=== PATIENT | male | born 1940 | race Caucasian/White ===

== ENCOUNTER → 2020-07-31 08:45 | Outpatient (BNVA) | payer MEDICARE, SELFPAY | PROVIDERS: PCP Internal Medicine; Referring Provider Internal Medicine; Visit Provider Urology | DX: C67.9 Malignant neoplasm of bladder, unspecified (principal); N30.40 Irradiation cystitis without hematuria; R33.9 Retention of urine, unspecified; Z96.0 Presence of urogenital implants; Z85.46 Personal history of malignant neoplasm of prostate; Z92.3 Personal history of irradiation | CPT/HCPCS: 52000; 99212 ==

== ENCOUNTER → 2020-08-28 14:33 | Outpatient (BNVA) | payer MEDICARE, SELFPAY | PROVIDERS: PCP Internal Medicine; Referring Provider Internal Medicine; Visit Provider Urology | DX: N31.9 Neuromuscular dysfunction of bladder, unspecified (principal); C67.9 Malignant neoplasm of bladder, unspecified | CPT/HCPCS: 51701; 51702; 99212 ==

== ENCOUNTER → 2020-09-25 09:26 | Outpatient (BNVA) | payer MEDICARE, SELFPAY | PROVIDERS: PCP Internal Medicine; Referring Provider Internal Medicine; Visit Provider Urology | DX: Z76.89 Persons encountering health services in other specified circumstances (principal) | CPT/HCPCS: 51701; 99212 ==

== ENCOUNTER 2020-09-28 08:06 | Inpatient (IN) | payer MEDICARE, SELFPAY ==
[2020-09-28] VITALS (12 sets, daily range): BP systolic 134–166; BP diastolic 45–91; PULSE 59–71; RESP 13–65; TEMP 36.6–36.8; O2SAT 95–100; BMI 23.0
--- NOTE | 2020-09-28 08:56 | XR_ITS ---
EXAMINATION: XR CHEST CLINICAL INFORMATION: SOB and cough. COMPARISON: None TECHNIQUE: Frontal view of the chest was obtained. FINDINGS: The lungs are well-expanded with slight prominence of bilateral perihilar markings greater on the right but no infiltrate, opacity or pleural effusion seen. Heart size and pulmonary vascularity is normal. No gross bony abnormality seen. XR/XR chest 1V IMPRESSION: No acute pneumonic process. Nonspecific mild increase in bilateral hilar interstitial markings.
--- NOTE | 2020-09-28 08:57 | ECG_ITS ---
Test Reason : SOB Blood Pressure : / mmHG Vent. Rate : 070 BPM Atrial Rate : 074 BPM P-R Int : 000 ms QRS Dur : 076 ms QT Int : 420 ms P-R-T Axes : 000 057 070 degrees QTc Int : 453 ms Artifact in tracing with wandering baseline but suspect sinus rhythm Otherwise normal EKG When compared with ECG of 09-APR-2019 19:45, Current undetermined rhythm precludes rhythm comparison, needs review Referred By: Radha Patel Electronically Signed By:RENEE BROOKS
--- NOTE | 2020-09-28 09:38 | ED.GENADULT ---
HPI - General Adult General Chief complaint: General Medical Stated complaint: diff breathing, cough Time Seen by Provider: 09/28/20 08:56 Source: patient Mode of arrival: ambulatory Limitations: no limitations History of Present Illness HPI narrative: 80 y/o with history of HFpEF, colon cancer, prostate cancer s/p radiation, bladder cancer with bladder outlet obstruction, neurogenic bladder and chronic Rivera catheter who presents to ED from home with difficulty breathing, nausea, and weakness. He is a very poor historian. He reports decreased appetite and not being able to eat much in the last week or so. He was just seen in the Urology office on 09/25 and had his Rivera catheter exchanged. He denies abdominal pain, fevers, or Rivera issues after the exchange. He states he has a chronic cough that is worsening with things not tasting right for month. He also reports intermittent nose bleeds, last was yesterday and able to be controlled with direct pressure. MD complaint: weakness Onset (ago): week(s) (2) Severity: moderate Relieving factors: rest Exacerbating factors: movement Associated symptoms: cough, headaches, loss of appetite, malaise, nausea/vomiting, shortness of breath and weakness Treatments prior to arrival: none Related Data Home Medications Medication Instructions Recorded Confirmed furosemide 20 mg PO BID 09/28/20 09/28/20 metoprolol succinate 25 mg PO DAILY 09/28/20 09/28/20 simvastatin 20 mg PO DAILY 09/28/20 09/28/20 Allergies Allergy/AdvReac Type Severity Reaction Status Date / Time No Known Allergies Allergy Verified 07/31/20 09:06 [No Known Allergies*] Review of Systems Review of Systems: Constitutional: No Fever, No Chills ENT/Mouth: No sore throat, No Rhinorrhea, No Swallowing Difficulty, + nose bleeds Eyes: No Eye Pain, No Swelling, No Redness Cardiovascular: No Chest Pain, + SOB, No Orthopnea, No Edema Respiratory: N+ Cough, No Sputum, No Wheezing, + dyspnea Gastrointestinal: + Nausea, No Vomiting, No Diarrhea, No abdominal Pain, No Hematochezia, No Melena Genitourinary: No Dysuria, No Urinary Frequency, No Hematuria Musculoskeletal: No joint pain, No Myalgias Skin: No Skin Lesions, No rash Neuro: + Weakness, No Numbness, No Dizziness, No Headache Psych: No Anxiety/Panic, No Depression Heme/Lymph: No Bruising, No Lymphadenopathy Endocrine: No Polyuria, No Polydipsia [facility] Past Medical History Attestation statement: The following information was validated with the patient. Medical History Anal polyp Bladder outlet obstruction Diverticulitis large intestine Malignant neoplasm of sigmoid colon Personal history of colon cancer Tubular adenoma of colon Family History Family History (Updated 09/23/20 @ 10:43 by Melony Marx [facility]) Father No problems noted. Mother Family history of cervical cancer Social History Social History Alcohol intake: current Alcohol intake frequency: holidays/special occasions only Alcohol type: beer Smoking Status: Former smoker Use of substances other than those prescribed or required for medical reasons: No Advance Directives: No Advance Directives Information Provided: No Physical Exam Vital Signs: Vital Signs: Last Vital Signs Temp 97.8 F 09/28/20 16:02 Pulse 66 09/28/20 16:02 Resp 13 09/28/20 16:02 BP 150/56 H 09/28/20 16:02 Pulse Ox 95 09/28/20 15:57 Body Mass Index 23.0 Appearance: Alert. Oriented X3. No acute distress. Eyes: Pupils equal, round and reactive to light. Conjunctival pallor. ENT: Pharynx normal. Neck: Normal inspection. Neck supple. CVS: Irregularly irregular, normal rate. Pulses normal. Respiratory: No respiratory distress. Expiratory wheezes throughout right lung. Abdomen: Soft and nontender. +BS x4 KARLA: enlarged prostate, smooth, no bogginess or tenderness. stool light brown. heme negative. Skin: Skin warm and dry. Normal skin color. Normal skin turgor. No rashes. Extremities: No lower extremity edema. Rivera leg pab in place, urine is yellow. Neuro: Oriented X 3. Generalized weakness, non-focal. Stuttered speech at times. Course Reevaluation(s) Reevaluation #1: 10 am - labs show acute on chronic anemia with H/H 6.6/20.4 from a baseline of 9.5/28.7 back in March 2019. He reports history of anemia and being told he has low blood counts. The only other time he was given blood transfusion was when he had surgeries on his colon and bladder. He denies melena, hematuria, BRBPR. He reports occasional epistaxis at home. Not on anticoagulation. Heme negative stool on rectal exam. Etiology of acute on chronic anemia is unclear, possible slow loss with nose bleeds. Will check for hemolysis. - 2 units PRBC ordered and consent obtained. Will transfuse slowly given history of decompensated heart failure. Will require admission. Reevaluation #2: 10:40 am - labs now resultiong with significant acute renal failure with BUN/Cr 147/10.50, last SCr was 1.37 back in March 2019. He has an nion gap of 27 with bicarb of 8. Suspect due to severe uremia. He has Rivera in place with urine draining, Doubt obstructive uropathy. This is likely chronic and evolving over months given he his awake and alert. K+ 4.9. No emergent need for ENTER[employer]. Will get VBG to assess degree of metabolic acidosis, may need bicarb infusion. Suspect his anemia is due to his renal failure. CT scan of chest, abdomen and pelvis ordered. Also elevated DDIMER, this was initially checked as inflammatory marker of possible COVID-19 infection. It is markedly elevated at 2800. This is likely multifactorial. Doubt PE as his SOB can be explained with his acute anemia. He is not hypoxic or tachycardic. He is anemic and would not be an anticoagulation candidate at this time if he were to have a PE. However given his multiple cancers and increased risk for PE will proceed with VQ scan. Reevaluation #3: 12 pm - VBG showing significant metabolic acidosis: 7.16/23/85/8 . ordered for bicarb infusion, 3 amps in D5W. will trend VBG and d/c once pH >7.25. 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 Service is being contacted. Additional Reevaluation(s): 1:45 - spoke with Weight Loss Physician Dr. Agrawal who agrees with current management of bicarb gtt and PRBC transfusion. Avoiding diuretics at this time. Respiratory status is stable. They will follow along during admission. Hospitalist paged for admission. 2:30 - spoke with hospitalist re: admission - requesting repeat BMP ang VBG to ensure acidosis is improving prior to admission to floor. 3:30 - acidemia worsened to 7.14, bicarb infusion has NOT been started yet. Amp bicarb ordered and discussed starting gtt AHSAN with nursing. Case was discussed with Dr. Osorio who is not recommending ICU level of care at this time. Recommending repeat VBG once bicarb gtt has started. This was relayed to Shu Galdamez NP and will inform her of repeat labs. Signed out to Daphnie Ellsworth who will assume care Medical Decision Making Lab Data Result diagrams: 09/28/20 09:26 09/28/20 15:01 Labs: Lab Results 09/28/20 09/28/20 09/28/20 Range/Units 09:26 09:26 09:26 WBC 9.0 (4.8-10.8) X10*3/uL RBC 2.48 L (4.60-5.80) X10*6/uL Hgb 6.6 L* (14.0-18.0) g/dl Hct 20.4 L* (42-52) % MCV 82.3 (80-98) fL MCH 26.6 L (27.0-33.0) pg MCHC 32.4 (31.0-36.0) g/dl RDW 22.4 H (11.0-16.0) % Plt Count 492 H (160-400) X10*3/uL MPV 9.1 L (9.4-12.4) fL Immature Gran % (Auto) 0.6 H (0.0-0.4) % Neut % (Auto) 73.1 H (45-73) % Lymph % (Auto) 15.6 L (20-40) % [place] % (Auto) 8.8 (2-11) % Eos % (Auto) 1.1 (0-4) % Baso % (Auto) 0.8 (0-2) % Lymph # (Auto) 1.4 (1.2-4.9) X10*3/uL [place] # (Auto) 0.8 (0.1-1.2) X10*3/uL Eos # (Auto) 0.1 (0.0-0.4) X10*3/uL Baso # (Auto) 0.1 (0.0-0.2) X10*3/uL Abs Immat Gran (auto) 0.05 H (0.00-0.03) X10*3/uL Absolute Neuts (auto) 6.6 (2.0-8.3) X10*3/uL Absolute Nucleated RBC 0.000 (0.0-0.012) X10*3/uL Nucleated RBC % (auto) 0.0 (0.0-0.2) /100WBC Neutrophils % (Manual) 85 H (45-73) % Band Neutrophils % 1 L (3-5) % Lymphocytes % (Manual) 10 L (20-40) % Monocytes % (Manual) 4 (2-11) % Abs Neuts (Manual) 7.7 (2.2-7.9) X10*3/uL Lymphocytes # (Manual) 0.9 (0.6-4.8) X10*3/uL Monocytes # (Manual) 0.4 (0.0-1.2) X10*3/uL Platelet Estimate INCREASED (NORMAL) Plt Morphology Comment NORMAL RBC Morphology NOTED Hypochromasia 1+ Ovalocytes 1+ Christine Cells 3+ Acanthocytes (Spur) 3+ Schistocytes 2+ Absolute Retic 0.029 (0.026-0.095) X10*6/uL Percent Retic 1.2 (0.5-1.8) % Immature Retic Fraction 2.6 (2.3-13.4) % Retic Hgb Equivalent 30.4 (30.0-35.0) pg PT 12.6 (10.8-13.0) SEC INR 1.1 (0.9-1.1) D-Dimer 2582 NG/ML Hold Blue Top SEE NOTE VBG pH (7.32-7.43) VBG pCO2 mmhg VBG pO2 mmhg VBG HCO3 mmol/L VBG O2 Saturation % VBG Base Excess mmol/L Sodium 140 (135-145) mmol/L Potassium 4.9 (3.3-5.1) mmol/l Chloride 110 H (96-108) mmol/L Carbon Dioxide 8 L* (22-29) mmol/L Anion Gap 27 H (12-20) BUN 147 H* (9-16) mg/dL Creatinine 10.50 H* (0.5-1.4) mg/dL Estim Creat Clear Calc 6.2 Estimated GFR 5 Random Glucose 134 H (60-115) mg/dL Lactic Acid (0.5-2.0) mmol/L Calcium 7.6 L (8.4-10.2) mg/dL Magnesium 2.0 (1.6-2.6) mg/dL Total Bilirubin 0.3 (0.0-1.0) mg/dL Direct Bilirubin < 0.2 (0.0-0.5) mg/dL AST 10 (5-37) U/L ALT 10 (0-40) U/L Alkaline Phosphatase 73 (39-117) U/L Lactate Dehydrogenase 208 (118-273) U/L Troponin I High Sens (<3.5-35.0) ng/L C-Reactive Protein (< or = 0.50) mg/dL B-Natriuretic Peptide (<100) pg/mL Total Protein 6.8 (6.5-8.0) g/dL Albumin 3.9 (3.5-5.0) g/dL Lipase (8-78) U/L Procalcitonin ng/mL Urine Color Urine Appearance Urine pH (5.0-8.0) Ur Specific [place] (1.005-1.025) Urine Protein (NEG-TRACE) MG/DL Urine Glucose (UA) (NEG) MG/DL Urine Ketones (NEG) MG/DL Urine Blood (NEG) Urine Nitrite (NEG) Ur Leukocyte Esterase (NEG) Urine RBC (0) /HPF Urine WBC (0-4) /HPF Urine WBC Clumps Ur Squamous Epith Cells /LPF Urine Bacteria /LPF Urine Yeast /HPF Urine Osmolality (373-1093) mosm/kg Ur Random Sodium mmol/L Stool Occult Blood (NEG) Coronavirus (PCR) (Negative) Influenza Type A (PCR) (Negative) Influenza Type B (PCR) (Negative) RSV RNA Qual (PCR) (Negative) Blood Type Antibody Screen Crossmatch 09/28/20 09/28/20 09/28/20 Range/Units 09:26 09:26 09:26 WBC (4.8-10.8) X10*3/uL RBC (4.60-5.80) X10*6/uL Hgb (14.0-18.0) g/dl Hct (42-52) % MCV (80-98) fL MCH (27.0-33.0) pg MCHC (31.0-36.0) g/dl RDW (11.0-16.0) % Plt Count (160-400) X10*3/uL MPV (9.4-12.4) fL Immature Gran % (Auto) (0.0-0.4) % Neut % (Auto) (45-73) % Lymph % (Auto) (20-40) % [place] % (Auto) (2-11) % Eos % (Auto) (0-4) % Baso % (Auto) (0-2) % Lymph # (Auto) (1.2-4.9) X10*3/uL [place] # (Auto) (0.1-1.2) X10*3/uL Eos # (Auto) (0.0-0.4) X10*3/uL Baso # (Auto) (0.0-0.2) X10*3/uL Abs Immat Gran (auto) (0.00-0.03) X10*3/uL Absolute Neuts (auto) (2.0-8.3) X10*3/uL Absolute Nucleated RBC (0.0-0.012) X10*3/uL Nucleated RBC % (auto) (0.0-0.2) /100WBC Neutrophils % (Manual) (45-73) % Band Neutrophils % (3-5) % Lymphocytes % (Manual) (20-40) % Monocytes % (Manual) (2-11) % Abs Neuts (Manual) (2.2-7.9) X10*3/uL Lymphocytes # (Manual) (0.6-4.8) X10*3/uL Monocytes # (Manual) (0.0-1.2) X10*3/uL Platelet Estimate (NORMAL) Plt Morphology Comment RBC Morphology Hypochromasia Ovalocytes Reynolds Cells Acanthocytes (Spur) Schistocytes Absolute Retic (0.026-0.095) X10*6/uL Percent Retic (0.5-1.8) % Immature Retic Fraction (2.3-13.4) % Retic Hgb Equivalent (30.0-35.0) pg PT (10.8-13.0) SEC INR (0.9-1.1) D-Dimer NG/ML Hold Blue Top VBG pH (7.32-7.43) VBG pCO2 mmhg VBG pO2 mmhg VBG HCO3 mmol/L VBG O2 Saturation % VBG Base Excess mmol/L Sodium (135-145) mmol/L Potassium (3.3-5.1) mmol/l Chloride (96-108) mmol/L Carbon Dioxide (22-29) mmol/L Anion Gap (12-20) BUN (9-16) mg/dL Creatinine (0.5-1.4) mg/dL Estim Creat Clear Calc Estimated GFR Random Glucose (60-115) mg/dL Lactic Acid 1.1 (0.5-2.0) mmol/L Calcium (8.4-10.2) mg/dL Magnesium (1.6-2.6) mg/dL Total Bilirubin (0.0-1.0) mg/dL Direct Bilirubin (0.0-0.5) mg/dL AST (5-37) U/L ALT (0-40) U/L Alkaline Phosphatase (39-117) U/L Lactate Dehydrogenase (118-273) U/L Troponin I High Sens 107.9 H (<3.5-35.0) ng/L C-Reactive Protein 1.49 H (< or = 0.50) mg/dL B-Natriuretic Peptide 737 H (<100) pg/mL Total Protein (6.5-8.0) g/dL Albumin (3.5-5.0) g/dL Lipase 109 H (8-78) U/L Procalcitonin ng/mL Urine Color Urine Appearance Urine pH (5.0-8.0) Ur Specific [place] (1.005-1.025) Urine Protein (NEG-TRACE) MG/DL Urine Glucose (UA) (NEG) MG/DL Urine Ketones (NEG) MG/DL Urine Blood (NEG) Urine Nitrite (NEG) Ur Leukocyte Esterase (NEG) Urine RBC (0) /HPF Urine WBC (0-4) /HPF Urine WBC Clumps Ur Squamous Epith Cells /LPF Urine Bacteria /LPF Urine Yeast /HPF Urine Osmolality (373-1093) mosm/kg Ur Random Sodium mmol/L Stool Occult Blood (NEG) Coronavirus (PCR) (Negative) Influenza Type A (PCR) (Negative) Influenza Type B (PCR) (Negative) RSV RNA Qual (PCR) (Negative) Blood Type Antibody Screen Crossmatch 09/28/20 09/28/20 09/28/20 Range/Units 09:26 09:26 10:04 WBC (4.8-10.8) X10*3/uL RBC (4.60-5.80) X10*6/uL Hgb (14.0-18.0) g/dl Hct (42-52) % MCV (80-98) fL MCH (27.0-33.0) pg MCHC (31.0-36.0) g/dl RDW (11.0-16.0) % Plt Count (160-400) X10*3/uL MPV (9.4-12.4) fL Immature Gran % (Auto) (0.0-0.4) % Neut % (Auto) (45-73) % Lymph % (Auto) (20-40) % [place] % (Auto) (2-11) % Eos % (Auto) (0-4) % Baso % (Auto) (0-2) % Lymph # (Auto) (1.2-4.9) X10*3/uL [place] # (Auto) (0.1-1.2) X10*3/uL Eos # (Auto) (0.0-0.4) X10*3/uL Baso # (Auto) (0.0-0.2) X10*3/uL Abs Immat Gran (auto) (0.00-0.03) X10*3/uL Absolute Neuts (auto) (2.0-8.3) X10*3/uL Absolute Nucleated RBC (0.0-0.012) X10*3/uL Nucleated RBC % (auto) (0.0-0.2) /100WBC Neutrophils % (Manual) (45-73) % Band Neutrophils % (3-5) % Lymphocytes % (Manual) (20-40) % Monocytes % (Manual) (2-11) % Abs Neuts (Manual) (2.2-7.9) X10*3/uL Lymphocytes # (Manual) (0.6-4.8) X10*3/uL Monocytes # (Manual) (0.0-1.2) X10*3/uL Platelet Estimate (NORMAL) Plt Morphology Comment RBC Morphology Hypochromasia Ovalocytes Christine Cells Acanthocytes (Spur) Schistocytes Absolute Retic (0.026-0.095) X10*6/uL Percent Retic (0.5-1.8) % Immature Retic Fraction (2.3-13.4) % Retic Hgb Equivalent (30.0-35.0) pg PT (10.8-13.0) SEC INR (0.9-1.1) D-Dimer NG/ML Hold Blue Top VBG pH (7.32-7.43) VBG pCO2 mmhg VBG pO2 mmhg VBG HCO3 mmol/L VBG O2 Saturation % VBG Base Excess mmol/L Sodium (135-145) mmol/L Potassium (3.3-5.1) mmol/l Chloride (96-108) mmol/L Carbon Dioxide (22-29) mmol/L Anion Gap (12-20) BUN (9-16) mg/dL Creatinine (0.5-1.4) mg/dL Estim Creat Clear Calc Estimated GFR Random Glucose (60-115) mg/dL Lactic Acid (0.5-2.0) mmol/L Calcium (8.4-10.2) mg/dL Magnesium (1.6-2.6) mg/dL Total Bilirubin (0.0-1.0) mg/dL Direct Bilirubin (0.0-0.5) mg/dL AST (5-37) U/L ALT (0-40) U/L Alkaline Phosphatase (39-117) U/L Lactate Dehydrogenase (118-273) U/L Troponin I High Sens (<3.5-35.0) ng/L C-Reactive Protein (< or = 0.50) mg/dL B-Natriuretic Peptide (<100) pg/mL Total Protein (6.5-8.0) g/dL Albumin (3.5-5.0) g/dL Lipase (8-78) U/L Procalcitonin 0.44 ng/mL Urine Color Urine Appearance Urine pH (5.0-8.0) Ur Specific [place] (1.005-1.025) Urine Protein (NEG-TRACE) MG/DL Urine Glucose (UA) (NEG) MG/DL Urine Ketones (NEG) MG/DL Urine Blood (NEG) Urine Nitrite (NEG) Ur Leukocyte Esterase (NEG) Urine RBC (0) /HPF Urine WBC (0-4) /HPF Urine WBC Clumps Ur Squamous Epith Cells /LPF Urine Bacteria /LPF Urine Yeast /HPF Urine Osmolality (373-1093) mosm/kg Ur Random Sodium mmol/L Stool Occult Blood (NEG) Coronavirus (PCR) NEGATIVE (Negative) Influenza Type A (PCR) NEGATIVE (Negative) Influenza Type B (PCR) NEGATIVE (Negative) RSV RNA Qual (PCR) NEGATIVE (Negative) Blood Type B Positive Antibody Screen NEGATIVE Crossmatch See Detail 09/28/20 09/28/20 09/28/20 Range/Units 10:04 10:20 10:20 WBC (4.8-10.8) X10*3/uL RBC (4.60-5.80) X10*6/uL Hgb (14.0-18.0) g/dl Hct (42-52) % MCV (80-98) fL MCH (27.0-33.0) pg MCHC (31.0-36.0) g/dl RDW (11.0-16.0) % Plt Count (160-400) X10*3/uL MPV (9.4-12.4) fL Immature Gran % (Auto) (0.0-0.4) % Neut % (Auto) (45-73) % Lymph % (Auto) (20-40) % [place] % (Auto) (2-11) % Eos % (Auto) (0-4) % Baso % (Auto) (0-2) % Lymph # (Auto) (1.2-4.9) X10*3/uL [place] # (Auto) (0.1-1.2) X10*3/uL Eos # (Auto) (0.0-0.4) X10*3/uL Baso # (Auto) (0.0-0.2) X10*3/uL Abs Immat Gran (auto) (0.00-0.03) X10*3/uL Absolute Neuts (auto) (2.0-8.3) X10*3/uL Absolute Nucleated RBC (0.0-0.012) X10*3/uL Nucleated RBC % (auto) (0.0-0.2) /100WBC Neutrophils % (Manual) (45-73) % Band Neutrophils % (3-5) % Lymphocytes % (Manual) (20-40) % Monocytes % (Manual) (2-11) % Abs Neuts (Manual) (2.2-7.9) X10*3/uL Lymphocytes # (Manual) (0.6-4.8) X10*3/uL Monocytes # (Manual) (0.0-1.2) X10*3/uL Platelet Estimate (NORMAL) Plt Morphology Comment RBC Morphology Hypochromasia Ovalocytes Christine Cells Acanthocytes (Spur) Schistocytes Absolute Retic (0.026-0.095) X10*6/uL Percent Retic (0.5-1.8) % Immature Retic Fraction (2.3-13.4) % Retic Hgb Equivalent (30.0-35.0) pg PT (10.8-13.0) SEC INR (0.9-1.1) D-Dimer NG/ML Hold Blue Top VBG pH (7.32-7.43) VBG pCO2 mmhg VBG pO2 mmhg VBG HCO3 mmol/L VBG O2 Saturation % VBG Base Excess mmol/L Sodium (135-145) mmol/L Potassium (3.3-5.1) mmol/l Chloride (96-108) mmol/L Carbon Dioxide (22-29) mmol/L Anion Gap (12-20) BUN (9-16) mg/dL Creatinine (0.5-1.4) mg/dL Estim Creat Clear Calc Estimated GFR Random Glucose (60-115) mg/dL Lactic Acid (0.5-2.0) mmol/L Calcium (8.4-10.2) mg/dL Magnesium (1.6-2.6) mg/dL Total Bilirubin (0.0-1.0) mg/dL Direct Bilirubin (0.0-0.5) mg/dL AST (5-37) U/L ALT (0-40) U/L Alkaline Phosphatase (39-117) U/L Lactate Dehydrogenase (118-273) U/L Troponin I High Sens (<3.5-35.0) ng/L C-Reactive Protein (< or = 0.50) mg/dL B-Natriuretic Peptide (<100) pg/mL Total Protein (6.5-8.0) g/dL Albumin (3.5-5.0) g/dL Lipase (8-78) U/L Procalcitonin ng/mL Urine Color STRAW Urine Appearance HAZY Urine pH 5.5 (5.0-8.0) Ur Specific [place] 1.025 (1.005-1.025) Urine Protein 2+ H (NEG-TRACE) MG/DL Urine Glucose (UA) NEG (NEG) MG/DL Urine Ketones NEG (NEG) MG/DL Urine Blood 3+ H (NEG) Urine Nitrite NEG (NEG) Ur Leukocyte Esterase 2+ H (NEG) Urine RBC 5-9 H (0) /HPF Urine WBC TNTC H (0-4) /HPF Urine WBC Clumps NOTED Ur Squamous Epith Cells NONE /LPF Urine Bacteria 1+ /LPF Urine Yeast 1+ /HPF Urine Osmolality (373-1093) mosm/kg Ur Random Sodium 60.0 mmol/L Stool Occult Blood NEG (NEG) Coronavirus (PCR) (Negative) Influenza Type A (PCR) (Negative) Influenza Type B (PCR) (Negative) RSV RNA Qual (PCR) (Negative) Blood Type Antibody Screen Crossmatch 09/28/20 09/28/20 09/28/20 Range/Units 10:20 12:00 15:01 WBC (4.8-10.8) X10*3/uL RBC (4.60-5.80) X10*6/uL Hgb (14.0-18.0) g/dl Hct (42-52) % MCV (80-98) fL MCH (27.0-33.0) pg MCHC (31.0-36.0) g/dl RDW (11.0-16.0) % Plt Count (160-400) X10*3/uL MPV (9.4-12.4) fL Immature Gran % (Auto) (0.0-0.4) % Neut % (Auto) (45-73) % Lymph % (Auto) (20-40) % [place] % (Auto) (2-11) % Eos % (Auto) (0-4) % Baso % (Auto) (0-2) % Lymph # (Auto) (1.2-4.9) X10*3/uL [place] # (Auto) (0.1-1.2) X10*3/uL Eos # (Auto) (0.0-0.4) X10*3/uL Baso # (Auto) (0.0-0.2) X10*3/uL Abs Immat Gran (auto) (0.00-0.03) X10*3/uL Absolute Neuts (auto) (2.0-8.3) X10*3/uL Absolute Nucleated RBC (0.0-0.012) X10*3/uL Nucleated RBC % (auto) (0.0-0.2) /100WBC Neutrophils % (Manual) (45-73) % Band Neutrophils % (3-5) % Lymphocytes % (Manual) (20-40) % Monocytes % (Manual) (2-11) % Abs Neuts (Manual) (2.2-7.9) X10*3/uL Lymphocytes # (Manual) (0.6-4.8) X10*3/uL Monocytes # (Manual) (0.0-1.2) X10*3/uL Platelet Estimate (NORMAL) Plt Morphology Comment RBC Morphology Hypochromasia Ovalocytes Reynolds Cells Acanthocytes (Spur) Schistocytes Absolute Retic (0.026-0.095) X10*6/uL Percent Retic (0.5-1.8) % Immature Retic Fraction (2.3-13.4) % Retic Hgb Equivalent (30.0-35.0) pg PT (10.8-13.0) SEC INR (0.9-1.1) D-Dimer NG/ML Hold Blue Top VBG pH 7.16 L* (7.32-7.43) VBG pCO2 23 mmhg VBG pO2 85 mmhg VBG HCO3 8 mmol/L VBG O2 Saturation 94.1 % VBG Base Excess -19.0 mmol/L Sodium 139 (135-145) mmol/L Potassium 4.9 (3.3-5.1) mmol/l Chloride 113 H (96-108) mmol/L Carbon Dioxide 6 L* D (22-29) mmol/L Anion Gap 25 H (12-20) BUN 144 H* (9-16) mg/dL Creatinine 10.00 H* (0.5-1.4) mg/dL Estim Creat Clear Calc 6.5 Estimated GFR 5 Random Glucose 102 (60-115) mg/dL Lactic Acid (0.5-2.0) mmol/L Calcium 7.3 L (8.4-10.2) mg/dL Magnesium (1.6-2.6) mg/dL Total Bilirubin (0.0-1.0) mg/dL Direct Bilirubin (0.0-0.5) mg/dL AST (5-37) U/L ALT (0-40) U/L Alkaline Phosphatase (39-117) U/L Lactate Dehydrogenase (118-273) U/L Troponin I High Sens (<3.5-35.0) ng/L C-Reactive Protein (< or = 0.50) mg/dL B-Natriuretic Peptide (<100) pg/mL Total Protein (6.5-8.0) g/dL Albumin (3.5-5.0) g/dL Lipase (8-78) U/L Procalcitonin ng/mL Urine Color Urine Appearance Urine pH (5.0-8.0) Ur Specific [place] (1.005-1.025) Urine Protein (NEG-TRACE) MG/DL Urine Glucose (UA) (NEG) MG/DL Urine Ketones (NEG) MG/DL Urine Blood (NEG) Urine Nitrite (NEG) Ur Leukocyte Esterase (NEG) Urine RBC (0) /HPF Urine WBC (0-4) /HPF Urine WBC Clumps Ur Squamous Epith Cells /LPF Urine Bacteria /LPF Urine Yeast /HPF Urine Osmolality 365 L (373-1093) mosm/kg Ur Random Sodium mmol/L Stool Occult Blood (NEG) Coronavirus (PCR) (Negative) Influenza Type A (PCR) (Negative) Influenza Type B (PCR) (Negative) RSV RNA Qual (PCR) (Negative) Blood Type Antibody Screen Crossmatch 09/28/20 09/28/20 Range/Units 15:01 16:00 WBC (4.8-10.8) X10*3/uL RBC (4.60-5.80) X10*6/uL Hgb (14.0-18.0) g/dl Hct (42-52) % MCV (80-98) fL MCH (27.0-33.0) pg MCHC (31.0-36.0) g/dl RDW (11.0-16.0) % Plt Count (160-400) X10*3/uL MPV (9.4-12.4) fL Immature Gran % (Auto) (0.0-0.4) % Neut % (Auto) (45-73) % Lymph % (Auto) (20-40) % [place] % (Auto) (2-11) % Eos % (Auto) (0-4) % Baso % (Auto) (0-2) % Lymph # (Auto) (1.2-4.9) X10*3/uL [place] # (Auto) (0.1-1.2) X10*3/uL Eos # (Auto) (0.0-0.4) X10*3/uL Baso # (Auto) (0.0-0.2) X10*3/uL Abs Immat Gran (auto) (0.00-0.03) X10*3/uL Absolute Neuts (auto) (2.0-8.3) X10*3/uL Absolute Nucleated RBC (0.0-0.012) X10*3/uL Nucleated RBC % (auto) (0.0-0.2) /100WBC Neutrophils % (Manual) (45-73) % Band Neutrophils % (3-5) % Lymphocytes % (Manual) (20-40) % Monocytes % (Manual) (2-11) % Abs Neuts (Manual) (2.2-7.9) X10*3/uL Lymphocytes # (Manual) (0.6-4.8) X10*3/uL Monocytes # (Manual) (0.0-1.2) X10*3/uL Platelet Estimate (NORMAL) Plt Morphology Comment RBC Morphology Hypochromasia Ovalocytes Christine Cells Acanthocytes (Spur) Schistocytes Absolute Retic (0.026-0.095) X10*6/uL Percent Retic (0.5-1.8) % Immature Retic Fraction (2.3-13.4) % Retic Hgb Equivalent (30.0-35.0) pg PT (10.8-13.0) SEC INR (0.9-1.1) D-Dimer NG/ML Hold Blue Top VBG pH 7.14 L* (7.32-7.43) VBG pCO2 25 mmhg VBG pO2 80 mmhg VBG HCO3 8 mmol/L VBG O2 Saturation 93.3 % VBG Base Excess -19.3 mmol/L Sodium (135-145) mmol/L Potassium (3.3-5.1) mmol/l Chloride (96-108) mmol/L Carbon Dioxide (22-29) mmol/L Anion Gap (12-20) BUN (9-16) mg/dL Creatinine (0.5-1.4) mg/dL Estim Creat Clear Calc Estimated GFR Random Glucose (60-115) mg/dL Lactic Acid (0.5-2.0) mmol/L Calcium (8.4-10.2) mg/dL Magnesium (1.6-2.6) mg/dL Total Bilirubin (0.0-1.0) mg/dL Direct Bilirubin (0.0-0.5) mg/dL AST (5-37) U/L ALT (0-40) U/L Alkaline Phosphatase (39-117) U/L Lactate Dehydrogenase (118-273) U/L Troponin I High Sens 99.6 H (<3.5-35.0) ng/L C-Reactive Protein (< or = 0.50) mg/dL B-Natriuretic Peptide (<100) pg/mL Total Protein (6.5-8.0) g/dL Albumin (3.5-5.0) g/dL Lipase (8-78) U/L Procalcitonin ng/mL Urine Color Urine Appearance Urine pH (5.0-8.0) Ur Specific [place] (1.005-1.025) Urine Protein (NEG-TRACE) MG/DL Urine Glucose (UA) (NEG) MG/DL Urine Ketones (NEG) MG/DL Urine Blood (NEG) Urine Nitrite (NEG) Ur Leukocyte Esterase (NEG) Urine RBC (0) /HPF Urine WBC (0-4) /HPF Urine WBC Clumps Ur Squamous Epith Cells /LPF Urine Bacteria /LPF Urine Yeast /HPF Urine Osmolality (373-1093) mosm/kg Ur Random Sodium mmol/L Stool Occult Blood (NEG) Coronavirus (PCR) (Negative) Influenza Type A (PCR) (Negative) Influenza Type B (PCR) (Negative) RSV RNA Qual (PCR) (Negative) Blood Type Antibody Screen Crossmatch ECG Data Attestation: I personally reviewed and interpreted this ECG as follows: Interpretation: irregular rhythm consistent with atrial fibrillation, no p-waves appreciated, HR 70 bpm, no ST changes to suggest ischemia Discharge Plan Discharge Clinical Impression: Metabolic acidosis, Acute on chronic anemia Acute renal failure Qualifiers: Acute renal failure type: unspecified Qualified Code(s): N17.9 - Acute kidney failure, unspecified Patient Disposition: Admitted As Inpatient
[2020-09-28 09:40] LABS: MANUAL DIFF FLAG NO
[2020-09-28 09:41] LABS: Basophils Absolute Auto 0.1 X10*3/uL (0.0-0.2); Basophils Percent Auto 0.8 % (0-2); Eosinophils Absolute Auto 0.1 X10*3/uL (0.0-0.4); Eosinophils Percent Auto 1.1 % (0-4); Imm Gran Abs Auto 0.05 X10*3/uL (0.00-0.03); Imm Gran Pct Auto 0.6 % (0.0-0.4); Lymphocytes Absolute Auto 1.4 X10*3/uL (1.2-4.9); Lymphocytes Percent Auto 15.6 % (20-40); Mean Corpuscular HGB Conc 32.4 g/dl (31.0-36.0); Mean Corpuscular Hemoglobin 26.6 pg (27.0-33.0); Mean Corpuscular Volume 82.3 fL (80-98); Mean Platelet Volume 9.1 fL (9.4-12.4); Monocytes Absolute Auto 0.8 X10*3/uL (0.1-1.2); Monocytes Percent Auto 8.8 % (2-11); Neutrophils Absolute Auto 6.6 X10*3/uL (2.0-8.3); Neutrophils Percent Auto 73.1 % (45-73); Platelet Count 492 X10*3/uL (160-400); Red Blood Count 2.48 X10*6/uL (4.60-5.80); Red Cell Distribution Width 22.4 % (11.0-16.0)
[2020-09-28 09:49] LABS: Hematocrit 20.4 % (42-52); Hemoglobin 6.6 g/dl (14.0-18.0)
[2020-09-28 10:00] LABS: Lactic Acid 1.1 mmol/L (0.5-2.0)
[2020-09-28 10:06] LABS: Alanine Aminotransferase 10 U/L (0-40); Albumin Level 3.9 g/dL (3.5-5.0); Alkaline Phosphatase 73 U/L (39-117); Aspartate Amino Transferase 10 U/L (5-37); Bilirubin Direct < 0.2 mg/dL (0.0-0.5); Bilirubin Total 0.3 mg/dL (0.0-1.0); Total Protein 6.8 g/dL (6.5-8.0)
[2020-09-28 10:07] LABS: C Reactive Protein 1.49 mg/dL (< or = 0.50)
[2020-09-28 10:12] LABS: Troponin-I High Sensitivity 107.9 ng/L (<3.5-35.0)
[2020-09-28 10:14] LABS: Immature Retic Fraction 2.6 % (2.3-13.4); Retic HGB Equivalent 30.4 pg (30.0-35.0); Reticulocyte Percent 1.2 % (0.5-1.8); Reticulocytes Absolute 0.029 X10*6/uL (0.026-0.095)
[2020-09-28 10:15] LABS: Influenza A PCR NEGATIVE (Negative); Influenza B PCR NEGATIVE (Negative); Resp Syncy Virus RNA Qual PCR NEGATIVE (Negative); SARS COV2 PCR INHOUSE NEGATIVE (Negative)
[2020-09-28 10:17] LABS: Neutrophils Percent Manual 85 % (45-73)
[2020-09-28 10:18] LABS: Band Neutrophils Percent 1 % (3-5); Lymphocytes Absolute Manual 0.9 X10*3/uL (0.6-4.8); Lymphocytes Percent Manual 10 % (20-40); Monocytes Absolute Manual 0.4 X10*3/uL (0.0-1.2); Monocytes Percent Manual 4 % (2-11); Neutrophils Absolute Manual 7.7 X10*3/uL (2.2-7.9); RBC Morphology NOTED
[2020-09-28 10:19] LABS: Ovalocytes 1+
[2020-09-28 10:21] LABS: Acanthocytes 3+; Burr Cells 3+; Schistocytes 2+
[2020-09-28 10:22] LABS: Platelet Estimate INCREASED (NORMAL); Platelet Morphology Comment NORMAL
[2020-09-28 10:22] LABS: OBS Int Ctl Valid YES; OBS1 NEG (NEG)
[2020-09-28 10:23] LABS: Hypochromasia 1+
[2020-09-28 10:27] LABS: Anion Gap 27 (12-20); B Type Natriuretic Peptide 737 pg/mL (<100); Calcium 7.6 mg/dL (8.4-10.2); Chloride 110 mmol/L (96-108); D Dimer 2582 NG/ML; Glucose Random 134 mg/dL (60-115); Lipase 109 U/L (8-78); Potassium 4.9 mmol/l (3.3-5.1); Sodium 140 mmol/L (135-145)
[2020-09-28 10:29] LABS: Blood Urea Nitrogen 147 mg/dL (9-16); Carbon Dioxide 8 mmol/L (22-29); Creatinine Clr Calc Pharmacy 6.2; Estimated Glomerular Filt Rate 5
--- NOTE | 2020-09-28 10:29 | CT_ITS ---
EXAMINATION: CT CHEST AND CT ABDOMEN AND PELVIS WITHOUT CONTRAST. CLINICAL INFORMATION: Acute renal failure, nausea, acute anemia. COMPARISON: None TECHNIQUE: 5 mm thin axial and reformatted 3 mm thin sagittal and coronal images of chest were obtained without contrast. Subsequently 5 mm thin axial and reformatted 3 mm thin images of abdomen and pelvis were obtained. DLP [id number] FINDINGS: CHEST: The lungs are well-expanded and clear of acute pneumonic process. There are several 2-3 pulmonary nodules in the right upper lobe on axial image 75/7, 78/7, 79/7, 122/7, 2 mm calcified nodule right upper lobe image 158/7, 4 mm nodule right upper lobe axial image 162/7, 3 mm nodule right upper lobe image 174/7. There are several additional 1-2 mm nodules scattered in right upper lobe and left upper lobe, largest calcified nodule left upper lobe measures 3 mm axial image 131/7, 2 mm nodule left upper lobe axial image 259/7, 4 mm nodules pleural-based right lower lobe axial image 262/7, multiple new nodules right lower lobe, 4 mm ill-defined density left lower lobe image 373/7. There is no consolidation. The central trachea and the bronchi widely patent. There is moderate size left thyroid nodule with substernal extension. The nodule measures 3.4 x 3.7 cm on axial image 6/5. The heart size and the great vessels are normal caliber. No abnormal size mediastinal or hilar lymph nodes seen. There are coronary artery calcifications. No pericardial effusion seen. There is no pleural effusion, thickening or calcification. The axilla and the chest wall appears unremarkable. ABDOMEN AND PELVIS: The liver is homogeneous in density, normal size and contour. No focal lesion or intrahepatic ductal dilatation seen. There are no radiopaque gallstones or wall thickening. Visualized spleen, pancreas and bilateral adrenal glands are unremarkable. Both kidneys are normal size, shape and position. No radiopaque renal calculi or hydronephrosis seen. There is scattered stool seen in the colon without distention. The small bowel loops are normal caliber. There are postsurgical changes seen in the abdomen likely involving a loop of small bowel. It is patent. The abdominal aorta is normal caliber. There are small shotty lymph nodes in the mediastinum upper abdomen. The largest lymph node measuring 1 cm on axial image 27/11 Imaging through the pelvis reveals an enlarged left pelvic mass or lymph node measuring 3.9 x 4.0 cm axial image 55/11. In addition there is a larger hypodense lesion in between the iliacus and psoas muscle in the upper pelvis measuring 11 Hounsfield units. The lesion measures approximately 5.7 x 4.8 cm on axial image 50/11. There there is mild bladder wall thickening, decompressed with a Rivera's catheter within. There are surgical alcira or radiation beads in the prostate gland. The bladder is decompressed secondary to a Rivera's catheter within. Bone windows reveal degenerative disc changes almost every lumbar disc level with vacuum disc phenomena. There is ventral ventral spondylosis in dorsal and lumbar spine. CT/CT abdomen pelvis wo con IMPRESSION: Hyperinflated lungs with multiple bilateral pulmonary nodules in the range of 2 to 4 mm. No acute pneumonic consolidation. Enlarged left thyroid gland with substernal nodular extension mildly compressing the trachea but no major compromise. Left pelvic moderate size mass likely enlarged lymph node. Due to lack of IV contrast aneurysm should be considered in the differential diagnosis. There is a cystic lesion in between the iliac crest and psoas muscle in the left upper pelvis likely a seroma or lymphocele. This is a new finding since 2015 CT exam dated Rivera's catheter in an empty bladder. Minimal bladder wall thickening is suspected. There are surgical alcira the prostate bed question radiation beads versus postsurgical alcira. Correlate with clinical exam
[2020-09-28 10:42] LABS: Glucose Urine UA NEG (NEG); Leukocyte Esterase Urine 2+ (NEG); Nitrite Urine NEG (NEG); PH 5.5 (5.0-8.0); Specific Gravity - Urine 1.025 (1.005-1.025); Urine Blood 3+ (NEG); Urine Ketones NEG (NEG); Urine Protein 2+ MG/DL (NEG-TRACE)
[2020-09-28 10:44] LABS: Lactate Dehydrogenase 208 U/L (118-273)
[2020-09-28] MEDS: 0.9 % Sodium Chloride 1,000 ML 999 ML IVCONT (10:44)
[2020-09-28] MEDS: ondansetron HCL 4 MG/2 ML VIAL IVPUSH (10:48)
[2020-09-28 11:02] LABS: Procalcitonin 0.44 ng/mL
[2020-09-28 11:03] LABS: Appearance Urine HAZY; Color Urine STRAW
[2020-09-28 11:04] LABS: Bacteria Urine 1+ /LPF; WBC Urine TNTC /HPF (0-4)
[2020-09-28 11:05] LABS: WBC Clumps Urine NOTED
--- NOTE | 2020-09-28 11:51 | NM_ITS ---
EXAMINATION: NM LUNG IMAGE PERFUSION CLINICAL INFORMATION: SOB, elevated d-dimer. COMPARISON: Chest x-ray 09/28/2020 TECHNIQUE: Following intravenous administration of 4 mCi of 99m Tc MAA, imaging of both lungs are obtained in multiple projections. Ventilation study was not performed at FINDINGS: There is normal perfusion seen to all segments of both lungs no perfusion defects seen. No segmental or subsegmental defects seen. NM/NM pul perfusion IMPRESSION: Normal perfusion of both lungs.
[2020-09-28 12:07] LABS: HCO3 VBG 8 mmol/L; PCO2 VBG 23 mmhg; PO2 VBG 85 mmhg
[2020-09-28 12:08] LABS: Oxygen Saturation VBG 94.1 %
[2020-09-28 12:10] LABS: pH VBG 7.16 (7.32-7.43)
[2020-09-28 13:03] LABS: INTERNATIONAL NORM RATIO 1.1 (0.9-1.1); Prothrombin Time 12.6 SEC (10.8-13.0)
[2020-09-28 13:36] LABS: Osmolality Urine 365 mosm/kg (373-1093)
--- NOTE | 2020-09-28 14:13 | PC.NURSE ---
Blood remains infusing. Pt resting in bed with eyes closed.VSS
--- NOTE | 2020-09-28 15:13 | PC.NURSE ---
First unit of blood completed. Repeat labs drawn. Awaiting hospitalist consult at this time. Plan is for second unit of blood.
[2020-09-28 15:31] LABS: Base Excess VBG -19.3 mmol/L; HCO3 VBG 8 mmol/L; Oxygen Saturation VBG 93.3 %; PCO2 VBG 25 mmhg; PO2 VBG 80 mmhg
[2020-09-28 15:32] LABS: Blood Gas Serial # 5414
[2020-09-28 15:33] LABS: pH VBG 7.14 (7.32-7.43)
[2020-09-28] MEDS: Sodium Bicarbonate 8.4% 50 MEQ/50 ML SYRINGE IVPUSH (16:02)
[2020-09-28] MEDS: 0.9 % Sodium Chloride 1,000 ML 333 ML IVCONT (16:05)
[2020-09-28 16:08] LABS: Calcium 7.3 mg/dL (8.4-10.2); Glucose Random 102 mg/dL (60-115)
[2020-09-28 16:24] LABS: Anion Gap 25 (12-20); Blood Urea Nitrogen 144 mg/dL (9-16); Carbon Dioxide 6 mmol/L (22-29); Chloride 113 mmol/L (96-108); Creatinine Clr Calc Pharmacy 6.5; Estimated Glomerular Filt Rate 5; Potassium 4.9 mmol/l (3.3-5.1); Sodium 139 mmol/L (135-145)
[2020-09-28] MEDS: Sodium Bicarbonate 8.4% 150 MEQ in Dextrose 5 % 850 ML 100 MEQ IV (16:38)
[2020-09-28 16:47] LABS: Troponin-I High Sensitivity 99.6 ng/L (<3.5-35.0)
--- NOTE | 2020-09-28 18:12 | PC.NURSE ---
Second unit of blood given. Pt's lungs clear. VSS. Awaiting bed assignment for admission.
[2020-09-28 18:56] LABS: Base Excess VBG -17.6 mmol/L; HCO3 VBG 9 mmol/L; Oxygen Saturation VBG 99.1 %; PCO2 VBG 21 mmhg; PO2 VBG 240 mmhg; pH VBG 7.22 (7.32-7.43)
[2020-09-28 19:31] LABS: Anion Gap 25 (12-20); Calcium 6.8 mg/dL (8.4-10.2); Carbon Dioxide 7 mmol/L (22-29); Chloride 116 mmol/L (96-108); Creatinine Clr Calc Pharmacy 6.7; Estimated Glomerular Filt Rate 5; Glucose Random 105 mg/dL (60-115); Potassium 4.8 mmol/l (3.3-5.1); Sodium 143 mmol/L (135-145)
--- NOTE | 2020-09-28 20:49 | P.HPHOSP_ITS ---
History of Present Illness Date of Service: 09/28/20 Chief Complaint: cough, SOB on exertion This 80-year-old male with past medical history of bladder cancer, radiation cystitis, prostate cancer status post prostatectomy, hypertension, presents to the hospital with complaints of cough, and exertional shortness of breath. He is very difficult, grumpy and is not really giving a lot of accurate history. Patient reports that he has been having cough for 2-3 months and maybe longer, productive, associated with shortness of breath that has been progressively getting worse, he denies any chest pain, he denies any abdominal pain, no nausea or vomiting, no diarrhea constipation. He denies any melena or bright red blood per rectum. Patient reports that he has been blowing his nose and bleeding from his nose, when asked for how long he cant tell me exactly how many days as he doesnt keep count , he denies hematemesis or hemoptysis although says that the bleeding from his nose goes into his mouth and he spits it out. he says that he takes advil for general pain on/off , some days he takes 1 pill, some days he takes multiple but denies daily use. He denies orthopnea or PND. Has a chronic Rivera catheter in which was changed on the , with no complications. On arrival to the ED hemodynamically stable with vital significant for temp of 97.8?, respiratory rate of 14, heart rate of 65, blood pressure of 142/45, 95% on room air Labs are significant for WBC count of 9.0, hemoglobin of 6.6 last hemoglobin from 2019 of 9, hematocrit of 20.4, initial VBG on arrival showed a pH of 7.16, sodium of 143, potassium 4.8, chloride of 116, bicarb of 6, anion gap of 27, BUN of 147, creatinine of 10.5, high sensitivity troponin initially 107.9, repeat 99.6, BNP 737, Stool guaiac positive Chest CT shows hyperinflated lungs with multiple bilateral pulmonary nodules in the range of 2-4 mm. With no acute pneumonic consolidation Abdominal CT shows left pelvic moderate size mass likely enlarged lymph node. Due to lack of IV contrast aneurysm should be considered in differential diagnosis A cystic lesion in between the iliac crest and psoas muscle and the upper pelvis likely a seroma or lymphocele Rivera catheter an empty bladder, minimal bladder wall thickening. Past medical history: Prostate cancer status post prostatectomy, bladder cancer, bladder outlet obstruction status post chronic Rivera catheter, colon cancer status post colectomy, Surgical history: Prostatectomy, colectomy Family history: Denies What social history: Comes from home, denies tobacco alcohol or illicit drugs Review of Systems Review of Systems: Yes all other systems are reviewed and are negative [facility] Medical History Anal polyp Bladder outlet obstruction Diverticulitis large intestine Malignant neoplasm of sigmoid colon Personal history of colon cancer Tubular adenoma of colon Family History (Updated 09/23/20 @ 10:43 by Melony Marx Juanjo) Father No problems noted. Mother Family history of cervical cancer Social History Alcohol intake: current Alcohol intake frequency: holidays/special occasions only Alcohol type: beer Smoking Status: Former smoker Use of substances other than those prescribed or required for medical reasons: No Advance Directives: No Advance Directives Information Provided: No Meds Allergies Allergy/AdvReac Type Severity Reaction Status Date / Time No Known Allergies Allergy Verified 07/31/20 09:06 [No Known Allergies*] Home Medications Medication Instructions Recorded Confirmed Type furosemide 20 mg PO BID 09/28/20 09/28/20 History metoprolol succinate 25 mg PO DAILY 09/28/20 09/28/20 History simvastatin 20 mg PO DAILY 09/28/20 09/28/20 History Physical Exam Vital Signs and Narrative: Vital Signs: Last Vital Signs Temp 97.8 F 09/28/20 18:09 Pulse 64 09/28/20 18:09 Resp 18 09/28/20 18:09 BP 151/64 H 09/28/20 18:09 Pulse Ox 100 09/28/20 18:00 Body Mass Index 23.0 Const: Other: Uncooperative, General: no acute distress, alert and awake Orientation/consciousness: patient oriented x3 Limitations: no limitations Eyes: General: appearance normal, both eyes and all related structures Resp: Effort & Inspection: normal respiratory effort and able to speak in complete sentences Cardio: Rate: regular rate Rhythm: regular rhythm GI: Palpation (GI): Soft to palpation Auscultation: normal bowel sounds Skin: General skin exam: no rashes or lesions noted Neuro: General: patient oriented x3 Cognition (Neuro): normal cognition Extrem: General: Yes normal to inspection and Yes no pedal edema Results Labs CBC and Chem 7: 09/29/20 00:50 09/29/20 00:50 Labs: Laboratory Results - last 24 hr 09/28/20 09/28/20 09/28/20 09:26 09:26 09:26 MCV 82.3 MCH 26.6 L MCHC 32.4 RDW 22.4 H Plt Count 492 H MPV 9.1 L Immature Gran % (Auto) 0.6 H Neut % (Auto) 73.1 H Lymph % (Auto) 15.6 L Henry % (Auto) 8.8 Eos % (Auto) 1.1 Baso % (Auto) 0.8 Lymph # (Auto) 1.4 Henry # (Auto) 0.8 Eos # (Auto) 0.1 Baso # (Auto) 0.1 Abs Immat Gran (auto) 0.05 H Absolute Neuts (auto) 6.6 Absolute Nucleated RBC 0.000 Nucleated RBC % (auto) 0.0 Neutrophils % (Manual) 85 H Band Neutrophils % 1 L Lymphocytes % (Manual) 10 L Monocytes % (Manual) 4 Abs Neuts (Manual) 7.7 Lymphocytes # (Manual) 0.9 Monocytes # (Manual) 0.4 Platelet Estimate INCREASED Plt Morphology Comment NORMAL RBC Morphology NOTED Hypochromasia 1+ Ovalocytes 1+ [place] Cells 3+ Acanthocytes (Spur) 3+ Schistocytes 2+ Absolute Retic 0.029 Percent Retic 1.2 Immature Retic Fraction 2.6 Retic Hgb Equivalent 30.4 PT 12.6 INR 1.1 D-Dimer 2582 Hold Blue Top SEE NOTE VBG pH VBG pCO2 VBG pO2 VBG HCO3 VBG O2 Saturation VBG Base Excess Anion Gap 27 H Estim Creat Clear Calc 6.2 Estimated GFR 5 Random Glucose 134 H Lactic Acid Calcium 7.6 L Magnesium 2.0 Total Bilirubin 0.3 Direct Bilirubin < 0.2 AST 10 ALT 10 Alkaline Phosphatase 73 Lactate Dehydrogenase 208 Troponin I High Sens C-Reactive Protein B-Natriuretic Peptide Total Protein 6.8 Albumin 3.9 Lipase Procalcitonin Urine Color Urine Appearance Urine pH Ur Specific [place] Urine Protein Urine Glucose (UA) Urine Ketones Urine Blood Urine Nitrite Ur Leukocyte Esterase Urine RBC Urine WBC Urine WBC Clumps Ur Squamous Epith Cells Urine Bacteria Urine Yeast Urine Osmolality Ur Random Sodium Stool Occult Blood Coronavirus (PCR) Influenza Type A (PCR) Influenza Type B (PCR) RSV RNA Qual (PCR) Blood Type Antibody Screen Crossmatch 09/28/20 09/28/20 09/28/20 09:26 09:26 09:26 MCV MCH MCHC RDW Plt Count MPV Immature Gran % (Auto) Neut % (Auto) Lymph % (Auto) Henry % (Auto) Eos % (Auto) Baso % (Auto) Lymph # (Auto) Henry # (Auto) Eos # (Auto) Baso # (Auto) Abs Immat Gran (auto) Absolute Neuts (auto) Absolute Nucleated RBC Nucleated RBC % (auto) Neutrophils % (Manual) Band Neutrophils % Lymphocytes % (Manual) Monocytes % (Manual) Abs Neuts (Manual) Lymphocytes # (Manual) Monocytes # (Manual) Platelet Estimate Plt Morphology Comment RBC Morphology Hypochromasia Ovalocytes Christine Cells Acanthocytes (Spur) Schistocytes Absolute Retic Percent Retic Immature Retic Fraction Retic Hgb Equivalent PT INR D-Dimer Hold Blue Top VBG pH VBG pCO2 VBG pO2 VBG HCO3 VBG O2 Saturation VBG Base Excess Anion Gap Estim Creat Clear Calc Estimated GFR Random Glucose Lactic Acid 1.1 Calcium Magnesium Total Bilirubin Direct Bilirubin AST ALT Alkaline Phosphatase Lactate Dehydrogenase Troponin I High Sens 107.9 H C-Reactive Protein 1.49 H B-Natriuretic Peptide 737 H Total Protein Albumin Lipase 109 H Procalcitonin Urine Color Urine Appearance Urine pH Ur Specific [place] Urine Protein Urine Glucose (UA) Urine Ketones Urine Blood Urine Nitrite Ur Leukocyte Esterase Urine RBC Urine WBC Urine WBC Clumps Ur Squamous Epith Cells Urine Bacteria Urine Yeast Urine Osmolality Ur Random Sodium Stool Occult Blood Coronavirus (PCR) Influenza Type A (PCR) Influenza Type B (PCR) RSV RNA Qual (PCR) Blood Type Antibody Screen Crossmatch 09/28/20 09/28/20 09/28/20 09:26 09:26 10:04 MCV MCH MCHC RDW Plt Count MPV Immature Gran % (Auto) Neut % (Auto) Lymph % (Auto) Henry % (Auto) Eos % (Auto) Baso % (Auto) Lymph # (Auto) Henry # (Auto) Eos # (Auto) Baso # (Auto) Abs Immat Gran (auto) Absolute Neuts (auto) Absolute Nucleated RBC Nucleated RBC % (auto) Neutrophils % (Manual) Band Neutrophils % Lymphocytes % (Manual) Monocytes % (Manual) Abs Neuts (Manual) Lymphocytes # (Manual) Monocytes # (Manual) Platelet Estimate Plt Morphology Comment RBC Morphology Hypochromasia Ovalocytes [place] Cells Acanthocytes (Spur) Schistocytes Absolute Retic Percent Retic Immature Retic Fraction Retic Hgb Equivalent PT INR D-Dimer Hold Blue Top VBG pH VBG pCO2 VBG pO2 VBG HCO3 VBG O2 Saturation VBG Base Excess Anion Gap Estim Creat Clear Calc Estimated GFR Random Glucose Lactic Acid Calcium Magnesium Total Bilirubin Direct Bilirubin AST ALT Alkaline Phosphatase Lactate Dehydrogenase Troponin I High Sens C-Reactive Protein B-Natriuretic Peptide Total Protein Albumin Lipase Procalcitonin 0.44 Urine Color Urine Appearance Urine pH Ur Specific [place] Urine Protein Urine Glucose (UA) Urine Ketones Urine Blood Urine Nitrite Ur Leukocyte Esterase Urine RBC Urine WBC Urine WBC Clumps Ur Squamous Epith Cells Urine Bacteria Urine Yeast Urine Osmolality Ur Random Sodium Stool Occult Blood Coronavirus (PCR) NEGATIVE Influenza Type A (PCR) NEGATIVE Influenza Type B (PCR) NEGATIVE RSV RNA Qual (PCR) NEGATIVE Blood Type B Positive Antibody Screen NEGATIVE Crossmatch See Detail 09/28/20 09/28/20 09/28/20 10:04 10:20 10:20 MCV MCH MCHC RDW Plt Count MPV Immature Gran % (Auto) Neut % (Auto) Lymph % (Auto) Henry % (Auto) Eos % (Auto) Baso % (Auto) Lymph # (Auto) Henry # (Auto) Eos # (Auto) Baso # (Auto) Abs Immat Gran (auto) Absolute Neuts (auto) Absolute Nucleated RBC Nucleated RBC % (auto) Neutrophils % (Manual) Band Neutrophils % Lymphocytes % (Manual) Monocytes % (Manual) Abs Neuts (Manual) Lymphocytes # (Manual) Monocytes # (Manual) Platelet Estimate Plt Morphology Comment RBC Morphology Hypochromasia Ovalocytes Christine Cells Acanthocytes (Spur) Schistocytes Absolute Retic Percent Retic Immature Retic Fraction Retic Hgb Equivalent PT INR D-Dimer Hold Blue Top VBG pH VBG pCO2 VBG pO2 VBG HCO3 VBG O2 Saturation VBG Base Excess Anion Gap Estim Creat Clear Calc Estimated GFR Random Glucose Lactic Acid Calcium Magnesium Total Bilirubin Direct Bilirubin AST ALT Alkaline Phosphatase Lactate Dehydrogenase Troponin I High Sens C-Reactive Protein B-Natriuretic Peptide Total Protein Albumin Lipase Procalcitonin Urine Color STRAW Urine Appearance HAZY Urine pH 5.5 Ur Specific [place] 1.025 Urine Protein 2+ H Urine Glucose (UA) NEG Urine Ketones NEG Urine Blood 3+ H Urine Nitrite NEG Ur Leukocyte Esterase 2+ H Urine RBC 5-9 H Urine WBC TNTC H Urine WBC Clumps NOTED Ur Squamous Epith Cells NONE Urine Bacteria 1+ Urine Yeast 1+ Urine Osmolality Ur Random Sodium 60.0 Stool Occult Blood NEG Coronavirus (PCR) Influenza Type A (PCR) Influenza Type B (PCR) RSV RNA Qual (PCR) Blood Type Antibody Screen Crossmatch 09/28/20 09/28/20 09/28/20 10:20 12:00 15:01 MCV MCH MCHC RDW Plt Count MPV Immature Gran % (Auto) Neut % (Auto) Lymph % (Auto) Henry % (Auto) Eos % (Auto) Baso % (Auto) Lymph # (Auto) Henry # (Auto) Eos # (Auto) Baso # (Auto) Abs Immat Gran (auto) Absolute Neuts (auto) Absolute Nucleated RBC Nucleated RBC % (auto) Neutrophils % (Manual) Band Neutrophils % Lymphocytes % (Manual) Monocytes % (Manual) Abs Neuts (Manual) Lymphocytes # (Manual) Monocytes # (Manual) Platelet Estimate Plt Morphology Comment RBC Morphology Hypochromasia Ovalocytes [place] Cells Acanthocytes (Spur) Schistocytes Absolute Retic Percent Retic Immature Retic Fraction Retic Hgb Equivalent PT INR D-Dimer Hold Blue Top VBG pH 7.16 L* VBG pCO2 23 VBG pO2 85 VBG HCO3 8 VBG O2 Saturation 94.1 VBG Base Excess -19.0 Anion Gap 25 H Estim Creat Clear Calc 6.5 Estimated GFR 5 Random Glucose 102 Lactic Acid Calcium 7.3 L Magnesium Total Bilirubin Direct Bilirubin AST ALT Alkaline Phosphatase Lactate Dehydrogenase Troponin I High Sens C-Reactive Protein B-Natriuretic Peptide Total Protein Albumin Lipase Procalcitonin Urine Color Urine Appearance Urine pH Ur Specific [place] Urine Protein Urine Glucose (UA) Urine Ketones Urine Blood Urine Nitrite Ur Leukocyte Esterase Urine RBC Urine WBC Urine WBC Clumps Ur Squamous Epith Cells Urine Bacteria Urine Yeast Urine Osmolality 365 L Ur Random Sodium Stool Occult Blood Coronavirus (PCR) Influenza Type A (PCR) Influenza Type B (PCR) RSV RNA Qual (PCR) Blood Type Antibody Screen Crossmatch 09/28/20 09/28/20 09/28/20 15:01 16:00 18:44 MCV MCH MCHC RDW Plt Count MPV Immature Gran % (Auto) Neut % (Auto) Lymph % (Auto) Henry % (Auto) Eos % (Auto) Baso % (Auto) Lymph # (Auto) Henry # (Auto) Eos # (Auto) Baso # (Auto) Abs Immat Gran (auto) Absolute Neuts (auto) Absolute Nucleated RBC Nucleated RBC % (auto) Neutrophils % (Manual) Band Neutrophils % Lymphocytes % (Manual) Monocytes % (Manual) Abs Neuts (Manual) Lymphocytes # (Manual) Monocytes # (Manual) Platelet Estimate Plt Morphology Comment RBC Morphology Hypochromasia Ovalocytes Christine Cells Acanthocytes (Spur) Schistocytes Absolute Retic Percent Retic Immature Retic Fraction Retic Hgb Equivalent PT INR D-Dimer Hold Blue Top VBG pH 7.14 L* VBG pCO2 25 VBG pO2 80 VBG HCO3 8 VBG O2 Saturation 93.3 VBG Base Excess -19.3 Anion Gap 25 H Estim Creat Clear Calc 6.7 Estimated GFR 5 Random Glucose 105 Lactic Acid Calcium 6.8 L D Magnesium Total Bilirubin Direct Bilirubin AST ALT Alkaline Phosphatase Lactate Dehydrogenase Troponin I High Sens 99.6 H C-Reactive Protein B-Natriuretic Peptide Total Protein Albumin Lipase Procalcitonin Urine Color Urine Appearance Urine pH Ur Specific [place] Urine Protein Urine Glucose (UA) Urine Ketones Urine Blood Urine Nitrite Ur Leukocyte Esterase Urine RBC Urine WBC Urine WBC Clumps Ur Squamous Epith Cells Urine Bacteria Urine Yeast Urine Osmolality Ur Random Sodium Stool Occult Blood Coronavirus (PCR) Influenza Type A (PCR) Influenza Type B (PCR) RSV RNA Qual (PCR) Blood Type Antibody Screen Crossmatch 09/28/20 18:44 MCV MCH MCHC RDW Plt Count MPV Immature Gran % (Auto) Neut % (Auto) Lymph % (Auto) Henry % (Auto) Eos % (Auto) Baso % (Auto) Lymph # (Auto) Henry # (Auto) Eos # (Auto) Baso # (Auto) Abs Immat Gran (auto) Absolute Neuts (auto) Absolute Nucleated RBC Nucleated RBC % (auto) Neutrophils % (Manual) Band Neutrophils % Lymphocytes % (Manual) Monocytes % (Manual) Abs Neuts (Manual) Lymphocytes # (Manual) Monocytes # (Manual) Platelet Estimate Plt Morphology Comment RBC Morphology Hypochromasia Ovalocytes [place] Cells Acanthocytes (Spur) Schistocytes Absolute Retic Percent Retic Immature Retic Fraction Retic Hgb Equivalent PT INR D-Dimer Hold Blue Top VBG pH 7.22 L VBG pCO2 21 VBG pO2 240 VBG HCO3 9 VBG O2 Saturation 99.1 VBG Base Excess -17.6 Anion Gap Estim Creat Clear Calc Estimated GFR Random Glucose Lactic Acid Calcium Magnesium Total Bilirubin Direct Bilirubin AST ALT Alkaline Phosphatase Lactate Dehydrogenase Troponin I High Sens C-Reactive Protein B-Natriuretic Peptide Total Protein Albumin Lipase Procalcitonin Urine Color Urine Appearance Urine pH Ur Specific [place] Urine Protein Urine Glucose (UA) Urine Ketones Urine Blood Urine Nitrite Ur Leukocyte Esterase Urine RBC Urine WBC Urine WBC Clumps Ur Squamous Epith Cells Urine Bacteria Urine Yeast Urine Osmolality Ur Random Sodium Stool Occult Blood Coronavirus (PCR) Influenza Type A (PCR) Influenza Type B (PCR) RSV RNA Qual (PCR) Blood Type Antibody Screen Crossmatch Imaging Radiologist's Impressions: Impressions Chest X-Ray 09/28/20 08:56 IMPRESSION: No acute pneumonic process. Nonspecific mild increase in bilateral hilar interstitial markings. Abdomen/Pelvis CT 09/28/20 10:29 IMPRESSION: Hyperinflated lungs with multiple bilateral pulmonary nodules in the range of 2 to 4 mm. No acute pneumonic consolidation. Enlarged left thyroid gland with substernal nodular extension mildly compressing the trachea but no major compromise. Left pelvic moderate size mass likely enlarged lymph node. Due to lack of IV contrast aneurysm should be considered in the differential diagnosis. There is a cystic lesion in between the iliac crest and psoas muscle in the left upper pelvis likely a seroma or lymphocele. This is a new finding since 2014 CT exam dated Rivera's catheter in an empty bladder. Minimal bladder wall thickening is suspected. There are surgical alcira the prostate bed question radiation beads versus postsurgical alcira. Correlate with clinical exam Chest CT 09/28/20 10:29 IMPRESSION: Hyperinflated lungs with multiple bilateral pulmonary nodules in the range of 2 to 4 mm. No acute pneumonic consolidation. Enlarged left thyroid gland with substernal nodular extension mildly compressing the trachea but no major compromise. Left pelvic moderate size mass likely enlarged lymph node. Due to lack of IV contrast aneurysm should be considered in the differential diagnosis. There is a cystic lesion in between the iliac crest and psoas muscle in the left upper pelvis likely a seroma or lymphocele. This is a new finding since 2014 CT exam dated Rivera's catheter in an empty bladder. Minimal bladder wall thickening is suspected. There are surgical alcira the prostate bed question radiation beads versus postsurgical alcira. Correlate with clinical exam Assessment and Plan (1) Acute renal failure: Qualifiers: Acute renal failure type: unspecified Qualified Code(s): N17.9 - Acute kidney failure, unspecified Status: Acute (2) Metabolic acidosis: Status: Acute (3) Acute on chronic anemia: Status: Acute (4) Bladder cancer: Qualifiers: Bladder location: unspecified site Qualified Code(s): C67.9 - Malignant neoplasm of bladder, unspecified Status: Acute (5) UTI (urinary tract infection): Status: Acute This is a 80-year-old male with past medical history of bladder cancer, hypertension who presents to the hospital with cough, found to have anemia as well as FRANCHESKA # FRANCHESKA - unclear etiology, possibly secondary to Advil use - last creatinine from 2019 is 1.37, presented with a creatinine of 10.5 and significantly elevated BUN Plan: - urine studies - hold furosemide - IV fluids - nephrology consult - follow BMP # acute on chronic anemia -presented with a hemoglobin of 6.6, reports bleeding from the nose although not significant, denies any melena or bright red blood per rectum - stool guaiac negative - no elevated MCV - abdominal CT negative Plan: - status post 1 unit of PRBC - follow H&H closely - monitor for any GI bleed - haptoglobin, B12, folic acid were ordered - if organic causes ruled out, may need upper endoscopy/colonoscopy prior to discharge # metabolic acidosis - secondary to renal failure - started on bicarb drip after discussion with Nephrology - will continue to follow bicarb as well as VBG # UTI - has chronic Rivera secondary to neurogenic urinary bladder disorder - UA is positive for leukocyte Estrace and WBC Plan: - start ceftriaxone - follow cultures # cough - most likely secondary to pulmonary nodules - has no evident of fluid overload clinically or through imaging as CT scan shows pulmonary nodules with no pneumonic abnormality otherwise including congestion or pneumonia - COVID-19 PCR negative - not hypoxic - albuterol inhaler and monitor respiratory status # elevated troponin - most likely type 2 in the setting of FRANCHESKA - has no EKG changes - no delta # hypertension - continue metoprolol DVT prophylaxis: SCDs
[2020-09-28] MEDS: Lactated Ringers 1,000 ML 100 ML IVCONT (23:30)
[2020-09-29] VITALS (7 sets, daily range): BP systolic 117–135; BP diastolic 49–80; PULSE 50–96; RESP 13–18; TEMP 36.3–36.8; O2SAT 94–100
[2020-09-29] MEDS: cefTRIAXone sodium 1 GM in 0.9 % Sodium Chloride 50 ML IV ×2 (00:08→22:49)
[2020-09-29] MEDS: 0.9 % Sodium Chloride Flush 3 ML SYRINGE IVFLUSH (00:38)
[2020-09-29 00:59] LABS: Hematocrit 23.7 % (42-52); Hemoglobin 8.1 g/dl (14.0-18.0)
[2020-09-29 01:00] LABS: HCO3 VBG 10 mmol/L; PCO2 VBG 20 mmhg; PO2 VBG 69 mmhg; pH VBG 7.31 (7.32-7.43)
[2020-09-29 01:01] LABS: Oxygen Saturation VBG 91.9 %
[2020-09-29 01:46] LABS: Anion Gap 23 (12-20); Calcium 6.6 mg/dL (8.4-10.2); Carbon Dioxide 10 mmol/L (22-29); Chloride 114 mmol/L (96-108); Estimated Glomerular Filt Rate 5; Glucose Random 102 mg/dL (60-115); Potassium 4.3 mmol/l (3.3-5.1); Sodium 143 mmol/L (135-145)
[2020-09-29 01:57] LABS: Blood Urea Nitrogen 134 mg/dL (9-16)
[2020-09-29 05:51] LABS: Basophils Absolute Auto 0.1 X10*3/uL (0.0-0.2); Basophils Percent Auto 0.9 % (0-2); Eosinophils Absolute Auto 0.1 X10*3/uL (0.0-0.4); Eosinophils Percent Auto 1.3 % (0-4); Hematocrit 24.9 % (42-52); Hemoglobin 8.5 g/dl (14.0-18.0); Imm Gran Abs Auto 0.04 X10*3/uL (0.00-0.03); Imm Gran Pct Auto 0.4 % (0.0-0.4); Lymphocytes Absolute Auto 2.6 X10*3/uL (1.2-4.9); Lymphocytes Percent Auto 27.3 % (20-40); MANUAL DIFF FLAG NO; Mean Corpuscular HGB Conc 34.1 g/dl (31.0-36.0); Mean Corpuscular Hemoglobin 27.5 pg (27.0-33.0); Mean Corpuscular Volume 80.6 fL (80-98); Monocytes Percent Auto 10.4 % (2-11); Neutrophils Absolute Auto 5.8 X10*3/uL (2.0-8.3); Neutrophils Percent Auto 59.7 % (45-73); Platelet Count 392 X10*3/uL (160-400); Red Blood Count 3.09 X10*6/uL (4.60-5.80); Red Cell Distribution Width 19.4 % (11.0-16.0); White Blood Count 9.7 X10*3/uL (4.8-10.8)
[2020-09-29 06:30] LABS: Anion Gap 22 (12-20); Calcium 6.7 mg/dL (8.4-10.2); Carbon Dioxide 11 mmol/L (22-29); Chloride 113 mmol/L (96-108); Creatinine Clr Calc Pharmacy 7.1; Estimated Glomerular Filt Rate 6; Glucose Random 85 mg/dL (60-115); Potassium 4.1 mmol/l (3.3-5.1); Sodium 142 mmol/L (135-145)
[2020-09-29 06:35] LABS: Blood Urea Nitrogen 133 mg/dL (9-16)
[2020-09-29 07:36] LABS: Folate 4.2 ng/mL (> or = 4.0); Vitamin B12 911 pg/mL (200-900)
[2020-09-29] MEDS: Lactated Ringers 1,000 ML 100 ML IVCONT (07:57)
[2020-09-29] MEDS: Metoprolol Succinate ER 25 MG TAB.ER.24H PO (08:04)
[2020-09-29] MEDS: Atorvastatin Calcium 10 MG TABLET PO (08:04)
--- NOTE | 2020-09-29 09:42 | HO.PM.IMPN ---
Subjective Subjective Date of Service: 09/29/20 Interval History: cough Cardiovascular Cardiovascular: Reports no additional cardiovascular complaints Respiratory Respiratory: Reports no additional respiratory complaints Physical Exam Vital Signs: Vital Signs: Last Vital Signs Temp 97.4 F 09/29/20 02:21 Pulse 64 09/29/20 08:04 Resp 18 09/29/20 07:26 BP 134/63 09/29/20 08:04 Pulse Ox 94 09/29/20 07:26 Body Mass Index 23.0 General: AO X 3, no acute distress Resp: CTA bilateral CVS: S1,S2,RRR GI: soft, non tender, non distended Neuro: motor grossly intact Psych: appropriate affect Objective Data Current Medications Generic Name Dose Route Start Last Admin Trade Name Freq PRN Reason Stop Dose Admin Acetaminophen 650 mg 09/28/20 22:42 Acetaminophen 325 Mg Tablet PO Q6H PRN Pain, Mild (Pain Scale 1-3) Albuterol Sulfate 2 puff 09/29/20 05:51 Albuterol Sulfate 90 Mcg 8 Gm Inhaler INHALE RQ4H PRN Shortness of Breath/Wheezing Atorvastatin Calcium 10 mg 09/29/20 09:00 09/29/20 08:04 Atorvastatin Calcium 10 Mg Tablet PO 10 mg DAILY MATHEUS Administration Docusate Sodium 100 mg 09/28/20 22:42 Docusate Sodium 100 Mg Capsule PO DAILY PRN Constipation Lactated Ringer's 1,000 mls @ 100 mls/hr 09/28/20 22:42 09/29/20 07:57 Lr IVCONT 100 mls/hr .Q10H MATHEUS Administration Ceftriaxone Sodium 1 gm/ 50 mls @ 100 mls/hr 09/28/20 23:30 09/29/20 00:39 Sodium Chloride IV Infused Q24H MATHEUS Infusion Metoprolol Succinate 25 mg 09/29/20 09:00 09/29/20 08:04 Metoprolol Succinate Er 25 Mg Tab.Er.24h PO 25 mg DAILY MATHEUS Administration Protocol Ondansetron HCl 4 mg 09/28/20 22:42 Ondansetron Hcl 4 Mg/2 Ml Vial IVPUSH Q8H PRN Nausea and Vomiting Sodium Chloride 3 ml 09/29/20 00:00 09/29/20 07:56 0.9 % Sodium Chloride Flush 3 Ml Syringe IVFLUSH Not Given QSHIFT [facility] Labs CBC & Chem 7: 09/29/20 05:46 01/04/21 05:46 Microbiology Microbiology Results: Microbiology 09/28/20 00:00 Urine Rivera [place] Urine Culture - Final Assessment and Plan (1) Acute renal failure: Status: Acute (2) Metabolic acidosis: Status: Acute (3) Acute on chronic anemia: Status: Acute (4) Bladder cancer: Status: Acute (5) UTI (urinary tract infection): Status: Acute Assessment and Plan: 80M presented with cough and epistaxis, found to have severe FRANCHESKA FRANCHESKA with metabolic acidosis 2019 was 1.37 ivf nephro monitor unclear etiology, reports NSAID use but not daily acute anemia likely inflammatory monitor positive UA ceftriaxone pafib metoprolol not on AC due to concern over gi bleed chronic diastolic chf lasix on hold monitor fluids closely DVT prophylaxis: SCDs
[2020-09-29] MEDS: Sodium Bicarbonate 8.4% 150 MEQ in Dextrose 5 % 850 ML 100 MEQ IV (13:41)
[2020-09-29 14:29] LABS: Magnesium 1.6 mg/dL (1.6-2.6); Phosphorus 8.9 mg/dL (2.7-4.5)
--- NOTE | 2020-09-29 17:53 | P.CONNP_ITS ---
History of Present Illness Reason for Consult Consult date: 09/29/20 Chief Complaint Chief complaint: FRANCHESKA, Metabolic Acidosis, Anemia Review of Systems Review of Systems Yes all other systems are reviewed and are negative [facility] Past Medical History Medical History Anal polyp Bladder outlet obstruction Chronic diastolic (congestive) heart failure Diverticulitis large intestine Malignant neoplasm of sigmoid colon Mild pulmonary hypertension Paroxysmal atrial fibrillation Personal history of colon cancer Tubular adenoma of colon Family History Family History Father No problems noted. Mother Family history of cervical cancer Social History Social History Alcohol intake: current Alcohol intake frequency: holidays/special occasions only Alcohol type: beer Smoking Status: Former smoker Use of substances other than those prescribed or required for medical reasons: No Advance Directives: No Advance Directives Information Provided: No Meds Allergies Allergy/AdvReac Type Severity Reaction Status Date / Time No Known Allergies Allergy Verified 07/31/20 09:06 [No Known Allergies*] Home Medications Medication Instructions Recorded Confirmed Type furosemide 20 mg PO BID 09/28/20 09/28/20 History metoprolol succinate 25 mg PO DAILY 09/28/20 09/28/20 History simvastatin 20 mg PO DAILY 09/28/20 09/28/20 History Physical Exam Vital Signs: Last Vital Signs Temp 97.4 F 09/29/20 02:21 Pulse 70 09/29/20 16:40 Resp 18 09/29/20 16:40 BP 128/56 L 09/29/20 16:40 Pulse Ox 94 09/29/20 07:26 Body Mass Index 23.0 Const General: alert Orientation/consciousness: patient oriented x3 Neck Neck: Yes supple Resp Auscultation: diminished lung sounds Cardio Heart sounds: no rubs GI Palpation (GI): Soft to palpation Neuro General: patient oriented x3 Results Lab Results Result Diagrams: 09/29/20 05:46 09/29/20 05:46 Lab results: Chemistry 09/28/20 09/28/20 09/28/20 09:26 15:01 18:44 Sodium 140 139 143 Potassium 4.9 4.9 4.8 Carbon Dioxide 8 L* 6 L* D 7 L* BUN 147 H* 144 H* > 125 H* Creatinine 10.50 H* 10.00 H* 9.62 H* Calcium 7.6 L 7.3 L 6.8 L D Phosphorus 09/29/20 09/29/20 09/29/20 00:50 05:46 13:40 Sodium 143 142 Potassium 4.3 4.1 Carbon Dioxide 10 L* D 11 L BUN 134 H* 133 H* Creatinine 9.33 H* 9.16 H* Calcium 6.6 L 6.7 L Phosphorus 8.9 H Hematology 09/28/20 09/29/20 09/29/20 09:26 00:50 05:46 WBC 9.0 9.7 Hgb 6.6 L* 8.1 L D 8.5 L Plt Count 492 H 392 Urinalysis 09/28/20 10:20 Urine Color STRAW Urine Appearance HAZY Urine pH 5.5 Ur Specific [place] 1.025 Urine Protein 2+ H Urine Glucose (UA) NEG Urine Ketones NEG Urine Blood 3+ H Urine Nitrite NEG Ur Leukocyte Esterase 2+ H Urine RBC 5-9 H Urine WBC TNTC H Ur Squamous Epith Cells NONE Urine Studies 09/28/20 10:20 Urine Osmolality 365 L Assessment and Plan (1) Acute renal failure: Qualifiers: Acute renal failure type: unspecified Qualified Code(s): N17.9 - Acute kidney failure, unspecified Status: Acute Likely Acute on Chronic vs Advanced CKD No hydronephrosis on imaging Work up ordered; IV NaHCO3 started May need renal biospy and or renal replacement Shall closely follow up
[2020-09-29 18:03] LABS: Haptoglobin 270 mg/dL (43-212)
[2020-09-30] VITALS: BP 146/59; PULSE 80; RESP 16; TEMP 36.7; O2SAT 99
[2020-09-30] MEDS: 0.9 % Sodium Chloride Flush 3 ML SYRINGE IVFLUSH ×3 (00:42→19:51)
[2020-09-30 03:14] VITALS: BP 149/69; PULSE 61; RESP 16; TEMP 36.4; O2SAT 100
[2020-09-30] MEDS: Lactated Ringers 1,000 ML 100 ML IVCONT (06:40)
[2020-09-30 06:58] LABS: MANUAL DIFF FLAG NO
[2020-09-30 07:21] LABS: Basophils Absolute Auto 0.1 X10*3/uL (0.0-0.2); Basophils Percent Auto 1.4 % (0-2); Eosinophils Absolute Auto 0.2 X10*3/uL (0.0-0.4); Hematocrit 24.5 % (42-52); Hemoglobin 8.1 g/dl (14.0-18.0); Imm Gran Abs Auto 0.03 X10*3/uL (0.00-0.03); Imm Gran Pct Auto 0.3 % (0.0-0.4); Lymphocytes Absolute Auto 2.1 X10*3/uL (1.2-4.9); Lymphocytes Percent Auto 24.2 % (20-40); Mean Corpuscular HGB Conc 33.1 g/dl (31.0-36.0); Mean Corpuscular Hemoglobin 27.2 pg (27.0-33.0); Mean Corpuscular Volume 82.2 fL (80-98); Mean Platelet Volume 9.4 fL (9.4-12.4); Monocytes Absolute Auto 0.8 X10*3/uL (0.1-1.2); Monocytes Percent Auto 9.7 % (2-11); Neutrophils Absolute Auto 5.4 X10*3/uL (2.0-8.3); Neutrophils Percent Auto 62.4 % (45-73); Platelet Count 367 X10*3/uL (160-400); Red Blood Count 2.98 X10*6/uL (4.60-5.80); Red Cell Distribution Width 19.9 % (11.0-16.0); White Blood Count 8.7 X10*3/uL (4.8-10.8)
[2020-09-30 07:56] VITALS: BP 147/69; PULSE 60; RESP 20; TEMP 36.8; O2SAT 96
[2020-09-30 08:21] LABS: Anion Gap 24 (12-20); Blood Urea Nitrogen 124 mg/dL (9-16); Calcium 6.3 mg/dL (8.4-10.2); Carbon Dioxide 13 mmol/L (22-29); Chloride 110 mmol/L (96-108); Estimated Glomerular Filt Rate 6; Glucose Fasting 75 mg/dL (60-99); Sodium 143 mmol/L (135-145)
--- NOTE | 2020-09-30 08:30 | MHC.CM.PN ---
CM was unable to reach Patient by phone (Covjodie Hairston); CM spoke with [id number]/Ana. Patient lives alone in a condo and was functionally independent [employer]. Goal for dc is home with a new referral to [facility] [place],pending PT eval. CM has initiated and will follow for dc planning. Son/Serge is HCP and PCP is Dr. Gerardo Britt. IMM addressed with Ana and original will be mailed certified letter to her and a copy has been placed on the chart.
[2020-09-30 10:44] VITALS: BP 147/69; PULSE 60
[2020-09-30] MEDS: Metoprolol Succinate ER 25 MG TAB.ER.24H PO (10:44)
[2020-09-30] MEDS: Atorvastatin Calcium 10 MG TABLET PO (10:44)
--- NOTE | 2020-09-30 10:54 | HO.PM.IMPN ---
Subjective Subjective Date of Service: 09/30/20 Interval History: still with occasional cough Cardiovascular Cardiovascular: Reports no additional cardiovascular complaints Gastrointestinal Gastrointestinal: Reports no additional gastrointestinal complaints Physical Exam Vital Signs: Vital Signs: Last Vital Signs Temp 98.2 F 09/30/20 07:56 Pulse 60 09/30/20 10:44 Resp 20 09/30/20 07:56 BP 147/69 H 09/30/20 10:44 Pulse Ox 96 09/30/20 07:56 Body Mass Index 23.0 General: AO X 3, no acute distress Resp: CTA bilateral CVS: S1,S2,RRR GI: soft, non tender, non distended Neuro: motor grossly intact Psych: appropriate affect Objective Data Current Medications Generic Name Dose Route Start Last Admin Trade Name Freq PRN Reason Stop Dose Admin Acetaminophen 650 mg 09/28/20 22:42 Acetaminophen 325 Mg Tablet PO Q6H PRN Pain, Mild (Pain Scale 1-3) Albuterol Sulfate 2 puff 09/29/20 05:51 Albuterol Sulfate 90 Mcg 8 Gm Inhaler INHALE RQ4H PRN Shortness of Breath/Wheezing Atorvastatin Calcium 10 mg 09/29/20 09:00 09/30/20 10:44 Atorvastatin Calcium 10 Mg Tablet PO 10 mg DAILY MATHEUS Administration Docusate Sodium 100 mg 09/28/20 22:42 Docusate Sodium 100 Mg Capsule PO DAILY PRN Constipation Ceftriaxone Sodium 1 gm/ 50 mls @ 100 mls/hr 09/28/20 23:30 09/30/20 00:06 Sodium Chloride IV Infused Q24H MATHEUS Infusion Sodium Bicarbonate 150 meq/ 1,000 mls @ 100 mls/hr 09/30/20 10:15 Dextrose IV 10/02/20 10:00 .Q10H MATHEUS Metoprolol Succinate 25 mg 09/29/20 09:00 09/30/20 10:44 Metoprolol Succinate Er 25 Mg Tab.Er.24h PO 25 mg DAILY MATHEUS Administration Protocol Ondansetron HCl 4 mg 09/28/20 22:42 Ondansetron Hcl 4 Mg/2 Ml Vial IVPUSH Q8H PRN Nausea and Vomiting Sodium Chloride 3 ml 09/29/20 00:00 09/30/20 10:45 0.9 % Sodium Chloride Flush 3 Ml Syringe IVFLUSH 3 ml QSHIFT MATHEUS Administration Labs CBC & Chem 7: 09/30/20 05:43 09/30/20 05:43 Microbiology Microbiology Results: Microbiology 09/28/20 10:04 Blood - Venous Blood Culture - Preliminary No growth after 24 hours. 09/28/20 09:26 Blood - Venous Blood Culture - Preliminary No growth after 24 hours. 09/28/20 00:00 Urine [place] Urine Culture - Final Assessment and Plan (1) Acute renal failure: Status: Acute (2) Metabolic acidosis: Status: Acute (3) Acute on chronic anemia: Status: Acute (4) Bladder cancer: Status: Acute (5) UTI (urinary tract infection): Status: Acute Assessment and Plan: 80M presented with cough and epistaxis, found to have severe FRANCHESKA FRANCHESKA with metabolic acidosis 2019 was 1.37 iv bicarb nephro following monitor unclear etiology, work up in progress, may need biopsy acute anemia likely inflammatory monitor positive UA cultures negative, doubt uti, will dc antibiotics pafib metoprolol not on AC due to concern over gi bleed chronic diastolic chf lasix on hold monitor fluids closely DVT prophylaxis: SCDs
[2020-09-30 12:00] VITALS: BP 127/51; PULSE 560; RESP 18; TEMP 36.2; O2SAT 96
[2020-09-30] MEDS: Sodium Bicarbonate 8.4% 150 MEQ in Dextrose 5 % 850 ML 100 MEQ IV ×2 (13:23→19:45)
[2020-09-30 13:47] LABS: Haptoglobin 230 mg/dL (43-212)
[2020-09-30 15:23] LABS: Prot Elec - Albumin 2.7 g/dL (3.8-4.8); Prot Elec - Alpha1 0.4 g/dL (0.2-0.3); Prot Elec - Alpha2 0.7 g/dL (0.5-0.9); Prot Elec - Beta 1 0.3 g/dL (0.4-0.6); Prot Elec - Beta 2 0.3 g/dL (0.2-0.5); Prot Elec - Gamma 0.8 g/dL (0.8-1.7); Prot Elec - Total Protein 5.2 g/dL (6.1-8.1)
--- NOTE | 2020-09-30 17:46 | PM.PNNEP ---
Subjective Subjective Date of Service: 09/30/20 Interval history: still with occasional cough; Seen and examined. Events noted. All recent data reviewed Physical Exam Vital Signs: Vital Signs: Last Vital Signs Temp 97.2 F 09/30/20 12:00 Pulse 560 H 09/30/20 12:00 Resp 18 09/30/20 12:00 BP 127/51 L 09/30/20 12:00 Pulse Ox 96 09/30/20 12:00 Body Mass Index 23.0 Const: General: no acute distress Orientation/consciousness: patient oriented x3 Neck: Neck: Yes supple Resp: Auscultation: diminished lung sounds Cardio: Heart sounds: no rubs GI: Palpation (GI): Soft to palpation Skin: General skin exam: no rashes or lesions noted Neuro: General: patient oriented x3 and moves all extremities Objective Data Labs CBC & Chem 7: 09/30/20 05:43 09/30/20 05:43 Labs: Laboratory Results - last 24 hr 09/28/20 09/29/20 09/29/20 09:26 00:50 13:40 WBC RBC Hgb Hct MCV MCH MCHC RDW Plt Count MPV Immature Gran % (Auto) Neut % (Auto) Lymph % (Auto) [place] % (Auto) Eos % (Auto) Baso % (Auto) Lymph # (Auto) [place] # (Auto) Eos # (Auto) Baso # (Auto) Abs Immat Gran (auto) Absolute Neuts (auto) Absolute Nucleated RBC Nucleated RBC % (auto) Haptoglobin 270 H 230 H Sodium Potassium Chloride Carbon Dioxide Anion Gap BUN Creatinine Estim Creat Clear Calc Estimated GFR Fasting Glucose Calcium Total Protein (PEP) 5.2 L Albumin (PEP) 2.7 L Aphet-4-Gwydmulkj 0.4 H Bxsyl-8-Eyweyrxvl 0.7 Dxpv-0-Egqnlfyi 0.3 L Vqfp-9-Jrvlzews 0.3 Gamma Globulins 0.8 Abnorm Protein Band 1 SEE NOTE PEP Interpretation SEE NOTE 09/30/20 09/30/20 05:43 05:43 WBC 8.7 RBC 2.98 L Hgb 8.1 L Hct 24.5 L MCV 82.2 MCH 27.2 MCHC 33.1 RDW 19.9 H Plt Count 367 MPV 9.4 Immature Gran % (Auto) 0.3 Neut % (Auto) 62.4 Lymph % (Auto) 24.2 [place] % (Auto) 9.7 Eos % (Auto) 2.0 Baso % (Auto) 1.4 Lymph # (Auto) 2.1 [place] # (Auto) 0.8 Eos # (Auto) 0.2 Baso # (Auto) 0.1 Abs Immat Gran (auto) 0.03 Absolute Neuts (auto) 5.4 Absolute Nucleated RBC 0.000 Nucleated RBC % (auto) 0.0 Haptoglobin Sodium 143 Potassium 4.0 Chloride 110 H Carbon Dioxide 13 L Anion Gap 24 H BUN 124 H* Creatinine 9.27 H* Estim Creat Clear Calc 7.0 Estimated GFR 6 Fasting Glucose 75 Calcium 6.3 L Total Protein (PEP) Albumin (PEP) Uqbla-1-Tkximgzvz Nsvww-1-Nmpmlgjgb Eshe-4-Pglbblxr Umxz-2-Rlbccqsx Gamma Globulins Abnorm Protein Band 1 PEP Interpretation Microbiology Microbiology Results: Microbiology 09/28/20 10:04 Blood - Venous Blood Culture - Preliminary No growth after 48 hours. 09/28/20 09:26 Blood - Venous Blood Culture - Preliminary No growth after 48 hours. 09/28/20 00:00 Urine [place] Urine Culture - Final Assessment & Plan Assessment and plan (1) Acute renal failure: Problem details: FRANCHESKA on CKD vs progression of CKD Differential broad; Normal sized kidneys on imaging ANCA, SPEP, PTH etc pending; Acidotic- Started on NaHCO3 IV Urine output good; Has a catheter; No uremic symptoms No indications for HD today; Likely will need renal biospsy Labs AM. Shall closely follow up Status: Acute Time Spent With Patient Time: Total time spent is greater than 50% in coordination of care (as documented) at patient's floor/unit and/or counseling patient:
[2020-09-30 19:55] VITALS: BP 132/72; PULSE 138; RESP 18; TEMP 36.6; O2SAT 99
--- NOTE | 2020-09-30 22:42 | CA_ITS ---
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 - Spectral Doppler is indicative of a pseudonormal filling pattern. E/E prime ratio is between 8 and 15 consistent with indeterminate filling pressures. - Mildly increased right ventricular cavity size. There is normal right ventricular systolic function. - The left atrium is moderately dilated. - Normal right atrial pressure. Mild pulmonary hypertension is present. Findings Left Ventricle Normal left ventricular size and systolic function. There is mildly increased left ventricular wall thickness. The visually estimated ejection fraction is between 55-60%. There is no evidence of regional wall motion abnormalities. Abnormal diastolic function is noted. Spectral Doppler is indicative of a pseudonormal filling pattern. E/E prime ratio is between 8 and 15 consistent with indeterminate filling pressures. Right Ventricle Mildly increased right ventricular cavity size. There is normal right ventricular systolic function. Atria The left atrium is moderately dilated. Aortic Valve There is a normal trileaflet aortic valve. There is no aortic valve stenosis. There is mild aortic valve regurgitation. Mitral Valve The mitral valve appears normal. There is mild to moderate mitral valve regurgitation. There is no mitral valve stenosis. Tricuspid Valve Normal tricuspid valve structure and function. There is mild tricuspid valve regurgitation. Normal right atrial pressure. Mild pulmonary hypertension is present. Great Vessels All visible segments of the aorta are normal in size. The pulmonary artery was not well visualized. Venous The inferior vena cava is normal in size and collapses greater than 50% with inspiration. Pericardium/Pleural There is no evidence of pericardial effusion. Prior Study Comparison No prior study available for comparison. Measurements 2D Linear Measurements IVSd: 1.16 0.6-0.9/0.6-1.0 cm LVIDd: 4.70 3.9-5.3/4.2-5.9 cm LVIDd Index: 2.36 2.4-3.2/2.2-3.1 cm/m2 LVIDs: 2.87 2.0-3.6 cm LVPWd: 1.13 0.7-1.1 cm Ao Root: 3.40 2.1-3.5 cm LA Diam: 5.00 2.7-3.8/3.0-4.0 cm LAIDs Index: 2.51 1.5-2.3 cm/m2 LV Mass: 247.22 67-162/88-224 g LV Mass Index: 124.23 43-95/49-115 g/m2 LVOT Diam: 2.10 3.0+(-)1.3 cm 2D Systolic Function EF 4C: 68.20 >55% EF 2C: 61.90 >55% EF BiP: 64.40 >55% Mitral Valve MV Pk E: 0.43 MV PK A: 0.64 MV Decel Time: 155.00 E/A: 0.70 E'Lateral: 6.48 E'Medial: 7.83 E/E' Med: 10.80 E/E' Lat: 13.00 PHT: 45.00 MVA PHT: 4.89 Decel Mower: 5.45 Aortic Valve AoV Pk Redd: 1.39 AoV Mn Redd: 0.88 AoV VTI: 0.37 AoV Pk Grad: 8.00 Aov Mn Grad: 4.00 ALEXANDER Cont.VTI: 2.83 LVOT LVOT Pk Redd: 1.06 LVOT Mn Redd: 0.65 LVOT VTI: 0.30 LVOT Pk Grad: 4.00 LVOT Mn Grad: 2.00 LVOT Diam: 2.10 LVOT Area: 3.46 Diastolic Function MV Pk E: 0.43 MV Pk A: 0.64 E/A: 0.70 E'Medial: 7.83 E/E' Med: 10.80 E' Laterial: 6.48 E/E' Lat: 13.00 Tricuspid Valve TR Pk Redd: 2.92 TR Pk Grad: 34.00 RVSP: 37.00 Great Vessels Aorta Ao Root-2D: 3.40 2.0-3.7 cm Ao Asc: 3.30 2.1-3.4 cm Pulmonary Valve PV Pk Redd: 0.88 Peak PV Grad: 3.00 Updated in Other Vendor System with Status of Final Rohith Ureña MD electronically signed on 10/01/2020 2:36:15 PM with status of Final
[2020-10-01] VITALS (7 sets, daily range): BP systolic 125–163; BP diastolic 55–82; PULSE 57–72; RESP 15–20; TEMP 36.4–37.2; O2SAT 95–100
[2020-10-01] MEDS: Sodium Bicarbonate 8.4% 150 MEQ in Dextrose 5 % 850 ML 100 MEQ IV ×2 (00:35→10:07)
[2020-10-01 06:21] LABS: MANUAL DIFF FLAG NO
[2020-10-01 06:48] LABS: Basophils Absolute Auto 0.1 X10*3/uL (0.0-0.2); Eosinophils Absolute Auto 0.2 X10*3/uL (0.0-0.4); Eosinophils Percent Auto 2.1 % (0-4); Hematocrit 23.5 % (42-52); Hemoglobin 7.9 g/dl (14.0-18.0); Imm Gran Abs Auto 0.03 X10*3/uL (0.00-0.03); Imm Gran Pct Auto 0.3 % (0.0-0.4); Mean Corpuscular HGB Conc 33.6 g/dl (31.0-36.0); Mean Corpuscular Hemoglobin 27.2 pg (27.0-33.0); Mean Platelet Volume 9.5 fL (9.4-12.4); Monocytes Absolute Auto 0.8 X10*3/uL (0.1-1.2); Monocytes Percent Auto 9.4 % (2-11); Neutrophils Absolute Auto 5.5 X10*3/uL (2.0-8.3); Neutrophils Percent Auto 64.2 % (45-73); Platelet Count 336 X10*3/uL (160-400); White Blood Count 8.6 X10*3/uL (4.8-10.8)
[2020-10-01 07:13] LABS: Anion Gap 24 (12-20); Calcium 6.1 mg/dL (8.4-10.2); Carbon Dioxide 17 mmol/L (22-29); Chloride 105 mmol/L (96-108); Glucose Fasting 119 mg/dL (60-99); Potassium 3.6 mmol/l (3.3-5.1); Sodium 142 mmol/L (135-145)
[2020-10-01 07:25] LABS: Blood Urea Nitrogen 119 mg/dL (9-16); Creatinine Clr Calc Pharmacy 7.8; Estimated Glomerular Filt Rate 6
[2020-10-01] MEDS: Atorvastatin Calcium 10 MG TABLET PO (09:05)
[2020-10-01] MEDS: Metoprolol Succinate ER 25 MG TAB.ER.24H PO (09:05)
--- NOTE | 2020-10-01 11:40 | P.PNIM_ITS ---
Subjective Subjective Date of Service: 10/01/20 Interval History: no complaints Cardiovascular Cardiovascular: Reports no additional cardiovascular complaints Gastrointestinal Gastrointestinal: Reports no additional gastrointestinal complaints Physical Exam Vital Signs: Vital Signs: Last Vital Signs Temp 98.6 F 10/01/20 11:08 Pulse 63 10/01/20 11:08 Resp 20 10/01/20 11:08 BP 125/57 L 10/01/20 11:08 Pulse Ox 100 10/01/20 11:08 Body Mass Index 23.0 General: AO X 3, no acute distress Resp: CTA bilateral CVS: S1,S2,RRR GI: soft, non tender, non distended Neuro: motor grossly intact Psych: appropriate affect Objective Data Current Medications Generic Name Dose Route Start Last Admin Trade Name Freq PRN Reason Stop Dose Admin Acetaminophen 650 mg 09/28/20 22:42 Acetaminophen 325 Mg Tablet PO Q6H PRN Pain, Mild (Pain Scale 1-3) Albuterol Sulfate 2 puff 09/29/20 05:51 Albuterol Sulfate 90 Mcg 8 Gm Inhaler INHALE RQ4H PRN Shortness of Breath/Wheezing Atorvastatin Calcium 10 mg 09/29/20 09:00 10/01/20 09:05 Atorvastatin Calcium 10 Mg Tablet PO 10 mg DAILY MATHEUS Administration Docusate Sodium 100 mg 09/28/20 22:42 Docusate Sodium 100 Mg Capsule PO DAILY PRN Constipation Sodium Bicarbonate 150 meq/ 1,000 mls @ 100 mls/hr 09/30/20 10:15 10/01/20 10:07 Dextrose IV 10/02/20 10:00 100 mls/hr .Q10H MATHEUS Administration Metoprolol Succinate 25 mg 09/29/20 09:00 10/01/20 09:05 Metoprolol Succinate Er 25 Mg Tab.Er.24h PO 25 mg DAILY MATHEUS Administration Protocol Ondansetron HCl 4 mg 09/28/20 22:42 Ondansetron Hcl 4 Mg/2 Ml Vial IVPUSH Q8H PRN Nausea and Vomiting Sodium Chloride 3 ml 09/29/20 00:00 10/01/20 09:09 0.9 % Sodium Chloride Flush 3 Ml Syringe IVFLUSH Not Given QSHIFT [facility] Labs CBC & Chem 7: 10/01/20 05:30 10/01/20 05:30 Microbiology Microbiology Results: Microbiology 09/28/20 10:04 Blood - Venous Blood Culture - Preliminary No growth after 48 hours. 09/28/20 09:26 Blood - Venous Blood Culture - Preliminary No growth after 48 hours. 09/28/20 00:00 Urine [place] Urine Culture - Final Assessment and Plan (1) Acute renal failure: Problem details: FRANCHESKA on CKD vs progression of CKD Differential broad; Normal sized kidneys on imaging ANCA, SPEP, PTH etc pending; Acidotic- Started on NaHCO3 IV Urine output good; Has a catheter; No uremic symptoms No indications for HD today; Likely will need renal biospsy Labs AM. Shall closely follow up Status: Acute Assessment and Plan: 80M presented with cough and epistaxis, found to have severe FRANCHESKA FRANCHESKA with metabolic acidosis some improvement on biacrb drip 2019 was 1.37 continue iv bicarb nephro following monitor unclear etiology, work up in progress, may need biopsy acute anemia likely inflammatory monitor pafib metoprolol not on AC due to concern over gi bleed chronic diastolic chf lasix on hold monitor fluids closely DVT prophylaxis: SCDs
--- NOTE | 2020-10-01 11:56 | MHC.CM.PN ---
Per ROUNDS discussion, Patient may need a biopsy to determine the etiology of FRANCHESKA (No strong indication for new HD at this point). DC plan remains home with new [facility], pending PT eval. CM will continue to follow for dc planning and to secure the best dc plan.
[2020-10-01] MEDS: Lactated Ringers 1,000 ML 100 ML IVCONT ×2 (12:44→21:08)
[2020-10-01 13:32] LABS: Anti DNA DS Antibody 1 IU/mL; Anti Glomerular Basement Memb <1.0 AI; Myeloperoxidase Antibody <1.0 AI; Proteinase 3 PR3 Antibodies 11.1 AI
[2020-10-02] VITALS (8 sets, daily range): BP systolic 145–184; BP diastolic 64–83; PULSE 54–86; RESP 15–20; TEMP 36.4–36.6; O2SAT 94–99
[2020-10-02 06:44] LABS: MANUAL DIFF FLAG NO
[2020-10-02 07:17] LABS: Basophils Absolute Auto 0.1 X10*3/uL (0.0-0.2); Basophils Percent Auto 0.9 % (0-2); Eosinophils Absolute Auto 0.2 X10*3/uL (0.0-0.4); Eosinophils Percent Auto 1.8 % (0-4); Hematocrit 22.9 % (42-52); Hemoglobin 7.6 g/dl (14.0-18.0); Imm Gran Abs Auto 0.03 X10*3/uL (0.00-0.03); Imm Gran Pct Auto 0.3 % (0.0-0.4); Lymphocytes Absolute Auto 2.1 X10*3/uL (1.2-4.9); Lymphocytes Percent Auto 23.3 % (20-40); Mean Corpuscular HGB Conc 33.2 g/dl (31.0-36.0); Mean Corpuscular Hemoglobin 27.3 pg (27.0-33.0); Mean Corpuscular Volume 82.4 fL (80-98); Mean Platelet Volume 9.6 fL (9.4-12.4); Monocytes Absolute Auto 0.8 X10*3/uL (0.1-1.2); Monocytes Percent Auto 9.3 % (2-11); Neutrophils Absolute Auto 5.8 X10*3/uL (2.0-8.3); Neutrophils Percent Auto 64.4 % (45-73); Platelet Count 320 X10*3/uL (160-400); Red Blood Count 2.78 X10*6/uL (4.60-5.80); White Blood Count 9.1 X10*3/uL (4.8-10.8)
[2020-10-02 08:11] LABS: Anion Gap 23 (12-20); Blood Urea Nitrogen 117 mg/dL (9-16); Carbon Dioxide 19 mmol/L (22-29); Chloride 105 mmol/L (96-108); Creatinine Clr Calc Pharmacy 8.5; Estimated Glomerular Filt Rate 7; Glucose Fasting 92 mg/dL (60-99); Potassium 3.6 mmol/l (3.3-5.1); Sodium 143 mmol/L (135-145)
[2020-10-02] MEDS: Atorvastatin Calcium 10 MG TABLET PO (09:52)
[2020-10-02] MEDS: Metoprolol Succinate ER 25 MG TAB.ER.24H PO (09:52)
[2020-10-02] MEDS: 0.9 % Sodium Chloride Flush 3 ML SYRINGE IVFLUSH ×2 (09:53→17:17)
[2020-10-02] MEDS: Lactated Ringers 1,000 ML 100 ML IVCONT ×2 (09:53→21:22)
--- NOTE | 2020-10-02 10:45 | P.PNNP_ITS ---
Subjective Subjective Date of Service: 10/02/20 Interval history: No complaints Physical Exam Vital Signs: Vital Signs: Last Vital Signs Temp 97.8 F 10/02/20 07:20 Pulse 54 10/02/20 09:52 Resp 18 10/02/20 07:20 BP 184/81 H 10/02/20 09:52 Pulse Ox 98 10/02/20 07:20 Body Mass Index 23.0 Const: General: comfortable Orientation/consciousness: patient oriented x3 Neck: Neck: Yes supple Resp: Auscultation: diminished lung sounds Cardio: Rate: regular rate GI: Palpation (GI): Soft to palpation Skin: General skin exam: no rashes or lesions noted Neuro: General: patient oriented x3 Objective Data Labs CBC & Chem 7: 10/02/20 05:44 10/02/20 05:44 Labs: Laboratory Results - last 24 hr 09/29/20 10/02/20 10/02/20 13:40 05:44 05:44 WBC 9.1 RBC 2.78 L Hgb 7.6 L Hct 22.9 L MCV 82.4 MCH 27.3 MCHC 33.2 RDW 19.0 H Plt Count 320 MPV 9.6 Immature Gran % (Auto) 0.3 Neut % (Auto) 64.4 Lymph % (Auto) 23.3 [place] % (Auto) 9.3 Eos % (Auto) 1.8 Baso % (Auto) 0.9 Lymph # (Auto) 2.1 [place] # (Auto) 0.8 Eos # (Auto) 0.2 Baso # (Auto) 0.1 Abs Immat Gran (auto) 0.03 Absolute Neuts (auto) 5.8 Absolute Nucleated RBC 0.000 Nucleated RBC % (auto) 0.0 Sodium 143 Potassium 3.6 Chloride 105 Carbon Dioxide 19 L Anion Gap 23 H BUN 117 H* Creatinine 7.68 H* Estim Creat Clear Calc 8.5 Estimated GFR 7 Fasting Glucose 92 Calcium 6.0 L* Abnorm Protein Band 2 TNP Abnorm Protein Band 3 TNP Proteinase 3 (PR3) Ab 11.1 H Myeloperoxidase Ab <1.0 Double Strand DNA Ab 1 Glomerular Base Memb Ab <1.0 Microbiology Microbiology Results: Microbiology 09/28/20 10:04 Blood - Venous Blood Culture - Preliminary No growth after 48 hours. 09/28/20 09:26 Blood - Venous Blood Culture - Preliminary No growth after 48 hours. 09/28/20 00:00 Urine [place] Urine Culture - Final Assessment & Plan Assessment and plan (1) Acute renal failure: Problem details: Has ANCA vasculitis( Anti PR3) FRANCHESKA on CKD vs progression of CKD Normal sized kidneys on imaging Started Prednisone 60 mg daily with PPI and Atovaquone Urine output good; Has a catheter; No uremic symptoms Needs renal biopsy tomorrow. Shall consider cytoxan PO pending biopsy results No indications for HD today; DDAVP 25 mcg IVPB pre renal biopsy Labs AM. Shall closely follow up Status: Acute Time Spent With Patient Time: Total time spent is greater than 50% in coordination of care (as documented) at patient's floor/unit and/or counseling patient:
[2020-10-02] MEDS: SODIUM CHLORIDE 0.9% IV (11:34)
[2020-10-02] MEDS: DESMOPRESSIN ACETATE IV (11:34)
[2020-10-02] MEDS: predniSONE 20 MG TABLET 60 MG PO (12:21)
[2020-10-02] MEDS: Omeprazole 20 MG CAPSULE.DR PO (12:21)
--- NOTE | 2020-10-02 12:21 | HO.PM.IMPN ---
Subjective Subjective Date of Service: 10/02/20 Interval History: cough Cardiovascular Cardiovascular: Reports no additional cardiovascular complaints Gastrointestinal Gastrointestinal: Reports no additional gastrointestinal complaints Physical Exam Vital Signs: Vital Signs: Last Vital Signs Temp 97.9 F 10/02/20 11:10 Pulse 60 10/02/20 11:10 Resp 20 10/02/20 11:10 BP 174/76 H 10/02/20 11:10 Pulse Ox 98 10/02/20 11:10 Body Mass Index 23.0 General: AO X 3, no acute distress Resp: CTA bilateral CVS: S1,S2,RRR GI: soft, non tender, non distended Neuro: motor grossly intact Psych: appropriate affect Objective Data Current Medications Generic Name Dose Route Start Last Admin Trade Name Freq PRN Reason Stop Dose Admin Acetaminophen 650 mg 09/28/20 22:42 Acetaminophen 325 Mg Tablet PO Q6H PRN Pain, Mild (Pain Scale 1-3) Albuterol Sulfate 2 puff 09/29/20 05:51 Albuterol Sulfate 90 Mcg 8 Gm Inhaler INHALE RQ4H PRN Shortness of Breath/Wheezing Atorvastatin Calcium 10 mg 09/29/20 09:00 10/02/20 09:52 Atorvastatin Calcium 10 Mg Tablet PO 10 mg DAILY MATHEUS Administration Atovaquone 1,500 mg 10/03/20 09:00 Atovaquone 750 Mg/5 Ml Oral.Susp PO DAILY MATHEUS Docusate Sodium 100 mg 09/28/20 22:42 Docusate Sodium 100 Mg Capsule PO DAILY PRN Constipation Lactated Ringer's 1,000 mls @ 100 mls/hr 10/01/20 12:30 10/02/20 09:53 Lr IVCONT 100 mls/hr .Q10H MATHEUS Administration Metoprolol Succinate 25 mg 09/29/20 09:00 10/02/20 09:52 Metoprolol Succinate Er 25 Mg Tab.Er.24h PO 25 mg DAILY MATHEUS Administration Protocol Omeprazole 20 mg 10/02/20 10:30 Omeprazole 20 Mg Capsule.Dr PO DAILY@0630 MATHEUS Ondansetron HCl 4 mg 09/28/20 22:42 Ondansetron Hcl 4 Mg/2 Ml Vial IVPUSH Q8H PRN Nausea and Vomiting Prednisone 60 mg 10/02/20 10:30 Prednisone 20 Mg Tablet PO DAILY MATHEUS Sodium Chloride 3 ml 09/29/20 00:00 10/02/20 09:53 0.9 % Sodium Chloride Flush 3 Ml Syringe IVFLUSH 3 ml QSHIFT [facility] Administration Labs CBC & Chem 7: 10/02/20 05:44 10/02/20 05:44 Microbiology Microbiology Results: Microbiology 09/28/20 10:04 Blood - Venous Blood Culture - Preliminary No growth after 48 hours. 09/28/20 09:26 Blood - Venous Blood Culture - Preliminary No growth after 48 hours. 09/28/20 00:00 Urine [place] Urine Culture - Final Assessment and Plan (1) Acute renal failure: Problem details: Has ANCA vasculitis( Anti PR3) FRANCHESKA on CKD vs progression of CKD Normal sized kidneys on imaging Started Prednisone 60 mg daily with PPI and Atovaquone Urine output good; Has a catheter; No uremic symptoms Needs renal biopsy tomorrow. Shall consider cytoxan PO pending biopsy results No indications for HD today; DDAVP 25 mcg IVPB pre renal biopsy Labs AM. Shall closely follow up Status: Acute Assessment and Plan: 80M presented with cough and epistaxis, found to have severe FRANCHESKA FRANCHESKA with metabolic acidosis suspicious for GPA some improvement on biacrb drip now on LR blood work positive for C-ANCA plan for biopsy tomorrow started prednisone, prilosec for gi prophylaxis, atovaquone for pjp prophylaxis ddavp pre biopsy IR requested 1 unit prbc transfusion acute anemia likely inflammatory monitor pafib metoprolol not on AC due to concern over gi bleed chronic diastolic chf lasix on hold monitor fluids closely DVT prophylaxis: SCDs
[2020-10-03] VITALS (11 sets, daily range): BP systolic 156–195; BP diastolic 72–94; PULSE 61–74; RESP 16–110; TEMP 36.2–36.9; O2SAT 92–99
--- NOTE | 2020-10-03 | CT_ITS ---
PROCEDURE: CT GUIDED BIOPSY, KIDNEY CLINICAL INFORMATION: Acute on chronic renal failure COMPARISON: Previous CT of the abdomen and pelvis 09/28/2019 TECHNIQUE: Procedure risks and benefits including bleeding, infection and injury to the kidneys was discussed with the patient and informed consent was obtained. The patient was positioned in the prone position. The left flank was prepped and draped in usual sterile fashion. Skin and soft tissues were anesthetized with 1% lidocaine plain. Using CT guidance and a coaxial system, access to the lower pole the left kidney was obtained. 2 18-gauge core biopsies were obtained. Subsequently, multiple Gelfoam pledgets were advanced through the coaxial needle and hemostasis was achieved. Patient received Versed 1 mg and fentanyl 50 mcg intravenously during the procedure. Total sedation time was [address] examination was performed using dose optimization techniques as appropriate, variously including the following: *Automated exposure control *Adjustment of mA and/or kV according to patient size (this includes techniques or standardized protocols for targeted exams where dose is matched to indication/reason for exam; i.e. extremities or head) *Use of iterative reconstruction technique DLP: 163 mGy-cm FINDINGS: Images demonstrate needle placement in the lower pole of the left kidney. No significant hematoma postprocedure is seen. There is evidence of atherosclerotic disease. There are postsurgical changes to the bowel. Left psoas lesion is partially visualized. CT/CT biopsy renal LT IMPRESSION: CT-guided left renal biopsy.
[2020-10-03 06:40] LABS: MANUAL DIFF FLAG NO
[2020-10-03 06:55] LABS: Basophils Percent Auto 0.1 % (0-2); Hemoglobin 9.2 g/dl (14.0-18.0); Imm Gran Abs Auto 0.04 X10*3/uL (0.00-0.03); Imm Gran Pct Auto 0.6 % (0.0-0.4); Lymphocytes Absolute Auto 1.2 X10*3/uL (1.2-4.9); Lymphocytes Percent Auto 16.8 % (20-40); Mean Corpuscular HGB Conc 32.9 g/dl (31.0-36.0); Mean Corpuscular Hemoglobin 27.8 pg (27.0-33.0); Mean Corpuscular Volume 84.6 fL (80-98); Mean Platelet Volume 9.8 fL (9.4-12.4); Monocytes Absolute Auto 0.5 X10*3/uL (0.1-1.2); Neutrophils Absolute Auto 5.3 X10*3/uL (2.0-8.3); Neutrophils Percent Auto 75.5 % (45-73); Platelet Count 297 X10*3/uL (160-400); Red Blood Count 3.31 X10*6/uL (4.60-5.80)
[2020-10-03 07:01] LABS: INTERNATIONAL NORM RATIO 1.1 (0.9-1.1); Prothrombin Time 12.6 SEC (10.8-13.0)
[2020-10-03 07:23] LABS: Anion Gap 25 (12-20); Calcium 6.2 mg/dL (8.4-10.2); Carbon Dioxide 16 mmol/L (22-29); Chloride 105 mmol/L (96-108); Glucose Fasting 125 mg/dL (60-99); Potassium 4.1 mmol/l (3.3-5.1); Sodium 142 mmol/L (135-145)
[2020-10-03 07:48] LABS: Blood Urea Nitrogen 116 mg/dL (9-16); Creatinine Clr Calc Pharmacy 8.8; Estimated Glomerular Filt Rate 7
[2020-10-03] MEDS: predniSONE 20 MG TABLET 60 MG PO (09:34)
[2020-10-03] MEDS: Atorvastatin Calcium 10 MG TABLET PO (09:34)
[2020-10-03] MEDS: Atovaquone 750 MG/5 ML ORAL.SUSP 1500 MG PO (09:35)
[2020-10-03] MEDS: Metoprolol Succinate ER 25 MG TAB.ER.24H PO (09:44)
--- NOTE | 2020-10-03 10:50 | HO.PM.IMPN ---
Subjective Subjective Date of Service: 10/03/20 Interval History: no complaints Cardiovascular Cardiovascular: Reports no additional cardiovascular complaints Gastrointestinal Gastrointestinal: Reports no additional gastrointestinal complaints Physical Exam Vital Signs: Vital Signs: Last Vital Signs Temp 97.7 F 10/03/20 08:00 Pulse 65 10/03/20 09:44 Resp 18 10/03/20 08:00 BP 178/81 H 10/03/20 09:44 Pulse Ox 96 10/03/20 08:00 Body Mass Index 23.0 General: AO X 3, no acute distress Resp: CTA bilateral CVS: S1,S2,RRR GI: soft, non tender, non distended Neuro: motor grossly intact Psych: appropriate affect Objective Data Current Medications Generic Name Dose Route Start Last Admin Trade Name Freq PRN Reason Stop Dose Admin Acetaminophen 650 mg 09/28/20 22:42 Acetaminophen 325 Mg Tablet PO Q6H PRN Pain, Mild (Pain Scale 1-3) Albuterol Sulfate 2 puff 09/29/20 05:51 Albuterol Sulfate 90 Mcg 8 Gm Inhaler INHALE RQ4H PRN Shortness of Breath/Wheezing Atorvastatin Calcium 10 mg 09/29/20 09:00 10/03/20 09:34 Atorvastatin Calcium 10 Mg Tablet PO 10 mg DAILY MATHEUS Administration Atovaquone 1,500 mg 10/03/20 09:00 10/03/20 09:35 Atovaquone 750 Mg/5 Ml Oral.Susp PO 1,500 mg DAILY MATHEUS Administration Docusate Sodium 100 mg 09/28/20 22:42 Docusate Sodium 100 Mg Capsule PO DAILY PRN Constipation Metoprolol Succinate 25 mg 09/29/20 09:00 10/03/20 09:44 Metoprolol Succinate Er 25 Mg Tab.Er.24h PO 25 mg DAILY MATHEUS Administration Protocol Omeprazole 20 mg 10/02/20 10:30 10/03/20 04:13 Omeprazole 20 Mg Capsule.Dr PO Not Given DAILY@0630 MATHEUS Ondansetron HCl 4 mg 09/28/20 22:42 Ondansetron Hcl 4 Mg/2 Ml Vial IVPUSH Q8H PRN Nausea and Vomiting Prednisone 60 mg 10/02/20 10:30 10/03/20 09:34 Prednisone 20 Mg Tablet PO 60 mg DAILY MATHEUS Administration Sodium Chloride 3 ml 09/29/20 00:00 10/03/20 09:34 0.9 % Sodium Chloride Flush 3 Ml Syringe IVFLUSH Not Given QSHIFT MATHEUS Labs CBC & Chem 7: 10/03/20 05:39 10/03/20 05:39 Microbiology Microbiology Results: Microbiology 09/28/20 10:04 Blood - Venous Blood Culture - Preliminary No growth after 48 hours. 09/28/20 09:26 Blood - Venous Blood Culture - Preliminary No growth after 48 hours. 09/28/20 00:00 Urine [place] Urine Culture - Final Assessment and Plan (1) Acute renal failure: Problem details: Has ANCA vasculitis( Anti PR3) FRANCHESKA on CKD vs progression of CKD Normal sized kidneys on imaging Started Prednisone 60 mg daily with PPI and Atovaquone Urine output good; Has a catheter; No uremic symptoms Needs renal biopsy tomorrow. Shall consider cytoxan PO pending biopsy results No indications for HD today; DDAVP 25 mcg IVPB pre renal biopsy Labs AM. Shall closely follow up Status: Acute Assessment and Plan: 80M presented with cough and epistaxis, found to have severe FRANCHESKA FRANCHESKA with metabolic acidosis suspicious for GPA blood work positive for C-ANCA plan for biopsy today starteded prednisone 60mg daily, prilosec for gi prophylaxis, atovaquone for pjp prophylaxis acute anemia s/p 2 units total likely inflammatory monitor pafib metoprolol not on AC due to concern over gi bleed chronic diastolic chf lasix on hold monitor fluids closely DVT prophylaxis: SCDs
--- NOTE | 2020-10-03 11:13 | MHC.CM.PN ---
Per ROUNDS discussion, Patient will have Renal Biopsy today. Patient is likely going to need to be evaluated by PT closer to dc (Home with VNA VS STR). CM will continue to follow to secure a dc plan.
--- NOTE | 2020-10-03 11:52 | HO.RADPN ---
RADIOLOGY Narrative Narrative: CT guided left lower pole renal biopsy using coaxial system. 2 18 g core biopsies obtained.
[2020-10-03] MEDS: Lidocaine HCl 1 % MPF 5 ML VIAL 10 ML SUBCUT (12:04)
--- NOTE | 2020-10-03 12:38 | PM.PNNEP ---
Subjective Subjective Date of Service: 10/03/20 Interval history: No complaints; Due to have renal biopsy this AM Physical Exam Vital Signs: Vital Signs: Last Vital Signs Temp 97.3 F 10/03/20 12:10 Pulse 65 10/03/20 12:10 Resp 20 10/03/20 12:00 BP 195/94 H 10/03/20 12:10 Pulse Ox 99 10/03/20 12:10 Body Mass Index 23.0 Const: Orientation/consciousness: patient oriented x3 Neck: Neck: Yes supple Resp: Auscultation: diminished lung sounds Cardio: Rate: regular rate GI: Palpation (GI): Soft to palpation Neuro: General: patient oriented x3 Objective Data Labs CBC & Chem 7: 10/03/20 05:39 10/03/20 05:39 Labs: Laboratory Results - last 24 hr 10/02/20 10/03/20 10/03/20 12:13 05:39 05:39 WBC 7.0 RBC 3.31 L Hgb 9.2 L D Hct 28.0 L D MCV 84.6 MCH 27.8 MCHC 32.9 RDW 18.0 H Plt Count 297 MPV 9.8 Immature Gran % (Auto) 0.6 H Neut % (Auto) 75.5 H Lymph % (Auto) 16.8 L [place] % (Auto) 7.0 Eos % (Auto) 0.0 Baso % (Auto) 0.1 Lymph # (Auto) 1.2 [place] # (Auto) 0.5 Eos # (Auto) 0.0 Baso # (Auto) 0.0 Abs Immat Gran (auto) 0.04 H Absolute Neuts (auto) 5.3 Absolute Nucleated RBC 0.000 Nucleated RBC % (auto) 0.0 PT INR Sodium 142 Potassium 4.1 Chloride 105 Carbon Dioxide 16 L Anion Gap 25 H BUN 116 H* Creatinine 7.42 H* Estim Creat Clear Calc 8.8 Estimated GFR 7 Fasting Glucose 125 H D Calcium 6.2 L Blood Type B Positive Antibody Screen NEGATIVE Crossmatch See Detail 10/03/20 05:39 WBC RBC Hgb Hct MCV MCH MCHC RDW Plt Count MPV Immature Gran % (Auto) Neut % (Auto) Lymph % (Auto) [place] % (Auto) Eos % (Auto) Baso % (Auto) Lymph # (Auto) [place] # (Auto) Eos # (Auto) Baso # (Auto) Abs Immat Gran (auto) Absolute Neuts (auto) Absolute Nucleated RBC Nucleated RBC % (auto) PT 12.6 INR 1.1 Sodium Potassium Chloride Carbon Dioxide Anion Gap BUN Creatinine Estim Creat Clear Calc Estimated GFR Fasting Glucose Calcium Blood Type Antibody Screen Crossmatch Microbiology Microbiology Results: Microbiology 09/28/20 10:04 Blood - Venous Blood Culture - Final No growth after 5 days. 09/28/20 09:26 Blood - Venous Blood Culture - Final No growth after 5 days. 09/28/20 00:00 Urine [place] Urine Culture - Final Assessment & Plan Assessment and plan (1) Acute renal failure: Problem details: Has ANCA vasculitis( Anti PR3) FRANCHESKA on CKD vs progression of CKD Normal sized kidneys on imaging Started Prednisone 60 mg daily with PPI and Atovaquone Urine output good; Has a catheter; No uremic symptoms Renal biopsy today. Shall consider Rituxan vs cytoxan PO pending biopsy results Hypocalcemic/Hyperphosphatemic- Started on Ca acetate ; On NaHCO3 PTH pending; Labs AM; Needs to follow up with me in office when D/[place] Status: Acute Time Spent With Patient Time: Total time spent is greater than 50% in coordination of care (as documented) at patient's floor/unit and/or counseling patient:
--- NOTE | 2020-10-03 13:16 | PC.NURSE ---
upon returning to unit from IR, pt agitated when this scientific technical writer attempted to get vital signs. educated pt on need to complete vital signs due to pt having procedure. pt allowed one set of vital signs. increased b/p, 190's systolically. md aware. advised to allow pt to rest and evaluate at a later time.
[2020-10-03] MEDS: Calcium Acetate 667 MG CAPSULE PO (16:01)
[2020-10-03] MEDS: Sodium Bicarbonate 650 MG TABLET PO ×2 (16:01→20:50)
[2020-10-03] MEDS: 0.9 % Sodium Chloride Flush 3 ML SYRINGE IVFLUSH (16:02)
[2020-10-03 16:37] LABS: Glucose, Whole Blood 168 mg/dL (60-115)
[2020-10-04] VITALS (7 sets, daily range): BP systolic 140–180; BP diastolic 67–94; PULSE 53–80; RESP 18–20; TEMP 36.2–37; O2SAT 94–96
[2020-10-04] MEDS: 0.9 % Sodium Chloride Flush 3 ML SYRINGE IVFLUSH ×3 (01:21→17:05)
[2020-10-04] MEDS: amLODIPine Besylate 2.5 MG TABLET PO ×2 (05:31→10:12)
[2020-10-04] MEDS: Omeprazole 20 MG CAPSULE.DR PO (05:32)
[2020-10-04 06:45] LABS: MANUAL DIFF FLAG NO
[2020-10-04 06:59] LABS: Basophils Percent Auto 0.1 % (0-2); Hematocrit 31.1 % (42-52); Hemoglobin 10.1 g/dl (14.0-18.0); Imm Gran Abs Auto 0.06 X10*3/uL (0.00-0.03); Imm Gran Pct Auto 0.4 % (0.0-0.4); Lymphocytes Absolute Auto 1.8 X10*3/uL (1.2-4.9); Lymphocytes Percent Auto 13.3 % (20-40); Mean Corpuscular HGB Conc 32.5 g/dl (31.0-36.0); Mean Corpuscular Hemoglobin 27.6 pg (27.0-33.0); Mean Platelet Volume 9.7 fL (9.4-12.4); Monocytes Absolute Auto 1.2 X10*3/uL (0.1-1.2); Neutrophils Absolute Auto 10.3 X10*3/uL (2.0-8.3); Neutrophils Percent Auto 77.2 % (45-73); Platelet Count 317 X10*3/uL (160-400); Red Blood Count 3.66 X10*6/uL (4.60-5.80); Red Cell Distribution Width 17.8 % (11.0-16.0); White Blood Count 13.4 X10*3/uL (4.8-10.8)
[2020-10-04 08:06] LABS: Anion Gap 27 (12-20); Blood Urea Nitrogen 115 mg/dL (9-16); Calcium 6.6 mg/dL (8.4-10.2); Carbon Dioxide 17 mmol/L (22-29); Chloride 104 mmol/L (96-108); Creatinine Clr Calc Pharmacy 8.8; Estimated Glomerular Filt Rate 7; Glucose Fasting 100 mg/dL (60-99); Potassium 4.2 mmol/l (3.3-5.1); Sodium 144 mmol/L (135-145)
[2020-10-04] MEDS: Atorvastatin Calcium 10 MG TABLET PO (10:11)
[2020-10-04] MEDS: Atovaquone 750 MG/5 ML ORAL.SUSP 1500 MG PO (10:11)
[2020-10-04] MEDS: Metoprolol Succinate ER 25 MG TAB.ER.24H PO (10:12)
[2020-10-04] MEDS: predniSONE 20 MG TABLET 60 MG PO (10:12)
[2020-10-04] MEDS: Sodium Bicarbonate 650 MG TABLET PO ×3 (10:12→21:32)
[2020-10-04] MEDS: Calcium Acetate 667 MG CAPSULE PO ×2 (10:21→17:05)
--- NOTE | 2020-10-04 10:57 | HO.PM.IMPN ---
Subjective Subjective Date of Service: 10/04/20 Interval History: no complaints Cardiovascular Cardiovascular: Reports no additional cardiovascular complaints Gastrointestinal Gastrointestinal: Reports no additional gastrointestinal complaints Physical Exam Vital Signs: Vital Signs: Last Vital Signs Temp 97.1 F 10/04/20 07:23 Pulse 74 10/04/20 10:12 Resp 18 10/04/20 07:23 BP 148/70 H 10/04/20 10:12 Pulse Ox 96 10/04/20 07:23 Body Mass Index 23.0 General: AO X 3, no acute distress Resp: CTA bilateral CVS: S1,S2,RRR GI: soft, non tender, non distended Neuro: motor grossly intact Psych: appropriate affect Objective Data Current Medications Generic Name Dose Route Start Last Admin Trade Name Freq PRN Reason Stop Dose Admin Acetaminophen 650 mg 09/28/20 22:42 Acetaminophen 325 Mg Tablet PO Q6H PRN Pain, Mild (Pain Scale 1-3) Albuterol Sulfate 2 puff 09/29/20 05:51 Albuterol Sulfate 90 Mcg 8 Gm Inhaler INHALE RQ4H PRN Shortness of Breath/Wheezing Amlodipine Besylate 2.5 mg 10/04/20 04:00 10/04/20 10:12 Amlodipine Besylate 2.5 Mg Tablet PO 2.5 mg DAILY MATHEUS Administration Protocol Atorvastatin Calcium 10 mg 09/29/20 09:00 10/04/20 10:11 Atorvastatin Calcium 10 Mg Tablet PO 10 mg DAILY MATHEUS Administration Atovaquone 1,500 mg 10/03/20 09:00 10/04/20 10:11 Atovaquone 750 Mg/5 Ml Oral.Susp PO 1,500 mg DAILY MATHEUS Administration Calcium Acetate 667 mg 10/03/20 17:00 10/04/20 10:21 Calcium Acetate 667 Mg Capsule PO 667 mg TIDWM MATHEUS Administration Docusate Sodium 100 mg 09/28/20 22:42 Docusate Sodium 100 Mg Capsule PO DAILY PRN Constipation Metoprolol Succinate 25 mg 09/29/20 09:00 10/04/20 10:12 Metoprolol Succinate Er 25 Mg Tab.Er.24h PO 25 mg DAILY MATHEUS Administration Protocol Omeprazole 20 mg 10/02/20 10:30 10/04/20 05:32 Omeprazole 20 Mg Capsule.Dr PO 20 mg DAILY@0630 MATHEUS Administration Ondansetron HCl 4 mg 09/28/20 22:42 Ondansetron Hcl 4 Mg/2 Ml Vial IVPUSH Q8H PRN Nausea and Vomiting Prednisone 60 mg 10/02/20 10:30 10/04/20 10:12 Prednisone 20 Mg Tablet PO 60 mg DAILY MATHEUS Administration Sodium Bicarbonate 650 mg 10/03/20 15:00 10/04/20 10:12 Sodium Bicarbonate 650 Mg Tablet PO 650 mg TID MATHEUS Administration Sodium Chloride 3 ml 09/29/20 00:00 10/04/20 10:21 0.9 % Sodium Chloride Flush 3 Ml Syringe IVFLUSH 3 ml QSHIFT MATHEUS Administration Labs CBC & Chem 7: 10/04/20 05:48 10/04/20 05:48 Microbiology Microbiology Results: Microbiology 09/28/20 10:04 Blood - Venous Blood Culture - Final No growth after 5 days. 09/28/20 09:26 Blood - Venous Blood Culture - Final No growth after 5 days. 09/28/20 00:00 Urine [place] Urine Culture - Final Assessment and Plan (1) Acute renal failure: Problem details: Has ANCA vasculitis( Anti PR3) FRANCHESKA on CKD vs progression of CKD Normal sized kidneys on imaging Started Prednisone 60 mg daily with PPI and Atovaquone Urine output good; Has a catheter; No uremic symptoms Renal biopsy today. Shall consider Rituxan vs cytoxan PO pending biopsy results Hypocalcemic/Hyperphosphatemic- Started on Ca acetate ; On NaHCO3 PTH pending; Labs AM; Needs to follow up with me in office when D/[place] Status: Acute Assessment and Plan: 80M presented with cough and epistaxis, found to have severe FRANCHESKA FRANCHESKA with metabolic acidosis suspicious for GPA blood work positive for C-ANCA s/p kidney biopsy 10/03/2020, sent to [facility] pathology, expecting results tuesday starteded prednisone 60mg daily, prilosec for gi prophylaxis, atovaquone for pjp prophylaxis depending on biopsy results, may start immunomodulating meds, plan to observe inpatient until pathology results back, no urgent need for HD for now acute anemia s/p 2 units total likely inflammatory stable pafib metoprolol not on AC due to concern over gi bleed chronic diastolic chf lasix on hold monitor fluids closely DVT prophylaxis: SCDs
[2020-10-04 13:08] LABS: Blood Urea Nitrogen 137 mg/dL (9-16)
--- NOTE | 2020-10-04 15:53 | PM.PNNEP ---
Subjective Subjective Date of Service: 10/04/20 Interval history: no complaints Eating well No uremic symptoms Physical Exam Vital Signs: Vital Signs: Last Vital Signs Temp 97.7 F 10/04/20 15:34 Pulse 70 10/04/20 15:34 Resp 20 10/04/20 15:34 BP 159/82 H 10/04/20 15:34 Pulse Ox 94 10/04/20 15:34 Body Mass Index 23.0 Const: General: comfortable, no acute distress, alert and awake Orientation/consciousness: patient oriented x3 Limitations: no limitations Eyes: General: appearance normal, both eyes and all related structures Neck: Neck: Yes supple Resp: Effort & Inspection: normal respiratory effort and able to speak in complete sentences Auscultation: diminished lung sounds Cardio: Rate: regular rate Rhythm: regular rhythm Heart sounds: no rubs GI: Palpation (GI): Soft to palpation Auscultation: normal bowel sounds Skin: General skin exam: no rashes or lesions noted Neuro: General: patient oriented x3 and moves all extremities Cognition (Neuro): normal cognition Extrem: General: Yes normal to inspection and Yes no pedal edema Objective Data Labs CBC & Chem 7: 10/04/20 05:48 10/04/20 05:48 Labs: Laboratory Results - last 24 hr 09/28/20 10/02/20 10/03/20 18:44 12:13 16:31 WBC RBC Hgb Hct MCV MCH MCHC RDW Plt Count MPV Immature Gran % (Auto) Neut % (Auto) Lymph % (Auto) [place] % (Auto) Eos % (Auto) Baso % (Auto) Lymph # (Auto) [place] # (Auto) Eos # (Auto) Baso # (Auto) Abs Immat Gran (auto) Absolute Neuts (auto) Absolute Nucleated RBC Nucleated RBC % (auto) Sodium Potassium Chloride Carbon Dioxide Anion Gap BUN 137 H* Creatinine Estim Creat Clear Calc Estimated GFR POC Glucose 168 H Fasting Glucose Calcium Crossmatch See Detail 10/04/20 10/04/20 05:48 05:48 WBC 13.4 H RBC 3.66 L Hgb 10.1 L Hct 31.1 L MCV 85.0 MCH 27.6 MCHC 32.5 RDW 17.8 H Plt Count 317 MPV 9.7 Immature Gran % (Auto) 0.4 Neut % (Auto) 77.2 H Lymph % (Auto) 13.3 L [place] % (Auto) 9.0 Eos % (Auto) 0.0 Baso % (Auto) 0.1 Lymph # (Auto) 1.8 [place] # (Auto) 1.2 Eos # (Auto) 0.0 Baso # (Auto) 0.0 Abs Immat Gran (auto) 0.06 H Absolute Neuts (auto) 10.3 H Absolute Nucleated RBC 0.000 Nucleated RBC % (auto) 0.0 Sodium 144 Potassium 4.2 Chloride 104 Carbon Dioxide 17 L Anion Gap 27 H BUN 115 H* Creatinine 7.39 H* Estim Creat Clear Calc 8.8 Estimated GFR 7 POC Glucose Fasting Glucose 100 H Calcium 6.6 L D Crossmatch Microbiology Microbiology Results: Microbiology 09/28/20 10:04 Blood - Venous Blood Culture - Final No growth after 5 days. 09/28/20 09:26 Blood - Venous Blood Culture - Final No growth after 5 days. 09/28/20 00:00 Urine [place] Urine Culture - Final Assessment & Plan Assessment and plan (1) Acute renal failure: Problem details: Has ANCA vasculitis( Anti PR3) FRANCHESKA on CKD vs progression of CKD Normal sized kidneys on imaging Started Prednisone 60 mg daily with PPI and Atovaquone Urine output good; Has a catheter; No uremic symptoms Renal biopsy yesterday. Needs Rituxan vs cytoxan PO pending biopsy results Hypocalcemic/Hyperphosphatemic- Started on Ca acetate ; On NaHCO3 PTH pending; Labs AM; Needs to follow up with me in office when D/[place] Status: Acute Assessment and Plan: 80M presented with cough and epistaxis, found to have severe FRANCHESKA FRANCHESKA with metabolic acidosis suspicious for GPA blood work positive for C-ANCA s/p kidney biopsy 10/03/2020, sent to [facility] pathology, expecting results tuesday starteded prednisone 60mg daily, prilosec for gi prophylaxis, atovaquone for pjp prophylaxis depending on biopsy results, may start immunomodulating meds, plan to observe inpatient until pathology results back, no urgent need for HD for now acute anemia s/p 2 units total likely inflammatory stable pafib metoprolol not on AC due to concern over gi bleed chronic diastolic chf lasix on hold monitor fluids closely DVT prophylaxis: SCDs Time Spent With Patient Time: Total time spent is greater than 50% in coordination of care (as documented) at patient's floor/unit and/or counseling patient:
--- NOTE | 2020-10-04 19:36 | PC.NURSE ---
Pt slept in naps throughout the day. Alert to self, knows hes in the hospital. Knew it was September - unsure of year. Vague on situation. 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 SR w/occasional PVCs Ate ~50% of meals Indwelling cath - has sediment in [place] - draining at this time, in report from night RN prev shift it had to be irrigated overnight as sediment was causing retention - no issue for day shift. Skin intact - mid buttocks pink - blanchable. Pt repositions self in bed- sometimes will need one assit to move pt q2 for repo high fall risk measures remain in place - telesitter in place at this time.
[2020-10-05] VITALS: BP 128/82; PULSE 68; RESP 20; TEMP 36.6; O2SAT 96
[2020-10-05] MEDS: 0.9 % Sodium Chloride Flush 3 ML SYRINGE IVFLUSH ×3 (01:28→20:39)
[2020-10-05 03:18] VITALS: BP 158/89; PULSE 70; RESP 20; TEMP 36.4; O2SAT 96
[2020-10-05] MEDS: Omeprazole 20 MG CAPSULE.DR PO (06:02)
[2020-10-05 07:07] LABS: MANUAL DIFF FLAG NO
[2020-10-05 07:13] LABS: Basophils Percent Auto 0.1 % (0-2); Hematocrit 29.4 % (42-52); Hemoglobin 9.6 g/dl (14.0-18.0); Imm Gran Abs Auto 0.05 X10*3/uL (0.00-0.03); Imm Gran Pct Auto 0.5 % (0.0-0.4); Lymphocytes Absolute Auto 1.5 X10*3/uL (1.2-4.9); Lymphocytes Percent Auto 13.7 % (20-40); Mean Corpuscular HGB Conc 32.7 g/dl (31.0-36.0); Mean Corpuscular Volume 85.7 fL (80-98); Mean Platelet Volume 9.9 fL (9.4-12.4); Monocytes Absolute Auto 0.9 X10*3/uL (0.1-1.2); Monocytes Percent Auto 8.3 % (2-11); Neutrophils Absolute Auto 8.4 X10*3/uL (2.0-8.3); Neutrophils Percent Auto 77.4 % (45-73); Platelet Count 305 X10*3/uL (160-400); Red Blood Count 3.43 X10*6/uL (4.60-5.80); Red Cell Distribution Width 17.6 % (11.0-16.0); White Blood Count 10.8 X10*3/uL (4.8-10.8)
[2020-10-05 07:49] VITALS: BP 180/82; PULSE 70; RESP 20; TEMP 36.6; O2SAT 93
[2020-10-05 08:29] LABS: Anion Gap 23 (12-20); Blood Urea Nitrogen 122 mg/dL (9-16); Calcium 6.4 mg/dL (8.4-10.2); Carbon Dioxide 20 mmol/L (22-29); Chloride 105 mmol/L (96-108); Creatinine Clr Calc Pharmacy 8.6; Estimated Glomerular Filt Rate 7; Glucose Fasting 111 mg/dL (60-99); Potassium 3.9 mmol/l (3.3-5.1); Sodium 144 mmol/L (135-145)
--- NOTE | 2020-10-05 08:57 | P.PNIM_ITS ---
Subjective Subjective Date of Service: 10/05/20 Interval History: no comploaints Cardiovascular Cardiovascular: Reports no additional cardiovascular complaints Gastrointestinal Gastrointestinal: Reports no additional gastrointestinal complaints Physical Exam Vital Signs: Vital Signs: Last Vital Signs Temp 97.8 F 10/05/20 07:49 Pulse 70 10/05/20 07:49 Resp 20 10/05/20 07:49 BP 180/82 H 10/05/20 07:49 Pulse Ox 93 10/05/20 07:49 Body Mass Index 23.0 General: AO X 3, no acute distress Resp: CTA bilateral CVS: S1,S2,RRR GI: soft, non tender, non distended Neuro: motor grossly intact Psych: appropriate affect Objective Data Current Medications Generic Name Dose Route Start Last Admin Trade Name Freq PRN Reason Stop Dose Admin Acetaminophen 650 mg 09/28/20 22:42 Acetaminophen 325 Mg Tablet PO Q6H PRN Pain, Mild (Pain Scale 1-3) Albuterol Sulfate 2 puff 09/29/20 05:51 Albuterol Sulfate 90 Mcg 8 Gm Inhaler INHALE RQ4H PRN Shortness of Breath/Wheezing Amlodipine Besylate 2.5 mg 10/04/20 04:00 10/04/20 10:12 Amlodipine Besylate 2.5 Mg Tablet PO 2.5 mg DAILY MATHEUS Administration Protocol Atorvastatin Calcium 10 mg 09/29/20 09:00 10/04/20 10:11 Atorvastatin Calcium 10 Mg Tablet PO 10 mg DAILY MATHEUS Administration Atovaquone 1,500 mg 10/03/20 09:00 10/04/20 10:11 Atovaquone 750 Mg/5 Ml Oral.Susp PO 1,500 mg DAILY MATHEUS Administration Calcium Acetate 667 mg 10/03/20 17:00 10/04/20 17:05 Calcium Acetate 667 Mg Capsule PO 667 mg TIDWM MATHEUS Administration Docusate Sodium 100 mg 09/28/20 22:42 Docusate Sodium 100 Mg Capsule PO DAILY PRN Constipation Metoprolol Succinate 25 mg 09/29/20 09:00 10/04/20 10:12 Metoprolol Succinate Er 25 Mg Tab.Er.24h PO 25 mg DAILY MATHEUS Administration Protocol Omeprazole 20 mg 10/02/20 10:30 10/05/20 06:02 Omeprazole 20 Mg Capsule.Dr PO 20 mg DAILY@0630 MATHEUS Administration Ondansetron HCl 4 mg 09/28/20 22:42 Ondansetron Hcl 4 Mg/2 Ml Vial IVPUSH Q8H PRN Nausea and Vomiting Prednisone 60 mg 10/02/20 10:30 10/04/20 10:12 Prednisone 20 Mg Tablet PO 60 mg DAILY MATHEUS Administration Sodium Bicarbonate 650 mg 10/03/20 15:00 10/04/20 21:32 Sodium Bicarbonate 650 Mg Tablet PO 650 mg TID MATHEUS Administration Sodium Chloride 3 ml 09/29/20 00:00 10/05/20 01:28 0.9 % Sodium Chloride Flush 3 Ml Syringe IVFLUSH 3 ml QSHIFT MATHEUS Administration Labs CBC & Chem 7: 10/05/20 05:59 10/05/20 05:59 Microbiology Microbiology Results: Microbiology 09/28/20 10:04 Blood - Venous Blood Culture - Final No growth after 5 days. 09/28/20 09:26 Blood - Venous Blood Culture - Final No growth after 5 days. 09/28/20 00:00 Urine [place] Urine Culture - Final Assessment and Plan (1) Acute renal failure: Problem details: Has ANCA vasculitis( Anti PR3) FRANCHESKA on CKD vs progression of CKD Normal sized kidneys on imaging Started Prednisone 60 mg daily with PPI and Atovaquone Urine output good; Has a catheter; No uremic symptoms Renal biopsy yesterday. Needs Rituxan vs cytoxan PO pending biopsy results Hypocalcemic/Hyperphosphatemic- Started on Ca acetate ; On NaHCO3 PTH pending; Labs AM; Needs to follow up with me in office when D/[place] Status: Acute Assessment and Plan: 80M presented with cough and epistaxis, found to have severe FRANCHESKA FRANCHESKA with metabolic acidosis suspicious for GPA with positive anti PR3 (C-ANCA) s/p kidney biopsy 10/03/2020, sent to [facility] pathology, expecting results tuesday started prednisone 60mg daily, prilosec for gi prophylaxis, atovaquone for pjp prophylaxis depending on biopsy results, may start immunomodulating meds, plan to observe inpatient until pathology results back, no urgent need for HD for now continue oral bicarb and calcium acetate acute anemia s/p 2 units total over admission likely inflammatory stable pafib metoprolol not on AC due to concern over gi bleed chronic diastolic chf lasix on hold monitor fluids closely DVT prophylaxis: SCDs
--- NOTE | 2020-10-05 09:43 | P.PNNP_ITS ---
Subjective Subjective Date of Service: 10/05/20 Interval history: bOTHERED BY [facility] cath; wants to get up to go to the [facility] Denies nausea, anorexia, vomiting Physical Exam Vital Signs: Vital Signs: Last Vital Signs Temp 97.8 F 10/05/20 07:49 Pulse 70 10/05/20 07:49 Resp 20 10/05/20 07:49 BP 180/82 H 10/05/20 07:49 Pulse Ox 93 10/05/20 07:49 Body Mass Index 23.0 Const: General: cooperative, healthy appearing and no acute distress Orientation/consciousness: oriented to person, oriented to place and oriented to time Neck: Neck: Yes normal visual inspection Carotids: normal carotid upstroke Lymphatic: no lymphadenopathy noted Resp: Effort & Inspection: normal respiratory effort and able to speak in complete sentences Auscultation: clear to auscultation bilaterally GI: Inspection: Yes normal to inspection Palpation (GI): No hepatosplenomegaly present Auscultation: normal bowel sounds Neuro: General: oriented to person, oriented to place and oriented to time Extrem: General: Yes normal to inspection and Yes no pedal edema Objective Data Labs CBC & Chem 7: 10/05/20 05:59 10/05/20 05:59 Labs: Laboratory Results - last 24 hr 09/28/20 10/02/20 10/05/20 18:44 12:13 05:59 WBC 10.8 RBC 3.43 L Hgb 9.6 L Hct 29.4 L MCV 85.7 MCH 28.0 MCHC 32.7 RDW 17.6 H Plt Count 305 MPV 9.9 Immature Gran % (Auto) 0.5 H Neut % (Auto) 77.4 H Lymph % (Auto) 13.7 L [place] % (Auto) 8.3 Eos % (Auto) 0.0 Baso % (Auto) 0.1 Lymph # (Auto) 1.5 [place] # (Auto) 0.9 Eos # (Auto) 0.0 Baso # (Auto) 0.0 Abs Immat Gran (auto) 0.05 H Absolute Neuts (auto) 8.4 H Absolute Nucleated RBC 0.000 Nucleated RBC % (auto) 0.0 Sodium Potassium Chloride Carbon Dioxide Anion Gap BUN 137 H* Creatinine Estim Creat Clear Calc Estimated GFR Fasting Glucose Calcium Crossmatch See Detail 10/05/20 05:59 WBC RBC Hgb Hct MCV MCH MCHC RDW Plt Count MPV Immature Gran % (Auto) Neut % (Auto) Lymph % (Auto) [place] % (Auto) Eos % (Auto) Baso % (Auto) Lymph # (Auto) [place] # (Auto) Eos # (Auto) Baso # (Auto) Abs Immat Gran (auto) Absolute Neuts (auto) Absolute Nucleated RBC Nucleated RBC % (auto) Sodium 144 Potassium 3.9 Chloride 105 Carbon Dioxide 20 L Anion Gap 23 H BUN 122 H* Creatinine 7.52 H* Estim Creat Clear Calc 8.6 Estimated GFR 7 Fasting Glucose 111 H Calcium 6.4 L Crossmatch Microbiology Microbiology Results: Microbiology 09/28/20 10:04 Blood - Venous Blood Culture - Final No growth after 5 days. 09/28/20 09:26 Blood - Venous Blood Culture - Final No growth after 5 days. 09/28/20 00:00 Urine [place] Urine Culture - Final Assessment & Plan Assessment and plan (1) Acute renal failure: Problem details: Has ANCA vasculitis( Anti PR3) FRANCHESKA on CKD v Normal sized kidneys on imaging Started Prednisone 60 mg daily with PPI and Atovaquone Urine output good; Has a catheter; No uremic symptoms Renal biopsy pending. Needs Rituxan vs cytoxan PO pending biopsy results-should be started tomorrow; on steroids alone at present Hypocalcemic/Hyperphosphatemic- Started on Ca acetate ; On NaHCO3 PTH pending; Labs AM; Needs to follow up with Dr. Hobbs in office when D/[place] Status: Acute Time Spent With Patient Time: Total time spent is greater than 50% in coordination of care (as documented) at patient's floor/unit and/or counseling patient:
[2020-10-05 10:11] VITALS: BP 180/82; PULSE 70
[2020-10-05] MEDS: amLODIPine Besylate 2.5 MG TABLET PO (10:11)
[2020-10-05] MEDS: Calcium Acetate 667 MG CAPSULE PO ×2 (10:12→11:01)
[2020-10-05] MEDS: predniSONE 20 MG TABLET 60 MG PO (10:12)
[2020-10-05 10:13] VITALS: BP 180/82; PULSE 70
[2020-10-05] MEDS: Sodium Bicarbonate 650 MG TABLET PO ×2 (10:13→20:33)
[2020-10-05] MEDS: Metoprolol Succinate ER 25 MG TAB.ER.24H PO (10:13)
[2020-10-05] MEDS: Atorvastatin Calcium 10 MG TABLET PO (10:13)
[2020-10-05] MEDS: Atovaquone 750 MG/5 ML ORAL.SUSP 1500 MG PO (10:13)
[2020-10-05 12:00] VITALS: BP 160/68; PULSE 61; RESP 18; TEMP 36.4; O2SAT 98
--- NOTE | 2020-10-05 18:51 | PC.NURSE ---
pt refuses pm vitals and po meds. pt somehow got thought his chronic cath was going to be removedbefore he went home - very fixated on this at this time. was agitated about subject so didnt want to be touched at this time in early evening. AOx4. SB/SR on telemetry w/occasional PVCs repo self in bed. standby assist to commode. mild pink mid buttocks -blanchable. pt legally blind but able to make needs known effeciently
[2020-10-06] VITALS (10 sets, daily range): BP systolic 96–160; BP diastolic 59–86; PULSE 54–73; RESP 16–20; TEMP 36.1–36.7; O2SAT 90–100
--- NOTE | 2020-10-06 | CT_ITS ---
EXAMINATION: CT HEAD WITHOUT CONTRAST CLINICAL INFORMATION: Seizure COMPARISON: 09/12/2014 TECHNIQUE: Contiguous axial imaging was performed from the skull base to vertex without intravenous contrast. This CT examination was performed using dose optimization techniques as appropriate, variously including the following: * Automated exposure control * Adjustment of mA and/or kV according to patient size (this includes techniques or standardized protocols for targeted exams where dose is matched to indication/reason for exam; i.e. extremities or head) Use of iterative reconstruction technique DLP: 866 mGy-cm. FINDINGS: There is no evidence of acute intracranial hemorrhage or territorial infarction. No abnormal mass effect or midline shift is seen. Garcia to white matter differentiation is well preserved. No extra-axial fluid collections are identified. No hydrocephalus. Proportional prominence of the ventricles and sulcal spaces is consistent with moderate volume loss. Patchy periventricular and deep white matter hypoattenuation is consistent with mild small vessel ischemic changes. The osseous structures and soft tissues are normal. The mastoid air cells are well aerated. There is mild diffuse mucoperiosteal thickening of the paranasal sinuses. CT/CT head/brain wo con IMPRESSION: No acute intracranial pathology. Chronic volume loss with small vessel ischemic change.
--- NOTE | 2020-10-06 | IR_ITS ---
PROCEDURE: IR INSERTION OF CENTRAL VENOUS CATHETER CLINICAL INFORMATION: Needs emergent hemodialysis creatinine of 7.0. Renal failure. COMPARISON: None TECHNIQUE: As there is no immediate family available an emergency consent was obtained from Dr. Jacobo and Dr. Arnett. Of maximal sterile barrier technique followed including use of cap, mask, sterile gown, sterile gloves, a sterile full body drape and hand hygiene. Also followed skin preparation with 2% chlorhexidine for cutaneous antisepsis, and sterile ultrasound preparation with sterile gel and probe cover when applicable. Patient was placed on fluoroscopy table and so she'll anticipate and preliminary ultrasound imaging was obtained. The optimal site was selected and marked on the right anterolateral neck. Marker area was cleaned and draped in usual manner. 1% lidocaine was injected at the marked site. Under sterile ultrasound guidance a singlewall needle was advanced from the skin and right jugular vein was punctured. After observing needle in the center of the jugular vein and thickening of the blood through the needle, a small thin guidewire was advanced and needle withdrawn. A small skin incision was performed at puncture site. A 3 [place] dilator with sheath was advanced and via removed. The dilator was removed and a 0.35 inch diameter wire was advanced through the sheath under fluoroscopy and placed in IVC. The 5 [place] dilator was removed and the tract was dilated to 12 [place] dilator. Subsequently a mobile color 12 [place] 13 cm long catheter was advanced over the guidewire and placed in the SVC. The wire was removed and a single image obtained for documentation. Thick catheter was attached the skin with 3-0 nylon nonobserved sutures. Both ports of the catheter were flushed with heparinized saline. Patient tolerated procedure extremely well. IV 1 mg of Versed was administered by anesthesia department. FINDINGS: On preliminary ultrasound imaging there is a widely patent jugular vein with few hanging septations or thrombus noted. Successful ultrasound and fluoroscopy-guided placement of a right jugular [id number] [place] catheter with its tip in mid SVC. IR/IR cvc insert non tunnel IMPRESSION: Successful ultrasound and fluoroscopy guided placement of right jugular temporary AV dialysis catheter. The catheter is ready for use for dialysis. FLUOROSCOPY TIME: 0.5 minutes. IMAGES: 1.
--- NOTE | 2020-10-06 | IR_ITS ---
PROCEDURE: IR INSERTION OF CENTRAL VENOUS CATHETER CLINICAL INFORMATION: Needs emergent hemodialysis creatinine of 7.0. Renal failure. COMPARISON: None TECHNIQUE: As there is no immediate family available an emergency consent was obtained from Dr. Jacobo and Dr. Arnett. Of maximal sterile barrier technique followed including use of cap, mask, sterile gown, sterile gloves, a sterile full body drape and hand hygiene. Also followed skin preparation with 2% chlorhexidine for cutaneous antisepsis, and sterile ultrasound preparation with sterile gel and probe cover when applicable. Patient was placed on fluoroscopy table and so she'll anticipate and preliminary ultrasound imaging was obtained. The optimal site was selected and marked on the right anterolateral neck. Marker area was cleaned and draped in usual manner. 1% lidocaine was injected at the marked site. Under sterile ultrasound guidance a singlewall needle was advanced from the skin and right jugular vein was punctured. After observing needle in the center of the jugular vein and thickening of the blood through the needle, a small thin guidewire was advanced and needle withdrawn. A small skin incision was performed at puncture site. A 3 [place] dilator with sheath was advanced and via removed. The dilator was removed and a 0.35 inch diameter wire was advanced through the sheath under fluoroscopy and placed in IVC. The 5 [place] dilator was removed and the tract was dilated to 12 [place] dilator. Subsequently a mobile color 12 [place] 13 cm long catheter was advanced over the guidewire and placed in the SVC. The wire was removed and a single image obtained for documentation. Thick catheter was attached the skin with 3-0 nylon nonobserved sutures. Both ports of the catheter were flushed with heparinized saline. Patient tolerated procedure extremely well. IV 1 mg of Versed was administered by anesthesia department. FINDINGS: On preliminary ultrasound imaging there is a widely patent jugular vein with few hanging septations or thrombus noted. Successful ultrasound and fluoroscopy-guided placement of a right jugular [id number] [place] catheter with its tip in mid SVC. IR/IR us guide venous access IMPRESSION: Successful ultrasound and fluoroscopy guided placement of right jugular temporary AV dialysis catheter. The catheter is ready for use for dialysis. FLUOROSCOPY TIME: 0.5 minutes. IMAGES: 1.
[2020-10-06 00:32] LABS: Glucose, Whole Blood 162 mg/dL (60-115)
[2020-10-06 00:59] LABS: Basophils Percent Auto 0.1 % (0-2); Hemoglobin 9.8 g/dl (14.0-18.0); Imm Gran Abs Auto 0.03 X10*3/uL (0.00-0.03); Imm Gran Pct Auto 0.3 % (0.0-0.4); Lymphocytes Absolute Auto 2.1 X10*3/uL (1.2-4.9); Lymphocytes Percent Auto 17.8 % (20-40); MANUAL DIFF FLAG NO; Mean Corpuscular HGB Conc 32.7 g/dl (31.0-36.0); Mean Corpuscular Hemoglobin 27.8 pg (27.0-33.0); Mean Platelet Volume 9.6 fL (9.4-12.4); Monocytes Absolute Auto 0.5 X10*3/uL (0.1-1.2); Monocytes Percent Auto 4.2 % (2-11); Neutrophils Percent Auto 77.6 % (45-73); Platelet Count 328 X10*3/uL (160-400); Red Blood Count 3.53 X10*6/uL (4.60-5.80); Red Cell Distribution Width 17.3 % (11.0-16.0); White Blood Count 11.6 X10*3/uL (4.8-10.8)
[2020-10-06 01:06] LABS: INTERNATIONAL NORM RATIO 1.1 (0.9-1.1); Prothrombin Time 12.9 SEC (10.8-13.0)
--- NOTE | 2020-10-06 01:13 | P.EN_ITS ---
Event Note Date of Service: 10/06/20 Event Note: A rapid response was called on this patient due to seizure activity. Patient had a tonic-clonic seizure witnessed by nursing staff. Lasted about 3- 4 minutes. By the time I arrived at bedside patient was postictal. Arousable. A call was made to neurology as well as Nephrology. At this time will order stat CBC, CMP, head CT and will load him with Keppra 1000 mg once Spoke to Dr. Singh, pt will most likely undergo dialysis in AM A call was made to neurology, awaiting call back
[2020-10-06 01:32] LABS: Alanine Aminotransferase 15 U/L (0-40); Albumin Level 3.4 g/dL (3.5-5.0); Alkaline Phosphatase 63 U/L (39-117); Anion Gap 28 (12-20); Aspartate Amino Transferase 16 U/L (5-37); Bilirubin Total 0.4 mg/dL (0.0-1.0); Calcium 6.5 mg/dL (8.4-10.2); Carbon Dioxide 13 mmol/L (22-29); Chloride 102 mmol/L (96-108); Creatinine Clr Calc Pharmacy 9.1; Estimated Glomerular Filt Rate 7; Glucose Random 185 mg/dL (60-115); Potassium 3.8 mmol/l (3.3-5.1); Sodium 139 mmol/L (135-145); Total Protein 6.1 g/dL (6.5-8.0)
[2020-10-06 01:42] LABS: Blood Urea Nitrogen 124 mg/dL (9-16)
[2020-10-06] MEDS: LORazepam 2 MG/ML VIAL 1 MG IVPUSH ×2 (02:22→06:27)
[2020-10-06] MEDS: Haloperidol Lactate 5 MG/ML VIAL 2.5 MG IVPUSH (02:24)
[2020-10-06 02:27] LABS: ABG PCO2 29 mmhg (32-45); Base Excess ABG -7.6; HCO3 ABG 16 mmol/l (22-26); Oxygen Saturation ABG 91.3 %; PO2 ABG 68 mmhg (83-108); pH ABG 7.37 (7.35-7.45)
--- NOTE | 2020-10-06 05:21 | PC.NURSE ---
at 0030 paper rewinder operator noted pt is head is jurking and pt not responding to voice command RR WAS CALLED MD AND SLURRY CONTROL OPERATOR HELPER present pt is still jurinkg with sternal rub he was not responding TEETH GRINDING MD ORDERED CT OF HEAD BLOOD GAS, LABS, KEPPRA , WHEN PT WAS BROUGHT TO CT HE BECAME COMBATIVE MD ORDERED FIRST 1 MG OF LORAZEPAM NO RESULT STILL RESTLESS AND HALDOL 2.5 MG AND AFTER THAT PT WAS CALM. WHEN BROUGHT TO FLOOR HE WAS BACK HIMSELF TALKING SWEARING AND WANTED TO BE LEFT ALONE ALSO RIPPED OF HIS TELE BOX NOTIFIED SHE WILL D/C TELE FOR NOW .
--- NOTE | 2020-10-06 06:15 | PC.NURSE ---
PT REFUSED TELE AND AM LABS AWARE
[2020-10-06] MEDS: levETIRAcetam 1,000 MG TABLET 1000 MG PO (06:28)
[2020-10-06] MEDS: 0.9 % Sodium Chloride Flush 3 ML SYRINGE IVFLUSH ×2 (10:49→21:51)
--- NOTE | 2020-10-06 11:04 | MHC.CM.PN ---
Patient is not yet medically cleared for dc r/t Rapid Response called today r/t Seizure activity.Patient will likely need to be eval'd by PT to determine home vs SNF. CM will continue to follow for dc planning to secure a solid dc goal/plan.
--- NOTE | 2020-10-06 12:25 | HO.ANESPROP2 ---
[facility] Past Medical History Medical History Anal polyp Bladder outlet obstruction Chronic diastolic (congestive) heart failure Diverticulitis large intestine Malignant neoplasm of sigmoid colon Mild pulmonary hypertension Paroxysmal atrial fibrillation Personal history of colon cancer Tubular adenoma of colon Family History Family History Father No problems noted. Mother Family history of cervical cancer Social History Social History Household Members: Other Housing: Assisted Living Facility Do you presently have visiting nurse or other home services: Yes Alcohol intake: current Alcohol intake frequency: holidays/special occasions only Alcohol type: beer Smoking Status: Former smoker Use of substances other than those prescribed or required for medical reasons: No Currently Displaying Signs/Symptoms of Drug Intoxication Withdrawal: No Have you been hit, kicked, punched, or otherwise hurt by someone within the past year? If so, by whom?: No Do you feel safe in your current relationship?: No Current Relationship Is there a partner from a previous relationship who is making you feel unsafe now?: No Are you made to feel afraid or neglected: No Spiritual Healthcare Practices: none Scientologist Healthcare Practices: none Cultural Healthcare Practices: none Advance Directives: No Advance Directives Information Provided: No Do you have thoughts of harming others: None Do you have a plan to hurt others: No Plan Recently lost weight without trying: No service: No Current occupational status: retired Meds Allergies Allergy/AdvReac Type Severity Reaction Status Date / Time No Known Allergies Allergy Verified 07/31/20 09:06 [No Known Allergies*] Home Medications Medication Instructions Recorded Confirmed Type furosemide 20 mg PO BID 09/28/20 09/28/20 History metoprolol succinate 25 mg PO DAILY 09/28/20 09/28/20 History simvastatin 20 mg PO DAILY 09/28/20 09/28/20 History Exam Exam Date and Time: October 06, 2020 1225 Height,Weight and Vital Signs: Height 6 ft Weight 77.111 kg Last Vital Signs Temp 97.5 F 10/06/20 10:03 Pulse 67 10/06/20 10:03 Resp 18 10/06/20 10:03 BP 146/74 H 10/06/20 10:03 Pulse Ox 97 10/06/20 10:03 Pertinent Lab Results Pertinent Lab Results: Laboratory Tests 09/28/20 09/28/20 09/28/20 09:26 09:26 09:26 WBC 9.0 RBC 2.48 L Hgb 6.6 L* Hct 20.4 L* MCV 82.3 MCH 26.6 L MCHC 32.4 RDW 22.4 H Plt Count 492 H MPV 9.1 L Immature Gran % (Auto) 0.6 H Neut % (Auto) 73.1 H Lymph % (Auto) 15.6 L [place] % (Auto) 8.8 Eos % (Auto) 1.1 Baso % (Auto) 0.8 Lymph # (Auto) 1.4 [place] # (Auto) 0.8 Eos # (Auto) 0.1 Baso # (Auto) 0.1 Abs Immat Gran (auto) 0.05 H Absolute Neuts (auto) 6.6 Absolute Nucleated RBC 0.000 Nucleated RBC % (auto) 0.0 Neutrophils % (Manual) 85 H Band Neutrophils % 1 L Lymphocytes % (Manual) 10 L Monocytes % (Manual) 4 Abs Neuts (Manual) 7.7 Lymphocytes # (Manual) 0.9 Monocytes # (Manual) 0.4 Platelet Estimate INCREASED Plt Morphology Comment NORMAL RBC Morphology NOTED Hypochromasia 1+ Ovalocytes 1+ [place] Cells 3+ Acanthocytes (Spur) 3+ Schistocytes 2+ Smear Path Review SEE NOTE Absolute Retic 0.029 Percent Retic 1.2 Immature Retic Fraction 2.6 Retic Hgb Equivalent 30.4 Haptoglobin PT 12.6 INR 1.1 D-Dimer 2582 Hold Blue Top SEE NOTE ABG pH ABG pCO2 ABG pO2 ABG HCO3 ABG O2 Saturation ABG Base Excess VBG pH VBG pCO2 VBG pO2 VBG HCO3 VBG O2 Saturation VBG Base Excess Oxygen Given Sodium 140 Potassium 4.9 Chloride 110 H Carbon Dioxide 8 L* Anion Gap 27 H BUN 147 H* Creatinine 10.50 H* Estim Creat Clear Calc 6.2 Estimated GFR 5 POC Glucose Random Glucose 134 H Fasting Glucose Lactic Acid Calcium 7.6 L Phosphorus Magnesium 2.0 Total Bilirubin 0.3 Direct Bilirubin < 0.2 AST 10 ALT 10 Alkaline Phosphatase 73 Lactate Dehydrogenase 208 Troponin I High Sens C-Reactive Protein B-Natriuretic Peptide Total Protein 6.8 Total Protein (PEP) Albumin 3.9 Albumin (PEP) Iysaj-1-Jkjrnfcwd Uiiqj-5-Heimfqjnq Kylo-4-Xvwokfdy Cgrr-5-Fhrtdtsx Gamma Globulins Abnorm Protein Band 1 Abnorm Protein Band 2 Abnorm Protein Band 3 PEP Interpretation Lipase Vitamin B12 Folate Procalcitonin Urine Color Urine Appearance Urine pH Ur Specific [place] Urine Protein Urine Glucose (UA) Urine Ketones Urine Blood Urine Nitrite Ur Leukocyte Esterase Urine RBC Urine WBC Urine WBC Clumps Ur Squamous Epith Cells Urine Bacteria Urine Yeast Urine Osmolality Ur Random Sodium Stool Occult Blood Proteinase 3 (PR3) Ab Myeloperoxidase Ab Double Strand DNA Ab Glomerular Base Memb Ab Coronavirus (PCR) Influenza Type A (PCR) Influenza Type B (PCR) RSV RNA Qual (PCR) Blood Type Antibody Screen Crossmatch 09/28/20 09/28/20 09/28/20 09:26 09:26 09:26 WBC RBC Hgb Hct MCV MCH MCHC RDW Plt Count MPV Immature Gran % (Auto) Neut % (Auto) Lymph % (Auto) [place] % (Auto) Eos % (Auto) Baso % (Auto) Lymph # (Auto) [place] # (Auto) Eos # (Auto) Baso # (Auto) Abs Immat Gran (auto) Absolute Neuts (auto) Absolute Nucleated RBC Nucleated RBC % (auto) Neutrophils % (Manual) Band Neutrophils % Lymphocytes % (Manual) Monocytes % (Manual) Abs Neuts (Manual) Lymphocytes # (Manual) Monocytes # (Manual) Platelet Estimate Plt Morphology Comment RBC Morphology Hypochromasia Ovalocytes [place] Cells Acanthocytes (Spur) Schistocytes Smear Path Review Absolute Retic Percent Retic Immature Retic Fraction Retic Hgb Equivalent Haptoglobin PT INR D-Dimer Hold Blue Top ABG pH ABG pCO2 ABG pO2 ABG HCO3 ABG O2 Saturation ABG Base Excess VBG pH VBG pCO2 VBG pO2 VBG HCO3 VBG O2 Saturation VBG Base Excess Oxygen Given Sodium Potassium Chloride Carbon Dioxide Anion Gap BUN Creatinine Estim Creat Clear Calc Estimated GFR POC Glucose Random Glucose Fasting Glucose Lactic Acid 1.1 Calcium Phosphorus Magnesium Total Bilirubin Direct Bilirubin AST ALT Alkaline Phosphatase Lactate Dehydrogenase Troponin I High Sens 107.9 H C-Reactive Protein 1.49 H B-Natriuretic Peptide 737 H Total Protein Total Protein (PEP) Albumin Albumin (PEP) Fzlfn-8-Jiyjhwyfo Tqkhl-9-Kocsmtqkt Luzr-5-Yptvidfw Vapk-2-Adcuzdla Gamma Globulins Abnorm Protein Band 1 Abnorm Protein Band 2 Abnorm Protein Band 3 PEP Interpretation Lipase 109 H Vitamin B12 Folate Procalcitonin Urine Color Urine Appearance Urine pH Ur Specific [place] Urine Protein Urine Glucose (UA) Urine Ketones Urine Blood Urine Nitrite Ur Leukocyte Esterase Urine RBC Urine WBC Urine WBC Clumps Ur Squamous Epith Cells Urine Bacteria Urine Yeast Urine Osmolality Ur Random Sodium Stool Occult Blood Proteinase 3 (PR3) Ab Myeloperoxidase Ab Double Strand DNA Ab Glomerular Base Memb Ab Coronavirus (PCR) Influenza Type A (PCR) Influenza Type B (PCR) RSV RNA Qual (PCR) Blood Type Antibody Screen Crossmatch 09/28/20 09/28/20 09/28/20 09:26 09:26 09:26 WBC RBC Hgb Hct MCV MCH MCHC RDW Plt Count MPV Immature Gran % (Auto) Neut % (Auto) Lymph % (Auto) [place] % (Auto) Eos % (Auto) Baso % (Auto) Lymph # (Auto) [place] # (Auto) Eos # (Auto) Baso # (Auto) Abs Immat Gran (auto) Absolute Neuts (auto) Absolute Nucleated RBC Nucleated RBC % (auto) Neutrophils % (Manual) Band Neutrophils % Lymphocytes % (Manual) Monocytes % (Manual) Abs Neuts (Manual) Lymphocytes # (Manual) Monocytes # (Manual) Platelet Estimate Plt Morphology Comment RBC Morphology Hypochromasia Ovalocytes [place] Cells Acanthocytes (Spur) Schistocytes Smear Path Review Absolute Retic Percent Retic Immature Retic Fraction Retic Hgb Equivalent Haptoglobin 270 H PT INR D-Dimer Hold Blue Top ABG pH ABG pCO2 ABG pO2 ABG HCO3 ABG O2 Saturation ABG Base Excess VBG pH VBG pCO2 VBG pO2 VBG HCO3 VBG O2 Saturation VBG Base Excess Oxygen Given Sodium Potassium Chloride Carbon Dioxide Anion Gap BUN Creatinine Estim Creat Clear Calc Estimated GFR POC Glucose Random Glucose Fasting Glucose Lactic Acid Calcium Phosphorus Magnesium Total Bilirubin Direct Bilirubin AST ALT Alkaline Phosphatase Lactate Dehydrogenase Troponin I High Sens C-Reactive Protein B-Natriuretic Peptide Total Protein Total Protein (PEP) Albumin Albumin (PEP) Pyazk-3-Rgmzjamek Ewizp-1-Vcgfrwjvq Ytfn-7-Aiwswnab Anmc-0-Msmxhtog Gamma Globulins Abnorm Protein Band 1 Abnorm Protein Band 2 Abnorm Protein Band 3 PEP Interpretation Lipase Vitamin B12 Folate Procalcitonin 0.44 Urine Color Urine Appearance Urine pH Ur Specific [place] Urine Protein Urine Glucose (UA) Urine Ketones Urine Blood Urine Nitrite Ur Leukocyte Esterase Urine RBC Urine WBC Urine WBC Clumps Ur Squamous Epith Cells Urine Bacteria Urine Yeast Urine Osmolality Ur Random Sodium Stool Occult Blood Proteinase 3 (PR3) Ab Myeloperoxidase Ab Double Strand DNA Ab Glomerular Base Memb Ab Coronavirus (PCR) NEGATIVE Influenza Type A (PCR) NEGATIVE Influenza Type B (PCR) NEGATIVE RSV RNA Qual (PCR) NEGATIVE Blood Type Antibody Screen Crossmatch 09/28/20 09/28/20 09/28/20 09:26 10:04 10:04 WBC RBC Hgb Hct MCV MCH MCHC RDW Plt Count MPV Immature Gran % (Auto) Neut % (Auto) Lymph % (Auto) [place] % (Auto) Eos % (Auto) Baso % (Auto) Lymph # (Auto) [place] # (Auto) Eos # (Auto) Baso # (Auto) Abs Immat Gran (auto) Absolute Neuts (auto) Absolute Nucleated RBC Nucleated RBC % (auto) Neutrophils % (Manual) Band Neutrophils % Lymphocytes % (Manual) Monocytes % (Manual) Abs Neuts (Manual) Lymphocytes # (Manual) Monocytes # (Manual) Platelet Estimate Plt Morphology Comment RBC Morphology Hypochromasia Ovalocytes [place] Cells Acanthocytes (Spur) Schistocytes Smear Path Review Absolute Retic Percent Retic Immature Retic Fraction Retic Hgb Equivalent Haptoglobin PT INR D-Dimer Hold Blue Top ABG pH ABG pCO2 ABG pO2 ABG HCO3 ABG O2 Saturation ABG Base Excess VBG pH VBG pCO2 VBG pO2 VBG HCO3 VBG O2 Saturation VBG Base Excess Oxygen Given Sodium Potassium Chloride Carbon Dioxide Anion Gap BUN Creatinine Estim Creat Clear Calc Estimated GFR POC Glucose Random Glucose Fasting Glucose Lactic Acid Calcium Phosphorus Magnesium Total Bilirubin Direct Bilirubin AST ALT Alkaline Phosphatase Lactate Dehydrogenase Troponin I High Sens C-Reactive Protein B-Natriuretic Peptide Total Protein Total Protein (PEP) Albumin Albumin (PEP) Nshbc-0-Pbrahnagu Oryan-0-Wkvbtrhyz Quda-2-Domgkrwj Qhbd-6-Zoqawdmj Gamma Globulins Abnorm Protein Band 1 Abnorm Protein Band 2 Abnorm Protein Band 3 PEP Interpretation Lipase Vitamin B12 911 H Folate 4.2 Procalcitonin Urine Color Urine Appearance Urine pH Ur Specific [place] Urine Protein Urine Glucose (UA) Urine Ketones Urine Blood Urine Nitrite Ur Leukocyte Esterase Urine RBC Urine WBC Urine WBC Clumps Ur Squamous Epith Cells Urine Bacteria Urine Yeast Urine Osmolality Ur Random Sodium Stool Occult Blood NEG Proteinase 3 (PR3) Ab Myeloperoxidase Ab Double Strand DNA Ab Glomerular Base Memb Ab Coronavirus (PCR) Influenza Type A (PCR) Influenza Type B (PCR) RSV RNA Qual (PCR) Blood Type B Positive Antibody Screen NEGATIVE Crossmatch See Detail 09/28/20 09/28/20 09/28/20 10:20 10:20 10:20 WBC RBC Hgb Hct MCV MCH MCHC RDW Plt Count MPV Immature Gran % (Auto) Neut % (Auto) Lymph % (Auto) [place] % (Auto) Eos % (Auto) Baso % (Auto) Lymph # (Auto) [place] # (Auto) Eos # (Auto) Baso # (Auto) Abs Immat Gran (auto) Absolute Neuts (auto) Absolute Nucleated RBC Nucleated RBC % (auto) Neutrophils % (Manual) Band Neutrophils % Lymphocytes % (Manual) Monocytes % (Manual) Abs Neuts (Manual) Lymphocytes # (Manual) Monocytes # (Manual) Platelet Estimate Plt Morphology Comment RBC Morphology Hypochromasia Ovalocytes [place] Cells Acanthocytes (Spur) Schistocytes Smear Path Review Absolute Retic Percent Retic Immature Retic Fraction Retic Hgb Equivalent Haptoglobin PT INR D-Dimer Hold Blue Top ABG pH ABG pCO2 ABG pO2 ABG HCO3 ABG O2 Saturation ABG Base Excess VBG pH VBG pCO2 VBG pO2 VBG HCO3 VBG O2 Saturation VBG Base Excess Oxygen Given Sodium Potassium Chloride Carbon Dioxide Anion Gap BUN Creatinine Estim Creat Clear Calc Estimated GFR POC Glucose Random Glucose Fasting Glucose Lactic Acid Calcium Phosphorus Magnesium Total Bilirubin Direct Bilirubin AST ALT Alkaline Phosphatase Lactate Dehydrogenase Troponin I High Sens C-Reactive Protein B-Natriuretic Peptide Total Protein Total Protein (PEP) Albumin Albumin (PEP) Zuelz-4-Njuiitewd Gdvex-1-Dxnwhpekg Vrnx-8-Jlxebrmy Wget-0-Nounybzn Gamma Globulins Abnorm Protein Band 1 Abnorm Protein Band 2 Abnorm Protein Band 3 PEP Interpretation Lipase Vitamin B12 Folate Procalcitonin Urine Color STRAW Urine Appearance HAZY Urine pH 5.5 Ur Specific [place] 1.025 Urine Protein 2+ H Urine Glucose (UA) NEG Urine Ketones NEG Urine Blood 3+ H Urine Nitrite NEG Ur Leukocyte Esterase 2+ H Urine RBC 5-9 H Urine WBC TNTC H Urine WBC Clumps NOTED Ur Squamous Epith Cells NONE Urine Bacteria 1+ Urine Yeast 1+ Urine Osmolality 365 L Ur Random Sodium 60.0 Stool Occult Blood Proteinase 3 (PR3) Ab Myeloperoxidase Ab Double Strand DNA Ab Glomerular Base Memb Ab Coronavirus (PCR) Influenza Type A (PCR) Influenza Type B (PCR) RSV RNA Qual (PCR) Blood Type Antibody Screen Crossmatch 09/28/20 09/28/20 09/28/20 12:00 15:01 15:01 WBC RBC Hgb Hct MCV MCH MCHC RDW Plt Count MPV Immature Gran % (Auto) Neut % (Auto) Lymph % (Auto) [place] % (Auto) Eos % (Auto) Baso % (Auto) Lymph # (Auto) [place] # (Auto) Eos # (Auto) Baso # (Auto) Abs Immat Gran (auto) Absolute Neuts (auto) Absolute Nucleated RBC Nucleated RBC % (auto) Neutrophils % (Manual) Band Neutrophils % Lymphocytes % (Manual) Monocytes % (Manual) Abs Neuts (Manual) Lymphocytes # (Manual) Monocytes # (Manual) Platelet Estimate Plt Morphology Comment RBC Morphology Hypochromasia Ovalocytes [place] Cells Acanthocytes (Spur) Schistocytes Smear Path Review Absolute Retic Percent Retic Immature Retic Fraction Retic Hgb Equivalent Haptoglobin PT INR D-Dimer Hold Blue Top ABG pH ABG pCO2 ABG pO2 ABG HCO3 ABG O2 Saturation ABG Base Excess VBG pH 7.16 L* 7.14 L* VBG pCO2 23 25 VBG pO2 85 80 VBG HCO3 8 8 VBG O2 Saturation 94.1 93.3 VBG Base Excess -19.0 -19.3 Oxygen Given Sodium 139 Potassium 4.9 Chloride 113 H Carbon Dioxide 6 L* D Anion Gap 25 H BUN 144 H* Creatinine 10.00 H* Estim Creat Clear Calc 6.5 Estimated GFR 5 POC Glucose Random Glucose 102 Fasting Glucose Lactic Acid Calcium 7.3 L Phosphorus Magnesium Total Bilirubin Direct Bilirubin AST ALT Alkaline Phosphatase Lactate Dehydrogenase Troponin I High Sens C-Reactive Protein B-Natriuretic Peptide Total Protein Total Protein (PEP) Albumin Albumin (PEP) Vrjwq-7-Upntbmtsc Izwyn-9-Nmtwlxlqx Jdlo-3-Ykyrbjfh Scal-7-Baiujxia Gamma Globulins Abnorm Protein Band 1 Abnorm Protein Band 2 Abnorm Protein Band 3 PEP Interpretation Lipase Vitamin B12 Folate Procalcitonin Urine Color Urine Appearance Urine pH Ur Specific [place] Urine Protein Urine Glucose (UA) Urine Ketones Urine Blood Urine Nitrite Ur Leukocyte Esterase Urine RBC Urine WBC Urine WBC Clumps Ur Squamous Epith Cells Urine Bacteria Urine Yeast Urine Osmolality Ur Random Sodium Stool Occult Blood Proteinase 3 (PR3) Ab Myeloperoxidase Ab Double Strand DNA Ab Glomerular Base Memb Ab Coronavirus (PCR) Influenza Type A (PCR) Influenza Type B (PCR) RSV RNA Qual (PCR) Blood Type Antibody Screen Crossmatch 09/28/20 09/28/20 09/28/20 16:00 18:44 18:44 WBC RBC Hgb Hct MCV MCH MCHC RDW Plt Count MPV Immature Gran % (Auto) Neut % (Auto) Lymph % (Auto) [place] % (Auto) Eos % (Auto) Baso % (Auto) Lymph # (Auto) [place] # (Auto) Eos # (Auto) Baso # (Auto) Abs Immat Gran (auto) Absolute Neuts (auto) Absolute Nucleated RBC Nucleated RBC % (auto) Neutrophils % (Manual) Band Neutrophils % Lymphocytes % (Manual) Monocytes % (Manual) Abs Neuts (Manual) Lymphocytes # (Manual) Monocytes # (Manual) Platelet Estimate Plt Morphology Comment RBC Morphology Hypochromasia Ovalocytes [place] Cells Acanthocytes (Spur) Schistocytes Smear Path Review Absolute Retic Percent Retic Immature Retic Fraction Retic Hgb Equivalent Haptoglobin PT INR D-Dimer Hold Blue Top ABG pH ABG pCO2 ABG pO2 ABG HCO3 ABG O2 Saturation ABG Base Excess VBG pH 7.22 L VBG pCO2 21 VBG pO2 240 VBG HCO3 9 VBG O2 Saturation 99.1 VBG Base Excess -17.6 Oxygen Given Sodium 143 Potassium 4.8 Chloride 116 H Carbon Dioxide 7 L* Anion Gap 25 H BUN 137 H* Creatinine 9.62 H* Estim Creat Clear Calc 6.7 Estimated GFR 5 POC Glucose Random Glucose 105 Fasting Glucose Lactic Acid Calcium 6.8 L D Phosphorus Magnesium Total Bilirubin Direct Bilirubin AST ALT Alkaline Phosphatase Lactate Dehydrogenase Troponin I High Sens 99.6 H C-Reactive Protein B-Natriuretic Peptide Total Protein Total Protein (PEP) Albumin Albumin (PEP) Dxskk-2-Kftysmhls Gvaqk-7-Idgvwgzwe Fmhf-1-Dvquabof Xzdi-9-Dydauxjo Gamma Globulins Abnorm Protein Band 1 Abnorm Protein Band 2 Abnorm Protein Band 3 PEP Interpretation Lipase Vitamin B12 Folate Procalcitonin Urine Color Urine Appearance Urine pH Ur Specific [place] Urine Protein Urine Glucose (UA) Urine Ketones Urine Blood Urine Nitrite Ur Leukocyte Esterase Urine RBC Urine WBC Urine WBC Clumps Ur Squamous Epith Cells Urine Bacteria Urine Yeast Urine Osmolality Ur Random Sodium Stool Occult Blood Proteinase 3 (PR3) Ab Myeloperoxidase Ab Double Strand DNA Ab Glomerular Base Memb Ab Coronavirus (PCR) Influenza Type A (PCR) Influenza Type B (PCR) RSV RNA Qual (PCR) Blood Type Antibody Screen Crossmatch 09/29/20 09/29/20 09/29/20 00:50 00:50 00:50 WBC RBC Hgb 8.1 L D Hct 23.7 L MCV MCH MCHC RDW Plt Count MPV Immature Gran % (Auto) Neut % (Auto) Lymph % (Auto) [place] % (Auto) Eos % (Auto) Baso % (Auto) Lymph # (Auto) [place] # (Auto) Eos # (Auto) Baso # (Auto) Abs Immat Gran (auto) Absolute Neuts (auto) Absolute Nucleated RBC Nucleated RBC % (auto) Neutrophils % (Manual) Band Neutrophils % Lymphocytes % (Manual) Monocytes % (Manual) Abs Neuts (Manual) Lymphocytes # (Manual) Monocytes # (Manual) Platelet Estimate Plt Morphology Comment RBC Morphology Hypochromasia Ovalocytes [place] Cells Acanthocytes (Spur) Schistocytes Smear Path Review Absolute Retic Percent Retic Immature Retic Fraction Retic Hgb Equivalent Haptoglobin 230 H PT INR D-Dimer Hold Blue Top ABG pH ABG pCO2 ABG pO2 ABG HCO3 ABG O2 Saturation ABG Base Excess VBG pH VBG pCO2 VBG pO2 VBG HCO3 VBG O2 Saturation VBG Base Excess Oxygen Given Sodium 143 Potassium 4.3 Chloride 114 H Carbon Dioxide 10 L* D Anion Gap 23 H BUN 134 H* Creatinine 9.33 H* Estim Creat Clear Calc 7.0 Estimated GFR 5 POC Glucose Random Glucose 102 Fasting Glucose Lactic Acid Calcium 6.6 L Phosphorus Magnesium Total Bilirubin Direct Bilirubin AST ALT Alkaline Phosphatase Lactate Dehydrogenase Troponin I High Sens C-Reactive Protein B-Natriuretic Peptide Total Protein Total Protein (PEP) Albumin Albumin (PEP) Jetif-3-Wvijmivff [place]-7-Gjztcrcoh Wver-8-Yhxvqmna Vtrq-9-Unwqynzz Gamma Globulins Abnorm Protein Band 1 Abnorm Protein Band 2 Abnorm Protein Band 3 PEP Interpretation Lipase Vitamin B12 Folate Procalcitonin Urine Color Urine Appearance Urine pH Ur Specific [place] Urine Protein Urine Glucose (UA) Urine Ketones Urine Blood Urine Nitrite Ur Leukocyte Esterase Urine RBC Urine WBC Urine WBC Clumps Ur Squamous Epith Cells Urine Bacteria Urine Yeast Urine Osmolality Ur Random Sodium Stool Occult Blood Proteinase 3 (PR3) Ab Myeloperoxidase Ab Double Strand DNA Ab Glomerular Base Memb Ab Coronavirus (PCR) Influenza Type A (PCR) Influenza Type B (PCR) RSV RNA Qual (PCR) Blood Type Antibody Screen Crossmatch 09/29/20 09/29/20 09/29/20 00:50 05:46 05:46 WBC 9.7 RBC 3.09 L D Hgb 8.5 L Hct 24.9 L MCV 80.6 MCH 27.5 MCHC 34.1 RDW 19.4 H Plt Count 392 MPV 9.0 L Immature Gran % (Auto) 0.4 Neut % (Auto) 59.7 Lymph % (Auto) 27.3 [place] % (Auto) 10.4 Eos % (Auto) 1.3 Baso % (Auto) 0.9 Lymph # (Auto) 2.6 [place] # (Auto) 1.0 Eos # (Auto) 0.1 Baso # (Auto) 0.1 Abs Immat Gran (auto) 0.04 H Absolute Neuts (auto) 5.8 Absolute Nucleated RBC 0.000 Nucleated RBC % (auto) 0.0 Neutrophils % (Manual) Band Neutrophils % Lymphocytes % (Manual) Monocytes % (Manual) Abs Neuts (Manual) Lymphocytes # (Manual) Monocytes # (Manual) Platelet Estimate Plt Morphology Comment RBC Morphology Hypochromasia Ovalocytes [place] Cells Acanthocytes (Spur) Schistocytes Smear Path Review Absolute Retic Percent Retic Immature Retic Fraction Retic Hgb Equivalent Haptoglobin PT INR D-Dimer Hold Blue Top ABG pH ABG pCO2 ABG pO2 ABG HCO3 ABG O2 Saturation ABG Base Excess VBG pH 7.31 L VBG pCO2 20 VBG pO2 69 VBG HCO3 10 VBG O2 Saturation 91.9 VBG Base Excess -15.0 Oxygen Given Sodium 142 Potassium 4.1 Chloride 113 H Carbon Dioxide 11 L Anion Gap 22 H BUN 133 H* Creatinine 9.16 H* Estim Creat Clear Calc 7.1 Estimated GFR 6 POC Glucose Random Glucose 85 Fasting Glucose Lactic Acid Calcium 6.7 L Phosphorus Magnesium Total Bilirubin Direct Bilirubin AST ALT Alkaline Phosphatase Lactate Dehydrogenase Troponin I High Sens C-Reactive Protein B-Natriuretic Peptide Total Protein Total Protein (PEP) Albumin Albumin (PEP) Lyrng-5-Gkhogfnqv Jctab-7-Orkdkjnbu Vcpu-4-Dhkhjkhn Njul-1-Fzjohhix Gamma Globulins Abnorm Protein Band 1 Abnorm Protein Band 2 Abnorm Protein Band 3 PEP Interpretation Lipase Vitamin B12 Folate Procalcitonin Urine Color Urine Appearance Urine pH Ur Specific [place] Urine Protein Urine Glucose (UA) Urine Ketones Urine Blood Urine Nitrite Ur Leukocyte Esterase Urine RBC Urine WBC Urine WBC Clumps Ur Squamous Epith Cells Urine Bacteria Urine Yeast Urine Osmolality Ur Random Sodium Stool Occult Blood Proteinase 3 (PR3) Ab Myeloperoxidase Ab Double Strand DNA Ab Glomerular Base Memb Ab Coronavirus (PCR) Influenza Type A (PCR) Influenza Type B (PCR) RSV RNA Qual (PCR) Blood Type Antibody Screen Crossmatch 09/29/20 09/29/20 09/30/20 13:40 13:40 05:43 WBC 8.7 RBC 2.98 L Hgb 8.1 L Hct 24.5 L MCV 82.2 MCH 27.2 MCHC 33.1 RDW 19.9 H Plt Count 367 MPV 9.4 Immature Gran % (Auto) 0.3 Neut % (Auto) 62.4 Lymph % (Auto) 24.2 [place] % (Auto) 9.7 Eos % (Auto) 2.0 Baso % (Auto) 1.4 Lymph # (Auto) 2.1 [place] # (Auto) 0.8 Eos # (Auto) 0.2 Baso # (Auto) 0.1 Abs Immat Gran (auto) 0.03 Absolute Neuts (auto) 5.4 Absolute Nucleated RBC 0.000 Nucleated RBC % (auto) 0.0 Neutrophils % (Manual) Band Neutrophils % Lymphocytes % (Manual) Monocytes % (Manual) Abs Neuts (Manual) Lymphocytes # (Manual) Monocytes # (Manual) Platelet Estimate Plt Morphology Comment RBC Morphology Hypochromasia Ovalocytes [place] Cells Acanthocytes (Spur) Schistocytes Smear Path Review Absolute Retic Percent Retic Immature Retic Fraction Retic Hgb Equivalent Haptoglobin PT INR D-Dimer Hold Blue Top ABG pH ABG pCO2 ABG pO2 ABG HCO3 ABG O2 Saturation ABG Base Excess VBG pH VBG pCO2 VBG pO2 VBG HCO3 VBG O2 Saturation VBG Base Excess Oxygen Given Sodium Potassium Chloride Carbon Dioxide Anion Gap BUN Creatinine Estim Creat Clear Calc Estimated GFR POC Glucose Random Glucose Fasting Glucose Lactic Acid Calcium Phosphorus 8.9 H Magnesium 1.6 Total Bilirubin Direct Bilirubin AST ALT Alkaline Phosphatase Lactate Dehydrogenase Troponin I High Sens C-Reactive Protein B-Natriuretic Peptide Total Protein Total Protein (PEP) 5.2 L Albumin Albumin (PEP) 2.7 L Pqigx-2-Vkuiwzzms 0.4 H Ycvwy-7-Tlitvyayk 0.7 Xppn-1-Stfrqwgv 0.3 L Urcy-7-Nakjsfxb 0.3 Gamma Globulins 0.8 Abnorm Protein Band 1 SEE NOTE Abnorm Protein Band 2 TNP Abnorm Protein Band 3 TNP PEP Interpretation SEE NOTE Lipase Vitamin B12 Folate Procalcitonin Urine Color Urine Appearance Urine pH Ur Specific [place] Urine Protein Urine Glucose (UA) Urine Ketones Urine Blood Urine Nitrite Ur Leukocyte Esterase Urine RBC Urine WBC Urine WBC Clumps Ur Squamous Epith Cells Urine Bacteria Urine Yeast Urine Osmolality Ur Random Sodium Stool Occult Blood Proteinase 3 (PR3) Ab 11.1 H Myeloperoxidase Ab <1.0 Double Strand DNA Ab 1 Glomerular Base Memb Ab <1.0 Coronavirus (PCR) Influenza Type A (PCR) Influenza Type B (PCR) RSV RNA Qual (PCR) Blood Type Antibody Screen Crossmatch 09/30/20 10/01/20 10/01/20 05:43 05:30 05:30 WBC 8.6 RBC 2.90 L Hgb 7.9 L Hct 23.5 L MCV 81.0 MCH 27.2 MCHC 33.6 RDW 19.0 H Plt Count 336 MPV 9.5 Immature Gran % (Auto) 0.3 Neut % (Auto) 64.2 Lymph % (Auto) 23.0 [place] % (Auto) 9.4 Eos % (Auto) 2.1 Baso % (Auto) 1.0 Lymph # (Auto) 2.0 [place] # (Auto) 0.8 Eos # (Auto) 0.2 Baso # (Auto) 0.1 Abs Immat Gran (auto) 0.03 Absolute Neuts (auto) 5.5 Absolute Nucleated RBC 0.000 Nucleated RBC % (auto) 0.0 Neutrophils % (Manual) Band Neutrophils % Lymphocytes % (Manual) Monocytes % (Manual) Abs Neuts (Manual) Lymphocytes # (Manual) Monocytes # (Manual) Platelet Estimate Plt Morphology Comment RBC Morphology Hypochromasia Ovalocytes [place] Cells Acanthocytes (Spur) Schistocytes Smear Path Review Absolute Retic Percent Retic Immature Retic Fraction Retic Hgb Equivalent Haptoglobin PT INR D-Dimer Hold Blue Top ABG pH ABG pCO2 ABG pO2 ABG HCO3 ABG O2 Saturation ABG Base Excess VBG pH VBG pCO2 VBG pO2 VBG HCO3 VBG O2 Saturation VBG Base Excess Oxygen Given Sodium 143 142 Potassium 4.0 3.6 Chloride 110 H 105 Carbon Dioxide 13 L 17 L Anion Gap 24 H 24 H BUN 124 H* 119 H* Creatinine 9.27 H* 8.36 H* Estim Creat Clear Calc 7.0 7.8 Estimated GFR 6 6 POC Glucose Random Glucose Fasting Glucose 75 119 H D Lactic Acid Calcium 6.3 L 6.1 L Phosphorus Magnesium Total Bilirubin Direct Bilirubin AST ALT Alkaline Phosphatase Lactate Dehydrogenase Troponin I High Sens C-Reactive Protein B-Natriuretic Peptide Total Protein Total Protein (PEP) Albumin Albumin (PEP) Qqyuw-5-Velqpjnnd Tross-8-Dxybsiplt Pqem-4-Nvzfjtrw Unyw-8-Vqirceft Gamma Globulins Abnorm Protein Band 1 Abnorm Protein Band 2 Abnorm Protein Band 3 PEP Interpretation Lipase Vitamin B12 Folate Procalcitonin Urine Color Urine Appearance Urine pH Ur Specific [place] Urine Protein Urine Glucose (UA) Urine Ketones Urine Blood Urine Nitrite Ur Leukocyte Esterase Urine RBC Urine WBC Urine WBC Clumps Ur Squamous Epith Cells Urine Bacteria Urine Yeast Urine Osmolality Ur Random Sodium Stool Occult Blood Proteinase 3 (PR3) Ab Myeloperoxidase Ab Double Strand DNA Ab Glomerular Base Memb Ab Coronavirus (PCR) Influenza Type A (PCR) Influenza Type B (PCR) RSV RNA Qual (PCR) Blood Type Antibody Screen Crossmatch 10/02/20 10/02/20 10/02/20 05:44 05:44 12:13 WBC 9.1 RBC 2.78 L Hgb 7.6 L Hct 22.9 L MCV 82.4 MCH 27.3 MCHC 33.2 RDW 19.0 H Plt Count 320 MPV 9.6 Immature Gran % (Auto) 0.3 Neut % (Auto) 64.4 Lymph % (Auto) 23.3 [place] % (Auto) 9.3 Eos % (Auto) 1.8 Baso % (Auto) 0.9 Lymph # (Auto) 2.1 [place] # (Auto) 0.8 Eos # (Auto) 0.2 Baso # (Auto) 0.1 Abs Immat Gran (auto) 0.03 Absolute Neuts (auto) 5.8 Absolute Nucleated RBC 0.000 Nucleated RBC % (auto) 0.0 Neutrophils % (Manual) Band Neutrophils % Lymphocytes % (Manual) Monocytes % (Manual) Abs Neuts (Manual) Lymphocytes # (Manual) Monocytes # (Manual) Platelet Estimate Plt Morphology Comment RBC Morphology Hypochromasia Ovalocytes [place] Cells Acanthocytes (Spur) Schistocytes Smear Path Review Absolute Retic Percent Retic Immature Retic Fraction Retic Hgb Equivalent Haptoglobin PT INR D-Dimer Hold Blue Top ABG pH ABG pCO2 ABG pO2 ABG HCO3 ABG O2 Saturation ABG Base Excess VBG pH VBG pCO2 VBG pO2 VBG HCO3 VBG O2 Saturation VBG Base Excess Oxygen Given Sodium 143 Potassium 3.6 Chloride 105 Carbon Dioxide 19 L Anion Gap 23 H BUN 117 H* Creatinine 7.68 H* Estim Creat Clear Calc 8.5 Estimated GFR 7 POC Glucose Random Glucose Fasting Glucose 92 Lactic Acid Calcium 6.0 L* Phosphorus Magnesium Total Bilirubin Direct Bilirubin AST ALT Alkaline Phosphatase Lactate Dehydrogenase Troponin I High Sens C-Reactive Protein B-Natriuretic Peptide Total Protein Total Protein (PEP) Albumin Albumin (PEP) Uhqqy-2-Zptzymdfd Dxdoy-9-Bfteplzzw Nvsi-8-Qychdbva Jobu-5-Xludtqhz Gamma Globulins Abnorm Protein Band 1 Abnorm Protein Band 2 Abnorm Protein Band 3 PEP Interpretation Lipase Vitamin B12 Folate Procalcitonin Urine Color Urine Appearance Urine pH Ur Specific [place] Urine Protein Urine Glucose (UA) Urine Ketones Urine Blood Urine Nitrite Ur Leukocyte Esterase Urine RBC Urine WBC Urine WBC Clumps Ur Squamous Epith Cells Urine Bacteria Urine Yeast Urine Osmolality Ur Random Sodium Stool Occult Blood Proteinase 3 (PR3) Ab Myeloperoxidase Ab Double Strand DNA Ab Glomerular Base Memb Ab Coronavirus (PCR) Influenza Type A (PCR) Influenza Type B (PCR) RSV RNA Qual (PCR) Blood Type B Positive Antibody Screen NEGATIVE Crossmatch See Detail 10/03/20 10/03/20 10/03/20 05:39 05:39 05:39 WBC 7.0 RBC 3.31 L Hgb 9.2 L D Hct 28.0 L D MCV 84.6 MCH 27.8 MCHC 32.9 RDW 18.0 H Plt Count 297 MPV 9.8 Immature Gran % (Auto) 0.6 H Neut % (Auto) 75.5 H Lymph % (Auto) 16.8 L [place] % (Auto) 7.0 Eos % (Auto) 0.0 Baso % (Auto) 0.1 Lymph # (Auto) 1.2 [place] # (Auto) 0.5 Eos # (Auto) 0.0 Baso # (Auto) 0.0 Abs Immat Gran (auto) 0.04 H Absolute Neuts (auto) 5.3 Absolute Nucleated RBC 0.000 Nucleated RBC % (auto) 0.0 Neutrophils % (Manual) Band Neutrophils % Lymphocytes % (Manual) Monocytes % (Manual) Abs Neuts (Manual) Lymphocytes # (Manual) Monocytes # (Manual) Platelet Estimate Plt Morphology Comment RBC Morphology Hypochromasia Ovalocytes [place] Cells Acanthocytes (Spur) Schistocytes Smear Path Review Absolute Retic Percent Retic Immature Retic Fraction Retic Hgb Equivalent Haptoglobin PT 12.6 INR 1.1 D-Dimer Hold Blue Top ABG pH ABG pCO2 ABG pO2 ABG HCO3 ABG O2 Saturation ABG Base Excess VBG pH VBG pCO2 VBG pO2 VBG HCO3 VBG O2 Saturation VBG Base Excess Oxygen Given Sodium 142 Potassium 4.1 Chloride 105 Carbon Dioxide 16 L Anion Gap 25 H BUN 116 H* Creatinine 7.42 H* Estim Creat Clear Calc 8.8 Estimated GFR 7 POC Glucose Random Glucose Fasting Glucose 125 H D Lactic Acid Calcium 6.2 L Phosphorus Magnesium Total Bilirubin Direct Bilirubin AST ALT Alkaline Phosphatase Lactate Dehydrogenase Troponin I High Sens C-Reactive Protein B-Natriuretic Peptide Total Protein Total Protein (PEP) Albumin Albumin (PEP) Ucqed-4-Avqotvalp Dcsyv-6-Ybriowvte Xiyb-2-Njpoojba Atba-8-Btkgbexa Gamma Globulins Abnorm Protein Band 1 Abnorm Protein Band 2 Abnorm Protein Band 3 PEP Interpretation Lipase Vitamin B12 Folate Procalcitonin Urine Color Urine Appearance Urine pH Ur Specific [place] Urine Protein Urine Glucose (UA) Urine Ketones Urine Blood Urine Nitrite Ur Leukocyte Esterase Urine RBC Urine WBC Urine WBC Clumps Ur Squamous Epith Cells Urine Bacteria Urine Yeast Urine Osmolality Ur Random Sodium Stool Occult Blood Proteinase 3 (PR3) Ab Myeloperoxidase Ab Double Strand DNA Ab Glomerular Base Memb Ab Coronavirus (PCR) Influenza Type A (PCR) Influenza Type B (PCR) RSV RNA Qual (PCR) Blood Type Antibody Screen Crossmatch 10/03/20 10/04/20 10/04/20 16:31 05:48 05:48 WBC 13.4 H RBC 3.66 L Hgb 10.1 L Hct 31.1 L MCV 85.0 MCH 27.6 MCHC 32.5 RDW 17.8 H Plt Count 317 MPV 9.7 Immature Gran % (Auto) 0.4 Neut % (Auto) 77.2 H Lymph % (Auto) 13.3 L [place] % (Auto) 9.0 Eos % (Auto) 0.0 Baso % (Auto) 0.1 Lymph # (Auto) 1.8 [place] # (Auto) 1.2 Eos # (Auto) 0.0 Baso # (Auto) 0.0 Abs Immat Gran (auto) 0.06 H Absolute Neuts (auto) 10.3 H Absolute Nucleated RBC 0.000 Nucleated RBC % (auto) 0.0 Neutrophils % (Manual) Band Neutrophils % Lymphocytes % (Manual) Monocytes % (Manual) Abs Neuts (Manual) Lymphocytes # (Manual) Monocytes # (Manual) Platelet Estimate Plt Morphology Comment RBC Morphology Hypochromasia Ovalocytes [place] Cells Acanthocytes (Spur) Schistocytes Smear Path Review Absolute Retic Percent Retic Immature Retic Fraction Retic Hgb Equivalent Haptoglobin PT INR D-Dimer Hold Blue Top ABG pH ABG pCO2 ABG pO2 ABG HCO3 ABG O2 Saturation ABG Base Excess VBG pH VBG pCO2 VBG pO2 VBG HCO3 VBG O2 Saturation VBG Base Excess Oxygen Given Sodium 144 Potassium 4.2 Chloride 104 Carbon Dioxide 17 L Anion Gap 27 H BUN 115 H* Creatinine 7.39 H* Estim Creat Clear Calc 8.8 Estimated GFR 7 POC Glucose 168 H Random Glucose Fasting Glucose 100 H Lactic Acid Calcium 6.6 L D Phosphorus Magnesium Total Bilirubin Direct Bilirubin AST ALT Alkaline Phosphatase Lactate Dehydrogenase Troponin I High Sens C-Reactive Protein B-Natriuretic Peptide Total Protein Total Protein (PEP) Albumin Albumin (PEP) Ctqge-8-Regxrytch Dpemo-4-Uqvtrness Babi-4-Vyhekmpv Znqc-2-Izdytspy Gamma Globulins Abnorm Protein Band 1 Abnorm Protein Band 2 Abnorm Protein Band 3 PEP Interpretation Lipase Vitamin B12 Folate Procalcitonin Urine Color Urine Appearance Urine pH Ur Specific [place] Urine Protein Urine Glucose (UA) Urine Ketones Urine Blood Urine Nitrite Ur Leukocyte Esterase Urine RBC Urine WBC Urine WBC Clumps Ur Squamous Epith Cells Urine Bacteria Urine Yeast Urine Osmolality Ur Random Sodium Stool Occult Blood Proteinase 3 (PR3) Ab Myeloperoxidase Ab Double Strand DNA Ab Glomerular Base Memb Ab Coronavirus (PCR) Influenza Type A (PCR) Influenza Type B (PCR) RSV RNA Qual (PCR) Blood Type Antibody Screen Crossmatch 10/05/20 10/05/20 10/06/20 05:59 05:59 00:29 WBC 10.8 RBC 3.43 L Hgb 9.6 L Hct 29.4 L MCV 85.7 MCH 28.0 MCHC 32.7 RDW 17.6 H Plt Count 305 MPV 9.9 Immature Gran % (Auto) 0.5 H Neut % (Auto) 77.4 H Lymph % (Auto) 13.7 L [place] % (Auto) 8.3 Eos % (Auto) 0.0 Baso % (Auto) 0.1 Lymph # (Auto) 1.5 [place] # (Auto) 0.9 Eos # (Auto) 0.0 Baso # (Auto) 0.0 Abs Immat Gran (auto) 0.05 H Absolute Neuts (auto) 8.4 H Absolute Nucleated RBC 0.000 Nucleated RBC % (auto) 0.0 Neutrophils % (Manual) Band Neutrophils % Lymphocytes % (Manual) Monocytes % (Manual) Abs Neuts (Manual) Lymphocytes # (Manual) Monocytes # (Manual) Platelet Estimate Plt Morphology Comment RBC Morphology Hypochromasia Ovalocytes [place] Cells Acanthocytes (Spur) Schistocytes Smear Path Review Absolute Retic Percent Retic Immature Retic Fraction Retic Hgb Equivalent Haptoglobin PT INR D-Dimer Hold Blue Top ABG pH ABG pCO2 ABG pO2 ABG HCO3 ABG O2 Saturation ABG Base Excess VBG pH VBG pCO2 VBG pO2 VBG HCO3 VBG O2 Saturation VBG Base Excess Oxygen Given Sodium 144 Potassium 3.9 Chloride 105 Carbon Dioxide 20 L Anion Gap 23 H BUN 122 H* Creatinine 7.52 H* Estim Creat Clear Calc 8.6 Estimated GFR 7 POC Glucose 162 H Random Glucose Fasting Glucose 111 H Lactic Acid Calcium 6.4 L Phosphorus Magnesium Total Bilirubin Direct Bilirubin AST ALT Alkaline Phosphatase Lactate Dehydrogenase Troponin I High Sens C-Reactive Protein B-Natriuretic Peptide Total Protein Total Protein (PEP) Albumin Albumin (PEP) Fghat-3-Nyjrxqshc Ubpob-3-Hkyimyony Lupd-0-Felzcrww Kyjx-2-Ksjrivnw Gamma Globulins Abnorm Protein Band 1 Abnorm Protein Band 2 Abnorm Protein Band 3 PEP Interpretation Lipase Vitamin B12 Folate Procalcitonin Urine Color Urine Appearance Urine pH Ur Specific [place] Urine Protein Urine Glucose (UA) Urine Ketones Urine Blood Urine Nitrite Ur Leukocyte Esterase Urine RBC Urine WBC Urine WBC Clumps Ur Squamous Epith Cells Urine Bacteria Urine Yeast Urine Osmolality Ur Random Sodium Stool Occult Blood Proteinase 3 (PR3) Ab Myeloperoxidase Ab Double Strand DNA Ab Glomerular Base Memb Ab Coronavirus (PCR) Influenza Type A (PCR) Influenza Type B (PCR) RSV RNA Qual (PCR) Blood Type Antibody Screen Crossmatch 10/06/20 10/06/20 10/06/20 00:51 00:51 00:54 WBC 11.6 H RBC 3.53 L Hgb 9.8 L Hct 30.0 L MCV 85.0 MCH 27.8 MCHC 32.7 RDW 17.3 H Plt Count 328 MPV 9.6 Immature Gran % (Auto) 0.3 Neut % (Auto) 77.6 H Lymph % (Auto) 17.8 L [place] % (Auto) 4.2 Eos % (Auto) 0.0 Baso % (Auto) 0.1 Lymph # (Auto) 2.1 [place] # (Auto) 0.5 Eos # (Auto) 0.0 Baso # (Auto) 0.0 Abs Immat Gran (auto) 0.03 Absolute Neuts (auto) 9.0 H Absolute Nucleated RBC 0.000 Nucleated RBC % (auto) 0.0 Neutrophils % (Manual) Band Neutrophils % Lymphocytes % (Manual) Monocytes % (Manual) Abs Neuts (Manual) Lymphocytes # (Manual) Monocytes # (Manual) Platelet Estimate Plt Morphology Comment RBC Morphology Hypochromasia Ovalocytes [place] Cells Acanthocytes (Spur) Schistocytes Smear Path Review Absolute Retic Percent Retic Immature Retic Fraction Retic Hgb Equivalent Haptoglobin PT 12.9 INR 1.1 D-Dimer Hold Blue Top ABG pH ABG pCO2 ABG pO2 ABG HCO3 ABG O2 Saturation ABG Base Excess VBG pH VBG pCO2 VBG pO2 VBG HCO3 VBG O2 Saturation VBG Base Excess Oxygen Given Sodium 139 Potassium 3.8 Chloride 102 Carbon Dioxide 13 L Anion Gap 28 H BUN 124 H* Creatinine 7.14 H* Estim Creat Clear Calc 9.1 Estimated GFR 7 POC Glucose Random Glucose 185 H D Fasting Glucose Lactic Acid Calcium 6.5 L Phosphorus Magnesium Total Bilirubin 0.4 Direct Bilirubin AST 16 D ALT 15 Alkaline Phosphatase 63 Lactate Dehydrogenase Troponin I High Sens C-Reactive Protein B-Natriuretic Peptide Total Protein 6.1 L Total Protein (PEP) Albumin 3.4 L Albumin (PEP) Lvrik-6-Ghjvxpxff Ktgcj-5-Imvnowpxm Irxp-2-Wlnzmcse Byzn-9-Eqmhwdub Gamma Globulins Abnorm Protein Band 1 Abnorm Protein Band 2 Abnorm Protein Band 3 PEP Interpretation Lipase Vitamin B12 Folate Procalcitonin Urine Color Urine Appearance Urine pH Ur Specific [place] Urine Protein Urine Glucose (UA) Urine Ketones Urine Blood Urine Nitrite Ur Leukocyte Esterase Urine RBC Urine WBC Urine WBC Clumps Ur Squamous Epith Cells Urine Bacteria Urine Yeast Urine Osmolality Ur Random Sodium Stool Occult Blood Proteinase 3 (PR3) Ab Myeloperoxidase Ab Double Strand DNA Ab Glomerular Base Memb Ab Coronavirus (PCR) Influenza Type A (PCR) Influenza Type B (PCR) RSV RNA Qual (PCR) Blood Type Antibody Screen Crossmatch 10/06/20 02:15 WBC RBC Hgb Hct MCV MCH MCHC RDW Plt Count MPV Immature Gran % (Auto) Neut % (Auto) Lymph % (Auto) [place] % (Auto) Eos % (Auto) Baso % (Auto) Lymph # (Auto) [place] # (Auto) Eos # (Auto) Baso # (Auto) Abs Immat Gran (auto) Absolute Neuts (auto) Absolute Nucleated RBC Nucleated RBC % (auto) Neutrophils % (Manual) Band Neutrophils % Lymphocytes % (Manual) Monocytes % (Manual) Abs Neuts (Manual) Lymphocytes # (Manual) Monocytes # (Manual) Platelet Estimate Plt Morphology Comment RBC Morphology Hypochromasia Ovalocytes [place] Cells Acanthocytes (Spur) Schistocytes Smear Path Review Absolute Retic Percent Retic Immature Retic Fraction Retic Hgb Equivalent Haptoglobin PT INR D-Dimer Hold Blue Top ABG pH 7.37 ABG pCO2 29 L ABG pO2 68 L ABG HCO3 16 L ABG O2 Saturation 91.3 ABG Base Excess -7.6 VBG pH VBG pCO2 VBG pO2 VBG HCO3 VBG O2 Saturation VBG Base Excess Oxygen Given GOAT HERDER Sodium Potassium Chloride Carbon Dioxide Anion Gap BUN Creatinine Estim Creat Clear Calc Estimated GFR POC Glucose Random Glucose Fasting Glucose Lactic Acid Calcium Phosphorus Magnesium Total Bilirubin Direct Bilirubin AST ALT Alkaline Phosphatase Lactate Dehydrogenase Troponin I High Sens C-Reactive Protein B-Natriuretic Peptide Total Protein Total Protein (PEP) Albumin Albumin (PEP) Hfjpc-1-Idsaayrbl Vfpgg-1-Gtlovqznc Cdal-0-Nisvrwyp Yxzv-1-Stralxek Gamma Globulins Abnorm Protein Band 1 Abnorm Protein Band 2 Abnorm Protein Band 3 PEP Interpretation Lipase Vitamin B12 Folate Procalcitonin Urine Color Urine Appearance Urine pH Ur Specific [place] Urine Protein Urine Glucose (UA) Urine Ketones Urine Blood Urine Nitrite Ur Leukocyte Esterase Urine RBC Urine WBC Urine WBC Clumps Ur Squamous Epith Cells Urine Bacteria Urine Yeast Urine Osmolality Ur Random Sodium Stool Occult Blood Proteinase 3 (PR3) Ab Myeloperoxidase Ab Double Strand DNA Ab Glomerular Base Memb Ab Coronavirus (PCR) Influenza Type A (PCR) Influenza Type B (PCR) RSV RNA Qual (PCR) Blood Type Antibody Screen Crossmatch Airway Mallampati Class: II TM Dist: >3cm Neck ROM: Full Loose/Missing/Broken Teeth: Yes Heart: irreg irreg S1S2 Lungs: + b/s bilaterally Assessment and Plan Assessment Anesthesia Assessment: Anesthesia Plan Discussed and Chart Reviewed Final Anesthetic Review NPO: Yes ASA Class: IV Final Preanesthetic Review: No Changes in Pt Med Stat, Meds/Allgs Chart Reviewed, Consent Obtained/Reviewed (2 physician consent meidcally necessary) and Anes Risks/Benef Reviewed Patient Risk: Intermediate Procedure Risk: Low Assessment/Block/Sedation in SS: Assess/Block/Sedation-SS Anesthetic Plan Anesthetic Plan: MAC: Disposition: Standard PACU
--- NOTE | 2020-10-06 12:48 | PM.PNNEP ---
Subjective Subjective Date of Service: 10/06/20 Interval history: Seen and examined. Events noted. He had witnessed T-C szeiure lasting approx 30 secs per RN verbal repor to me. He has been intermittently agitated and confused. He got Keppra, haldodl and ativan the latter ttwo so he could get the CT of head lethargic this am reviewd with [employer] and it looks like he did not get pulsed with steroids. bOTHERED BY [facility] cath; wants to get up to go to the BR Denies nausea, anorexia, vomiting Physical Exam Vital Signs: Vital Signs: Last Vital Signs Temp 97.5 F 10/06/20 10:03 Pulse 67 10/06/20 10:03 Resp 18 10/06/20 10:03 BP 146/74 H 10/06/20 10:03 Pulse Ox 97 10/06/20 10:03 Body Mass Index 23.0 Const: Other: lethargic BS bilat'RRR abd soft No edema Objective Data Labs CBC & Chem 7: 10/06/20 00:51 10/06/20 00:51 Labs: Laboratory Results - last 24 hr 10/06/20 10/06/20 10/06/20 00:29 00:51 00:51 WBC 11.6 H RBC 3.53 L Hgb 9.8 L Hct 30.0 L MCV 85.0 MCH 27.8 MCHC 32.7 RDW 17.3 H Plt Count 328 MPV 9.6 Immature Gran % (Auto) 0.3 Neut % (Auto) 77.6 H Lymph % (Auto) 17.8 L [place] % (Auto) 4.2 Eos % (Auto) 0.0 Baso % (Auto) 0.1 Lymph # (Auto) 2.1 [place] # (Auto) 0.5 Eos # (Auto) 0.0 Baso # (Auto) 0.0 Abs Immat Gran (auto) 0.03 Absolute Neuts (auto) 9.0 H Absolute Nucleated RBC 0.000 Nucleated RBC % (auto) 0.0 PT INR ABG pH ABG pCO2 ABG pO2 ABG HCO3 ABG O2 Saturation ABG Base Excess Oxygen Given Sodium 139 Potassium 3.8 Chloride 102 Carbon Dioxide 13 L Anion Gap 28 H BUN 124 H* Creatinine 7.14 H* Estim Creat Clear Calc 9.1 Estimated GFR 7 POC Glucose 162 H Random Glucose 185 H D Calcium 6.5 L Total Bilirubin 0.4 AST 16 D ALT 15 Alkaline Phosphatase 63 Total Protein 6.1 L Albumin 3.4 L 10/06/20 10/06/20 00:54 02:15 WBC RBC Hgb Hct MCV MCH MCHC RDW Plt Count MPV Immature Gran % (Auto) Neut % (Auto) Lymph % (Auto) [place] % (Auto) Eos % (Auto) Baso % (Auto) Lymph # (Auto) [place] # (Auto) Eos # (Auto) Baso # (Auto) Abs Immat Gran (auto) Absolute Neuts (auto) Absolute Nucleated RBC Nucleated RBC % (auto) PT 12.9 INR 1.1 ABG pH 7.37 ABG pCO2 29 L ABG pO2 68 L ABG HCO3 16 L ABG O2 Saturation 91.3 ABG Base Excess -7.6 Oxygen Given RADIATOR SPECIALIST Sodium Potassium Chloride Carbon Dioxide Anion Gap BUN Creatinine Estim Creat Clear Calc Estimated GFR POC Glucose Random Glucose Calcium Total Bilirubin AST ALT Alkaline Phosphatase Total Protein Albumin Microbiology Microbiology Results: Microbiology 09/28/20 10:04 Blood - Venous Blood Culture - Final No growth after 5 days. 09/28/20 09:26 Blood - Venous Blood Culture - Final No growth after 5 days. 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 T-C SZ: presumably the uremia and low Ca are playing signif role...given that uremia may be playing a signif role we will go ahead and do HD today 3. AGMA: jaxonr HCo 3 d/t EDEN velazquez ? 4. AMS: anne bsl REC: permcath by OIR today and HD today; pulse with steroids 500mg x 3 then cont po pred; start rituxin in next several days; hold on Pheresis for now Time Spent With Patient Time: Total time spent is greater than 50% in coordination of care (as documented) at patient's floor/unit and/or counseling patient:
[2020-10-06] MEDS: Lidocaine HCl 1 % MPF 5 ML VIAL 10 ML SUBCUT (13:17)
--- NOTE | 2020-10-06 14:34 | P.PNIM_ITS ---
Subjective Subjective Date of Service: 10/06/20 Physical Exam Vital Signs: Vital Signs: Last Vital Signs Temp 97.0 F 10/06/20 14:00 Pulse 73 10/06/20 14:00 Resp 18 10/06/20 14:00 BP 96/74 10/06/20 14:00 Pulse Ox 97 10/06/20 14:00 Body Mass Index 23.0 Constitutional : Sleepy, lethargic, responsive to physical stimuli, not in distress Neck : Normal inspection, Supple Cardiovascular : RRR, S1 S2, no lower extremity edema Respiratory : Fair bilateral air entry, pacer right-sided crackles, wheezes or rhonchi Gastrointestinal: soft, lax, Normal bowel sounds, Non tender Skin : Warm/Dry, No rash Neurological : Sleepy, lethargic, barely responsive to physical stimuli3, No focal deficit, difficult to assess with altered mentation Objective Data Current Medications Generic Name Dose Route Start Last Admin Trade Name Freq PRN Reason Stop Dose Admin Acetaminophen 650 mg 09/28/20 22:42 Acetaminophen 325 Mg Tablet PO Q6H PRN Pain, Mild (Pain Scale 1-3) Albuterol Sulfate 2 puff 09/29/20 05:51 Albuterol Sulfate 90 Mcg 8 Gm Inhaler INHALE RQ4H PRN Shortness of Breath/Wheezing Amlodipine Besylate 2.5 mg 10/04/20 04:00 10/06/20 10:50 Amlodipine Besylate 2.5 Mg Tablet PO Not Given DAILY [facility] Protocol Atorvastatin Calcium 10 mg 09/29/20 09:00 10/06/20 10:50 Atorvastatin Calcium 10 Mg Tablet PO Not Given DAILY [facility] Atovaquone 1,500 mg 10/03/20 09:00 10/06/20 10:51 Atovaquone 750 Mg/5 Ml Oral.Susp PO Not Given DAILY [facility] Calcium Acetate 667 mg 10/03/20 17:00 10/06/20 13:33 Calcium Acetate 667 Mg Capsule PO Not Given TIDWM [facility] Docusate Sodium 100 mg 09/28/20 22:42 Docusate Sodium 100 Mg Capsule PO DAILY PRN Constipation Heparin Sodium (Porcine) 5,000 unit 10/06/20 16:45 Heparin Sodium,Porcine 5,000 Unit/Ml Vial INTRACATH [id number] [facility] Methylprednisolone Sodium 108 mls @ 100 mls/hr 10/07/20 10:00 Succinate 500 mg/ Sodium IV 10/09/20 11:05 Chloride Q24H [facility] Mannitol 12.5 gm 10/06/20 16:45 Mannitol 12.5 Gm/50 Ml Vial IV [id number] [facility] Metoprolol Succinate 25 mg 09/29/20 09:00 10/06/20 10:51 Metoprolol Succinate Er 25 Mg Tab.Er.24h PO Not Given DAILY [facility] Protocol Omeprazole 20 mg 10/02/20 10:30 10/06/20 06:36 Omeprazole 20 Mg Capsule.Dr PO Not Given DAILY@0630 [facility] Ondansetron HCl 4 mg 09/28/20 22:42 Ondansetron Hcl 4 Mg/2 Ml Vial IVPUSH Q8H PRN Nausea and Vomiting Prednisone 60 mg 10/02/20 10:30 10/06/20 10:51 Prednisone 20 Mg Tablet PO Not Given DAILY [facility] Sodium Bicarbonate 650 mg 10/03/20 15:00 10/06/20 10:51 Sodium Bicarbonate 650 Mg Tablet PO Not Given TID [facility] Sodium Chloride 3 ml 09/29/20 00:00 10/06/20 10:49 0.9 % Sodium Chloride Flush 3 Ml Syringe IVFLUSH 3 ml QSHIFT [facility] Administration Labs CBC & Chem 7: 10/06/20 00:51 10/06/20 00:51 Microbiology Microbiology Results: Microbiology 09/28/20 10:04 Blood - Venous Blood Culture - Final No growth after 5 days. 09/28/20 09:26 Blood - Venous Blood Culture - Final No growth after 5 days. 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) s/p kidney biopsy 10/03/2020, pending pathology ABG done this morning pH within normal Will continue prednisone 60mg daily, which might decrease seizure threshold prilosec for gi prophylaxis, atovaquone for pjp prophylaxis depending on biopsy results, may start immunomodulating meds, plan to observe inpatient until pathology results back Plan to start dialysis today, discussed with HCP and family who agreed to get temporal dialysis catheter as the patient is encephalopathic to decide continue oral bicarb and calcium acetate acute anemia Stable s/p 2 units total over admission likely inflammatory stable afib metoprolol not on AC due to concern over gi bleed chronic diastolic chf lasix on hold monitor fluids closely DVT prophylaxis SCDs
[2020-10-06 17:13] LABS: Calcium (PTHI) 6.8 mg/dL (8.6-10.3); PTHI 391 pg/mL (14-64)
[2020-10-06] MEDS: Sodium Bicarbonate 650 MG TABLET PO (21:51)
[2020-10-06] MEDS: levETIRAcetam 500 MG TABLET PO (21:51)
[2020-10-07] MEDS: Haloperidol Lactate 5 MG/ML VIAL 2.5 MG IVPUSH (04:06)
[2020-10-07 05:54] VITALS: BP 165/81; PULSE 114; RESP 18
--- NOTE | 2020-10-07 06:28 | PC.NURSE ---
Pt woke up at 0300 on 10/07/20. Pt was unclothed and trying to get out of bed. Nursing staff assisted patient back to bed. Patient kept trying to come out of the bed. Due to medical equipment and the pt current condition, leaving the bed is quite unsafe. Pt was fighting off staff. Pt was throwing punches, kicking and cursing out staff. Security was contacted to help. Hospitalist was contacted and 0.25 mg of Haldol was ordered. Pt was given the does via IV. Pt became calmer.
--- NOTE | 2020-10-07 06:44 | PC.NURSE ---
At 10/07/20 @ 6:45 am. Patient ripped out his port from his right neck. No sign of bleeding. or damage to the neck.
[2020-10-07 06:47] LABS: Hematocrit 33.4 % (42-52); Hemoglobin 10.5 g/dl (14.0-18.0); Mean Corpuscular HGB Conc 31.4 g/dl (31.0-36.0); Mean Corpuscular Hemoglobin 27.3 pg (27.0-33.0); Mean Corpuscular Volume 86.8 fL (80-98); Mean Platelet Volume 10.1 fL (9.4-12.4); Platelet Count 243 X10*3/uL (160-400); Red Blood Count 3.85 X10*6/uL (4.60-5.80); White Blood Count 11.9 X10*3/uL (4.8-10.8)
[2020-10-07 07:36] LABS: Anion Gap 23 (12-20); Blood Urea Nitrogen 75 mg/dL (9-16); Calcium 7.4 mg/dL (8.4-10.2); Carbon Dioxide 17 mmol/L (22-29); Chloride 105 mmol/L (96-108); Creatinine Clr Calc Pharmacy 13.1; Estimated Glomerular Filt Rate 11; Glucose Random 75 mg/dL (60-115); Potassium 4.2 mmol/l (3.3-5.1); Sodium 141 mmol/L (135-145)
--- NOTE | 2020-10-07 07:47 | PC.NURSE ---
Patient continues to pull off tele monitor. Patient trying to hit and kick staff. 1:1 sitter at bedside for safety. Notified . Recieved telephone order to removed tele pack per. Tele pack removed, MD to dc order.
[2020-10-07 08:00] VITALS: BP 130/80; PULSE 110; TEMP 37.7; O2SAT 98
--- NOTE | 2020-10-07 10:04 | MHC.CLN ---
F/U IF DIET TO ADVANCE; RECOMMEND RENAL DIET WITH ENSURE CLEAR TID TO INCREASE KCALS MONITOR PO INTAKE FOLLOWING
--- NOTE | 2020-10-07 10:39 | P.CNNE_ITS ---
History of Present Illness Data of Consult Service Date: 10/07/20 Primary Care Provider: Gerardo Britt MD 80 years old man with underlying history of paroxysmal atrial fibrillation admitted in hospital few days ago with shortness of breath and change in mental status. He was noted to be in acute renal failure and has been treated since then. Couple of nights ago he was noted to be shaking for a few seconds suggestive of a seizure and was treated with lorazepam. Since then he did not have any such symptoms. He has been uncooperative to examination and interview. I stopped by 3 times yesterday when he was having different tests. I tried talking to him today and examined him. Review of Systems Review of Systems: He did not respond to questions about review of system. [facility] Past Medical History Medical History Anal polyp Bladder outlet obstruction Chronic diastolic (congestive) heart failure Diverticulitis large intestine Malignant neoplasm of sigmoid colon Mild pulmonary hypertension Paroxysmal atrial fibrillation Personal history of colon cancer Tubular adenoma of colon Family History Family History Father No problems noted. Mother Family history of cervical cancer Social History Social History Household Members: Other Housing: Assisted Living Facility Do you presently have visiting nurse or other home services: Yes Alcohol intake: current Alcohol intake frequency: holidays/special occasions only Alcohol type: beer Smoking Status: Former smoker Use of substances other than those prescribed or required for medical reasons: No Currently Displaying Signs/Symptoms of Drug Intoxication Withdrawal: No Have you been hit, kicked, punched, or otherwise hurt by someone within the past year? If so, by whom?: No Do you feel safe in your current relationship?: No Current Relationship Is there a partner from a previous relationship who is making you feel unsafe now?: No Are you made to feel afraid or neglected: No Spiritual Healthcare Practices: none Roman Catholic Healthcare Practices: none Cultural Healthcare Practices: none Advance Directives: No Advance Directives Information Provided: No Do you have thoughts of harming others: Vague Do you have a plan to hurt others: Vague Recently lost weight without trying: No service: No Current occupational status: retired Meds Allergies Allergy/AdvReac Type Severity Reaction Status Date / Time No Known Allergies Allergy Verified 07/31/20 09:06 [No Known Allergies*] Home Medications Medication Instructions Recorded Confirmed Type furosemide 20 mg PO BID 09/28/20 09/28/20 History metoprolol succinate 25 mg PO DAILY 09/28/20 09/28/20 History simvastatin 20 mg PO DAILY 09/28/20 09/28/20 History Physical Exam Vital Signs: Vital Signs: Last Vital Signs Temp 100 F 10/07/20 08:00 Pulse 110 H 10/07/20 08:00 Resp 18 10/07/20 05:54 BP 130/80 10/07/20 08:00 Pulse Ox 98 10/07/20 08:00 Body Mass Index 23.0 Examination was limited as he was not cooperative. After repeated asking if he told me his name but refused to answer other questions. He at least understood what I was asking. He was lying down with the his arms or legs flexed on his right side. Refused to be physically examined. There was mild left-sided ptosis. Pupils were round. Visual field could not be finger rub. Plantars were flat. Results Labs CBC & Chem 7: 10/07/20 05:59 10/07/20 05:59 Labs: Short CBC 10/07/20 Range/Units 05:59 WBC 11.9 H (4.8-10.8) X10*3/uL Hgb 10.5 L (14.0-18.0) g/dl Hct 33.4 L (42-52) % Plt Count 243 D (160-400) X10*3/uL BMP 10/07/20 05:59 Sodium 141 Potassium 4.2 Chloride 105 Carbon Dioxide 17 L BUN 75 H Creatinine 4.96 H* Calcium 7.4 L D His noncontrast head CT revealed moderately severe bilateral frontoparietal temporal atrophy. Microbiology Microbiology Results: Microbiology 09/28/20 10:04 Blood - Venous Blood Culture - Final No growth after 5 days. 09/28/20 09:26 Blood - Venous Blood Culture - Final No growth after 5 days. 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 At this time he was uncooperative to interview or physical examination. A seizure can happen due to metabolic abnormalities of this nature. At this time my recommendation is to treat underlying metabolic abnormalities. Once he is more cooperative an EEG can be done. As far as antiepileptics are concerned, I would probably hold at this time.
--- NOTE | 2020-10-07 10:45 | PM.PNNEP ---
Subjective Subjective Date of Service: 10/07/20 Interval history: Seen and examined. Events noted. Had HD yesterday Combative this am prior to getting IV solumederol pulled out HD line Physical Exam Vital Signs: Vital Signs: Last Vital Signs Temp 100 F 10/07/20 08:00 Pulse 110 H 10/07/20 08:00 Resp 18 10/07/20 05:54 BP 130/80 10/07/20 08:00 Pulse Ox 98 10/07/20 08:00 Body Mass Index 23.0 Const: Other: lethargic BS bilat'RRR abd soft No edema Cardio: Other: lethargic BS bilat'RRR abd soft No edema Objective Data Labs CBC & Chem 7: 10/07/20 05:59 10/07/20 05:59 Labs: Laboratory Results - last 24 hr 10/04/20 10/07/20 10/07/20 05:48 05:59 05:59 WBC 11.9 H RBC 3.85 L Hgb 10.5 L Hct 33.4 L MCV 86.8 MCH 27.3 MCHC 31.4 RDW 17.0 H Plt Count 243 D MPV 10.1 Absolute Nucleated RBC 0.000 Nucleated RBC % (auto) 0.0 Sodium 141 Potassium 4.2 Chloride 105 Carbon Dioxide 17 L Anion Gap 23 H BUN 75 H Creatinine 4.96 H* Estim Creat Clear Calc 13.1 Estimated GFR 11 Random Glucose 75 D Calcium 7.4 L D PTH Intact 391 H Calcium (PTH Intact) 6.8 L Microbiology Microbiology Results: Microbiology 09/28/20 10:04 Blood - Venous Blood Culture - Final No growth after 5 days. 09/28/20 09:26 Blood - Venous Blood Culture - Final No growth after 5 days. 09/28/20 00:00 Urine [place] Urine Culture - Final Assessment & Plan Assessment and plan (1) Acute renal failure: Status: Acute Assessment and Plan: 80M presented with cough and epistaxis, found to have severe FRANCHESKA and ANCA ( PR3) RPGN with preloim kidney Bx showing cellular crescents..still awating IF as need to r/o antiGBM which can be presennt in comb with anca in a subset of PTs 1. 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 AGMA: decr HCo 3 d/t SZ episdoe ? 4. AMS: ques bsl REC: hold off on furhter HD for now and see if with pulse steroids and rituxzin we can avoid need for additional HD; pulse with steroids 500mg x 3 then cont po pred; start rituxin tomorrow if he needs additional HD then preventing him form pulling line out will be a potential big issue...may need additional psych/sedating meds if it comes to that Time Spent With Patient Time: Total time spent is greater than 50% in coordination of care (as documented) at patient's floor/unit and/or counseling patient:
[2020-10-07 13:28] LABS: IgA 252 mg/dL (70-320); IgG 868 mg/dL (600-1540); IgM 21 mg/dL (50-300)
--- NOTE | 2020-10-07 14:49 | P.PNIM_ITS ---
Subjective Subjective Date of Service: 10/07/20 Interval History: the patient was seen and evaluated this morning Laying in bed, not responsive, sleepy, Denies any fever, chills or shortness of breath Reported being aggressive overnight requiring Haldol Systemic review: No fever, chills or weakness No chest pain, palpitation No shortness of breath or coughing No abdominal pain, nausea or vomiting No urinary symptoms No any rash or wounds Physical Exam Vital Signs: Vital Signs: Last Vital Signs Temp 100 F 10/07/20 08:00 Pulse 110 H 10/07/20 08:00 Resp 18 10/07/20 05:54 BP 130/80 10/07/20 08:00 Pulse Ox 98 10/07/20 08:00 Body Mass Index 23.0 Constitutional : Sleepy, lethargic, responsive to physical stimuli, not in distress Neck : Normal inspection, Supple Cardiovascular : RRR, S1 S2, no lower extremity edema Respiratory : Fair bilateral air entry, pacer right-sided crackles, wheezes or rhonchi Gastrointestinal: soft, lax, Normal bowel sounds, Non tender Skin : Warm/Dry, No rash Neurological : Sleepy, lethargic, barely responsive to physical stimuli3, No focal deficit, difficult to assess with altered mentation Objective Data Current Medications Generic Name Dose Route Start Last Admin Trade Name Freq PRN Reason Stop Dose Admin Acetaminophen 650 mg 09/28/20 22:42 Acetaminophen 325 Mg Tablet PO Q6H PRN Pain, Mild (Pain Scale 1-3) Albuterol Sulfate 2 puff 09/29/20 05:51 Albuterol Sulfate 90 Mcg 8 Gm Inhaler INHALE RQ4H PRN Shortness of Breath/Wheezing Amlodipine Besylate 2.5 mg 10/04/20 04:00 10/07/20 11:17 Amlodipine Besylate 2.5 Mg Tablet PO Not Given DAILY [facility] Protocol Atorvastatin Calcium 10 mg 09/29/20 09:00 10/07/20 11:18 Atorvastatin Calcium 10 Mg Tablet PO Not Given DAILY [facility] Atovaquone 1,500 mg 10/03/20 09:00 10/07/20 11:18 Atovaquone 750 Mg/5 Ml Oral.Susp PO Not Given DAILY [facility] Calcium Acetate 667 mg 10/03/20 17:00 10/07/20 14:27 Calcium Acetate 667 Mg Capsule PO Not Given TIDWM [facility] Docusate Sodium 100 mg 09/28/20 22:42 Docusate Sodium 100 Mg Capsule PO DAILY PRN Constipation Heparin Sodium (Porcine) 5,000 unit 10/06/20 16:45 10/06/20 19:15 Heparin Sodium,Porcine 5,000 Unit/Ml Vial INTRACATH Not Given [id number] [facility] Methylprednisolone Sodium 108 mls @ 100 mls/hr 10/07/20 10:15 10/07/20 11:53 Succinate 500 mg/ Sodium IV 10/09/20 11:20 100 mls/hr Chloride Q24H [facility] Administration Metoprolol Succinate 25 mg 09/29/20 09:00 10/07/20 11:18 Metoprolol Succinate Er 25 Mg Tab.Er.24h PO Not Given DAILY [facility] Protocol Omeprazole 20 mg 10/02/20 10:30 10/07/20 06:23 Omeprazole 20 Mg Capsule.Dr PO Not Given DAILY@0630 [facility] Ondansetron HCl 4 mg 09/28/20 22:42 Ondansetron Hcl 4 Mg/2 Ml Vial IVPUSH Q8H PRN Nausea and Vomiting Sodium Bicarbonate 650 mg 10/03/20 15:00 10/07/20 11:18 Sodium Bicarbonate 650 Mg Tablet PO Not Given TID [facility] Sodium Chloride 3 ml 09/29/20 00:00 10/07/20 11:17 0.9 % Sodium Chloride Flush 3 Ml Syringe IVFLUSH Not Given QSHIFT [facility] Labs CBC & Chem 7: 10/07/20 05:59 10/07/20 05:59 Microbiology Microbiology Results: Microbiology 09/28/20 10:04 Blood - Venous Blood Culture - Final No growth after 5 days. 09/28/20 09:26 Blood - Venous Blood Culture - Final No growth after 5 days. 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 Continue prilosec for gi prophylaxis, atovaquone for pjp prophylaxis Start bowels steroid therapy with 500 mg daily for 3 days To give rituximab tomorrow Had an session of dialysis, patient removed the dialysis catheter while restless continue oral bicarb and calcium acetate Metabolic encephalopathy Secondary to uremia, medications and hospital stay Avoid using Ativan, Haldol for now Recurrent reorientation Treat underlying kidney injury and electrolyte imbalance Seizure incident Reported seizure episode in the hospital Controlled with IV Ativan and Haldol CT scan was negative for any acute findings Likely secondary to uremia Pending neurology acute anemia Stable s/p 2 units total over admission likely inflammatory stable afib metoprolol not on AC due to concern over gi bleed chronic diastolic chf lasix on hold monitor fluids closely DVT prophylaxis SCDs
--- NOTE | 2020-10-07 14:50 | HO.POSTANES ---
Post Anesthesia Evaluation Post Anesthesia Evaluation Vital Signs: Vital Signs Temp Pulse Resp BP Pulse Ox 10/07/20 08:00 100 F 110 H 130/80 98 10/07/20 05:54 114 H 18 165/81 H Anesthesia: Monitored Mental Status: Awake Pain Control: Satisfactory Nausea/Vomiting: None Hydration: Adequate Anesthesia-Related Issues: No Anes. Related Issues
[2020-10-07 15:57] VITALS: BP 167/80; PULSE 68; RESP 18; TEMP 36.9; O2SAT 96
[2020-10-07] MEDS: 0.9 % Sodium Chloride Flush 3 ML SYRINGE IVFLUSH (17:42)
[2020-10-07 19:29] VITALS: BP 163/69; PULSE 59; RESP 18; TEMP 36.5; O2SAT 96
[2020-10-07 21:42] LABS: Glucose Random 117 mg/dL (60-115)
[2020-10-08] VITALS (9 sets, daily range): BP systolic 139–172; BP diastolic 63–86; PULSE 54–73; RESP 16–20; TEMP 36–36.8; O2SAT 92–99
[2020-10-08 06:38] LABS: Hematocrit 32.7 % (42-52); Hemoglobin 10.3 g/dl (14.0-18.0); Mean Corpuscular HGB Conc 31.5 g/dl (31.0-36.0); Mean Corpuscular Hemoglobin 27.3 pg (27.0-33.0); Mean Corpuscular Volume 86.7 fL (80-98); Mean Platelet Volume 10.2 fL (9.4-12.4); Platelet Count 240 X10*3/uL (160-400); Red Blood Count 3.77 X10*6/uL (4.60-5.80); White Blood Count 5.4 X10*3/uL (4.8-10.8)
[2020-10-08 07:18] LABS: Anion Gap 24 (12-20); Blood Urea Nitrogen 97 mg/dL (9-16); Calcium 7.2 mg/dL (8.4-10.2); Carbon Dioxide 16 mmol/L (22-29); Chloride 105 mmol/L (96-108); Creatinine Clr Calc Pharmacy 10.8; Estimated Glomerular Filt Rate 9; Glucose Random 174 mg/dL (60-115); Potassium 4.2 mmol/l (3.3-5.1); Sodium 141 mmol/L (135-145)
[2020-10-08] MEDS: Metoprolol Succinate ER 25 MG TAB.ER.24H PO (07:35)
[2020-10-08] MEDS: Atorvastatin Calcium 10 MG TABLET PO (07:35)
[2020-10-08] MEDS: amLODIPine Besylate 2.5 MG TABLET PO (07:35)
[2020-10-08] MEDS: Calcium Acetate 667 MG CAPSULE PO ×3 (07:35→19:58)
[2020-10-08] MEDS: Sodium Bicarbonate 650 MG TABLET PO ×3 (07:35→19:59)
[2020-10-08] MEDS: 0.9 % Sodium Chloride Flush 3 ML SYRINGE IVFLUSH ×3 (07:35→23:49)
--- NOTE | 2020-10-08 09:27 | MHC.CM.PN ---
Per discussion with MD, Patient is not yet medically cleared for dc (hope to dc Sitter today/aggressive/restless requiring Haldol and pulled out HD catheter, new HD/may need oysterman HD, still receiving IV Methyprednisolone). Plan for dc is to return home with a new referral to [facility], pending PT eval. CM will continue to follow for dc planning with the goal to secure a definite dc plan.
--- NOTE | 2020-10-08 11:33 | PM.PNNEP ---
Subjective Subjective Date of Service: 10/08/20 Interval history: Seen and examined. Events noted Not combative today Day # 2 IV Smederol bolus Physical Exam Vital Signs: Vital Signs: Last Vital Signs Temp 96.8 F 10/08/20 07:24 Pulse 66 10/08/20 07:24 Resp 16 10/08/20 07:24 BP 142/68 H 10/08/20 07:24 Pulse Ox 92 10/08/20 10:51 Body Mass Index 23.0 Const: Other: awake, confused BS bilat'RRR abd soft No edema Objective Data Labs CBC & Chem 7: 10/08/20 05:27 10/08/20 05:27 Labs: Laboratory Results - last 24 hr 10/01/20 10/07/20 10/08/20 05:30 20:54 05:27 WBC 5.4 RBC 3.77 L Hgb 10.3 L Hct 32.7 L MCV 86.7 MCH 27.3 MCHC 31.5 RDW 17.0 H Plt Count 240 MPV 10.2 Absolute Nucleated RBC 0.000 Nucleated RBC % (auto) 0.0 Sodium Potassium Chloride Carbon Dioxide Anion Gap BUN Creatinine Estim Creat Clear Calc Estimated GFR Random Glucose 117 H D Calcium IgG Total 868 IgA Total 252 IgM 21 L [facility]ANARA Interpretation SEE NOTE 10/08/20 05:27 WBC RBC Hgb Hct MCV MCH MCHC RDW Plt Count MPV Absolute Nucleated RBC Nucleated RBC % (auto) Sodium 141 Potassium 4.2 Chloride 105 Carbon Dioxide 16 L Anion Gap 24 H BUN 97 H* D Creatinine 6.02 H* Estim Creat Clear Calc 10.8 Estimated GFR 9 Random Glucose 174 H D Calcium 7.2 L IgG Total IgA Total IgM DAYANARA Interpretation Laboratory Tests 04/09/19 09/28/20 10/05/20 23:21 09:26 05:59 Creatinine 1.37 10.50 H* 7.52 H* 10/06/20 10/07/20 10/08/20 00:51 05:59 05:27 Creatinine 7.14 H* 4.96 H* 6.02 H* Microbiology Microbiology Results: Microbiology 09/28/20 10:04 Blood - Venous Blood Culture - Final No growth after 5 days. 09/28/20 09:26 Blood - Venous Blood Culture - Final No growth after 5 days. 09/28/20 00:00 Urine [place] Urine Culture - Final Assessment & Plan Assessment and plan (1) Acute renal failure: Status: Acute Assessment and Plan: 80M presented with cough and epistaxis, found to have severe FRANCHESKA and ANCA ( PR3) RPGN with kidney Bx showing cellular crescents..and IF r/o antiGBM HD x 1 10/06 Smederol pulse day # 2 1. 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 AGMA: decr HCo 3 d/t SZ episdoe ? 4. AMS: ques bsl 5. Ques need for more HD: the jump in Scr past 24 hrs is concerning that he may need additional HD despite the pulse steroids...lets recheck SCr in am as often PTs will have a brisk initial response to pulse steroids REC: hold off on furhter HD for now but make NPO incase he needs new line and HD tomorrow; pulse steroids today anfd tomorrow then r/s pred 60 qd; rituxzin to be given tomorrow (10/09) if he needs additional HD then preventing him form pulling line out will be a potential big issue...may need additional psych/sedating meds if it comes to that but hopefully can avoid as he seems much better today,... FYI the [id number] HD cath was not tunnelled and much more prone to falling out Time Spent With Patient Time: Total time spent is greater than 50% in coordination of care (as documented) at patient's floor/unit and/or counseling patient:
--- NOTE | 2020-10-08 13:10 | HO.PM.IMPN ---
Subjective Subjective Date of Service: 10/08/20 Interval History: the patient was seen and evaluated this morning Laying in bed, feels comfortable, not in distress or encephalopathic anymore Able to identify place and why he is in the hospital Denies any fever, chills or shortness of breath No reported other overnight events. Systemic review: No fever, chills but reported general weakness No chest pain, palpitation No shortness of breath or coughing No abdominal pain, nausea or vomiting No urinary symptoms No any rash or wounds Physical Exam Vital Signs: Vital Signs: Last Vital Signs Temp 98.3 F 10/08/20 12:00 Pulse 73 10/08/20 12:00 Resp 20 10/08/20 12:00 BP 172/72 H 10/08/20 12:00 Pulse Ox 97 10/08/20 12:00 Body Mass Index 23.0 Constitutional : Alert, oriented, not in distress, laying comfortable in his bed Neck : Normal inspection, Supple Cardiovascular : RRR, S1 S2, no lower extremity edema Respiratory : Good bilateral air entry, no crackles, wheezes or rhonchi Gastrointestinal: soft, lax, Normal bowel sounds, Non tender Skin : Warm/Dry, No rash Neurological : Alert & oriented to place and time, No focal deficit Objective Data Current Medications Generic Name Dose Route Start Last Admin Trade Name Freq PRN Reason Stop Dose Admin Acetaminophen 650 mg 09/28/20 22:42 Acetaminophen 325 Mg Tablet PO Q6H PRN Pain, Mild (Pain Scale 1-3) Albuterol Sulfate 2 puff 09/29/20 05:51 Albuterol Sulfate 90 Mcg 8 Gm Inhaler INHALE RQ4H PRN Shortness of Breath/Wheezing Amlodipine Besylate 2.5 mg 10/04/20 04:00 10/08/20 07:35 Amlodipine Besylate 2.5 Mg Tablet PO 2.5 mg DAILY MATHEUS Administration Protocol Atorvastatin Calcium 10 mg 09/29/20 09:00 10/08/20 07:35 Atorvastatin Calcium 10 Mg Tablet PO 10 mg DAILY MATHEUS Administration Atovaquone 1,500 mg 10/03/20 09:00 10/08/20 07:36 Atovaquone 750 Mg/5 Ml Oral.Susp PO Not Given DAILY MATHEUS Calcium Acetate 667 mg 10/03/20 17:00 10/08/20 11:01 Calcium Acetate 667 Mg Capsule PO 667 mg TIDWM MATHEUS Administration Docusate Sodium 100 mg 09/28/20 22:42 Docusate Sodium 100 Mg Capsule PO DAILY PRN Constipation Heparin Sodium (Porcine) 5,000 unit 10/06/20 16:45 10/06/20 19:15 Heparin Sodium,Porcine 5,000 Unit/Ml Vial INTRACATH Not Given [id number]@1645 [facility] Methylprednisolone Sodium 108 mls @ 100 mls/hr 10/07/20 10:15 10/08/20 12:15 Succinate 500 mg/ Sodium IV 10/09/20 11:20 Infused Chloride Q24H [facility] Infusion Metoprolol Succinate 25 mg 09/29/20 09:00 10/08/20 07:35 Metoprolol Succinate Er 25 Mg Tab.Er.24h PO 25 mg DAILY [facility] Administration Protocol Omeprazole 20 mg 10/02/20 10:30 10/08/20 06:01 Omeprazole 20 Mg Capsule. PO Not Given DAILY@0630 [facility] Ondansetron HCl 4 mg 09/28/20 22:42 Ondansetron Hcl 4 Mg/2 Ml Vial IVPUSH Q8H PRN Nausea and Vomiting Sodium Bicarbonate 650 mg 10/03/20 15:00 10/08/20 07:35 Sodium Bicarbonate 650 Mg Tablet PO 650 mg TID [facility] Administration Sodium Chloride 3 ml 09/29/20 00:00 10/08/20 07:35 0.9 % Sodium Chloride Flush 3 Ml Syringe IVFLUSH 3 ml QSHIFT [facility] Administration Labs CBC & Chem 7: 10/08/20 05:27 10/08/20 05:27 Microbiology Microbiology Results: Microbiology 09/28/20 10:04 Blood - Venous Blood Culture - Final No growth after 5 days. 09/28/20 09:26 Blood - Venous Blood Culture - Final No growth after 5 days. 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 Had an session of dialysis, patient removed the dialysis catheter while restless Worsening again after dialysis to 6 Continue prilosec for gi prophylaxis, atovaquone for pjp prophylaxis Continue pulse steroid therapy with 500 mg daily for 2/3 days To give rituximab tomorrow continue oral bicarb and calcium acetate Metabolic encephalopathy Secondary to uremia, medications and hospital stay Improving today Avoid using Ativan, Haldol for now Recurrent reorientation Treat underlying kidney injury and electrolyte imbalance Seizure incident Reported Witnessed seizure episode in the hospital Controlled with IV Ativan and Haldol CT scan was negative for any acute findings Likely secondary to uremia Neurology input appreciated, hold on antiepilepsy medications acute anemia Stable s/p 2 units total over admission likely inflammatory stable afib metoprolol not on AC due to concern over gi bleed chronic diastolic chf lasix on hold monitor fluids closely DVT prophylaxis SCDs
--- NOTE | 2020-10-08 19:54 | PC.NURSE ---
P-loose dark bloody stool on a commode I-Dr. Rodriguez notified E-will monitor
--- NOTE | 2020-10-08 19:56 | PM.EVENT ---
Event Note Date of Service: 10/08/20 Event Note: Patient had an episode very loose dark bloody BM. Hemodynamically stable with vitals significant for temp of 97.9?, heart rate of 70, respiratory rate of 18, blood pressure 161/86, satting 99% on room air. Will obtain stat H&H, placed on pantoprazole 40 IV b.i.d., Transfusion threshold of less than 7, GI consulted, patient has been made NPO
[2020-10-08 20:36] LABS: Hematocrit 25.5 % (42-52); Hemoglobin 8.3 g/dl (14.0-18.0)
--- NOTE | 2020-10-08 21:01 | PC.NURSE ---
P-HH low 8.3 25.5 I-Dr. Rodriguez notified E-will monitor
[2020-10-08] MEDS: Pantoprazole Sodium 40 MG/10 ML VIAL IVPUSH (21:13)
[2020-10-09] VITALS (20 sets, daily range): BP systolic 130–177; BP diastolic 50–90; PULSE 55–69; RESP 11–21; TEMP 36.3–37.1; O2SAT 92–98; BMI 23.1
[2020-10-09 04:50] LABS: HBS Num1 1.15 mIU/mL (0-7.99); HBc Num1 0.12 S/CO (0.00-0.79); HBsAGNum1 0.35 S/CO (0.00-0.99); Hepatitis B Core Antibody Nonreactive (Nonreactive); Hepatitis B Surface Antigen Negative (Negative); ~Hepatitis B Surface Antibody NONREACTIVE (Nonreactive); ~Hepatitis C Antibody Nonreactive (Nonreactive)
[2020-10-09] MEDS: Pantoprazole Sodium 40 MG/10 ML VIAL IVPUSH ×2 (05:47→16:37)
--- NOTE | 2020-10-09 06:14 | PC.NURSE ---
PATIENT TRANSPORTED VIA HIS BED FROM ROOM 459-1 TO ICU UNIT FOR PLANNED MEDICATION INFUSION. REPORT GIVEN TO BULB ASSEMBLER INNA, AM IVP PROTONIX GIVEN JUST PRIOR, BLACK CATH EMPTIED FOR 475 CLOUDY URINE, PATIENTS AWARE OF TRANSFER FOR MEDICATIONS, NPO OVERNIGHT ORDERED, REPORTS NO PAIN. PT CALM AND CO-OPERATIVE, AND BELONGINGS SENT WITH HIM. 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
--- NOTE | 2020-10-09 06:25 | PC.NURSE ---
RECEIV[place] IN [place]SF[place]IA [place] [facility] [place]KE..ALERT...ORIENTED X2...VAGUE RESPONSES TO OTHER QUESTIONS..MONET...RESPIRATIONS EASY...SAO2 97% ROOM AIR...NSR..HR 60'S NO RVTOPY...CHRONIC BLACK DRAINING SEDIMENTED YELLOW URINE..DENIES DISCOMFORT..RESTFUL...CALM AT PRESENT
--- NOTE | 2020-10-09 06:33 | PC.NURSE ---
AM WEIGHT= 77.2 KG ...REPORTED TO PHARMACY PER PHARMACY REQUEST
[2020-10-09 07:19] LABS: Hematocrit 26.4 % (42-52); Hemoglobin 8.8 g/dl (14.0-18.0); Mean Corpuscular HGB Conc 33.3 g/dl (31.0-36.0); Mean Corpuscular Hemoglobin 28.2 pg (27.0-33.0); Mean Corpuscular Volume 84.6 fL (80-98); Mean Platelet Volume 10.5 fL (9.4-12.4); Platelet Count 246 X10*3/uL (160-400); Red Blood Count 3.12 X10*6/uL (4.60-5.80); Red Cell Distribution Width 16.6 % (11.0-16.0); White Blood Count 12.5 X10*3/uL (4.8-10.8)
[2020-10-09 08:12] LABS: Anion Gap 23 (12-20); Blood Urea Nitrogen 115 mg/dL (9-16); Calcium 6.7 mg/dL (8.4-10.2); Carbon Dioxide 15 mmol/L (22-29); Chloride 101 mmol/L (96-108); Creatinine Clr Calc Pharmacy 10.4; Estimated Glomerular Filt Rate 9; Glucose Random 162 mg/dL (60-115); Potassium 4.8 mmol/l (3.3-5.1); Sodium 134 mmol/L (135-145)
--- NOTE | 2020-10-09 09:42 | MHC.CLN ---
F/U NOTED LAUREN 11 INCREASED NUTRITION RISK PT IS CURRENTLY NPO WHEN DIET ADVANCED; CONSIDER ADDING NUTRITION SUPPLEMENT TO INCREASE KCALS FOLLOWING
[2020-10-09] MEDS: Atovaquone 750 MG/5 ML ORAL.SUSP 1500 MG PO (09:44)
[2020-10-09] MEDS: diphenhydrAMINE HCL 25 MG TABLET PO (09:44)
[2020-10-09] MEDS: Calcium Acetate 667 MG CAPSULE PO (09:44)
[2020-10-09] MEDS: amLODIPine Besylate 2.5 MG TABLET PO (09:44)
[2020-10-09] MEDS: Metoprolol Succinate ER 25 MG TAB.ER.24H PO (09:45)
[2020-10-09] MEDS: Atorvastatin Calcium 10 MG TABLET PO (09:45)
[2020-10-09] MEDS: Sodium Bicarbonate 650 MG TABLET PO ×3 (09:45→21:14)
[2020-10-09] MEDS: Heparin Sodium,Porcine 5,000 UNIT/ML VIAL 5000 UNIT SUBCUT (09:47)
[2020-10-09] MEDS: 0.9 % Sodium Chloride Flush 3 ML SYRINGE IVFLUSH ×2 (09:47→16:37)
[2020-10-09] MEDS: predniSONE 20 MG TABLET 60 MG PO (10:07)
[2020-10-09] MEDS: Acetaminophen 325 MG TABLET 650 MG PO (10:10)
--- NOTE | 2020-10-09 11:22 | PM.PNNEP ---
Subjective Subjective Date of Service: 10/09/20 Interval history: Seen and examined. Events noted.Now getting IV rituxin Good Appetite Physical Exam Vital Signs: Vital Signs: Last Vital Signs Temp 98.4 F 10/09/20 10:38 Pulse 69 10/09/20 11:00 Resp 16 10/09/20 11:00 BP 172/77 H 10/09/20 11:00 Pulse Ox 97 10/09/20 11:00 Body Mass Index 23.1 Const: Other: awake BS bilat'RRR abd soft No edema Objective Data Labs CBC & Chem 7: 10/09/20 05:49 10/09/20 05:49 Labs: Laboratory Results - last 24 hr 10/08/20 10/08/20 10/09/20 20:28 22:17 05:49 WBC 12.5 H RBC 3.12 L Hgb 8.3 L 8.8 L Hct 25.5 L D 26.4 L MCV 84.6 MCH 28.2 MCHC 33.3 RDW 16.6 H Plt Count 246 MPV 10.5 Absolute Nucleated RBC 0.000 Nucleated RBC % (auto) 0.0 Sodium Potassium Chloride Carbon Dioxide Anion Gap BUN Creatinine Estim Creat Clear Calc Estimated GFR Random Glucose Calcium Hep Bs Antigen Negative Hep Bs Antibody NONREACTIVE Hep B Core Total Ab Nonreactive Hepatitis C Ab (EIA) Nonreactive 10/09/20 05:49 WBC RBC Hgb Hct MCV MCH MCHC RDW Plt Count MPV Absolute Nucleated RBC Nucleated RBC % (auto) Sodium 134 L Potassium 4.8 Chloride 101 Carbon Dioxide 15 L Anion Gap 23 H BUN 115 H* Creatinine 6.24 H* Estim Creat Clear Calc 10.4 Estimated GFR 9 Random Glucose 162 H Calcium 6.7 L D Hep Bs Antigen Hep Bs Antibody Hep B Core Total Ab Hepatitis C Ab (EIA) Microbiology Microbiology Results: Microbiology 09/28/20 10:04 Blood - Venous Blood Culture - Final No growth after 5 days. 09/28/20 09:26 Blood - Venous Blood Culture - Final No growth after 5 days. 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 AGMA: decr HCo 3 d/t SZ episdoe ? 4. AMS: ques bsl 5. Ques need for more HD: the jump in Scr past 24 hrs is concerning that he may need additional HD despite the pulse steroids...lets recheck SCr in am as often PTs will have a brisk initial response to pulse steroids REC: hold off on furhter HD for now but make NPO incase he needs new line and HD tomorrow; r/s pred 60 qd; rituxzin to be given today (10/09); incr phos binder ( CaCO3) if he needs additional HD then preventing him form pulling line out will be a potential big issue...may need additional psych/sedating meds if it comes to that but hopefully can avoid as he seems much better today,... FYI the previous HD cath was not tunnelled and much more prone to falling out Time Spent With Patient Time: Total time spent is greater than 50% in coordination of care (as documented) at patient's floor/unit and/or counseling patient:
--- NOTE | 2020-10-09 12:39 | HO.PM.IMPN ---
Subjective Subjective Date of Service: 10/09/20 Interval History: the patient was seen and evaluated this morning Laying in bed, feels comfortable, mildly more confused but overall awake and alert Concern about starting rituximab Denies any fever, chills or shortness of breath Reported passing dark colors to No reported other overnight events. Systemic review: No fever, chills but reported general weakness No chest pain, palpitation No shortness of breath or coughing No abdominal pain, nausea or vomiting No urinary symptoms No any rash or wounds Physical Exam Vital Signs: Vital Signs: Last Vital Signs Temp 97.4 F 10/09/20 11:08 Pulse 62 10/09/20 12:30 Resp 18 10/09/20 12:30 BP 133/57 L 10/09/20 12:30 Pulse Ox 94 10/09/20 12:30 Body Mass Index 23.1 Constitutional : Alert, oriented, not in distress, laying comfortable in his bed Neck : Normal inspection, Supple Cardiovascular : RRR, S1 S2, no lower extremity edema Respiratory : Good bilateral air entry, no crackles, wheezes or rhonchi Gastrointestinal: soft, lax, Normal bowel sounds, Non tender Skin : Warm/Dry, No rash Neurological : Alert & oriented to place and time, No focal deficit Objective Data Current Medications Generic Name Dose Route Start Last Admin Trade Name Freq PRN Reason Stop Dose Admin Acetaminophen 650 mg 09/28/20 22:42 10/09/20 10:10 Acetaminophen 325 Mg Tablet PO 650 mg Q6H PRN Administration Pain, Mild (Pain Scale 1-3) Albuterol Sulfate 2 puff 09/29/20 05:51 Albuterol Sulfate 90 Mcg 8 Gm Inhaler INHALE RQ4H PRN Shortness of Breath/Wheezing Amlodipine Besylate 2.5 mg 10/04/20 04:00 10/09/20 09:44 Amlodipine Besylate 2.5 Mg Tablet PO 2.5 mg DAILY MATHEUS Administration Protocol Atorvastatin Calcium 10 mg 09/29/20 09:00 10/09/20 09:45 Atorvastatin Calcium 10 Mg Tablet PO 10 mg DAILY MATHEUS Administration Atovaquone 1,500 mg 10/03/20 09:00 10/09/20 09:44 Atovaquone 750 Mg/5 Ml Oral.Susp PO 1,500 mg DAILY MATHEUS Administration Calcium Acetate 1,334 mg 10/09/20 12:00 Calcium Acetate 667 Mg Capsule PO TIDWM [facility] Docusate Sodium 100 mg 09/28/20 22:42 Docusate Sodium 100 Mg Capsule PO DAILY PRN Constipation Heparin Sodium (Porcine) 5,000 unit 10/06/20 16:45 10/08/20 15:20 Heparin Sodium,Porcine 5,000 Unit/Ml Vial INTRACATH Not Given [id number] [facility] Heparin Sodium (Porcine) 5,000 unit 10/09/20 08:00 10/09/20 09:47 Heparin Sodium,Porcine 5,000 Unit/Ml Vial SUBCUT 5,000 unit Q12H [facility] Administration Rituximab 500 mg/ Rituximab 324 mls @ 0 mls/hr 10/09/20 08:00 240 mg/ Sodium Chloride IV 10/09/20 18:00 .Q0M [facility] Protocol Metoprolol Succinate 25 mg 09/29/20 09:00 10/09/20 09:45 Metoprolol Succinate Er 25 Mg Tab.Er.24h PO 25 mg DAILY [facility] Administration Protocol Ondansetron HCl 4 mg 09/28/20 22:42 Ondansetron Hcl 4 Mg/2 Ml Vial IVPUSH Q8H PRN Nausea and Vomiting Pantoprazole Sodium 40 mg 10/09/20 06:30 10/09/20 05:47 Pantoprazole Sodium 40 Mg/10 Ml Vial IVPUSH 40 mg BID@0630,1630 [facility] Administration Prednisone 60 mg 10/10/20 09:00 Prednisone 20 Mg Tablet PO DAILY [facility] Sodium Bicarbonate 650 mg 10/03/20 15:00 10/09/20 09:45 Sodium Bicarbonate 650 Mg Tablet PO 650 mg TID [facility] Administration Sodium Chloride 3 ml 09/29/20 00:00 10/09/20 09:47 0.9 % Sodium Chloride Flush 3 Ml Syringe IVFLUSH 3 ml QSHIFT [facility] Administration Labs CBC & Chem 7: 10/09/20 05:49 10/09/20 05:49 Microbiology Microbiology Results: Microbiology 09/28/20 10:04 Blood - Venous Blood Culture - Final No growth after 5 days. 09/28/20 09:26 Blood - Venous Blood Culture - Final No growth after 5 days. 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 Had an session of dialysis, patient removed the dialysis catheter while restless Worsening again after dialysis to 6.2 Continue prilosec for gi prophylaxis, atovaquone for pjp prophylaxis Continue pulse steroid therapy with 500 mg daily for 3/3 days To give rituximab today continue oral bicarb and calcium acetate Nephrology input appreciated Metabolic encephalopathy Secondary to uremia, medications and hospital stay Improving Avoid using Ativan, Haldol for now Recurrent reorientation Treat underlying kidney injury and electrolyte imbalance Seizure incident Reported Witnessed seizure episode in the hospital Controlled with IV Ativan and Haldol CT scan was negative for any acute findings Likely secondary to uremia Neurology input appreciated, hold on antiepilepsy medications acute anemia Stable s/p 2 units total over admission likely inflammatory stable Passing dark stool Hemoglobin stable Check occult blood Hold heparin GI consulted afib metoprolol not on AC due to concern over gi bleed chronic diastolic chf lasix on hold monitor fluids closely DVT prophylaxis SCDs
[2020-10-09] MEDS: Calcium Acetate 667 MG CAPSULE 1334 MG PO (14:41)
--- NOTE | 2020-10-09 15:43 | MHC.CM.PN ---
No rounds today. Note per chart review. Pt to have rituximab today. No HCP on file. Will address in am. Will continue to follow for d/c needs
[2020-10-09 16:13] LABS: OBS Int Ctl Valid YES; OBS1 POS (NEG)
[2020-10-09 17:59] LABS: Hematocrit 23.4 % (42-52); Hemoglobin 7.9 g/dl (14.0-18.0); Mean Corpuscular HGB Conc 33.8 g/dl (31.0-36.0); Mean Corpuscular Hemoglobin 28.7 pg (27.0-33.0); Mean Corpuscular Volume 85.1 fL (80-98); Mean Platelet Volume 10.2 fL (9.4-12.4); Platelet Count 215 X10*3/uL (160-400); Red Blood Count 2.75 X10*6/uL (4.60-5.80); Red Cell Distribution Width 16.6 % (11.0-16.0); White Blood Count 16.5 X10*3/uL (4.8-10.8)
--- NOTE | 2020-10-09 17:59 | CONS_ITS ---
DATE OF SERVICE: 10/09/2020 REFERRING PHYSICIAN: Corinna Gonzalez MD REASON FOR CONSULTATION: GI bleeding. HISTORY OF PRESENT ILLNESS: The patient is a pleasant 80-year-old man, who was admitted to the hospital on September 28 because of cough and shortness of breath on exertion. He was found to have acute renal failure and has been seen in consultation by the Renal Service. 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 He was reported to have a loose dark bloody stool on the commode last night at about 8:00 and nursing reports today some smearing on the pad, but no lety bleeding. His hematocrit this morning was 26.4, down from 32.7 yesterday morning. He has been transfused a total of 3 units of packed red blood cells, 2 on September 28 and 1 on October 02. 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 His last colonoscopy in January of 2015 showed a tubular adenoma at 35 cm and a patent anastomosis at 20 cm. He has declined further colonoscopies in the past. PAST MEDICAL HISTORY: 1. Acute renal failure as above. 2. Heart failure with preserved ejection fraction. 3. Hypertension. 4. Hyperlipidemia. 5. Prostate cancer with history of prostatectomy. 6. Colon cancer as above. 7. Bladder outlet obstruction with chronic Rivera catheter. 8. Gastroesophageal reflux disease. 9. Paroxysmal atrial fibrillation. CURRENT MEDICATIONS: His current medication list is reviewed in the chart. ALLERGIES: THERE ARE NONE REPORTED. FAMILY HISTORY: This is reviewed and is noncontributory. SOCIAL HISTORY: There is no current tobacco, alcohol, or substance abuse. REVIEW OF SYSTEMS: SKIN: No pruritus. HEENT: Negative. CARDIOPULMONARY: No shortness of breath or chest pain. GASTROINTESTINAL: As above. GENITOURINARY: Negative. NEUROPSYCHIATRIC: Negative. PHYSICAL EXAMINATION: GENERAL: Reveals an elderly male, in no acute distress. He is currently seen in the ICU where he is getting Rituxan IV. SKIN: Pale. HEENT: Shows no scleral icterus. NECK: Without lymphadenopathy or thyromegaly. LUNGS: Clear. HEART: Shows a regular rate and rhythm. S1, S2. No murmur. ABDOMEN: Soft without focal masses or tenderness. Bowel sounds are present. No organomegaly is noted. EXTREMITIES: Show compression boots in place. LABORATORY DATA: Reviewed. IMPRESSION: Gastrointestinal bleeding. He appears who had a self-limited gastrointestinal bleed. The etiology for this is not clear. Differential diagnosis includes diverticular bleeding, colitis, arteriovenous malformations, mass lesions, and hemorrhoids. I have discussed colonoscopy with him, which he prefers to defer at this time. If he does have active bleeding, I would recommend obtaining a bleeding scan. His anemia is likely multifactorial including gastrointestinal blood loss and anemia due to kidney disease. I would recommend monitoring this for the time being. Thanks for asking me to see him. I will follow him in the hospital with you. MD TERESA Noonan/DORIAN / [phone]
--- NOTE | 2020-10-09 19:27 | PC.NURSE ---
Assumed care at 0700. patient was alert, oriented x4, angry/annoyed/cantankerous. patient upset with his plan but lacked insight and was progressively more compliant with plan of care after extensive education about the need for his infusion of Ritaximab, including an informed consent discussion with Dr. Gonzalez at the bedside. Patient affirmed consent to the infusion verbally, and this was witnessed by this RN, as patient is legally blind. Patient started the day NPO in preparation for possible need for HD catheter placement, as well as possible need for endoscopy. Dr. Irvin came to see patient and discussed his symptoms and plan and patient indicated that he would not want to undergo a colonoscopy at this time and that he last had one 2-3 years prior. Patient did have a blood streaked liquid-pasty BM that, a sample of which was sent for specimen and resulted positive for occult blood. Patient does not endorse nausea, dizziness, or pain, and demostrates a strong appetite, having eaten 100% breakfast and lunch after being cleared to have a low Na diet. Patient was also seen by Dr. Singh today, who assessed that the patient did not need a new HD catheter prior to his infusion of Rituximab today, despite critical BUN and CRE, these were only slightly higher than the prior values. The infusion was carried out per protocol and with support from oncology department nurses, and without untoward effects. Patient premedicated with tylenol and a low dose of PO benedryl with good effect. This afternoon patient continued to become progressively more annoyed and cantankerous, and endorsed sleep deprivation recently, and sleep and rest were encouraged. Patient did talk with his [id number]. He endoreses that his HCP is his younger son, Serge. Overall, patient's vitals were remarkable for his SBP in the 170's this morning, which came down with rest and his AM blood pressure meds, after upgrade from NPO to 130-150 range. On monitor, Sinus Rhythm to Sinus Bradycardia in 55-60 range, occasional PACs. Denies pain. Unsteady to ambulate at times, 1 contact guard assist to commode. Chronic davidson catheter for hx of bladder resection and obstruction, and uop: 40 ccs an hour on average.
[2020-10-10] VITALS (7 sets, daily range): BP systolic 134–164; BP diastolic 64–73; PULSE 53–60; RESP 14–19; TEMP 36.3–37; O2SAT 93–100
--- NOTE | 2020-10-10 | NM_ITS ---
RADIONUCLIDE GASTROINTESTINAL BLEEDING STUDY CLINICAL INDICATION: Stool occult blood. Assess source of GI bleeding PROCEDURE: Following the bolus intravenous administration of 25 millicuries technetium 99m labeled autologous red blood cells, rapid sequence dynamic gamma scintillation camera images were obtained over the abdomen and pelvis for an initial observation interval of 2 minutes. Subsequent sequential static images were then obtained up to 60 minutes post injection. FINDINGS: No abnormal accumulations of activity are seen in the abdomen or pelvis. NM/NM GI bleeding IMPRESSION: No gastrointestinal hemorrhage is identified.
[2020-10-10] MEDS: 0.9 % Sodium Chloride Flush 3 ML SYRINGE IVFLUSH ×3 (01:38→18:01)
[2020-10-10 06:43] LABS: Hematocrit 23.7 % (42-52); Hemoglobin 7.9 g/dl (14.0-18.0); Mean Corpuscular HGB Conc 33.3 g/dl (31.0-36.0); Mean Corpuscular Hemoglobin 27.8 pg (27.0-33.0); Mean Corpuscular Volume 83.5 fL (80-98); Mean Platelet Volume 10.9 fL (9.4-12.4); Platelet Count 220 X10*3/uL (160-400); Red Blood Count 2.84 X10*6/uL (4.60-5.80); Red Cell Distribution Width 16.4 % (11.0-16.0); White Blood Count 14.4 X10*3/uL (4.8-10.8)
[2020-10-10 07:24] LABS: Anion Gap 21 (12-20); Blood Urea Nitrogen 120 mg/dL (9-16); Calcium 6.8 mg/dL (8.4-10.2); Carbon Dioxide 17 mmol/L (22-29); Chloride 102 mmol/L (96-108); Estimated Glomerular Filt Rate 8; Glucose Random 127 mg/dL (60-115); Potassium 4.4 mmol/l (3.3-5.1); Sodium 136 mmol/L (135-145)
[2020-10-10 08:57] LABS: Phosphorus 6.5 mg/dL (2.7-4.5)
--- NOTE | 2020-10-10 10:28 | P.PNNP_ITS ---
Subjective Subjective Date of Service: 10/10/20 Interval history: Seen and examined. Events noted No uremic sxms, good appetite davidson still in Rituxin 10/09/20 ( 1/4 q wk Tx) Smederol puls x2 ( 10/07 1nd 10/08) Physical Exam Vital Signs: Vital Signs: Last Vital Signs Temp 97.4 F 10/10/20 08:00 Pulse 53 10/10/20 08:00 Resp 16 10/10/20 08:00 BP 141/68 H 10/10/20 08:00 Pulse Ox 98 10/10/20 08:00 Body Mass Index 23.1 Const: Other: awake BS bilat'RRR abd soft No edema Objective Data Labs CBC & Chem 7: 10/10/20 05:58 10/10/20 05:58 Labs: Laboratory Results - last 24 hr 10/09/20 10/09/20 10/10/20 15:59 17:18 05:58 WBC 16.5 H 14.4 H RBC 2.75 L 2.84 L Hgb 7.9 L 7.9 L Hct 23.4 L 23.7 L MCV 85.1 83.5 MCH 28.7 27.8 MCHC 33.8 33.3 RDW 16.6 H 16.4 H Plt Count 215 220 MPV 10.2 10.9 Absolute Nucleated RBC 0.000 0.000 Nucleated RBC % (auto) 0.0 0.0 Sodium Potassium Chloride Carbon Dioxide Anion Gap BUN Creatinine Estim Creat Clear Calc Estimated GFR Random Glucose Calcium Phosphorus Stool Occult Blood POS 10/10/20 05:58 WBC RBC Hgb Hct MCV MCH MCHC RDW Plt Count MPV Absolute Nucleated RBC Nucleated RBC % (auto) Sodium 136 Potassium 4.4 Chloride 102 Carbon Dioxide 17 L Anion Gap 21 H BUN 120 H* Creatinine 6.48 H* Estim Creat Clear Calc 10.0 Estimated GFR 8 Random Glucose 127 H Calcium 6.8 L Phosphorus 6.5 H Stool Occult Blood Microbiology Microbiology Results: Microbiology 09/28/20 10:04 Blood - Venous Blood Culture - Final No growth after 5 days. 09/28/20 09:26 Blood - Venous Blood Culture - Final No growth after 5 days. 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 AGMA/NAGMA: d/t FRANCHESKA 4. AMS: ques bsl 5. Ques need for more HD: on hold for now and will need close monitoring but given Bx showing room for renal imporvement with aggressive IS ( ritucxin/pred) may get by w/o additional HD 6. Infection prevention: maintained on atovaquone ( not sure why this was started instead of bactrim fo rPCP prophylaxis) but will cont until steroids taperred to 10 mg 7. Anmeia: will start procrit...may need xfusion oif Hb < 7.0 8. MBD with incr Phos and low Ca: cont Ca suppl; recheck Phos and check PTH ( I oredered) REC: hold off on furhter HD for now; r/s pred 60 qd; rituxzin to be given again 10/16/20 as outpt ( 2/); cont phos binder ( CaCO3), may need to add calc itriol if Scr reamains < 7.0 can consider d/c with close outp t f/u and will need rituxin as outpt Time Spent With Patient Time: Total time spent is greater than 50% in coordination of care (as documented) at patient's floor/unit and/or counseling patient:
[2020-10-10] MEDS: Pantoprazole Sodium 40 MG/10 ML VIAL IVPUSH ×2 (10:45→18:02)
[2020-10-10] MEDS: Calcium Acetate 667 MG CAPSULE 1334 MG PO ×2 (10:45→18:02)
[2020-10-10] MEDS: predniSONE 20 MG TABLET 60 MG PO (10:46)
[2020-10-10] MEDS: Atorvastatin Calcium 10 MG TABLET PO (10:46)
[2020-10-10] MEDS: Metoprolol Succinate ER 25 MG TAB.ER.24H PO (10:46)
[2020-10-10] MEDS: Sodium Bicarbonate 650 MG TABLET PO ×2 (10:47→18:02)
[2020-10-10] MEDS: amLODIPine Besylate 2.5 MG TABLET PO (10:47)
[2020-10-10] MEDS: Atovaquone 750 MG/5 ML ORAL.SUSP 1500 MG PO (10:47)
--- NOTE | 2020-10-10 11:37 | MHC.CM.PN ---
per rounds pt expected to be dcd sat imm updated dc plan home with hvns son to transport
--- NOTE | 2020-10-10 13:15 | HO.PM.IMPN ---
Subjective Subjective Date of Service: 10/10/20 Interval History: the patient was seen and evaluated this morning Laying in bed, feels comfortable, mildly more confused but overall awake and alert Feels more comfortable today, making small amount of urine Denies any fever, chills or shortness of breath No reported other overnight events. Systemic review: No fever, chills but reported general weakness No chest pain, palpitation No shortness of breath or coughing No abdominal pain, nausea or vomiting No urinary symptoms No any rash or wounds Physical Exam Vital Signs: Vital Signs: Last Vital Signs Temp 97.8 F 10/10/20 12:28 Pulse 60 10/10/20 12:28 Resp 14 10/10/20 12:28 BP 157/72 H 10/10/20 12:28 Pulse Ox 97 10/10/20 12:28 Body Mass Index 23.1 Constitutional : Alert, oriented, not in distress, legally blind Neck : Normal inspection, Supple Cardiovascular : RRR, S1 S2, no lower extremity edema Respiratory : Good bilateral air entry, no crackles, wheezes or rhonchi Gastrointestinal: soft, lax, Normal bowel sounds, Non tender Skin : Warm/Dry, No rash Neurological : Alert & oriented to place and time, No focal deficit Objective Data Current Medications Generic Name Dose Route Start Last Admin Trade Name Freq PRN Reason Stop Dose Admin Acetaminophen 650 mg 09/28/20 22:42 10/09/20 10:10 Acetaminophen 325 Mg Tablet PO 650 mg Q6H PRN Administration Pain, Mild (Pain Scale 1-3) Albuterol Sulfate 2 puff 09/29/20 05:51 Albuterol Sulfate 90 Mcg 8 Gm Inhaler INHALE RQ4H PRN Shortness of Breath/Wheezing Amlodipine Besylate 2.5 mg 10/04/20 04:00 10/10/20 10:47 Amlodipine Besylate 2.5 Mg Tablet PO 2.5 mg DAILY MATHEUS Administration Protocol Atorvastatin Calcium 10 mg 09/29/20 09:00 10/10/20 10:46 Atorvastatin Calcium 10 Mg Tablet PO 10 mg DAILY MATHEUS Administration Atovaquone 1,500 mg 10/03/20 09:00 10/10/20 10:47 Atovaquone 750 Mg/5 Ml Oral.Susp PO 1,500 mg DAILY MATHEUS Administration Calcium Acetate 1,334 mg 10/09/20 12:00 10/10/20 10:55 Calcium Acetate 667 Mg Capsule PO Not Given TIDWM [facility] Docusate Sodium 100 mg 09/28/20 22:42 Docusate Sodium 100 Mg Capsule PO DAILY PRN Constipation Heparin Sodium (Porcine) 5,000 unit 10/06/20 16:45 10/08/20 15:20 Heparin Sodium,Porcine 5,000 Unit/Ml Vial INTRACATH Not Given [id number] [facility] Metoprolol Succinate 25 mg 09/29/20 09:00 10/10/20 10:46 Metoprolol Succinate Er 25 Mg Tab.Er.24h PO 25 mg DAILY [facility] Administration Protocol Ondansetron HCl 4 mg 09/28/20 22:42 Ondansetron Hcl 4 Mg/2 Ml Vial IVPUSH Q8H PRN Nausea and Vomiting Pantoprazole Sodium 40 mg 10/09/20 06:30 10/10/20 10:45 Pantoprazole Sodium 40 Mg/10 Ml Vial IVPUSH 40 mg BID@0630,1630 [facility] Administration Prednisone 60 mg 10/10/20 09:00 10/10/20 10:46 Prednisone 20 Mg Tablet PO 60 mg DAILY [facility] Administration Sodium Bicarbonate 650 mg 10/03/20 15:00 10/10/20 10:47 Sodium Bicarbonate 650 Mg Tablet PO 650 mg TID [facility] Administration Sodium Chloride 3 ml 09/29/20 00:00 10/10/20 10:46 0.9 % Sodium Chloride Flush 3 Ml Syringe IVFLUSH 3 ml QSHIFT [facility] Administration Labs CBC & Chem 7: 10/10/20 05:58 10/10/20 05:58 Microbiology Microbiology Results: Microbiology 09/28/20 10:04 Blood - Venous Blood Culture - Final No growth after 5 days. 09/28/20 09:26 Blood - Venous Blood Culture - Final No growth after 5 days. 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) confirmed by biopsy Had an session of dialysis, patient removed the dialysis catheter while restless Stable Cr around 6.2 Continue prilosec for gi prophylaxis, atovaquone for pjp prophylaxis Finished pulse steroid therapy with 500 mg daily for 3/3 days\ Recieved a dose of rituximab 10/09, next dose 10/16 continue oral bicarb and calcium acetate Nephrology input appreciated Metabolic encephalopathy Secondary to uremia, medications and hospital stay Improving Avoid using Ativan, Haldol for now Recurrent reorientation Treat underlying kidney injury and electrolyte imbalance Seizure incident Reported Witnessed seizure episode in the hospital Controlled with IV Ativan and Haldol CT scan was negative for any acute findings Likely secondary to uremia Neurology input appreciated, hold on antiepilepsy medications acute blood loss anemia GIB Stable s/p 2 units total over admission +ve occult blood stable H&H GI input appreciated, patient not interested in colonoscopy To do bleeding scan if bleeds again afib metoprolol not on AC due to concern over gi bleed chronic diastolic chf lasix on hold monitor fluids closely DVT prophylaxis SCDs
--- NOTE | 2020-10-10 17:20 | PC.NURSE ---
Patient noted to have 3 moderate liquid bloody stools during 7am- 4pm shift. Patient alert and oriented x 3. VSS. Sinus rhythm on tele. Denies any pain or discomfort. MD notified of bloody stools. New order for STAT blood scan, trend CBC. Next CBC to be drawn at 8pm.
[2020-10-10 20:57] LABS: Hematocrit 21.9 % (42-52); Hemoglobin 7.1 g/dl (14.0-18.0); Mean Corpuscular HGB Conc 32.4 g/dl (31.0-36.0); Mean Corpuscular Hemoglobin 27.8 pg (27.0-33.0); Mean Corpuscular Volume 85.9 fL (80-98); Mean Platelet Volume 10.4 fL (9.4-12.4); Platelet Count 214 X10*3/uL (160-400); Red Blood Count 2.55 X10*6/uL (4.60-5.80); Red Cell Distribution Width 16.9 % (11.0-16.0); White Blood Count 13.1 X10*3/uL (4.8-10.8)
[2020-10-11] VITALS (12 sets, daily range): BP systolic 135–188; BP diastolic 58–82; PULSE 58–80; RESP 16–18; TEMP 36.3–37; O2SAT 96–98
[2020-10-11] MEDS: 0.9 % Sodium Chloride Flush 3 ML SYRINGE IVFLUSH ×2 (00:25→08:15)
[2020-10-11] MEDS: Pantoprazole Sodium 40 MG/10 ML VIAL IVPUSH ×2 (05:49→16:20)
[2020-10-11 06:18] LABS: Mean Corpuscular HGB Conc 33.3 g/dl (31.0-36.0); Mean Corpuscular Hemoglobin 28.5 pg (27.0-33.0); Mean Corpuscular Volume 85.4 fL (80-98); Mean Platelet Volume 10.9 fL (9.4-12.4); Platelet Count 205 X10*3/uL (160-400); Red Blood Count 2.39 X10*6/uL (4.60-5.80); Red Cell Distribution Width 16.6 % (11.0-16.0); White Blood Count 12.8 X10*3/uL (4.8-10.8)
[2020-10-11 06:46] LABS: Hematocrit 20.4 % (42-52); Hemoglobin 6.8 g/dl (14.0-18.0)
[2020-10-11 06:49] LABS: Anion Gap 21 (12-20); Calcium 6.7 mg/dL (8.4-10.2); Carbon Dioxide 18 mmol/L (22-29); Chloride 103 mmol/L (96-108); Creatinine Clr Calc Pharmacy 9.6; Estimated Glomerular Filt Rate 8; Glucose Random 119 mg/dL (60-115); Potassium 4.9 mmol/l (3.3-5.1); Sodium 137 mmol/L (135-145)
[2020-10-11 06:55] LABS: Blood Urea Nitrogen 126 mg/dL (9-16)
[2020-10-11] MEDS: Calcium Acetate 667 MG CAPSULE 1334 MG PO (08:15)
[2020-10-11] MEDS: Sodium Bicarbonate 650 MG TABLET PO ×2 (08:15→20:43)
[2020-10-11] MEDS: predniSONE 20 MG TABLET 60 MG PO (08:16)
[2020-10-11] MEDS: Atovaquone 750 MG/5 ML ORAL.SUSP 1500 MG PO (08:16)
[2020-10-11] MEDS: Atorvastatin Calcium 10 MG TABLET PO (08:16)
[2020-10-11] MEDS: amLODIPine Besylate 2.5 MG TABLET PO (08:16)
[2020-10-11] MEDS: Metoprolol Succinate ER 25 MG TAB.ER.24H PO (08:16)
--- NOTE | 2020-10-11 15:22 | P.PNIM_ITS ---
Subjective Subjective Date of Service: 10/11/20 Interval History: the patient was seen and evaluated this morning Laying in his bed, anxious about receiving blood, had up to for bloody bowel motions overnight Denies having any palpitation, shortness of breath or chest pain Blood transfusion plant Making fair amount of urine No reported other overnight events. Systemic review: No fever, chills but reported general weakness No chest pain, palpitation No shortness of breath or coughing No abdominal pain, nausea or vomiting No urinary symptoms No any rash or wounds Physical Exam Vital Signs: Vital Signs: Last Vital Signs Temp 97.8 F 10/11/20 13:24 Pulse 72 10/11/20 13:24 Resp 17 10/11/20 13:24 BP 164/72 H 10/11/20 13:24 Pulse Ox 96 10/11/20 11:46 Body Mass Index 23.1 Constitutional : Alert, oriented, not in distress, legally blind Neck : Normal inspection, Supple Cardiovascular : RRR, S1 S2, no lower extremity edema Respiratory : Good bilateral air entry, no crackles, wheezes or rhonchi Gastrointestinal: soft, lax, Normal bowel sounds, Non tender Skin : Warm/Dry, No rash Neurological : Alert & oriented to place and time, No focal deficit the Objective Data Current Medications Generic Name Dose Route Start Last Admin Trade Name Freq PRN Reason Stop Dose Admin Acetaminophen 650 mg 09/28/20 22:42 10/09/20 10:10 Acetaminophen 325 Mg Tablet PO 650 mg Q6H PRN Administration Pain, Mild (Pain Scale 1-3) Albuterol Sulfate 2 puff 09/29/20 05:51 Albuterol Sulfate 90 Mcg 8 Gm Inhaler INHALE RQ4H PRN Shortness of Breath/Wheezing Amlodipine Besylate 2.5 mg 10/04/20 04:00 10/11/20 08:16 Amlodipine Besylate 2.5 Mg Tablet PO 2.5 mg DAILY MATHEUS Administration Protocol Atorvastatin Calcium 10 mg 09/29/20 09:00 10/11/20 08:16 Atorvastatin Calcium 10 Mg Tablet PO 10 mg DAILY MATHEUS Administration Atovaquone 1,500 mg 10/03/20 09:00 10/11/20 08:16 Atovaquone 750 Mg/5 Ml Oral.Susp PO 1,500 mg DAILY [facility]HEUS Administration Calcium Acetate 1,334 mg 10/09/20 12:00 10/11/20 12:30 Calcium Acetate 667 Mg Capsule PO Not Given TIDWM [facility] Docusate Sodium 100 mg 09/28/20 22:42 Docusate Sodium 100 Mg Capsule PO DAILY PRN Constipation Metoprolol Succinate 25 mg 09/29/20 09:00 10/11/20 08:16 Metoprolol Succinate Er 25 Mg Tab.Er.24h PO 25 mg DAILY MATHEUS Administration Protocol Ondansetron HCl 4 mg 09/28/20 22:42 Ondansetron Hcl 4 Mg/2 Ml Vial IVPUSH Q8H PRN Nausea and Vomiting Pantoprazole Sodium 40 mg 10/09/20 06:30 10/11/20 05:49 Pantoprazole Sodium 40 Mg/10 Ml Vial IVPUSH 40 mg BID@0630,1630 [facility] Administration Prednisone 60 mg 10/10/20 09:00 10/11/20 08:16 Prednisone 20 Mg Tablet PO 60 mg DAILY MATHEUS Administration Sodium Bicarbonate 650 mg 10/03/20 15:00 10/11/20 08:15 Sodium Bicarbonate 650 Mg Tablet PO 650 mg TID [facility] Administration Sodium Chloride 3 ml 09/29/20 00:00 10/11/20 14:43 0.9 % Sodium Chloride Flush 3 Ml Syringe IVFLUSH Not Given QSHIFT [facility] Labs CBC & Chem 7: 10/11/20 05:40 10/11/20 05:40 Microbiology Microbiology Results: Microbiology 09/28/20 10:04 Blood - Venous Blood Culture - Final No growth after 5 days. 09/28/20 09:26 Blood - Venous Blood Culture - Final No growth after 5 days. 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 Had an session of dialysis, patient removed the dialysis catheter while restless Stable Cr around 6.2 Continue prilosec for gi prophylaxis, atovaquone for pjp prophylaxis Finished pulse steroid therapy with 500 mg daily for 3/3 days\ Recieved a dose of rituximab 10/09, next dose 10/16 continue oral bicarb and calcium acetate Nephrology input appreciated Metabolic encephalopathy Improving Secondary to uremia, medications and hospital stay Avoid using Ativan, Haldol for now Recurrent reorientation Treat underlying kidney injury and electrolyte imbalance Seizure incident Reported Witnessed seizure episode in the hospital Controlled with IV Ativan and Haldol CT scan was negative for any acute findings Likely secondary to uremia Neurology input appreciated, hold on antiepilepsy medications acute blood loss anemia GIB Developed a new episode of lower GI bleed Hemoglobin dropped to 6.9 Transfused another 2 units of blood, total 4 Tagged RBC negative +ve occult blood Monitor H&H GI input appreciated, to re-evaluate the patient and suggest colonoscopy on Tuesday afib metoprolol not on AC due to concern over gi bleed chronic diastolic chf lasix on hold monitor fluids closely DVT prophylaxis SCDs
--- NOTE | 2020-10-11 17:50 | PM.GIPN ---
Subjective Subjective Date of Service: 10/11/20 Interval History: Asked to reevaluate due to recurrent lower GI bleeding yesterday with drop in Hgb. Hx via patient, Dr. Lisa RN, and the EMR. There has been no further bleeding today. He denies abdominal pain, N/V. He c/o too may pills . Physical Exam Vital Signs: Vital Signs: Last Vital Signs Temp 97.5 F 10/11/20 16:19 Pulse 73 10/11/20 16:19 Resp 18 10/11/20 16:19 BP 171/74 H 10/11/20 16:19 Pulse Ox 98 10/11/20 15:30 Body Mass Index 23.1 Const: General: comfortable and alert GI: Inspection: Yes normal to inspection Palpation (GI): Tenderness to palpation present (GI) (Nontender) Percussion: Yes normal to percussion Auscultation: normal bowel sounds Objective Data Labs CBC & Chem 7: 10/11/20 05:40 10/11/20 05:40 Labs: Laboratory Results - last 24 hr 10/10/20 10/11/20 10/11/20 20:37 05:40 05:40 WBC 13.1 H 12.8 H RBC 2.55 L 2.39 L Hgb 7.1 L 6.8 L* Hct 21.9 L 20.4 L* MCV 85.9 85.4 MCH 27.8 28.5 MCHC 32.4 33.3 RDW 16.9 H 16.6 H Plt Count 214 205 MPV 10.4 10.9 Absolute Nucleated RBC 0.000 0.000 Nucleated RBC % (auto) 0.0 0.0 Sodium 137 Potassium 4.9 Chloride 103 Carbon Dioxide 18 L Anion Gap 21 H BUN 126 H* Creatinine 6.79 H* Estim Creat Clear Calc 9.6 Estimated GFR 8 Random Glucose 119 H Calcium 6.7 L Blood Type Antibody Screen Crossmatch 10/11/20 08:19 WBC RBC Hgb Hct MCV MCH MCHC RDW Plt Count MPV Absolute Nucleated RBC Nucleated RBC % (auto) Sodium Potassium Chloride Carbon Dioxide Anion Gap BUN Creatinine Estim Creat Clear Calc Estimated GFR Random Glucose Calcium Blood Type B Positive Antibody Screen NEGATIVE Crossmatch See Detail Microbiology Microbiology Results: Microbiology 09/28/20 10:04 Blood - Venous Blood Culture - Final No growth after 5 days. 09/28/20 09:26 Blood - Venous Blood Culture - Final No growth after 5 days. 09/28/20 00:00 Urine [place] Urine Culture - Final Progress Note: A&P Assessment and plan (1) Acute blood loss anemia: Problem details: Imp: His lower GI bleeding seems c/w a probable diverticular bleed given the intermittent nature. His negative bleeding scan is reassuring. Ideally, as I advised him, he should undergo a colonoscopy for definitive evaluation to rule out other issues such as colon cancer. However, he absolutely refused this despite my explanation. Rec: Since he refuses a colonoscopy I would recommend observing him and following the Hgb. I would recheck a PT/INR. If he has recurrent active bleeding I would recommend speaking with Nephrology re: the uremia and associated platelet dysfunction, and any possible treatment recommendations from their standpoint. I do think his PPI can be changed to PO. D/W patient in detail. Thanks Status: Acute Fall Risk Details Current Medications: Current Medications Generic Name Dose Route Start Last Admin Trade Name Isaac PRN Reason Stop Dose Admin Acetaminophen 650 mg 09/28/20 22:42 10/09/20 10:10 Acetaminophen 325 Mg Tablet PO 650 mg Q6H PRN Administration Pain, Mild (Pain Scale 1-3) Albuterol Sulfate 2 puff 09/29/20 05:51 Albuterol Sulfate 90 Mcg 8 Gm Inhaler INHALE RQ4H PRN Shortness of Breath/Wheezing Amlodipine Besylate 2.5 mg 10/04/20 04:00 10/11/20 08:16 Amlodipine Besylate 2.5 Mg Tablet PO 2.5 mg DAILY MATHEUS Administration Protocol Atorvastatin Calcium 10 mg 09/29/20 09:00 10/11/20 08:16 Atorvastatin Calcium 10 Mg Tablet PO 10 mg DAILY MATHEUS Administration Atovaquone 1,500 mg 10/03/20 09:00 10/11/20 08:16 Atovaquone 750 Mg/5 Ml Oral.Susp PO 1,500 mg DAILY MATHEUS Administration Calcium Acetate 1,334 mg 10/09/20 12:00 10/11/20 16:29 Calcium Acetate 667 Mg Capsule PO Not Given TIDWM [facility] Docusate Sodium 100 mg 09/28/20 22:42 Docusate Sodium 100 Mg Capsule PO DAILY PRN Constipation Metoprolol Succinate 25 mg 09/29/20 09:00 10/11/20 08:16 Metoprolol Succinate Er 25 Mg Tab.Er.24h PO 25 mg DAILY MATHEUS Administration Protocol Ondansetron HCl 4 mg 09/28/20 22:42 Ondansetron Hcl 4 Mg/2 Ml Vial IVPUSH Q8H PRN Nausea and Vomiting Pantoprazole Sodium 40 mg 10/09/20 06:30 10/11/20 16:20 Pantoprazole Sodium 40 Mg/10 Ml Vial IVPUSH 40 mg BID@0630,1630 MATHEUS Administration Prednisone 60 mg 10/10/20 09:00 10/11/20 08:16 Prednisone 20 Mg Tablet PO 60 mg DAILY MATHEUS Administration Sodium Bicarbonate 650 mg 10/03/20 15:00 10/11/20 16:28 Sodium Bicarbonate 650 Mg Tablet PO Not Given TID MATHEUS Sodium Chloride 3 ml 09/29/20 00:00 10/11/20 14:43 0.9 % Sodium Chloride Flush 3 Ml Syringe IVFLUSH Not Given QSHIFT [facility] Time Spent With Patient Time: Total time spent is greater than 50% in coordination of care (as documented) at patient's floor/unit and/or counseling patient: Time with patient: 15 - 24 minutes
--- NOTE | 2020-10-11 22:13 | PM.PNNEP ---
Subjective Subjective Date of Service: 10/11/20 Interval history: Pt not happy C/o about multiple issues Physical Exam Vital Signs: Vital Signs: Last Vital Signs Temp 98.6 F 10/11/20 20:00 Pulse 60 10/11/20 20:00 Resp 16 10/11/20 20:00 BP 176/82 H 10/11/20 20:00 Pulse Ox 98 10/11/20 20:00 Body Mass Index 23.1 Const: Other: awake BS bilat'RRR abd soft No edema General: cooperative, healthy appearing, comfortable, no acute distress, alert and awake Orientation/consciousness: oriented to person, oriented to place, oriented to time and patient oriented x3 Limitations: no limitations Eyes: General: appearance normal, both eyes and all related structures Neck: Neck: Yes normal visual inspection and Yes supple Carotids: normal carotid upstroke Lymphatic: no lymphadenopathy noted Resp: Effort & Inspection: normal respiratory effort and able to speak in complete sentences Auscultation: clear to auscultation bilaterally and diminished lung sounds Cardio: Other: awake BS bilat'RRR abd soft No edema Rate: regular rate Rhythm: regular rhythm Heart sounds: no rubs GI: Inspection: Yes normal to inspection Palpation (GI): Soft to palpation and No hepatosplenomegaly present Auscultation: normal bowel sounds Skin: General skin exam: no rashes or lesions noted Neuro: General: oriented to person, oriented to place, oriented to time, patient oriented x3 and moves all extremities Cognition (Neuro): normal cognition Extrem: General: Yes normal to inspection and Yes no pedal edema Objective Data Labs CBC & Chem 7: 10/11/20 05:40 10/11/20 05:40 Labs: Laboratory Results - last 24 hr 10/11/20 10/11/20 10/11/20 05:40 05:40 08:19 WBC 12.8 H RBC 2.39 L Hgb 6.8 L* Hct 20.4 L* MCV 85.4 MCH 28.5 MCHC 33.3 RDW 16.6 H Plt Count 205 MPV 10.9 Absolute Nucleated RBC 0.000 Nucleated RBC % (auto) 0.0 Sodium 137 Potassium 4.9 Chloride 103 Carbon Dioxide 18 L Anion Gap 21 H BUN 126 H* Creatinine 6.79 H* Estim Creat Clear Calc 9.6 Estimated GFR 8 Random Glucose 119 H Calcium 6.7 L Blood Type B Positive Antibody Screen NEGATIVE Crossmatch See Detail Microbiology Microbiology Results: Microbiology 09/28/20 10:04 Blood - Venous Blood Culture - Final No growth after 5 days. 09/28/20 09:26 Blood - Venous Blood Culture - Final No growth after 5 days. 09/28/20 00:00 Urine [place] Urine Culture - Final Assessment & Plan Assessment and plan (1) Acute blood loss anemia: Status: Acute Assessment and Plan: 80M presented with cough and epistaxis, found to have severe FRANCHESKA and ANCA ( PR3) RPGN with kidney Bx showing cellular crescents..and IF r/o antiGBM HD x 1 10/06 S/P Smederol pulse x 2 days Rituxin 1st dose given y ( usu 4 weekly doses) 1. 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 AGMA/NAGMA: d/t FRANCHESKA 4. AMS: ques bsl 5. Ques need for more HD: on hold for now and will need close monitoring but given Bx showing room for renal imporvement with aggressive IS ( ritucxin/pred) may get by w/o additional HD 6. Infection prevention: maintained on atovaquone ( not sure why this was started instead of bactrim fo rPCP prophylaxis) but will cont until steroids taperred to 10 mg 7. Anmeia: will start procrit...may need xfusion oif Hb < 7.0 8. 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
[2020-10-12] VITALS (9 sets, daily range): BP systolic 139–195; BP diastolic 67–97; PULSE 56–67; RESP 14–20; TEMP 36.5–37.1; O2SAT 95–99; BMI 23.6
[2020-10-12] MEDS: 0.9 % Sodium Chloride Flush 3 ML SYRINGE IVFLUSH ×3 (02:19→16:00)
[2020-10-12] MEDS: Pantoprazole Sodium 40 MG/10 ML VIAL IVPUSH (05:52)
[2020-10-12 06:23] LABS: Hematocrit 30.8 % (42-52); Hemoglobin 10.2 g/dl (14.0-18.0); Mean Corpuscular HGB Conc 33.1 g/dl (31.0-36.0); Mean Corpuscular Hemoglobin 27.8 pg (27.0-33.0); Mean Corpuscular Volume 83.9 fL (80-98); Mean Platelet Volume 10.8 fL (9.4-12.4); Platelet Count 218 X10*3/uL (160-400); Red Blood Count 3.67 X10*6/uL (4.60-5.80); Red Cell Distribution Width 15.7 % (11.0-16.0); White Blood Count 13.1 X10*3/uL (4.8-10.8)
[2020-10-12 07:30] LABS: Anion Gap 22 (12-20); Blood Urea Nitrogen 132 mg/dL (9-16); Calcium 6.8 mg/dL (8.4-10.2); Carbon Dioxide 17 mmol/L (22-29); Chloride 103 mmol/L (96-108); Estimated Glomerular Filt Rate 8; Glucose Random 157 mg/dL (60-115); Potassium 4.3 mmol/l (3.3-5.1); Sodium 138 mmol/L (135-145)
[2020-10-12] MEDS: Atorvastatin Calcium 10 MG TABLET PO (09:07)
[2020-10-12] MEDS: predniSONE 20 MG TABLET 60 MG PO (09:07)
[2020-10-12] MEDS: calcitrioL 0.25 MCG CAPSULE PO (09:07)
[2020-10-12] MEDS: Calcium Acetate 667 MG CAPSULE 1334 MG PO (09:07)
[2020-10-12] MEDS: Atovaquone 750 MG/5 ML ORAL.SUSP 1500 MG PO (09:07)
[2020-10-12] MEDS: Sodium Bicarbonate 650 MG TABLET PO ×2 (09:07→16:00)
[2020-10-12] MEDS: Metoprolol Succinate ER 25 MG TAB.ER.24H PO (09:08)
[2020-10-12] MEDS: amLODIPine Besylate 2.5 MG TABLET PO (09:08)
--- NOTE | 2020-10-12 12:27 | HO.PM.IMPN ---
Subjective Subjective Date of Service: 10/12/20 Interval History: the patient was seen and evaluated this morning Laying in his bed, anxious about receiving blood, had up to for bloody bowel motions overnight Denies having any palpitation, shortness of breath or chest pain Blood transfusion plant Making fair amount of urine No reported other overnight events. Systemic review: No fever, chills but reported general weakness No chest pain, palpitation No shortness of breath or coughing No abdominal pain, nausea or vomiting No urinary symptoms No any rash or wounds Physical Exam Vital Signs: Vital Signs: Last Vital Signs Temp 97.8 F 10/12/20 11:36 Pulse 65 10/12/20 11:36 Resp 20 10/12/20 11:36 BP 139/67 10/12/20 09:08 Pulse Ox 97 10/12/20 11:36 Body Mass Index 23.6 Const: Other: Constitutional : Alert, oriented, not in distress, legally blind Neck : Normal inspection, Supple Cardiovascular : RRR, S1 S2, no lower extremity edema Respiratory : Good bilateral air entry, no crackles, wheezes or rhonchi Gastrointestinal: soft, lax, Normal bowel sounds, Non tender Skin : Warm/Dry, No rash Neurological : Alert & oriented to place and time, No focal deficit the Objective Data Current Medications Generic Name Dose Route Start Last Admin Trade Name Corneliusq PRN Reason Stop Dose Admin Acetaminophen 650 mg 09/28/20 22:42 10/09/20 10:10 Acetaminophen 325 Mg Tablet PO 650 mg Q6H PRN Administration Pain, Mild (Pain Scale 1-3) Albuterol Sulfate 2 puff 09/29/20 05:51 Albuterol Sulfate 90 Mcg 8 Gm Inhaler INHALE RQ4H PRN Shortness of Breath/Wheezing Amlodipine Besylate 2.5 mg 10/04/20 04:00 10/12/20 09:08 Amlodipine Besylate 2.5 Mg Tablet PO 2.5 mg DAILY [facility]US Administration Protocol Atorvastatin Calcium 10 mg 09/29/20 09:00 10/12/20 09:07 Atorvastatin Calcium 10 Mg Tablet PO 10 mg DAILY [facility] Administration Atovaquone 1,500 mg 10/03/20 09:00 10/12/20 09:07 Atovaquone 750 Mg/5 Ml Oral.Susp PO 1,500 mg DAILY MATHEUS Administration Calcitriol 0.25 mcg 10/12/20 09:00 10/12/20 09:07 Calcitriol 0.25 Mcg Capsule PO 0.25 mcg DAILY [facility] Administration Calcium Acetate 1,334 mg 10/09/20 12:00 10/12/20 11:46 Calcium Acetate 667 Mg Capsule PO Not Given TIDWM [facility] Docusate Sodium 100 mg 09/28/20 22:42 Docusate Sodium 100 Mg Capsule PO DAILY PRN Constipation Metoprolol Succinate 25 mg 09/29/20 09:00 10/12/20 09:08 Metoprolol Succinate Er 25 Mg Tab.Er.24h PO 25 mg DAILY [facility] Administration Protocol Omeprazole 20 mg 10/12/20 16:30 Omeprazole 20 Mg Capsule.Dr CARUSO BID@[id number] [facility] Ondansetron HCl 4 mg 09/28/20 22:42 Ondansetron Hcl 4 Mg/2 Ml Vial IVPUSH Q8H PRN Nausea and Vomiting Prednisone 60 mg 10/10/20 09:00 10/12/20 09:07 Prednisone 20 Mg Tablet PO 60 mg DAILY [facility] Administration Sodium Bicarbonate 650 mg 10/03/20 15:00 10/12/20 09:07 Sodium Bicarbonate 650 Mg Tablet PO 650 mg TID [facility] Administration Sodium Chloride 3 ml 09/29/20 00:00 10/12/20 09:07 0.9 % Sodium Chloride Flush 3 Ml Syringe IVFLUSH 3 ml QSHIFT [facility] Administration Tamsulosin HCl 0.4 mg 10/12/20 12:25 Tamsulosin Hcl 0.4 Mg Capsule PO DAILY [facility] Labs CBC & Chem 7: 10/12/20 05:12 10/12/20 05:12 Microbiology Microbiology Results: Microbiology 09/28/20 10:04 Blood - Venous Blood Culture - Final No growth after 5 days. 09/28/20 09:26 Blood - Venous Blood Culture - Final No growth after 5 days. 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 Had an session of dialysis, patient removed the dialysis catheter while restless, we're holding on more HD now Stable Cr around 6.2 Continue prilosec for gi prophylaxis atovaquone for pjp prophylaxis Finished pulse steroid therapy with 500 mg daily for 3/3 days Recieved a dose of rituximab 10/09, next dose 10/16 Continue Prednisone daily continue oral bicarb and calcium acetate Nephrology input appreciated Metabolic encephalopathy fluctuating, improved generally Secondary to uremia, medications and hospital stay Avoid using Ativan, Haldol for now Recurrent reorientation Treat underlying kidney injury and electrolyte imbalance Seizure incident Reported Witnessed seizure episode in the hospital Controlled with IV Ativan and Haldol CT scan was negative for any acute findings Likely secondary to uremia Neurology input appreciated, hold on antiepilepsy medications BPH ? Question chronic davidson catheter, removed Start Tamsulosin monitor with bladder scan acute blood loss anemia GIB Developed a 2nd episode of lower GI bleed, likely from PLT dysfunction from uremia an underlying colon Disorder Tagged RBC negative 10/10 Transfused another 2 units of blood, total 4 Hemoglobin improved to 10 post transfusion +ve occult blood Monitor H&H GI input appreciated, patient refused colonoscopy, continue to monitor afib metoprolol not on AC due to concern over gi bleed chronic diastolic chf lasix on hold monitor fluids closely DVT prophylaxis SCDs
--- NOTE | 2020-10-12 12:37 | W.MHC.ACPN ---
Advanced Care Planning Note Advanced Care Planning Note Discussed with: patient Time spent (in minutes): 20 Narrative: I had a chance to meet with the patient at the bedside to discuss his current hospital stay, possible outcomes and advance care planning. The patient has presented to the hospital with acute renal failure which she had to go through IV medications and dialysis to stabilize it at this point. He also developed gastrointestinal bleeding from unclear source which he refused to do further workup of colonoscopy for it. The patient does not have a good grasp over what is going on at this point and feels that he is not as sick as described. Discussing his current code status. I explained to him that bleeding might have been again as it might risk is life. He said it should be fine if he has home and he as a result of that. About advanced directive he wants to be full code and want to be resuscitated if his heart stops. He does not want to live like a vegetable for too long and does not want to be hooked to machines but would give it a try if it will save his life. Code status confirmed to be full code in EMR. Will revisit if any changes to his status. Problems Discussed (1) Acute renal failure: (2) Acute blood loss anemia: (3) GI bleed: (4) Metabolic encephalopathy: (5) Metabolic acidosis:
[2020-10-12] MEDS: Tamsulosin HCL 0.4 MG CAPSULE PO (13:16)
[2020-10-12] MEDS: Omeprazole 20 MG CAPSULE.DR PO (16:00)
--- NOTE | 2020-10-12 21:29 | PM.PNNEP ---
Subjective Subjective Date of Service: 10/12/20 Interval history: the patient was seen and evaluated this morning Laying in his bed, anxious about receiving blood, had up to for bloody bowel motions overnight Sitting up in the chair Physical Exam Vital Signs: Vital Signs: Last Vital Signs Temp 97.8 F 10/12/20 19:03 Pulse 63 10/12/20 19:03 Resp 19 10/12/20 19:03 BP 195/83 H 10/12/20 19:03 Pulse Ox 97 10/12/20 19:03 Body Mass Index 23.6 Const: Other: awake BS bilat'RRR abd soft No edema General: cooperative, healthy appearing, comfortable, no acute distress, alert and awake Orientation/consciousness: oriented to person, oriented to place, oriented to time and patient oriented x3 Limitations: no limitations Eyes: General: appearance normal, both eyes and all related structures Neck: Neck: Yes normal visual inspection and Yes supple Carotids: normal carotid upstroke Lymphatic: no lymphadenopathy noted Resp: Effort & Inspection: normal respiratory effort and able to speak in complete sentences Auscultation: clear to auscultation bilaterally and diminished lung sounds Cardio: Other: awake BS bilat'RRR abd soft No edema Rate: regular rate Rhythm: regular rhythm Heart sounds: no rubs GI: Inspection: Yes normal to inspection Palpation (GI): Soft to palpation and No hepatosplenomegaly present Auscultation: normal bowel sounds Skin: General skin exam: no rashes or lesions noted Neuro: General: oriented to person, oriented to place, oriented to time, patient oriented x3 and moves all extremities Cognition (Neuro): normal cognition Extrem: General: Yes normal to inspection and Yes no pedal edema Objective Data Labs CBC & Chem 7: 10/12/20 05:12 10/12/20 05:12 Labs: Laboratory Results - last 24 hr 10/12/20 10/12/20 05:12 05:12 WBC 13.1 H RBC 3.67 L D Hgb 10.2 L D Hct 30.8 L D MCV 83.9 MCH 27.8 MCHC 33.1 RDW 15.7 Plt Count 218 MPV 10.8 Absolute Nucleated RBC 0.000 Nucleated RBC % (auto) 0.0 Sodium 138 Potassium 4.3 Chloride 103 Carbon Dioxide 17 L Anion Gap 22 H BUN 132 H* Creatinine 6.52 H* Estim Creat Clear Calc 10.0 Estimated GFR 8 Random Glucose 157 H Calcium 6.8 L Albumin 3.0 L Microbiology Microbiology Results: Microbiology 09/28/20 10:04 Blood - Venous Blood Culture - Final No growth after 5 days. 09/28/20 09:26 Blood - Venous Blood Culture - Final No growth after 5 days. 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 AGMA/NAGMA: d/t FRANCHESKA 4. AMS: ques bsl 5. Ques need for more HD: on hold for now and will need close monitoring but given Bx showing room for renal imporvement with aggressive IS ( ritucxin/pred) may get by w/o additional HD 6. Infection prevention: maintained on atovaquone ( not sure why this was started instead of bactrim fo rPCP prophylaxis) but will cont until steroids taperred to 10 mg 7. Anmeia: will start procrit...may need xfusion oif Hb < 7.0 8. 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
[2020-10-13] VITALS (8 sets, daily range): BP systolic 154–174; BP diastolic 68–90; PULSE 18–70; RESP 18–20; TEMP 36.3–36.8; O2SAT 95–97
[2020-10-13] MEDS: 0.9 % Sodium Chloride Flush 3 ML SYRINGE IVFLUSH ×4 (00:21→20:13)
[2020-10-13] MEDS: Omeprazole 20 MG CAPSULE.DR PO (06:33)
[2020-10-13 06:46] LABS: Hematocrit 31.2 % (42-52); Hemoglobin 10.3 g/dl (14.0-18.0); Mean Corpuscular Hemoglobin 27.8 pg (27.0-33.0); Mean Corpuscular Volume 84.1 fL (80-98); Mean Platelet Volume 10.3 fL (9.4-12.4); NRBC Pct Auto 0.2 /100WBC (0.0-0.2); Platelet Count 241 X10*3/uL (160-400); Red Blood Count 3.71 X10*6/uL (4.60-5.80); Red Cell Distribution Width 15.8 % (11.0-16.0); White Blood Count 15.7 X10*3/uL (4.8-10.8)
[2020-10-13 07:03] LABS: Prothrombin Time 11.5 SEC (10.8-13.0)
[2020-10-13 07:41] LABS: Anion Gap 22 (12-20); Blood Urea Nitrogen 128 mg/dL (9-16); Calcium 6.9 mg/dL (8.4-10.2); Carbon Dioxide 18 mmol/L (22-29); Chloride 101 mmol/L (96-108); Creatinine Clr Calc Pharmacy 10.1; Estimated Glomerular Filt Rate 8; Glucose Random 134 mg/dL (60-115); Potassium 4.6 mmol/l (3.3-5.1); Sodium 136 mmol/L (135-145)
[2020-10-13] MEDS: amLODIPine Besylate 2.5 MG TABLET PO (09:11)
[2020-10-13] MEDS: Calcium Acetate 667 MG CAPSULE 1334 MG PO (09:11)
[2020-10-13] MEDS: calcitrioL 0.25 MCG CAPSULE PO (09:11)
[2020-10-13] MEDS: Sodium Bicarbonate 650 MG TABLET PO ×2 (09:11→20:13)
[2020-10-13] MEDS: Atorvastatin Calcium 10 MG TABLET PO (09:11)
[2020-10-13] MEDS: predniSONE 20 MG TABLET 60 MG PO (09:11)
[2020-10-13] MEDS: Tamsulosin HCL 0.4 MG CAPSULE PO (09:11)
[2020-10-13] MEDS: Atovaquone 750 MG/5 ML ORAL.SUSP 1500 MG PO (09:11)
[2020-10-13] MEDS: Metoprolol Succinate ER 25 MG TAB.ER.24H PO (09:12)
--- NOTE | 2020-10-13 10:56 | PM.PNNEP ---
Subjective Subjective Date of Service: 10/13/20 Interval history: Events noted Sleepy- arousible Physical Exam Vital Signs: Vital Signs: Last Vital Signs Temp 97.9 F 10/13/20 07:46 Pulse 69 10/13/20 09:12 Resp 18 10/13/20 07:46 BP 160/90 H 10/13/20 09:12 Pulse Ox 97 10/13/20 07:46 Body Mass Index 23.6 Const: General: ill appearing Neck: Neck: Yes supple Resp: Auscultation: rhonchi GI: Auscultation: normal bowel sounds Neuro: Motor exam (neuro): No Asterixis during motor activity present Objective Data Labs CBC & Chem 7: 10/13/20 05:32 10/13/20 05:32 Labs: Laboratory Results - last 24 hr 10/13/20 10/13/20 10/13/20 05:32 05:32 05:32 WBC 15.7 H RBC 3.71 L Hgb 10.3 L Hct 31.2 L MCV 84.1 MCH 27.8 MCHC 33.0 RDW 15.8 Plt Count 241 MPV 10.3 Absolute Nucleated RBC 0.030 H Nucleated RBC % (auto) 0.2 PT 11.5 INR 1.0 Sodium 136 Potassium 4.6 Chloride 101 Carbon Dioxide 18 L Anion Gap 22 H BUN 128 H* Creatinine 6.46 H* Estim Creat Clear Calc 10.1 Estimated GFR 8 Random Glucose 134 H Calcium 6.9 L Microbiology Microbiology Results: Microbiology 09/28/20 10:04 Blood - Venous Blood Culture - Final No growth after 5 days. 09/28/20 09:26 Blood - Venous Blood Culture - Final No growth after 5 days. 09/28/20 00:00 Urine [place] Urine Culture - Final Assessment & Plan Assessment and plan (1) Acute renal failure: Status: Acute Assessment and Plan: FRANCHESKA due to RPGN/ANCA /PR3 postive s/p Pulse steroids adn 1 dose of Rituxan Next dose on 10/16 No indication for dialysis today Time Spent With Patient Time: Total time spent is greater than 50% in coordination of care (as documented) at patient's floor/unit and/or counseling patient:
--- NOTE | 2020-10-13 13:35 | MHC.CM.PN ---
dc plans pending pt eval ordered 10/12 cm will follow
--- NOTE | 2020-10-13 13:53 | HO.PM.IMPN ---
Subjective Subjective Date of Service: 10/13/20 Interval History: the patient was seen and evaluated this morning Laying in his bed, feels comfortable, Denies having any palpitation, shortness of breath or chest pain Making fair amount of urine, still has positive bladder scan No reported other overnight events. Systemic review: No fever, chills but reported general weakness No chest pain, palpitation No shortness of breath or coughing No abdominal pain, nausea or vomiting No urinary symptoms No any rash or wounds Physical Exam Vital Signs: Vital Signs: Last Vital Signs Temp 97.6 F 10/13/20 11:23 Pulse 70 10/13/20 13:11 Resp 18 10/13/20 11:23 BP 158/82 H 10/13/20 13:11 Pulse Ox 97 10/13/20 13:11 Body Mass Index 23.6 Const: Other: Constitutional : Alert, oriented, not in distress, legally blind Neck : Normal inspection, Supple Cardiovascular : RRR, S1 S2, no lower extremity edema Respiratory : Good bilateral air entry, no crackles, wheezes or rhonchi Gastrointestinal: soft, lax, Normal bowel sounds, Non tender Skin : Warm/Dry, No rash Neurological : Alert & oriented to place and time, No focal deficit the Objective Data Current Medications Generic Name Dose Route Start Last Admin Trade Name Freq PRN Reason Stop Dose Admin Acetaminophen 650 mg 09/28/20 22:42 10/09/20 10:10 Acetaminophen 325 Mg Tablet PO 650 mg Q6H PRN Administration Pain, Mild (Pain Scale 1-3) Albuterol Sulfate 2 puff 09/29/20 05:51 Albuterol Sulfate 90 Mcg 8 Gm Inhaler INHALE RQ4H PRN Shortness of Breath/Wheezing Amlodipine Besylate 2.5 mg 10/04/20 04:00 10/13/20 09:11 Amlodipine Besylate 2.5 Mg Tablet PO 2.5 mg DAILY MATHEUS Administration Protocol Atorvastatin Calcium 10 mg 09/29/20 09:00 10/13/20 09:11 Atorvastatin Calcium 10 Mg Tablet PO 10 mg DAILY [facility] Administration Atovaquone 1,500 mg 10/03/20 09:00 10/13/20 09:11 Atovaquone 750 Mg/5 Ml Oral.Susp PO 1,500 mg DAILY [facility] Administration Calcitriol 0.25 mcg 10/12/20 09:00 10/13/20 09:11 Calcitriol 0.25 Mcg Capsule PO 0.25 mcg DAILY [facility] Administration Calcium Acetate 1,334 mg 10/09/20 12:00 10/13/20 12:13 Calcium Acetate 667 Mg Capsule PO Not Given TIDWM [facility] Docusate Sodium 100 mg 09/28/20 22:42 Docusate Sodium 100 Mg Capsule PO DAILY PRN Constipation Metoprolol Succinate 25 mg 09/29/20 09:00 10/13/20 09:12 Metoprolol Succinate Er 25 Mg Tab.Er.24h PO 25 mg DAILY [facility] Administration Protocol Omeprazole 20 mg 10/12/20 16:30 10/13/20 06:33 Omeprazole 20 Mg Capsule. PO 20 mg BID@0748,6231 [facility] Administration Ondansetron HCl 4 mg 09/28/20 22:42 Ondansetron Hcl 4 Mg/2 Ml Vial IVPUSH Q8H PRN Nausea and Vomiting Prednisone 60 mg 10/10/20 09:00 10/13/20 09:11 Prednisone 20 Mg Tablet PO 60 mg DAILY [facility] Administration Sodium Bicarbonate 650 mg 10/03/20 15:00 10/13/20 09:11 Sodium Bicarbonate 650 Mg Tablet PO 650 mg TID [facility] Administration Sodium Chloride 3 ml 09/29/20 00:00 10/13/20 09:12 0.9 % Sodium Chloride Flush 3 Ml Syringe IVFLUSH 3 ml QSHIFT [facility] Administration Tamsulosin HCl 0.4 mg 10/12/20 12:25 10/13/20 09:11 Tamsulosin Hcl 0.4 Mg Capsule PO 0.4 mg DAILY [facility] Administration Labs CBC & Chem 7: 10/13/20 05:32 10/13/20 05:32 Microbiology Microbiology Results: Microbiology 09/28/20 10:04 Blood - Venous Blood Culture - Final No growth after 5 days. 09/28/20 09:26 Blood - Venous Blood Culture - Final No growth after 5 days. 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 Had an session of dialysis, patient removed the dialysis catheter while restless, we're holding on more HD now Stable Cr around 6.2 Continue prilosec for gi prophylaxis atovaquone for pjp prophylaxis Finished pulse steroid therapy with 500 mg daily for 3/3 days Recieved a dose of rituximab 10/09, next dose 10/16 Continue Prednisone daily, to discuss with Nephrology length of treatment continue oral bicarb and calcium acetate Nephrology input appreciated Metabolic encephalopathy fluctuating, improved generally Secondary to uremia, medications and hospital stay Avoid using Ativan, Haldol for now Recurrent reorientation Treat underlying kidney injury and electrolyte imbalance Seizure incident Reported Witnessed seizure episode in the hospital CT scan was negative for any acute findings Likely secondary to uremia Neurology input appreciated, hold on antiepilepsy medications BPH To place a new Rivera catheter today acute blood loss anemia GIB Developed a 2nd episode of lower GI bleed, likely from PLT dysfunction from uremia an underlying colon Disorder Tagged RBC negative 10/10 Transfused another 2 units of blood, total 4 Hemoglobin improved to 10 post transfusion +ve occult blood Monitor H&H GI input appreciated, patient refused colonoscopy, will continue with conservative measures, continue to monitor afib metoprolol not on AC due to concern over gi bleed chronic diastolic chf lasix on hold monitor fluids closely DVT prophylaxis SCDs
--- NOTE | 2020-10-14 08:05 | PC.NURSE ---
Pt refusing all meds stating I dont need any medication . Attempted to educate on importance of medication, pt not willing to listen, barely answer this RN, laying in bed eyes closed. Pt also refusing vitals. MD aware, no new orders
[2020-10-14] MEDS: Acetaminophen 325 MG TABLET 650 MG PO (11:06)
[2020-10-14 12:44] VITALS: BP 154/82; PULSE 18; O2SAT 95
[2020-10-14 15:43] VITALS: BP 190/84; PULSE 79; RESP 18; O2SAT 96
--- NOTE | 2020-10-14 16:34 | HO.PM.IMPN ---
Subjective Subjective Date of Service: 10/15/20 Interval History: Patient resting in bed refusing to be examined, keep asking for some liquid, refusing vitals, refusing medication. Unable to obtain detailed review of system since patient not cooperative. Physical Exam Vital Signs: Vital Signs: Last Vital Signs Temp 98.3 F 10/13/20 15:51 Pulse 79 10/14/20 15:43 Resp 18 10/14/20 15:43 BP 190/84 H 10/14/20 15:43 Pulse Ox 96 10/14/20 15:43 Body Mass Index 23.6 Const: Other: Constitutional : Alert, oriented, not in distress, legally blind Neck : Normal inspection Skin : No rash Neurological : No focal deficit Patient refused to be examined Objective Data Current Medications Generic Name Dose Route Start Last Admin Trade Name Freq PRN Reason Stop Dose Admin Acetaminophen 650 mg 09/28/20 22:42 10/14/20 11:06 Acetaminophen 325 Mg Tablet PO 325 mg Q6H PRN Administration Pain, Mild (Pain Scale 1-3) Albuterol Sulfate 2 puff 09/29/20 05:51 Albuterol Sulfate 90 Mcg 8 Gm Inhaler INHALE RQ4H PRN Shortness of Breath/Wheezing Amlodipine Besylate 2.5 mg 10/04/20 04:00 10/14/20 08:03 Amlodipine Besylate 2.5 Mg Tablet PO Not Given DAILY [facility] Protocol Atorvastatin Calcium 10 mg 09/29/20 09:00 10/14/20 08:04 Atorvastatin Calcium 10 Mg Tablet PO Not Given DAILY [facility] Atovaquone 1,500 mg 10/03/20 09:00 10/14/20 08:04 Atovaquone 750 Mg/5 Ml Oral.Susp PO Not Given DAILY [facility] Calcitriol 0.25 mcg 10/12/20 09:00 10/14/20 08:04 Calcitriol 0.25 Mcg Capsule PO Not Given DAILY [facility] Calcium Acetate 1,334 mg 10/09/20 12:00 10/14/20 11:21 Calcium Acetate 667 Mg Capsule PO Not Given TIDWM [facility] Docusate Sodium 100 mg 09/28/20 22:42 Docusate Sodium 100 Mg Capsule PO DAILY PRN Constipation Metoprolol Succinate 25 mg 09/29/20 09:00 10/14/20 08:04 Metoprolol Succinate Er 25 Mg Tab.Er.24h PO Not Given DAILY [facility] Protocol Omeprazole 20 mg 10/12/20 16:30 10/14/20 15:44 Omeprazole 20 Mg Capsule. PO Not Given BID@0630,1630 [facility] Ondansetron HCl 4 mg 09/28/20 22:42 Ondansetron Hcl 4 Mg/2 Ml Vial IVPUSH Q8H PRN Nausea and Vomiting Prednisone 60 mg 10/10/20 09:00 10/14/20 08:05 Prednisone 20 Mg Tablet PO Not Given DAILY [facility] Sodium Bicarbonate 650 mg 10/03/20 15:00 10/14/20 14:21 Sodium Bicarbonate 650 Mg Tablet PO Not Given TID [facility] Sodium Chloride 3 ml 09/29/20 00:00 10/14/20 15:44 0.9 % Sodium Chloride Flush 3 Ml Syringe IVFLUSH Not Given QSHIFT [facility] Labs CBC & Chem 7: 10/15/20 09:12 10/15/20 09:12 Microbiology Microbiology Results: Microbiology 09/28/20 10:04 Blood - Venous Blood Culture - Final No growth after 5 days. 09/28/20 09:26 Blood - Venous Blood Culture - Final No growth after 5 days. 09/28/20 00:00 Urine [place] Urine Culture - Final Assessment and Plan (1) Acute renal failure: Status: Acute (2) Acute blood loss anemia: Status: Acute (3) GI bleed: Status: Acute (4) Metabolic encephalopathy: Status: Acute (5) Metabolic acidosis: Status: Acute Assessment and Plan: 80M presented with cough and epistaxis, found to have severe FRANCHESKA Acute renal failure with metabolic acidosis Secondary to RPGN anca positive, confirmed by biopsy Had a session of dialysis, patient removed the dialysis catheter while restless, nephrology holding further dialysis Stable Cr around 6.4 continue prilosec for gi prophylaxis,atovaquone for pcp prophylaxis Finished pulse steroid therapy with 500 mg daily for 3/3 days now on prednisone 60 mg daily Recieved a dose of rituximab 10/09, next dose 10/16 continue oral bicarb and calcium acetate Case discussed with Nephrology they recommend current medicines and if patient is discharged to rehab they will follow him there and he will receive Rituxan as outpatient. Will request CONSULTING TECHNICAL MANAGER to feed patient 1:1 /oob to chair Patient being followed by physical therapy Metabolic encephalopathy improved, has behavioral issues, Was likely Secondary to uremia, medications and hospital stay Will avoid Ativan, Haldol for now Treat underlying kidney injury and electrolyte imbalance Seizure incident Reported Witnessed seizure episode in the hospital,CT scan was negative for any acute findings, Likely secondary to uremia Neurology input appreciated, hold on antiepilepsy medications BPH cont. [place] catheter acute blood loss anemia due to GIB had 2 episodes of lower GI bleed, likely from PLT dysfunction from uremia and underlying colon Disorder Tagged RBC negative 10/10, s/p 4 units of packed RBC, hematocrit remains stable GI input appreciated, patient refused colonoscopy, will continue with conservative measures with PPI and close H&H monitoring afib Stable ventricular rate, patient refusing medication encouraged to take metoprolol not on AC due to concern over gi bleed chronic diastolic chf lasix on hold, no evidence of fluid overload DVT prophylaxis SCDs
--- NOTE | 2020-10-14 18:15 | PM.PNNEP ---
Subjective Subjective Date of Service: 10/14/20 Interval history: Events noted Pt is very upset today Physical Exam Vital Signs: Vital Signs: Last Vital Signs Temp 98.3 F 10/13/20 15:51 Pulse 79 10/14/20 15:43 Resp 18 10/14/20 15:43 BP 190/84 H 10/14/20 15:43 Pulse Ox 96 10/14/20 15:43 Body Mass Index 23.6 Const: General: ill appearing Neck: Neck: Yes supple Resp: Auscultation: rhonchi GI: Auscultation: normal bowel sounds Neuro: Motor exam (neuro): No Asterixis during motor activity present Objective Data Labs CBC & Chem 7: 10/13/20 05:32 10/13/20 05:32 Microbiology Microbiology Results: Microbiology 09/28/20 10:04 Blood - Venous Blood Culture - Final No growth after 5 days. 09/28/20 09:26 Blood - Venous Blood Culture - Final No growth after 5 days. 09/28/20 00:00 Urine [place] Urine Culture - Final Assessment & Plan Assessment and plan (1) Acute renal failure: Status: Acute Assessment and Plan: FRANCHESKA due to RPGN/ANCA /PR3 postive s/p Pulse steroids and 1 dose of Rituxan Next dose on 10/16 No indication for dialysis today Time Spent With Patient Time: Total time spent is greater than 50% in coordination of care (as documented) at patient's floor/unit and/or counseling patient:
--- NOTE | 2020-10-14 18:51 | MHC.PIE ---
p- 1600 bp 190/85 i- message sent to md, no new orders, pt refusing to take meds. e will continue to monitor
[2020-10-14 23:51] VITALS: BP 198/97; PULSE 94; RESP 20; TEMP 38.1; O2SAT 92
[2020-10-15] VITALS (7 sets, daily range): BP systolic 145–183; BP diastolic 60–91; PULSE 66–100; RESP 16–20; TEMP 36.6–37.2; O2SAT 90–98
[2020-10-15] MEDS: 0.9 % Sodium Chloride Flush 3 ML SYRINGE IVFLUSH ×3 (01:48→17:46)
[2020-10-15] MEDS: Labetalol HCL 100 MG/20 ML VIAL 10 MG IVPUSH (01:48)
[2020-10-15 09:18] LABS: MANUAL DIFF FLAG NO
[2020-10-15 09:23] LABS: Basophils Percent Auto 0.1 % (0-2); Eosinophils Percent Auto 0.1 % (0-4); Hematocrit 28.5 % (42-52); Hemoglobin 9.6 g/dl (14.0-18.0); Imm Gran Abs Auto 0.25 X10*3/uL (0.00-0.03); Imm Gran Pct Auto 1.8 % (0.0-0.4); Lymphocytes Absolute Auto 1.1 X10*3/uL (1.2-4.9); Lymphocytes Percent Auto 7.7 % (20-40); Mean Corpuscular HGB Conc 33.7 g/dl (31.0-36.0); Mean Corpuscular Hemoglobin 28.7 pg (27.0-33.0); Mean Corpuscular Volume 85.1 fL (80-98); Monocytes Absolute Auto 0.4 X10*3/uL (0.1-1.2); Monocytes Percent Auto 3.2 % (2-11); NRBC Pct Auto 0.3 /100WBC (0.0-0.2); Neutrophils Absolute Auto 11.8 X10*3/uL (2.0-8.3); Neutrophils Percent Auto 87.1 % (45-73); Platelet Count 278 X10*3/uL (160-400); Red Blood Count 3.35 X10*6/uL (4.60-5.80); White Blood Count 13.6 X10*3/uL (4.8-10.8)
[2020-10-15 09:47] LABS: Anion Gap 19 (12-20); Calcium 6.7 mg/dL (8.4-10.2); Carbon Dioxide 19 mmol/L (22-29); Chloride 104 mmol/L (96-108); Glucose Random 111 mg/dL (60-115); Potassium 4.3 mmol/l (3.3-5.1); Sodium 138 mmol/L (135-145)
[2020-10-15] MEDS: Metoprolol Succinate ER 25 MG TAB.ER.24H PO (09:54)
[2020-10-15] MEDS: amLODIPine Besylate 2.5 MG TABLET PO (09:54)
[2020-10-15 10:20] LABS: Blood Urea Nitrogen 120 mg/dL (9-16); Creatinine Clr Calc Pharmacy 9.4; Estimated Glomerular Filt Rate 8
--- NOTE | 2020-10-15 11:38 | MHC.CM.PN ---
per rounds ptwill be ready for dc tomorrow last day to get rifuxin tomorrow cm will continue bed search
--- NOTE | 2020-10-15 11:46 | PC.NURSE ---
Patient refusing medications, stating leave me alone and let me sleep . I am not taking any medications. . Pt OOB to stand for 5 minutes with PT, refusing to stay OOB to chair. Repositioned q 2 hrs.
--- NOTE | 2020-10-15 15:51 | PM.PNNEP ---
Subjective Subjective Date of Service: 10/15/20 Interval history: Events noted Pt is still upset Physical Exam Vital Signs: Vital Signs: Last Vital Signs Temp 98 F 10/15/20 11:04 Pulse 66 10/15/20 11:47 Resp 19 10/15/20 11:04 BP 160/81 H 10/15/20 11:47 Pulse Ox 98 10/15/20 11:47 Body Mass Index 23.6 Const: General: ill appearing Neck: Neck: Yes supple Resp: Auscultation: rhonchi GI: Auscultation: normal bowel sounds Neuro: Motor exam (neuro): No Asterixis during motor activity present Objective Data Labs CBC & Chem 7: 10/15/20 09:12 10/15/20 09:12 Labs: Laboratory Results - last 24 hr 10/15/20 10/15/20 09:12 09:12 WBC 13.6 H RBC 3.35 L Hgb 9.6 L Hct 28.5 L MCV 85.1 MCH 28.7 MCHC 33.7 RDW 16.0 Plt Count 278 MPV 10.0 Immature Gran % (Auto) 1.8 H Neut % (Auto) 87.1 H Lymph % (Auto) 7.7 L [place] % (Auto) 3.2 Eos % (Auto) 0.1 Baso % (Auto) 0.1 Lymph # (Auto) 1.1 L [place] # (Auto) 0.4 Eos # (Auto) 0.0 Baso # (Auto) 0.0 Abs Immat Gran (auto) 0.25 H Absolute Neuts (auto) 11.8 H Absolute Nucleated RBC 0.040 H Nucleated RBC % (auto) 0.3 H Sodium 138 Potassium 4.3 Chloride 104 Carbon Dioxide 19 L Anion Gap 19 BUN 120 H* Creatinine 6.95 H* Estim Creat Clear Calc 9.4 Estimated GFR 8 Random Glucose 111 Calcium 6.7 L Microbiology Microbiology Results: Microbiology 09/28/20 10:04 Blood - Venous Blood Culture - Final No growth after 5 days. 09/28/20 09:26 Blood - Venous Blood Culture - Final No growth after 5 days. 09/28/20 00:00 Urine [place] Urine Culture - Final Assessment & Plan Assessment and plan (1) Acute renal failure: Status: Acute Assessment and Plan: FRANCHESKA due to RPGN/ANCA /PR3 postive s/p Pulse steroids and 1 dose of Rituxan Next dose on 10/16 - ordered No indication for dialysis today Time Spent With Patient Time: Total time spent is greater than 50% in coordination of care (as documented) at patient's floor/unit and/or counseling patient:
--- NOTE | 2020-10-15 17:00 | HO.PM.IMPN ---
Subjective Subjective Date of Service: 10/16/20 Interval History: Patient refusing to provide any history, refused to participate with physical therapy very frustrated aggressive at times, was cooperative with RN this morning. Patient moods fluctuates. Unable to obtain detailed review of systems. Physical Exam Vital Signs: Vital Signs: Last Vital Signs Temp 98.5 F 10/15/20 16:00 Pulse 76 10/15/20 16:00 Resp 16 10/15/20 16:00 BP 145/67 H 10/15/20 16:00 Pulse Ox 94 10/15/20 16:00 Body Mass Index 23.6 Const: Other: Constitutional : Alert, oriented, not in distress, legally blind Neck : Normal inspection Skin : No rash Neurological : No focal deficit Patient refused to be examined Objective Data Current Medications Generic Name Dose Route Start Last Admin Trade Name Freq PRN Reason Stop Dose Admin Acetaminophen 650 mg 09/28/20 22:42 10/14/20 11:06 Acetaminophen 325 Mg Tablet PO 325 mg Q6H PRN Administration Pain, Mild (Pain Scale 1-3) Albuterol Sulfate 2 puff 09/29/20 05:51 Albuterol Sulfate 90 Mcg 8 Gm Inhaler INHALE RQ4H PRN Shortness of Breath/Wheezing Amlodipine Besylate 2.5 mg 10/04/20 04:00 10/15/20 09:54 Amlodipine Besylate 2.5 Mg Tablet PO 2.5 mg DAILY MATHEUS Administration Protocol Atorvastatin Calcium 10 mg 09/29/20 09:00 10/15/20 09:56 Atorvastatin Calcium 10 Mg Tablet PO Not Given DAILY [facility] Atovaquone 1,500 mg 10/03/20 09:00 10/15/20 09:56 Atovaquone 750 Mg/5 Ml Oral.Susp PO Not Given DAILY MATHEUS Calcitriol 0.25 mcg 10/12/20 09:00 10/15/20 09:56 Calcitriol 0.25 Mcg Capsule PO Not Given DAILY [facility] Calcium Acetate 1,334 mg 10/09/20 12:00 10/15/20 11:21 Calcium Acetate 667 Mg Capsule PO Not Given TIDWM MATHEUS Docusate Sodium 100 mg 09/28/20 22:42 Docusate Sodium 100 Mg Capsule PO DAILY PRN Constipation Metoprolol Succinate 25 mg 09/29/20 09:00 10/15/20 09:54 Metoprolol Succinate Er 25 Mg Tab.Er.24h PO 25 mg DAILY [facility] Administration Protocol Non-Formulary Medication 500 mg 10/16/20 10:58 Rituximab IV 10/16/20 10:59 ONCE ONE Omeprazole 20 mg 10/12/20 16:30 10/15/20 09:55 Omeprazole 20 Mg Capsule. PO Not Given BID@0630,1630 [facility] Ondansetron HCl 4 mg 09/28/20 22:42 Ondansetron Hcl 4 Mg/2 Ml Vial IVPUSH Q8H PRN Nausea and Vomiting Prednisone 60 mg 10/10/20 09:00 10/15/20 09:58 Prednisone 20 Mg Tablet PO Not Given DAILY [facility] Sodium Bicarbonate 650 mg 10/03/20 15:00 10/15/20 14:04 Sodium Bicarbonate 650 Mg Tablet PO Not Given TID [facility] Sodium Chloride 3 ml 09/29/20 00:00 10/15/20 09:55 0.9 % Sodium Chloride Flush 3 Ml Syringe IVFLUSH 3 ml QSHIFT [facility] Administration Labs CBC & Chem 7: 10/16/20 08:05 10/16/20 08:05 Microbiology Microbiology Results: Microbiology 09/28/20 10:04 Blood - Venous Blood Culture - Final No growth after 5 days. 09/28/20 09:26 Blood - Venous Blood Culture - Final No growth after 5 days. 09/28/20 00:00 Urine [place] Urine Culture - Final Assessment and Plan (1) Acute renal failure: Status: Acute (2) Acute blood loss anemia: Status: Acute (3) GI bleed: Status: Acute (4) Metabolic encephalopathy: Status: Acute (5) Metabolic acidosis: Status: Acute Assessment and Plan: 80M presented with cough and epistaxis, found to have severe FRANCHESKA Acute renal failure with metabolic acidosis Secondary to RPGN, anca positive, confirmed by biopsy Had a session of dialysis, patient removed the dialysis catheter while restless, nephrology holding further dialysis Noted to have a rise in creatinine from 6.4-6.9 will discuss further treatment plan with Dr. Gilmore continue prilosec for gi prophylaxis,atovaquone for pcp prophylaxis,s/p pulse steroid therapy with 500 mg daily for 3/3 days now on prednisone 60 mg daily Recieved a dose of rituximab 10/09, next dose 10/16 continue oral bicarb and calcium acetate Will need 1:1 feeding/oob to chair patient refused to participate in physical therapy therefore they discharged him from their service will talk to social security specialist regarding safe discharge Metabolic encephalopathy improved, has behavioral issues, awake alert to place and person, no confusion Was likely Secondary to uremia, medications and hospital stay Will avoid Ativan, Haldol for now Seizure incident Reported Witnessed seizure episode in the hospital,CT scan was negative for any acute findings, Likely secondary to uremia Neurology input appreciated, they recommend no antiepilepsy medications BPH history of prostate cancer, history of bladder cancer. cont. Chronic Rivera catheter acute blood loss anemia due to GIB had 2 episodes of lower GI bleed, likely from PLT dysfunction from uremia and underlying colon Disorder Tagged RBC negative 10/10, s/p 4 units of packed RBC, hematocrit trending down but remains stable follow hematocrit closely GI input appreciated, patient refused colonoscopy, will continue with conservative measures with PPI and close H&H monitoring afib Stable ventricular rate, continue metoprolol not on AC due to concern over gi bleed chronic diastolic chf lasix on hold, no evidence of fluid overload DVT prophylaxis SCDs
[2020-10-16] VITALS (10 sets, daily range): BP systolic 138–151; BP diastolic 63–87; PULSE 62–127; RESP 18–22; TEMP 36.1–38.6; O2SAT 90–98
--- NOTE | 2020-10-16 | XR_ITS ---
EXAMINATION: XR CHEST CLINICAL INFORMATION: Cough and fever COMPARISON: 09/28/2020 TECHNIQUE: Frontal view of the chest was obtained. FINDINGS: Cardiac leads overlie the chest. The lungs are well expanded. Increased patchy opacities of the right lung. No pleural effusion or pneumothorax. Patchy left basilar opacity also noted. The cardiomediastinal silhouette is unchanged, with a calcified aorta. XR/XR chest 1V IMPRESSION: Increased patchy opacities throughout the right lung and at the left base could be infectious or inflammatory.
[2020-10-16] MEDS: 0.9 % Sodium Chloride Flush 3 ML SYRINGE IVFLUSH ×2 (01:14→15:38)
[2020-10-16 08:34] LABS: MANUAL DIFF FLAG NO
[2020-10-16 08:39] LABS: Basophils Percent Auto 0.1 % (0-2); Eosinophils Percent Auto 0.1 % (0-4); Hematocrit 28.6 % (42-52); Hemoglobin 9.4 g/dl (14.0-18.0); Imm Gran Abs Auto 0.15 X10*3/uL (0.00-0.03); Imm Gran Pct Auto 1.4 % (0.0-0.4); Lymphocytes Percent Auto 9.3 % (20-40); Mean Corpuscular HGB Conc 32.9 g/dl (31.0-36.0); Mean Corpuscular Volume 85.1 fL (80-98); Mean Platelet Volume 9.8 fL (9.4-12.4); Monocytes Absolute Auto 0.4 X10*3/uL (0.1-1.2); NRBC Pct Auto 0.2 /100WBC (0.0-0.2); Neutrophils Absolute Auto 9.2 X10*3/uL (2.0-8.3); Neutrophils Percent Auto 85.1 % (45-73); Platelet Count 257 X10*3/uL (160-400); Red Blood Count 3.36 X10*6/uL (4.60-5.80); Red Cell Distribution Width 16.2 % (11.0-16.0); White Blood Count 10.8 X10*3/uL (4.8-10.8)
[2020-10-16 09:25] LABS: Anion Gap 20 (12-20); Blood Urea Nitrogen 117 mg/dL (9-16); Calcium 6.4 mg/dL (8.4-10.2); Carbon Dioxide 15 mmol/L (22-29); Chloride 106 mmol/L (96-108); Creatinine Clr Calc Pharmacy 9.4; Estimated Glomerular Filt Rate 8; Glucose Random 129 mg/dL (60-115); Potassium 3.9 mmol/l (3.3-5.1); Sodium 137 mmol/L (135-145)
--- NOTE | 2020-10-16 11:22 | P.PNNP_ITS ---
Subjective Subjective Date of Service: 10/16/20 Interval history: Events noted Not cooperative with maangement Physical Exam Vital Signs: Vital Signs: Last Vital Signs Temp 97 F 10/16/20 11:14 Pulse 62 10/16/20 11:14 Resp 18 10/16/20 11:14 BP 145/63 H 10/16/20 11:14 Pulse Ox 96 10/16/20 11:14 Body Mass Index 23.6 Const: General: ill appearing Neck: Neck: Yes supple Resp: Auscultation: rhonchi GI: Auscultation: normal bowel sounds Neuro: Motor exam (neuro): No Asterixis during motor activity present Objective Data Labs CBC & Chem 7: 10/16/20 08:05 10/16/20 08:05 Labs: Laboratory Results - last 24 hr 10/16/20 10/16/20 08:05 08:05 WBC 10.8 RBC 3.36 L Hgb 9.4 L Hct 28.6 L MCV 85.1 MCH 28.0 MCHC 32.9 RDW 16.2 H Plt Count 257 MPV 9.8 Immature Gran % (Auto) 1.4 H Neut % (Auto) 85.1 H Lymph % (Auto) 9.3 L [place] % (Auto) 4.0 Eos % (Auto) 0.1 Baso % (Auto) 0.1 Lymph # (Auto) 1.0 L [place] # (Auto) 0.4 Eos # (Auto) 0.0 Baso # (Auto) 0.0 Abs Immat Gran (auto) 0.15 H Absolute Neuts (auto) 9.2 H Absolute Nucleated RBC 0.020 H Nucleated RBC % (auto) 0.2 Sodium 137 Potassium 3.9 Chloride 106 Carbon Dioxide 15 L Anion Gap 20 BUN 117 H* Creatinine 6.98 H* Estim Creat Clear Calc 9.4 Estimated GFR 8 Random Glucose 129 H Calcium 6.4 L Microbiology Microbiology Results: Microbiology 09/28/20 10:04 Blood - Venous Blood Culture - Final No growth after 5 days. 09/28/20 09:26 Blood - Venous Blood Culture - Final No growth after 5 days. 09/28/20 00:00 Urine [place] Urine Culture - Final Assessment & Plan Assessment and plan (1) Acute renal failure: Status: Acute Assessment and Plan: FRANCHESKA due to RPGN/ANCA /PR3 postive s/p Pulse steroids and 1 dose of Rituxan Rituximab today ( 2nd dose) No indication for dialysis today Time Spent With Patient Time: Total time spent is greater than 50% in coordination of care (as documented) at patient's floor/unit and/or counseling patient:
[2020-10-16] MEDS: Metoprolol Succinate ER 25 MG TAB.ER.24H PO (11:41)
--- NOTE | 2020-10-16 11:46 | MHC.CLN ---
F/U PO INTAKE 75-100% DIET RX: 2GM NA -APPROPRIATE FOLLOWING
--- NOTE | 2020-10-16 17:12 | HO.PM.IMPN ---
Subjective Subjective Date of Service: 10/16/20 Interval History: Patient resting in bed refusing to provide history, refusing medications since he feels they are not working and there are too many pills for him to take he wants to be left alone and Tele monitor showed atrial fibrillation with ventricular rate in 120-130 range, patient offers no complaints of chest pain or shortness of breath but noted to be coughing Review of system unobtainable since patient not willing to provide history. Physical Exam Vital Signs: Vital Signs: Last Vital Signs Temp 100 F 10/16/20 16:31 Pulse 119 H 10/16/20 16:31 Resp 19 10/16/20 16:31 BP 141/63 H 10/16/20 16:31 Pulse Ox 92 10/16/20 16:31 Body Mass Index 23.6 Other: Constitutional : Alert, oriented, not in distress, legally blind Neck : Normal inspection Skin : No rash Neurological : No focal deficit Patient refused to be examined Objective Data Current Medications Generic Name Dose Route Start Last Admin Trade Name Freq PRN Reason Stop Dose Admin Acetaminophen 650 mg 09/28/20 22:42 10/14/20 11:06 Acetaminophen 325 Mg Tablet PO 325 mg Q6H PRN Administration Pain, Mild (Pain Scale 1-3) Albuterol Sulfate 2 puff 09/29/20 05:51 Albuterol Sulfate 90 Mcg 8 Gm Inhaler INHALE RQ4H PRN Shortness of Breath/Wheezing Atovaquone 1,500 mg 10/03/20 09:00 10/16/20 09:11 Atovaquone 750 Mg/5 Ml Oral.Susp PO Not Given DAILY MATHEUS Calcitriol 0.25 mcg 10/12/20 09:00 10/16/20 09:12 Calcitriol 0.25 Mcg Capsule PO Not Given DAILY MATHEUS Calcium Acetate 1,334 mg 10/09/20 12:00 10/16/20 11:23 Calcium Acetate 667 Mg Capsule PO Not Given TIDWM MATHEUS Docusate Sodium 100 mg 09/28/20 22:42 Docusate Sodium 100 Mg Capsule PO DAILY PRN Constipation Rituximab 500 mg/ Rituximab 325 mls @ 0 mls/hr 10/16/20 00:00 250 mg/ Sodium Chloride IV 10/16/20 23:59 ONCE MATHEUS Protocol As Directed Metoprolol Succinate 25 mg 09/29/20 09:00 10/16/20 11:41 Metoprolol Succinate Er 25 Mg Tab.Er.24h PO 25 mg DAILY [facility] Administration Protocol Omeprazole 20 mg 10/12/20 16:30 10/16/20 06:28 Omeprazole 20 Mg Capsule.Dr PO Not Given BID@7113,8164 [facility] Ondansetron HCl 4 mg 09/28/20 22:42 Ondansetron Hcl 4 Mg/2 Ml Vial IVPUSH Q8H PRN Nausea and Vomiting Prednisone 60 mg 10/10/20 09:00 10/16/20 09:12 Prednisone 20 Mg Tablet PO Not Given DAILY [facility] Sodium Bicarbonate 650 mg 10/03/20 15:00 10/16/20 09:12 Sodium Bicarbonate 650 Mg Tablet PO Not Given TID [facility] Sodium Chloride 3 ml 09/29/20 00:00 10/16/20 15:38 0.9 % Sodium Chloride Flush 3 Ml Syringe IVFLUSH 3 ml QSHIFT [facility] Administration Labs CBC & Chem 7: 10/16/20 08:05 10/16/20 08:05 Microbiology Microbiology Results: Microbiology 09/28/20 10:04 Blood - Venous Blood Culture - Final No growth after 5 days. 09/28/20 09:26 Blood - Venous Blood Culture - Final No growth after 5 days. 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 (2) Acute blood loss anemia: Status: Acute (3) GI bleed: Status: Acute (4) Acute renal failure: Status: Acute (5) Metabolic encephalopathy: Status: Acute (6) Seizure disorder: Status: Acute (7) Mild pulmonary hypertension: Status: Acute (8) Chronic diastolic (congestive) heart failure: Status: Acute (9) Paroxysmal atrial fibrillation: Status: Acute (10) UTI (urinary tract infection): Status: Acute (11) Metabolic acidosis: Status: Acute (12) Acute on chronic anemia: Status: Acute (13) Neurogenic urinary bladder disorder: Status: Acute (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 Gilmore he feels patient will require lifelong hemodialysis Will continue prilosec for gi prophylaxis,atovaquone for pcp prophylaxis,s/p pulse steroid therapy with 500 mg daily for 3/3 days now on prednisone 60 mg daily, continue oral bicarb and calcium acetate Recieved a dose of rituximab 10/09, next dose was due today 10/16 patient developed fever of 101.5 associated with chills therefore infusion held Explained to patient in detail regarding importance of taking medication, will try to minimize medications and blood draws, will DC Lipitor and Norvasc. patient refused to participate in physical therapy therefore they discharged him from their service Is spoke with patient's family including patient's brother Jim and his Moraima at [phone] and updated him about patient's condition and requirement of hemodialysis, also informed them about patient refusal to take medications and him passing a remarks that he wishes to . Obtain a psychiatric consultation Fever and tachycardia Patient is immunocompromised since on high-dose steroids for greater than 2 weeks therefore will obtain blood cultures, urine cultures, and portable chest x-ray, repeat COVID test Will place patient on broad-spectrum antibiotic and follow clinical course Metabolic encephalopathy Resolved Was likely Secondary to uremia, medications and hospital stay Will avoid Ativan, Haldol for now Seizure incident Reported Witnessed seizure episode in the hospital,CT scan was negative for any acute findings, Likely secondary to uremia Neurology input appreciated, they recommend no antiepilepsy medications BPH history of prostate cancer, history of bladder cancer. cont. Chronic [place] catheter acute blood loss anemia due to GIB had 2 episodes of lower GI bleed, likely from PLT dysfunction from uremia and underlying colon Disorder Tagged RBC negative 10/10, s/p 4 units of packed RBC, hematocrit trending down but remains stable follow hematocrit closely GI input appreciated, patient refused colonoscopy, will continue with conservative measures with PPI and close H&H monitoring Paroxysmal afib Patient noted to be in atrial fibrillation with rapid response this morning, Toprol-XL given will increase dose of Toprol and follow heart rate, will give additional IV Lopressor now. not on AC due to concern over gi bleed chronic diastolic chf lasix on hold, no evidence of fluid overload DVT prophylaxis SCDs
--- NOTE | 2020-10-16 17:38 | PC.NURSE ---
P-patient refused covid test,becomes more agitated if nurse attempts to give explanation I-dr. Dennis notified of the above E-will monitor
--- NOTE | 2020-10-16 17:40 | PC.NURSE ---
P-patient refused BC I-Dr. Dennis aware
[2020-10-16] MEDS: Metoprolol Tartrate 5 MG/5 ML VIAL IVPUSH (17:52)
[2020-10-16] MEDS: cefEPime HCl 0.5 GM in 0.9 % Sodium Chloride 50 ML IV (18:23)
--- NOTE | 2020-10-16 18:25 | PC.NURSE ---
P- patient becomes very agitated and verbally abusive with care , using f words I-repositined patient with 2 assist,gave pt water to drink E-will monitor
[2020-10-17] MEDS: 0.9 % Sodium Chloride Flush 3 ML SYRINGE IVFLUSH ×4 (02:37→20:21)
[2020-10-17 04:00] VITALS: BP 120/65; PULSE 110; RESP 20; O2SAT 95
[2020-10-17 07:59] VITALS: BP 136/71; PULSE 92; RESP 20; TEMP 36.4; O2SAT 93
[2020-10-17] MEDS: Metoprolol Succinate ER 25 MG TAB.ER.24H 50 MG PO (09:27)
[2020-10-17 10:56] VITALS: BP 131/65; PULSE 91; RESP 20; TEMP 36.5; O2SAT 92
[2020-10-17 12:00] VITALS: O2SAT 94
[2020-10-17] MEDS: Acetaminophen 325 MG TABLET 650 MG PO ×2 (13:04→20:21)
--- NOTE | 2020-10-17 14:09 | MHC.CM.PN ---
per rounds pt to have a psych eval prior to dc cmwill continue to follow
--- NOTE | 2020-10-17 14:42 | P.PNIM_ITS ---
Subjective Subjective Date of Service: 10/17/20 Interval History: Patient resting comfortably, is more pleasant today agreed to take only Toprol-XL this morning, heart rate improved blood pressure is stable, no acute issues overnight, fever resolved. Review of Systems Unable to obtain review of system since patient not cooperative with answering questions. Physical Exam Vital Signs: Vital Signs: Last Vital Signs Temp 97.7 F 10/17/20 10:56 Pulse 91 10/17/20 10:56 Resp 20 10/17/20 10:56 BP 131/65 10/17/20 10:56 Pulse Ox 94 10/17/20 12:00 Body Mass Index 23.6 Constitutional : Alert, oriented, not in distress, legally blind, pleasant Neck : Normal inspection Skin : No rash Lungs refusing to be examined Heart refused examination Abdomen refusing examining Neurological : No focal deficit Patient refused to be examined Objective Data Current Medications Generic Name Dose Route Start Last Admin Trade Name Freq PRN Reason Stop Dose Admin Acetaminophen 650 mg 09/28/20 22:42 10/17/20 13:04 Acetaminophen 325 Mg Tablet PO 650 mg Q6H PRN Administration Pain, Mild (Pain Scale 1-3) Albuterol Sulfate 2 puff 09/29/20 05:51 Albuterol Sulfate 90 Mcg 8 Gm Inhaler INHALE RQ4H PRN Shortness of Breath/Wheezing Atovaquone 1,500 mg 10/03/20 09:00 10/17/20 09:05 Atovaquone 750 Mg/5 Ml Oral.Susp PO Not Given DAILY [facility] Calcitriol 0.25 mcg 10/12/20 09:00 10/17/20 09:05 Calcitriol 0.25 Mcg Capsule PO Not Given DAILY [facility] Calcium Acetate 1,334 mg 10/09/20 12:00 10/17/20 11:45 Calcium Acetate 667 Mg Capsule PO Not Given TIDWM [facility] Docusate Sodium 100 mg 09/28/20 22:42 Docusate Sodium 100 Mg Capsule PO DAILY PRN Constipation Metoprolol Succinate 50 mg 10/17/20 09:00 10/17/20 09:27 Metoprolol Succinate Er 25 Mg Tab.Er.24h PO 50 mg DAILY [facility] Administration Protocol Omeprazole 20 mg 10/12/20 16:30 10/17/20 09:05 Omeprazole 20 Mg Capsule. PO Not Given BID@0630,1630 [facility] Ondansetron HCl 4 mg 09/28/20 22:42 Ondansetron Hcl 4 Mg/2 Ml Vial IVPUSH Q8H PRN Nausea and Vomiting Prednisone 60 mg 10/10/20 09:00 10/17/20 09:27 Prednisone 20 Mg Tablet PO Not Given DAILY [facility] Sodium Bicarbonate 650 mg 10/03/20 15:00 10/17/20 09:05 Sodium Bicarbonate 650 Mg Tablet PO Not Given TID [facility] Sodium Chloride 3 ml 09/29/20 00:00 10/17/20 09:27 0.9 % Sodium Chloride Flush 3 Ml Syringe IVFLUSH 3 ml QSHIFT [facility] Administration Labs CBC & Chem 7: 10/16/20 08:05 10/16/20 08:05 Microbiology Microbiology Results: Microbiology 10/16/20 00:00 Blood - Venous Blood Culture - Final 10/16/20 00:00 Blood - Venous Blood Culture - Final 09/28/20 10:04 Blood - Venous Blood Culture - Final No growth after 5 days. 09/28/20 09:26 Blood - Venous Blood Culture - Final No growth after 5 days. 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 (2) Acute blood loss anemia: Status: Acute (3) GI bleed: Status: Acute (4) Acute renal failure: Status: Acute (5) Metabolic encephalopathy: Status: Acute (6) Seizure disorder: Status: Acute (7) Mild pulmonary hypertension: Status: Acute (8) Chronic diastolic (congestive) heart failure: Status: Acute (9) Paroxysmal atrial fibrillation: Status: Acute (10) UTI (urinary tract infection): Status: Acute (11) Metabolic acidosis: Status: Acute (12) Acute on chronic anemia: Status: Acute (13) Neurogenic urinary bladder disorder: Status: Acute (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 Gilmore he feels patient will require hemodialysis if renal function decline, he reordered Rituxan Will continue prilosec for gi prophylaxis,atovaquone for pcp prophylaxis,s/p pulse steroid therapy with 500 mg daily for 3/3 days now on prednisone 60 mg daily, continue oral bicarb and calcium acetate Recieved a dose of rituximab 10/09, next dose was due 10/16 patient developed fever of 101.5 associated with chills therefore infusion held Explained to patient in detail regarding importance of taking medication, minimized medication. patient refused to participate in physical therapy therefore they discharged him from their service spoke with patient's family including patient's brother Jim and his Moraima at [phone] and updated them about patient's condition and requirement of hemodialysis if kidney function worsens Patient did not cooperate with psychiatric consult, no further remarks of dying likely patient pass remarks when he is frustrated. Sepsis due to pneumonia Had Fever and tachycardia/diagnosed with SIRS with no source of infection on 10/16 Fever and tachycardia resolved, since he is immunocompromised due to high-dose steroids for greater than 2 weeks ordered blood cultures, COVID test, chest x- ray, urine exam However patient declined blood work, chest x-ray revealed bilateral infiltrates patient receive 1 dose of IV cefepime, will continue IV antibiotic for possible pneumonia renally dosed Patient allowing COVID test today, also will check urine studies. Metabolic encephalopathy Resolved Was likely Secondary to uremia, medications and hospital stay, patient has behavioral issues. Will avoid Ativan, Haldol for now Seizure incident Reported Witnessed seizure episode in the hospital,CT scan was negative for any acute findings, Likely secondary to uremia Neurology input appreciated, they recommend no antiepilepsy medications BPH history of prostate cancer, history of bladder cancer. cont. Chronic Rivera catheter acute blood loss anemia due to GIB had 2 episodes of lower GI bleed, likely from PLT dysfunction from uremia and underlying colon Disorder Tagged RBC negative 10/10, s/p 4 units of packed RBC, hematocrit trending down but remains stable follow hematocrit closely GI input appreciated, patient refused colonoscopy, will continue with conservative measures with PPI and close H&H monitoring Paroxysmal afib Patient noted to be in atrial fibrillation with rapid response, treated with IV Lopressor and continued on Toprol-XL increased from 25 mg to 50 mg not on AC due to concern over gi bleed chronic diastolic chf lasix on hold, no evidence of fluid overload DVT prophylaxis SCDs
--- NOTE | 2020-10-17 15:26 | PM.PNNEP ---
Subjective Subjective Date of Service: 11/01/20 Interval history: Refused meds. 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 09/28/20 09:26 Blood - Venous Blood Culture - Final No growth after 5 days. 09/28/20 00:00 Urine [place] Urine Culture - Final Assessment & Plan Assessment and plan (1) Acute renal failure: Status: Acute Assessment and Plan: FRANCHESKA due to RPGN/ANCA /PR3 postive s/p Pulse steroids and 1 dose of Rituxan Supposed to have Rituximab ( 2nd dose) on 10/16/20 - How ever he had fever nad tachycardia prior to infusiona nd refused work up and uncooperative. Rituxan was NOT administered Currently non oliguric BUN /Cr unchanged No indication for dialysis today If BUn/Cr do not improve, may need to resume dialysis Refusing meds Will order Rituxan again tomorrow or tuesday if he agrees. Spoke to Time Spent With Patient Time: Total time spent is greater than 50% in coordination of care (as documented) at patient's floor/unit and/or counseling patient:
[2020-10-17 15:32] LABS: COVID-19 Test Positive (Negative)
[2020-10-17 15:38] VITALS: BP 126/66; PULSE 98; RESP 22; TEMP 37.2
--- NOTE | 2020-10-17 16:32 | PC.NURSE ---
Patient refusing medications for this RN's shift, 5am-6pm, except patient did receive metoprolol this am. Patient very easily agitated, yelling screaming, swearing with any care. Patient stating, Leave me alone, just let me be. I don't want any medications they are not even helping . Repositioned q2 hrs.
--- NOTE | 2020-10-17 17:03 | PM.PSYCN ---
History of Present Illness Date of Service: 10/17/2020 Chief Complaint: TEMPORARY DIALYSIS CATH Reason for Consult: refusing medications Requesting physician: Yisel Dennis Discussed with referring provider: Yes Sources of Information: patient interviewed and chart reviewed [facility] Narrative: Patient is a 80 year old male with multiple medical issues who has been medically admitted for quite some time. Consult requested as patient had been refusing medications and making statements such as just leave me alone so I can Patient seen in room 445, awake, alert and minimally engaged in interview. Somewhat gruff presentation, very direct, declining to talk to this creative services writer. Did state he wanted to speak to his sister in law, asked for chocolate ice cream and per RN accepted medication earlier in the day. He allowed this creative services writer and RN to adjust him in the bed and did not make any statements about wanting to while this creative services writer was present, in fact he was quite focused on getting contact information for his sister in law so that he could speak to her. Past Psychiatric History: unknown Medical Evaluation Reviewed: Yes Review of Systems Constitutional: Reports as per [facility] Medical History Anal polyp Bladder outlet obstruction Chronic diastolic (congestive) heart failure Diverticulitis large intestine Malignant neoplasm of sigmoid colon Mild pulmonary hypertension Paroxysmal atrial fibrillation Personal history of colon cancer Tubular adenoma of colon Diagnostics Vital Signs (24Hr): Vital Signs - 24 hr 10/16/20 17:52 10/16/20 23:37 10/17/20 04:00 Temperature 99.3 F Pulse Rate 119 H 108 H 110 H Respiratory Rate 18 20 Blood Pressure 141/63 H 145/76 H 120/65 Pulse Oximetry 95 95 10/17/20 07:59 10/17/20 10:56 10/17/20 12:00 Temperature 97.5 F 97.7 F Pulse Rate 92 91 Respiratory Rate 20 20 Blood Pressure 136/71 131/65 Pulse Oximetry 93 92 94 10/17/20 15:38 Temperature 98.9 F Pulse Rate 98 Respiratory Rate 22 H Blood Pressure 126/66 Pulse Oximetry Body Mass Index 23.6 Labs Results: 10/16/20 08:05 10/16/20 08:05 Labs: Laboratory Results - last 48 hr 10/12/20 10/16/20 10/16/20 05:12 08:05 08:05 WBC 10.8 RBC 3.36 L Hgb 9.4 L Hct 28.6 L MCV 85.1 MCH 28.0 MCHC 32.9 RDW 16.2 H Plt Count 257 MPV 9.8 Immature Gran % (Auto) 1.4 H Neut % (Auto) 85.1 H Lymph % (Auto) 9.3 L [place] % (Auto) 4.0 Eos % (Auto) 0.1 Baso % (Auto) 0.1 Lymph # (Auto) 1.0 L [place] # (Auto) 0.4 Eos # (Auto) 0.0 Baso # (Auto) 0.0 Abs Immat Gran (auto) 0.15 H Absolute Neuts (auto) 9.2 H Absolute Nucleated RBC 0.020 H Nucleated RBC % (auto) 0.2 Sodium 137 Potassium 3.9 Chloride 106 Carbon Dioxide 15 L Anion Gap 20 BUN 117 H* Creatinine 6.98 H* Estim Creat Clear Calc 9.4 Estimated GFR 8 Random Glucose 129 H Calcium 6.4 L Cancelled Chem Test COVID-19 (RADHA) COVID-19 Clin Com Prothrombin [id number] Mut SEE NOTE Prothrombin Mut Interp SEE NOTE 10/17/20 10/17/20 06:36 15:05 WBC RBC Hgb Hct MCV MCH MCHC RDW Plt Count MPV Immature Gran % (Auto) Neut % (Auto) Lymph % (Auto) [place] % (Auto) Eos % (Auto) Baso % (Auto) Lymph # (Auto) [place] # (Auto) Eos # (Auto) Baso # (Auto) Abs Immat Gran (auto) Absolute Neuts (auto) Absolute Nucleated RBC Nucleated RBC % (auto) Sodium Potassium Chloride Carbon Dioxide Anion Gap BUN Creatinine Estim Creat Clear Calc Estimated GFR Random Glucose Calcium Cancelled Chem Test SEE NOTE COVID-19 (RADHA) Positive A COVID-19 Clin Com See Note Prothrombin [id number] Mut Prothrombin Mut Interp Imaging Radiology Impressions: ITS Impressions Chest X-Ray 09/28/20 08:56 IMPRESSION: No acute pneumonic process. Nonspecific mild increase in bilateral hilar interstitial markings. Abdomen/Pelvis CT 09/28/20 10:29 IMPRESSION: Hyperinflated lungs with multiple bilateral pulmonary nodules in the range of 2 to 4 mm. No acute pneumonic consolidation. Enlarged left thyroid gland with substernal nodular extension mildly compressing the trachea but no major compromise. Left pelvic moderate size mass likely enlarged lymph node. Due to lack of IV contrast aneurysm should be considered in the differential diagnosis. There is a cystic lesion in between the iliac crest and psoas muscle in the left upper pelvis likely a seroma or lymphocele. This is a new finding since 2014 CT exam dated Rivera's catheter in an empty bladder. Minimal bladder wall thickening is suspected. There are surgical alcira the prostate bed question radiation beads versus postsurgical alcira. Correlate with clinical exam Chest CT 09/28/20 10:29 IMPRESSION: Hyperinflated lungs with multiple bilateral pulmonary nodules in the range of 2 to 4 mm. No acute pneumonic consolidation. Enlarged left thyroid gland with substernal nodular extension mildly compressing the trachea but no major compromise. Left pelvic moderate size mass likely enlarged lymph node. Due to lack of IV contrast aneurysm should be considered in the differential diagnosis. There is a cystic lesion in between the iliac crest and psoas muscle in the left upper pelvis likely a seroma or lymphocele. This is a new finding since 2014 CT exam dated Rivera's catheter in an empty bladder. Minimal bladder wall thickening is suspected. There are surgical alcira the prostate bed question radiation beads versus postsurgical alcira. Correlate with clinical exam Pulmonary Perfusion Imaging 09/28/20 11:51 IMPRESSION: Normal perfusion of both lungs. Renal Biopsy CT 10/03/20 00:00 IMPRESSION: CT-guided left renal biopsy. Guidance Ultrasound 10/06/20 00:00 IMPRESSION: Successful ultrasound and fluoroscopy guided placement of right jugular temporary AV dialysis catheter. The catheter is ready for use for dialysis. FLUOROSCOPY TIME: 0.5 minutes. IMAGES: 1. Head CT 10/06/20 00:00 IMPRESSION: No acute intracranial pathology. Chronic volume loss with small vessel ischemic change. Insertion Non-Tunneled Catheter 10/06/20 00:00 IMPRESSION: Successful ultrasound and fluoroscopy guided placement of right jugular temporary AV dialysis catheter. The catheter is ready for use for dialysis. FLUOROSCOPY TIME: 0.5 minutes. IMAGES: 1. GI Bleed Scan Nuclear Medicine 10/10/20 00:00 IMPRESSION: No gastrointestinal hemorrhage is identified. Chest X-Ray 10/16/20 00:00 IMPRESSION: Increased patchy opacities throughout the right lung and at the left base could be infectious or inflammatory. Mental Status Exam Mental Status Exam Patient Appearance: Appropriate Level of Consciousness: Awake and Alert Patient Behavior: Guarded Mood Description: Blunted and Angry Affect Description: Blunted and Angry Speech Pattern: Clear and Loud Hallucinations: None Thought Process: Goal Oriented Thought Content: positive for Goal Oriented Judgement: Fair Medications Medications Current Medications Generic Name Dose Route Start Last Admin Trade Name Freq PRN Reason Stop Dose Admin Acetaminophen 650 mg 09/28/20 22:42 10/17/20 13:04 Acetaminophen 325 Mg Tablet PO 650 mg Q6H PRN Administration Pain, Mild (Pain Scale 1-3) Albuterol Sulfate 2 puff 09/29/20 05:51 Albuterol Sulfate 90 Mcg 8 Gm Inhaler INHALE RQ4H PRN Shortness of Breath/Wheezing Atovaquone 1,500 mg 10/03/20 09:00 10/17/20 09:05 Atovaquone 750 Mg/5 Ml Oral.Susp PO Not Given DAILY [facility] Calcitriol 0.25 mcg 10/12/20 09:00 10/17/20 09:05 Calcitriol 0.25 Mcg Capsule PO Not Given DAILY [facility] Calcium Acetate 1,334 mg 10/09/20 12:00 10/17/20 11:45 Calcium Acetate 667 Mg Capsule PO Not Given TIDWM [facility] Docusate Sodium 100 mg 09/28/20 22:42 Docusate Sodium 100 Mg Capsule PO DAILY PRN Constipation Cefepime HCl 0.25 gm/ Sodium 50 mls @ 100 mls/hr 10/17/20 18:00 Chloride IV Q24H [facility] Metoprolol Succinate 50 mg 10/17/20 09:00 10/17/20 09:27 Metoprolol Succinate Er 25 Mg Tab.Er.24h PO 50 mg DAILY [facility] Administration Protocol Omeprazole 20 mg 10/12/20 16:30 10/17/20 09:05 Omeprazole 20 Mg Capsule.Dr PO Not Given BID@0630,7500 [facility] Ondansetron HCl 4 mg 09/28/20 22:42 Ondansetron Hcl 4 Mg/2 Ml Vial IVPUSH Q8H PRN Nausea and Vomiting Prednisone 60 mg 10/10/20 09:00 10/17/20 09:27 Prednisone 20 Mg Tablet PO Not Given DAILY [facility] Sodium Bicarbonate 650 mg 10/03/20 15:00 10/17/20 16:38 Sodium Bicarbonate 650 Mg Tablet PO Not Given TID [facility] Sodium Chloride 3 ml 09/29/20 00:00 10/17/20 09:27 0.9 % Sodium Chloride Flush 3 Ml Syringe IVFLUSH 3 ml QSHIFT [facility] Administration Allergies Allergies Allergy/AdvReac Type Severity Reaction Status Date / Time No Known Allergies Allergy Verified 07/31/20 09:06 [No Known Allergies*] Assessment & Plan Assessment & Plan (1) Prostate cancer: Status: Acute Code(s): C61 - Malignant neoplasm of prostate Recommendations: continue to provide gentle encouragement when possible to take medications involve family and allow for phone calls when possible camera appropriate as patient has demonstrated impulsive behaviors in the past Greater than 50% of the session was spent on counseling and/or coordination of care
[2020-10-17 18:33] LABS: Glucose Urine UA NEG (NEG); Leukocyte Esterase Urine 2+ (NEG); Nitrite Urine NEG (NEG); PH 5.5 (5.0-8.0); UACC Culture Trigger YES; Urine Blood 3+ (NEG); Urine Ketones NEG (NEG); Urine Protein 2+ MG/DL (NEG-TRACE)
[2020-10-17 18:34] LABS: Appearance Urine HAZY; Color Urine YELLOW
[2020-10-17 18:41] LABS: Bacteria Urine 2+ /LPF; RBC Urine 30-49 /HPF (0); WBC Urine 30-49 /HPF (0-4)
[2020-10-17 19:27] VITALS: BP 133/79; PULSE 115; RESP 20; TEMP 39.3
[2020-10-18] VITALS (13 sets, daily range): BP systolic 111–134; BP diastolic 55–91; PULSE 80–120; RESP 16–19; TEMP 36–36.6; O2SAT 85–95; BMI 20.2
[2020-10-18] MEDS: Calcium Acetate 667 MG CAPSULE 1334 MG PO (09:47)
[2020-10-18] MEDS: calcitrioL 0.25 MCG CAPSULE PO (09:47)
[2020-10-18] MEDS: Atovaquone 750 MG/5 ML ORAL.SUSP 1500 MG PO (09:47)
[2020-10-18] MEDS: Sodium Bicarbonate 650 MG TABLET PO (09:47)
[2020-10-18] MEDS: Metoprolol Succinate ER 25 MG TAB.ER.24H 50 MG PO (09:47)
[2020-10-18] MEDS: 0.9 % Sodium Chloride Flush 3 ML SYRINGE IVFLUSH (09:48)
[2020-10-18] MEDS: predniSONE 20 MG TABLET 60 MG PO (09:48)
[2020-10-18 11:32] LABS: Blood Urea Nitrogen 124 mg/dL (9-16); Glucose Random 103 mg/dL (60-115)
[2020-10-18 11:33] LABS: Creatinine Clr Calc Pharmacy 7.7; Estimated Glomerular Filt Rate 7
[2020-10-18 11:46] LABS: Anion Gap 23 (12-20); Calcium 6.9 mg/dL (8.4-10.2); Carbon Dioxide 16 mmol/L (22-29); Chloride 103 mmol/L (96-108); Potassium 4.4 mmol/l (3.3-5.1); Sodium 138 mmol/L (135-145)
[2020-10-18 11:48] LABS: Procalcitonin 3.76 ng/mL
--- NOTE | 2020-10-18 12:54 | PM.PNNEP ---
Subjective Subjective Date of Service: 10/18/20 Interval history: Seen and examined. Refusing meds on/off Physical Exam Vital Signs: Vital Signs: Last Vital Signs Temp 97.8 F 10/18/20 08:00 Pulse 108 H 10/18/20 08:00 Resp 18 10/18/20 08:00 BP 122/77 10/18/20 08:00 Pulse Ox 85 L 10/18/20 09:51 Body Mass Index 20.2 Const: Other: awake BS bilat'RRR abd soft No edema General: cooperative, healthy appearing, comfortable, no acute distress, alert, awake and ill appearing Orientation/consciousness: oriented to person, oriented to place, oriented to time and patient oriented x3 Limitations: no limitations Eyes: General: appearance normal, both eyes and all related structures Neck: Neck: Yes normal visual inspection and Yes supple Carotids: normal carotid upstroke Lymphatic: no lymphadenopathy noted Resp: Effort & Inspection: normal respiratory effort and able to speak in complete sentences Auscultation: clear to auscultation bilaterally, rhonchi and diminished lung sounds Cardio: Other: awake BS bilat'RRR abd soft No edema Rate: regular rate Rhythm: regular rhythm Heart sounds: no rubs GI: Inspection: Yes normal to inspection Palpation (GI): Soft to palpation and No hepatosplenomegaly present Auscultation: normal bowel sounds Skin: General skin exam: no rashes or lesions noted Neuro: General: oriented to person, oriented to place, oriented to time, patient oriented x3 and moves all extremities Cognition (Neuro): normal cognition Motor exam (neuro): No Asterixis during motor activity present Extrem: General: Yes normal to inspection and Yes no pedal edema Objective Data Labs CBC & Chem 7: 10/16/20 08:05 10/18/20 10:15 Labs: Laboratory Results - last 24 hr 10/17/20 10/17/20 10/18/20 15:05 18:10 10:15 Sodium 138 Potassium 4.4 Chloride 103 Carbon Dioxide 16 L Anion Gap 23 H BUN 124 H* Creatinine 7.36 H* Estim Creat Clear Calc 7.7 Estimated GFR 7 Random Glucose 103 Calcium 6.9 L D Procalcitonin Urine Color YELLOW Urine Appearance HAZY Urine pH 5.5 Ur Specific [place] 1.020 Urine Protein 2+ H Urine Glucose (UA) NEG Urine Ketones NEG Urine Blood 3+ H Urine Nitrite NEG Ur Leukocyte Esterase 2+ H Urine RBC 30-49 H Urine WBC 30-49 H Ur Squamous Epith Cells NONE Urine Bacteria 2+ Urine Yeast 1+ COVID-19 (RADHA) Positive A COVID-19 Clin Com See Note 10/18/20 10:15 Sodium Potassium Chloride Carbon Dioxide Anion Gap BUN Creatinine Estim Creat Clear Calc Estimated GFR Random Glucose Calcium Procalcitonin 3.76 Urine Color Urine Appearance Urine pH Ur Specific [place] Urine Protein Urine Glucose (UA) Urine Ketones Urine Blood Urine Nitrite Ur Leukocyte Esterase Urine RBC Urine WBC Ur Squamous Epith Cells Urine Bacteria Urine Yeast COVID-19 (RADHA) COVID-19 Clin Com Microbiology Microbiology Results: Microbiology 10/17/20 18:35 Urine [place] Urine Culture - Final 10/16/20 00:00 Blood - Venous Blood Culture - Final 10/16/20 00:00 Blood - Venous Blood Culture - Final 09/28/20 10:04 Blood - Venous Blood Culture - Final No growth after 5 days. 09/28/20 09:26 Blood - Venous Blood Culture - Final No growth after 5 days. 09/28/20 00:00 Urine [place] Urine Culture - Final Assessment & Plan Assessment and plan (1) Acute renal failure: Status: Acute Assessment and Plan: 1. 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 Ques need for HD: may need to consider HD if SCr cont incr REC: 24 hr urine to measure Cr and Ur clear; possible Tuesday and start HD; get ID inut as to whether recent COVID infectin may impact giving second dose of rituxin, additinal will need to consider add on Pheresis and or cystoxan if cont no renal response to current immunosuppression will need to talk to family and PT to see how much treatment he wants given his refusal to take meds intermittently Time Spent With Patient Time: Total time spent is greater than 50% in coordination of care (as documented) at patient's floor/unit and/or counseling patient:
--- NOTE | 2020-10-18 15:40 | HO.PM.IMPN ---
Subjective Subjective Date of Service: 10/19/20 Interval History: Patient complaining of being cold, is more cooperative took his medication, says he wants to live and get better, COVID test came back positive. Unable to obtain detailed review of systems since patient not cooperative complaining of being cold and not feeling well generally. No nausea, vomiting or diarrhea noted. Physical Exam Vital Signs: Vital Signs: Last Vital Signs Temp 96.8 F 10/18/20 15:32 Pulse 100 10/18/20 15:32 Resp 19 10/18/20 15:32 BP 134/81 10/18/20 15:32 Pulse Ox 92 10/18/20 15:32 Body Mass Index 20.2 Constitutional : Alert, oriented, not in distress, legally blind Neck : Normal inspection Skin : No rash Lungs refusing to be examined Heart refused examination Abdomen refusing examining Neurological : No focal deficit, moving all 4 extremity Patient refused to be examined Objective Data Current Medications Generic Name Dose Route Start Last Admin Trade Name Freq PRN Reason Stop Dose Admin Acetaminophen 650 mg 09/28/20 22:42 10/17/20 20:21 Acetaminophen 325 Mg Tablet PO 650 mg Q6H PRN Administration Pain, Mild (Pain Scale 1-3) Albuterol Sulfate 2 puff 09/29/20 05:51 Albuterol Sulfate 90 Mcg 8 Gm Inhaler INHALE RQ4H PRN Shortness of Breath/Wheezing Atovaquone 1,500 mg 10/03/20 09:00 10/18/20 09:47 Atovaquone 750 Mg/5 Ml Oral.Susp PO 1,500 mg DAILY MATHEUS Administration Calcitriol 0.25 mcg 10/12/20 09:00 10/18/20 09:47 Calcitriol 0.25 Mcg Capsule PO 0.25 mcg DAILY MATHEUS Administration Calcium Acetate 1,334 mg 10/09/20 12:00 10/18/20 13:56 Calcium Acetate 667 Mg Capsule PO Not Given TIDWM MATHEUS Docusate Sodium 100 mg 09/28/20 22:42 Docusate Sodium 100 Mg Capsule PO DAILY PRN Constipation Cefepime HCl 0.25 gm/ Sodium 50 mls @ 100 mls/hr 10/17/20 18:00 10/17/20 20:32 Chloride IV Infused Q24H MATHEUS Infusion Metoprolol Succinate 50 mg 10/17/20 09:00 10/18/20 09:47 Metoprolol Succinate Er 25 Mg Tab.Er.24h PO 50 mg DAILY [facility] Administration Protocol Omeprazole 20 mg 10/12/20 16:30 10/18/20 05:49 Omeprazole 20 Mg Capsule. PO Not Given BID@[id number] [facility] Ondansetron HCl 4 mg 09/28/20 22:42 Ondansetron Hcl 4 Mg/2 Ml Vial IVPUSH Q8H PRN Nausea and Vomiting Prednisone 60 mg 10/10/20 09:00 10/18/20 09:48 Prednisone 20 Mg Tablet PO 60 mg DAILY MATHEUS Administration Sodium Bicarbonate 650 mg 10/03/20 15:00 10/18/20 09:47 Sodium Bicarbonate 650 Mg Tablet PO 650 mg TID MATHEUS Administration Sodium Chloride 3 ml 09/29/20 00:00 10/18/20 09:48 0.9 % Sodium Chloride Flush 3 Ml Syringe IVFLUSH 3 ml QSHIFT MATHEUS Administration Labs CBC & Chem 7: 10/19/20 08:20 10/19/20 08:20 Microbiology Microbiology Results: Microbiology 10/17/20 18:35 Urine [place] Urine Culture - Final 10/16/20 00:00 Blood - Venous Blood Culture - Final 10/16/20 00:00 Blood - Venous Blood Culture - Final 09/28/20 10:04 Blood - Venous Blood Culture - Final No growth after 5 days. 09/28/20 09:26 Blood - Venous Blood Culture - Final No growth after 5 days. 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 (2) Acute blood loss anemia: Status: Acute (3) GI bleed: Status: Acute (4) Acute renal failure: Status: Acute (5) Metabolic encephalopathy: Status: Acute (6) Seizure disorder: Status: Acute (7) Mild pulmonary hypertension: Status: Acute (8) Chronic diastolic (congestive) heart failure: Status: Acute (9) Paroxysmal atrial fibrillation: Status: Acute (10) UTI (urinary tract infection): Status: Acute (11) Metabolic acidosis: Status: Acute (12) Acute on chronic anemia: Status: Acute (13) Neurogenic urinary bladder disorder: Status: Acute (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 patient took medications this morning, s/p hemodialysis, subsequently patient removed dialysis catheter Creatinine noted to be above 7 today, in last 1 week was between 6 and 7 patient on prednisone 60 mg daily received 1 dose of Rituxan, 2nd dose was due on 10 16 but due to high-grade fever Rituxan was held now COVID positive, case discussed with Dr. Singh he recommend ID consultation to check if patient is a candidate for Rituxan continue prilosec for gi prophylaxis,atovaquone for pcp prophylaxis,s/p pulse steroid therapy with 500 mg daily for 3/3 days now on prednisone 60 mg daily, continue oral bicarb and calcium acetate spoke with patient's family including patient's brother Jim and his Moraima at [phone] and updated them about patient's condition and inform them about new diagnosis of COVID and informed them about worsening renal function, if renal function continue to deteriorate then patient will be considered for hemodialysis. Sepsis due COVID-19/pneumonia Had Fever and tachycardia now resolved, chest x-ray showed bilateral infiltrate , COVID test positive, since patient procalcitonin is 3.76 will continue IV antibiotic Cefepime renally dose Patient declined blood culture, urine culture grew mixed bacterial shiva Acute hypoxic respiratory failure due to COVID-19 O2 sat dropped down to 85 therefore placed on 4-6 L of oxygen by nasal cannula continue supportive care, with cough medication IV antibiotic, patient on by mouth prednisone high-dose Consult ID for further treatment and evaluation. Metabolic encephalopathy Resolved Was likely Secondary to uremia, medications and hospital stay. Will avoid Ativan, Haldol for now Seizure incident Reported Witnessed seizure episode in the hospital,CT scan was negative for any acute findings, Likely secondary to uremia Neurology input appreciated, they recommend no antiepilepsy medications BPH history of prostate cancer, history of bladder cancer. cont. Chronic Rivera catheter acute blood loss anemia due to GIB had 2 episodes of lower GI bleed, likely from PLT dysfunction from uremia and underlying colon Disorder Tagged RBC negative 10/10, s/p 4 units of packed RBC, hematocrit trending down but remains stable follow hematocrit closely GI input appreciated, patient refused colonoscopy, will continue with conservative measures with PPI and close H&H monitoring Paroxysmal afib Patient noted to be in atrial fibrillation with rapid response, treated with IV Lopressor and continued on Toprol-XL increased from 25 mg to 50 mg not on AC due to concern over gi bleed chronic diastolic chf lasix on hold, no evidence of fluid overload DVT prophylaxis SCDs
[2020-10-18] MEDS: LORazepam 2 MG/ML VIAL 1 MG IVPUSH (23:55)
--- NOTE | 2020-10-19 00:21 | PC.NURSE ---
pt removing oxygen and telepack refusing to put them back on swinging at staff when the attempt to apply oxygen. pt stating if i wake up in heaven then I wake up in heaven verbally abusive towards staff. multiple attempts to educate pt about covid status and the need for supplemental oxygen. Pt coninues to refuse and be rude to staff. made aware new order for 0.5mg ativan. admin with good effect. pt placed back on telepack and 6L NC. HR 94 02 sat 94%.
[2020-10-19] MEDS: 0.9 % Sodium Chloride Flush 3 ML SYRINGE IVFLUSH ×3 (01:03→16:00)
[2020-10-19 03:13] VITALS: BP 128/79; PULSE 100; RESP 18; TEMP 37.1; O2SAT 92
[2020-10-19 07:09] VITALS: BP 117/77; PULSE 106; RESP 20; TEMP 37.1; O2SAT 89
[2020-10-19 08:35] LABS: Hemoglobin 12.4 g/dl (14.0-18.0)
[2020-10-19 08:57] LABS: Calcium 7.3 mg/dL (8.4-10.2); Glucose Random 189 mg/dL (60-115)
[2020-10-19 09:09] LABS: Anion Gap 26 (12-20); Carbon Dioxide 15 mmol/L (22-29); Chloride 103 mmol/L (96-108); Potassium 5.4 mmol/l (3.3-5.1); Sodium 139 mmol/L (135-145)
[2020-10-19 09:13] LABS: Blood Urea Nitrogen 132 mg/dL (9-16); Estimated Glomerular Filt Rate 6
[2020-10-19] MEDS: calcitrioL 0.25 MCG CAPSULE PO (09:16)
[2020-10-19] MEDS: guaiFENesin LA 600 MG TAB.ER.12H PO (09:16)
[2020-10-19] MEDS: predniSONE 20 MG TABLET 60 MG PO (09:17)
[2020-10-19 09:18] VITALS: BP 117/77; PULSE 106
[2020-10-19] MEDS: Calcium Acetate 667 MG CAPSULE 1334 MG PO (09:18)
[2020-10-19] MEDS: Metoprolol Succinate ER 25 MG TAB.ER.24H 50 MG PO (09:18)
[2020-10-19] MEDS: Sodium Bicarbonate 650 MG TABLET PO (09:19)
[2020-10-19] MEDS: Atovaquone 750 MG/5 ML ORAL.SUSP 1500 MG PO (09:19)
[2020-10-19 11:46] VITALS: PULSE 88; O2SAT 91
[2020-10-19 12:00] VITALS: O2SAT 92
--- NOTE | 2020-10-19 12:32 | P.PNIM_ITS ---
Subjective Subjective Date of Service: 10/20/20 Interval History: Patient awake alert appears confused, remains uncooperative took am medications but refused pm medications and expressed that he wants to in peace. Unable to obtain a detailed review of systems since not cooperative in providing history, keep asking for juice. Physical Exam Vital Signs: Vital Signs: Last Vital Signs Temp 98.8 F 10/19/20 07:09 Pulse 88 10/19/20 11:46 Resp 20 10/19/20 07:09 BP 117/77 10/19/20 09:18 Pulse Ox 92 10/19/20 12:00 Body Mass Index 20.2 Resting in bed curled up, no respiratory distress noted Neck is supple no JVD heart regular lung clear to auscultation, no wheeze or rhonchi Extremities no edema Skin no rash Neuro moving all 4 extremities, speech clear Objective Data Current Medications Generic Name Dose Route Start Last Admin Trade Name Freq PRN Reason Stop Dose Admin Acetaminophen 650 mg 09/28/20 22:42 10/17/20 20:21 Acetaminophen 325 Mg Tablet PO 650 mg Q6H PRN Administration Pain, Mild (Pain Scale 1-3) Albuterol Sulfate 2 puff 09/29/20 05:51 Albuterol Sulfate 90 Mcg 8 Gm Inhaler INHALE RQ4H PRN Shortness of Breath/Wheezing Atovaquone 1,500 mg 10/03/20 09:00 10/19/20 09:19 Atovaquone 750 Mg/5 Ml Oral.Susp PO 1,500 mg DAILY MATHEUS Administration Calcitriol 0.25 mcg 10/12/20 09:00 10/19/20 09:16 Calcitriol 0.25 Mcg Capsule PO 0.25 mcg DAILY MATHEUS Administration Calcium Acetate 1,334 mg 10/09/20 12:00 10/19/20 09:18 Calcium Acetate 667 Mg Capsule PO 1,334 mg TIDWM MATHEUS Administration Docusate Sodium 100 mg 09/28/20 22:42 Docusate Sodium 100 Mg Capsule PO DAILY PRN Constipation Guaifenesin 600 mg 10/18/20 21:00 10/19/20 09:16 Guaifenesin La 600 Mg Tab.Er.12h PO 600 mg BID MATHEUS Administration Cefepime HCl 0.25 gm/ Sodium 50 mls @ 100 mls/hr 10/17/20 18:00 10/18/20 18:56 Chloride IV Infused Q24H [facility] Infusion Metoprolol Succinate 50 mg 10/17/20 09:00 10/19/20 09:18 Metoprolol Succinate Er 25 Mg Tab.Er.24h PO 50 mg DAILY MATHEUS Administration Protocol Omeprazole 20 mg 10/12/20 16:30 10/19/20 06:03 Omeprazole 20 Mg Capsule. PO Not Given BID@[id number] [facility] Ondansetron HCl 4 mg 09/28/20 22:42 Ondansetron Hcl 4 Mg/2 Ml Vial IVPUSH Q8H PRN Nausea and Vomiting Prednisone 60 mg 10/10/20 09:00 10/19/20 09:17 Prednisone 20 Mg Tablet PO 60 mg DAILY MATHEUS Administration Sodium Bicarbonate 650 mg 10/03/20 15:00 10/19/20 09:19 Sodium Bicarbonate 650 Mg Tablet PO 650 mg TID MATHEUS Administration Sodium Chloride 3 ml 09/29/20 00:00 10/19/20 09:16 0.9 % Sodium Chloride Flush 3 Ml Syringe IVFLUSH 3 ml QSHIFT MATHEUS Administration Labs CBC & Chem 7: 10/19/20 08:20 10/19/20 08:20 Microbiology Microbiology Results: Microbiology 10/17/20 18:35 Urine [place] Urine Culture - Final 10/16/20 00:00 Blood - Venous Blood Culture - Final 10/16/20 00:00 Blood - Venous Blood Culture - Final 09/28/20 10:04 Blood - Venous Blood Culture - Final No growth after 5 days. 09/28/20 09:26 Blood - Venous Blood Culture - Final No growth after 5 days. 09/28/20 00:00 Urine [place] Urine Culture - Final Assessment and Plan (1) Acute blood loss anemia: Status: Acute (2) RPGN (rapidly progressive glomerulonephritis): Status: Acute (3) Acute renal failure: Status: Acute (4) GI bleed: Status: Acute (5) Metabolic encephalopathy: Status: Acute (6) Seizure disorder: Status: Acute (7) Mild pulmonary hypertension: Status: Acute (8) Chronic diastolic (congestive) heart failure: Status: Acute (9) Paroxysmal atrial fibrillation: Status: Acute (10) UTI (urinary tract infection): Status: Acute (11) Metabolic acidosis: Status: Acute (12) Acute on chronic anemia: Status: Acute (13) Neurogenic urinary bladder disorder: Status: Acute (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 Creatinine trending up today above [address] Singh he is planning on PermCath placement tomorrow morning therefore will keep patient NPO Continue prednisone dosage being adjusted per Nephro, await ID input regarding use of IV Rituxan continue prilosec for gi prophylaxis,atovaquone for pcp prophylaxis,continue oral bicarb and calcium acetate however patient refusing to take medication Patient again sound depressed today refusing meds and expressing that he wishes to in peace. Called patient's brother Jim and his Moraima at [phone] and left message they have been informed about COVID infection yesterday Sepsis due COVID-19/pneumonia Had Fever and tachycardia now resolved, chest x-ray showed bilateral infiltrate , COVID test positive, since patient procalcitonin is 3.76 will continue IV antibiotic Cefepime renally dose Patient declined blood culture, urine culture grew mixed bacterial shiva Acute hypoxic respiratory failure due to COVID-19 O2 sat around 90 on 6 L of oxygen,continue supportive care, with cough medication IV antibiotic, patient on by mouth prednisone high-dose, continue close monitoring Consult ID for further treatment and evaluation. Metabolic encephalopathy Appears confused this morning repeating that his brother is coming to pick him, later more clear but refusing medication. Intermittent confusion likely related to uremia, steroids and infection Continue close follow-up, Will avoid Ativan, Haldol for now Seizure incident No recurrent seizures, Witnessed seizure episode in the hospital,CT scan was negative for any acute findings, Likely secondary to uremia Neurology input appreciated, they recommend no antiepilepsy medications BPH history of prostate cancer, history of bladder cancer. cont. Chronic Rivera catheter acute blood loss anemia due to GIB had 2 episodes of lower GI bleed, likely from PLT dysfunction from uremia and underlying colon Disorder Tagged RBC negative 10/10, s/p 4 units of packed RBC, hematocrit trending down but remains stable follow hematocrit closely GI input appreciated, patient refused colonoscopy, will continue with conservative measures with PPI and close H&H monitoring Paroxysmal afib Patient noted to be in atrial fibrillation with rapid response, treated with IV Lopressor and continued on Toprol-XL 50 mg not on AC due to concern over gi bleed chronic diastolic chf lasix on hold, no evidence of fluid overload DVT prophylaxis SCDs
[2020-10-19] MEDS: Sodium Polystyrene Sulfon/Sorb 15 GM/60 ML ORAL.SUSP PO (12:42)
--- NOTE | 2020-10-19 15:31 | PC.NURSE ---
Patient experiencing periods of confusing. Reports that he walked six miles last night and My brother is on his way here to pick me up. Patient refusing some of his medications. refusing to eat food that he specifically requested. Drinking some fluids. Making negative statements and saying he will no longer take medications and I am lisa I made it to 81. If my body can't stay alive on its own, then its time for me to . MD notified of behaviors, confusion and patient's statements.
[2020-10-19 15:57] VITALS: BP 156/85; PULSE 96; RESP 20; TEMP 36.3; O2SAT 96
--- NOTE | 2020-10-19 19:09 | P.PNNP_ITS ---
Subjective Subjective Date of Service: 10/19/20 Interval history: seen and examined. events noted Physical Exam Vital Signs: Vital Signs: Last Vital Signs Temp 97.3 F 10/19/20 15:57 Pulse 96 10/19/20 15:57 Resp 20 10/19/20 15:57 BP 156/85 H 10/19/20 15:57 Pulse Ox 96 10/19/20 15:57 Body Mass Index 20.2 Const: Other: awake BS bilat'RRR abd soft No edema General: cooperative, healthy appearing, comfortable, no acute distr ess, alert, awake and ill appearing Orientation/consciousness: oriented to person, oriented to place, oriented to time and patient oriented x3 Limitations: no limitations Eyes: General: appearance normal, both eyes and all related structures Neck: Neck: Yes normal visual inspection and Yes supple Carotids: normal carotid upstroke Lymphatic: no lymphadenopathy noted Resp: Effort & Inspection: normal respiratory effort and able to speak in complete sentences Auscultation: clear to auscultation bilaterally, rhonchi and diminished lung sounds Cardio: Other: awake BS bilat'RRR abd soft No edema Rate: regular rate Rhythm: regular rhythm Heart sounds: no rubs GI: Inspection: Yes normal to inspection Palpation (GI): Soft to palpation and No hepatosplenomegaly present Auscultation: normal bowel sounds Skin: General skin exam: no rashes or lesions noted Neuro: General: oriented to person, oriented to place, oriented to time, patient oriented x3 and moves all extremities Cognition (Neuro): normal cognition Motor exam (neuro): No Asterixis during motor activity present Extrem: General: Yes normal to inspection and Yes no pedal edema Objective Data Labs CBC & Chem 7: 10/19/20 08:20 10/19/20 08:20 Labs: Laboratory Results - last 24 hr 10/19/20 10/19/20 08:20 08:20 Hgb 12.4 L D Hct 38.0 L D Sodium 139 Potassium 5.4 H D Chloride 103 Carbon Dioxide 15 L Anion Gap 26 H BUN 132 H* Creatinine 8.08 H* Estim Creat Clear Calc 7.0 Estimated GFR 6 Random Glucose 189 H D Calcium 7.3 L Microbiology Microbiology Results: Microbiology 10/17/20 18:35 Urine [place] Urine Culture - Final 10/16/20 00:00 Blood - Venous Blood Culture - Final 10/16/20 00:00 Blood - Venous Blood Culture - Final 09/28/20 10:04 Blood - Venous Blood Culture - Final No growth after 5 days. 09/28/20 09:26 Blood - Venous Blood Culture - Final No growth after 5 days. 09/28/20 00:00 Urine [place] Urine Culture - Final Assessment & Plan Assessment and plan (1) Acute renal failure: Status: Acute Assessment and Plan: 1. 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 Need for HD: with incr Scr will plan on pcath in am and start HD tomorrow 3. Hyperk; kayexlate x 1 today and low k diet REC: Pcath Tuesday and start HD; get ID input as to whether recent COVID infectin may impact giving second dose of rituxin, additinal will need to consider add on Pheresis and or cytoxan given lack of renal response to current immunosuppression... 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
[2020-10-20] VITALS (12 sets, daily range): BP systolic 105–163; BP diastolic 51–88; PULSE 11–136; RESP 18–20; TEMP 36.2–36.6; O2SAT 88–95
--- NOTE | 2020-10-20 | XR_ITS ---
EXAMINATION: XR CHEST CLINICAL INFORMATION: Chest x-ray. Respiratory distress. Hypoxia. COMPARISON: Chest x-ray 10/16/2020. CT chest 09/28/2020 TECHNIQUE: Frontal portable view of the chest was obtained. 9:08 PM FINDINGS: Persistent diffuse airspace opacities in the lungs. All lobes are involved. Severity is similar to prior chest x-ray but new since the CT of the chest. Most consistent with inflammatory or infectious etiology. No pleural effusion or pneumothorax. Cardiac and mediastinal contours are unchanged. There is no pulmonary vascular congestion. XR/XR chest 1V IMPRESSION: No significant change in bilateral airspace opacities since chest x-ray of 10/16/2020.
[2020-10-20] MEDS: 0.9 % Sodium Chloride Flush 3 ML SYRINGE IVFLUSH ×3 (02:55→15:39)
--- NOTE | 2020-10-20 10:51 | P.PNNP_ITS ---
Subjective Subjective Date of Service: 10/20/20 Interval history: seen and examined. events noted Refusing meds intermittently and does not appear competent to me Pcath scheduled ffor today on hold until competency sorted out...His brother Serge wants him to get HD Physical Exam Vital Signs: Vital Signs: Last Vital Signs Temp 97.6 F 10/20/20 07:15 Pulse 110 H 10/20/20 07:15 Resp 19 10/20/20 07:15 BP 148/70 H 10/20/20 07:15 Pulse Ox 90 L 10/20/20 07:15 Body Mass Index 20.2 Const: Other: awake BS bilat'RRR abd soft No edema General: cooperative, healthy appearing, comfortable, no acute distress, alert, awake and ill appearing Orientation/consciousness: oriented to person, oriented to place, oriented to time and patient oriented x3 Limitations: no limitations Eyes: General: appearance normal, both eyes and all related structures Neck: Neck: Yes normal visual inspection and Yes supple Carotids: normal carotid upstroke Lymphatic: no lymphadenopathy noted Resp: Effort & Inspection: normal respiratory effort and able to speak in complete sentences Auscultation: clear to auscultation bilaterally, rhonchi and diminished lung sounds Cardio: Other: awake BS bilat'RRR abd soft No edema Rate: regular rate Rhythm: regular rhythm Heart sounds: no rubs GI: Inspection: Yes normal to inspection Palpation (GI): Soft to palpation and No hepatosplenomegaly present Auscultation: normal bowel sounds Skin: General skin exam: no rashes or lesions noted Neuro: General: oriented to person, oriented to place, oriented to time, patient oriented x3 and moves all extremities Cognition (Neuro): normal cognition Motor exam (neuro): No Asterixis during motor activity present Extrem: General: Yes normal to inspection and Yes no pedal edema Objective Data Labs CBC & Chem 7: 10/19/20 08:20 10/19/20 08:20 Microbiology Microbiology Results: Microbiology 10/17/20 18:35 Urine [place] Urine Culture - Final 10/16/20 00:00 Blood - Venous Blood Culture - Final 10/16/20 00:00 Blood - Venous Blood Culture - Final 09/28/20 10:04 Blood - Venous Blood Culture - Final No growth after 5 days. 09/28/20 09:26 Blood - Venous Blood Culture - Final No growth after 5 days. 09/28/20 00:00 Urine [place] Urine Culture - Final Assessment & Plan Assessment and plan (1) Acute renal failure: Status: Acute Assessment and Plan: 1. 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 Need for HD: with incr Scr will plan on pcath in am and start HD tomorrow 3. Hyperk; kayexlate x 1 today and low k diet Disc: not responding thus far to IS for his ANCA RPGN is concerning, I rereviewed the prior Bx and there is signif amount of scsrring and sayra-hosp renal func dates back to 2019 SCr 1.4 He was suppose to get Pcath today but on hold as he is refusing and its unclear if he is competent..his brother Serge is his Hpxy and he wants [place] to get HD REC: psych to c and assess for competency; get ID input as to whether recent COVID infectin may impact giving second dose of rituxin Time Spent With Patient Time: Total time spent is greater than 50% in coordination of care (as documented) at patient's floor/unit and/or counseling patient:
--- NOTE | 2020-10-20 11:49 | MHC.CM.PN ---
Patient is on IV Cefepime for UTI and requiring 8 liters O2 for COVID 19. Plan was to have permacath placed today for HD is on hold, r/t patient is refusing. Valerie toussaint ordered to question competency. Also waiting for ID cons to question if IV Rituxan for cancer should continue. [facility] is following, difficult placement r/t to cost of IV Rituxan. CM will continue to follow patient for discharge need.
[2020-10-20] MEDS: Metoprolol Tartrate 5 MG in 0.9 % Sodium Chloride 50 ML 220 MG IV ×3 (11:59→21:04)
--- NOTE | 2020-10-20 12:53 | PM.PSYCN ---
History of Present Illness Date of Service: 10/20/2020 Chief Complaint: TEMPORARY DIALYSIS CATH Reason for Consult: capacity evaluation patient refusing procedure to have HD catheter placed Requesting physician: Yisel Dennis Discussed with referring provider: No Sources of Information: patient interviewed and chart reviewed HPI Narrative: Patient is a 80 year old male with multiple health concerns, currently medically admitted with renal failure. Was scheduled to have HD catheter replaced today as he removed his previous one, and procedure cancelled as he refused. Capacity eval requested to determine if patient has capacity to make decision to have procedure or to refuse. He has been intermittently refusing medications during this admission, overall irritable and requesting to be left alone. Notes reviewed and discussion with RN caring for patient reveals that patient is intermittently disoriented to place (believes he is in his apt), he has periods of clarity when he requests things such as a shave and then suddenly begins to swing at clinical staff. During interview today, patient initially with blanket over his head, but willing to talk to this quality analyst/technical writer. Eventually pulled blanket down, he was observed trying to put nasal canula in his mouth, redirected a couple of times by this quality analyst/technical writer to put back in his nose, patient unable to comprehend and this quality analyst/technical writer place nasal cannula back in his nose. When asked about why he declined procedure patient stating ?why do that again, it did not work the 1st time, why should I do it again?. When asked if he could articulate the risks of not having this procedure he replied, ?I do not care, it did not work before?. When asked what he wanted patient replied, ?I just want to be left alone, my body is done it is done, we have already tried this before and it did not work, I know my little brother wants this but I do not?. He is frustrated when asked about where he currently is and why, I know, I know, I'm in the hospital how many times are you going to ask me that?! Pt then asked for something to drink and stated that he has a lot of food in his refrigerator and people just don;t want to give it to him Past Psychiatric History: unknown [facility] Medical History Anal polyp Bladder outlet obstruction Chronic diastolic (congestive) heart failure Diverticulitis large intestine Malignant neoplasm of sigmoid colon Mild pulmonary hypertension Paroxysmal atrial fibrillation Personal history of colon cancer Tubular adenoma of colon Diagnostics Vital Signs (24Hr): Vital Signs - 24 hr 10/19/20 15:57 10/20/20 00:00 10/20/20 03:08 Temperature 97.3 F 97.8 F 97.5 F Pulse Rate 96 127 H 84 Respiratory Rate 20 18 18 Blood Pressure 156/85 H 151/78 H 155/77 H Pulse Oximetry 96 90 L 91 L 10/20/20 07:15 10/20/20 11:21 10/20/20 11:59 Temperature 97.6 F 98 F Pulse Rate 110 H 11 L 118 H Respiratory Rate 19 20 Blood Pressure 148/70 H 140/72 H 140/72 H Pulse Oximetry 90 L 90 L Body Mass Index 20.2 Labs Results: 10/19/20 08:20 10/19/20 08:20 Labs: Laboratory Results - last 48 hr 10/19/20 10/19/20 08:20 08:20 Hgb 12.4 L D Hct 38.0 L D Sodium 139 Potassium 5.4 H D Chloride 103 Carbon Dioxide 15 L Anion Gap 26 H BUN 132 H* Creatinine 8.08 H* Estim Creat Clear Calc 7.0 Estimated GFR 6 Random Glucose 189 H D Calcium 7.3 L Imaging Radiology Impressions: ITS Impressions Chest X-Ray 09/28/20 08:56 IMPRESSION: No acute pneumonic process. Nonspecific mild increase in bilateral hilar interstitial markings. Abdomen/Pelvis CT 09/28/20 10:29 IMPRESSION: Hyperinflated lungs with multiple bilateral pulmonary nodules in the range of 2 to 4 mm. No acute pneumonic consolidation. Enlarged left thyroid gland with substernal nodular extension mildly compressing the trachea but no major compromise. Left pelvic moderate size mass likely enlarged lymph node. Due to lack of IV contrast aneurysm should be considered in the differential diagnosis. There is a cystic lesion in between the iliac crest and psoas muscle in the left upper pelvis likely a seroma or lymphocele. This is a new finding since 2015 CT exam dated Rivera's catheter in an empty bladder. Minimal bladder wall thickening is suspected. There are surgical alcira the prostate bed question radiation beads versus postsurgical alcira. Correlate with clinical exam Chest CT 09/28/20 10:29 IMPRESSION: Hyperinflated lungs with multiple bilateral pulmonary nodules in the range of 2 to 4 mm. No acute pneumonic consolidation. Enlarged left thyroid gland with substernal nodular extension mildly compressing the trachea but no major compromise. Left pelvic moderate size mass likely enlarged lymph node. Due to lack of IV contrast aneurysm should be considered in the differential diagnosis. There is a cystic lesion in between the iliac crest and psoas muscle in the left upper pelvis likely a seroma or lymphocele. This is a new finding since 2015 CT exam dated Rivera's catheter in an empty bladder. Minimal bladder wall thickening is suspected. There are surgical alcira the prostate bed question radiation beads versus postsurgical alcira. Correlate with clinical exam Pulmonary Perfusion Imaging 09/28/20 11:51 IMPRESSION: Normal perfusion of both lungs. Renal Biopsy CT 10/03/20 00:00 IMPRESSION: CT-guided left renal biopsy. Guidance Ultrasound 10/06/20 00:00 IMPRESSION: Successful ultrasound and fluoroscopy guided placement of right jugular temporary AV dialysis catheter. The catheter is ready for use for dialysis. FLUOROSCOPY TIME: 0.5 minutes. IMAGES: 1. Head CT 10/06/20 00:00 IMPRESSION: No acute intracranial pathology. Chronic volume loss with small vessel ischemic change. Insertion Non-Tunneled Catheter 10/06/20 00:00 IMPRESSION: Successful ultrasound and fluoroscopy guided placement of right jugular temporary AV dialysis catheter. The catheter is ready for use for dialysis. FLUOROSCOPY TIME: 0.5 minutes. IMAGES: 1. GI Bleed Scan Nuclear Medicine 10/10/20 00:00 IMPRESSION: No gastrointestinal hemorrhage is identified. Chest X-Ray 10/16/20 00:00 IMPRESSION: Increased patchy opacities throughout the right lung and at the left base could be infectious or inflammatory. Mental Status Exam Mental Status Exam Patient Appearance: Disheveled Patient Orientation: Person, Place (fluctuates ) and Situation (somewhat) Level of Consciousness: Awake and Alert Patient Behavior: Uncooperative Mood Description: Angry Affect Description: Angry Patient Cognition Impaired: Yes Ability to Follow Directions: Fair Speech Pattern: Loud Thought Process: Confusion Thought Content: positive for [place] Judgement: Poor Medications Medications Current Medications Generic Name Dose Route Start Last Admin Trade Name Freq PRN Reason Stop Dose Admin Acetaminophen 650 mg 09/28/20 22:42 10/17/20 20:21 Acetaminophen 325 Mg Tablet PO 650 mg Q6H PRN Administration Pain, Mild (Pain Scale 1-3) Albuterol Sulfate 2 puff 09/29/20 05:51 Albuterol Sulfate 90 Mcg 8 Gm Inhaler INHALE RQ4H PRN Shortness of Breath/Wheezing Atovaquone 1,500 mg 10/03/20 09:00 10/20/20 08:40 Atovaquone 750 Mg/5 Ml Oral.Susp PO Not Given DAILY [facility] Calcitriol 0.25 mcg 10/12/20 09:00 10/20/20 08:40 Calcitriol 0.25 Mcg Capsule PO Not Given DAILY [facility] Calcium Acetate 1,334 mg 10/09/20 12:00 10/20/20 08:40 Calcium Acetate 667 Mg Capsule PO Not Given TIDWM [facility] Docusate Sodium 100 mg 09/28/20 22:42 Docusate Sodium 100 Mg Capsule PO DAILY PRN Constipation Guaifenesin 600 mg 10/18/20 21:00 10/20/20 08:40 Guaifenesin La 600 Mg Tab.Er.12h PO Not Given BID [facility] Cefepime HCl 0.25 gm/ Sodium 50 mls @ 100 mls/hr 10/17/20 18:00 10/19/20 19:05 Chloride IV Infused Q24H [facility] Infusion Metoprolol Tartrate 5 mg/ 55 mls @ 220 mls/hr 10/20/20 11:00 10/20/20 11:59 Sodium Chloride IV 220 mls/hr Q6H [facility] Administration Omeprazole 20 mg 10/12/20 16:30 10/20/20 06:24 Omeprazole 20 Mg Capsule.Dr PO Not Given BID@0630,1630 [facility] Ondansetron HCl 4 mg 09/28/20 22:42 Ondansetron Hcl 4 Mg/2 Ml Vial IVPUSH Q8H PRN Nausea and Vomiting Prednisone 40 mg 10/20/20 09:00 10/20/20 08:40 Prednisone 20 Mg Tablet PO Not Given DAILY [facility] Sodium Bicarbonate 1,300 mg 10/19/20 21:00 10/20/20 08:41 Sodium Bicarbonate 650 Mg Tablet PO Not Given TID [facility] Sodium Chloride 3 ml 09/29/20 00:00 10/20/20 08:33 0.9 % Sodium Chloride Flush 3 Ml Syringe IVFLUSH 3 ml QSHIFT [facility] Administration Allergies Allergies Allergy/AdvReac Type Severity Reaction Status Date / Time No Known Allergies Allergy Verified 07/31/20 09:06 [No Known Allergies*] Assessment & Plan Assessment & Plan (1) Acute renal failure: Qualifiers: Acute renal failure type: unspecified Qualified Code(s): N17.9 - Acute kidney failure, unspecified Status: Acute Code(s): N17.9 - Acute kidney failure, unspecified Recommendations: Based on chart review, patient interview, collateral from clinical team patient does not appear to have capacity to make medical decisions. While he is vocal about his desire to not have any medical interventions, he is also showing signs of delirium and confusion and unable to appreciate risks/benefits of treatment or refusal of treatment. Greater than 50% of the session was spent on counseling and/or coordination of care
--- NOTE | 2020-10-20 15:06 | W.PM.IDCN ---
History of Present Illness Data of Consult Service Date: 10/20/20 Requesting physician: Yisel Dennis Primary Care Provider: Gerardo Britt MD HPI Reason for consult: COVID He presents to hospital with worsening fatigue and chills as well as shortness of breath. He has had symptoms along with lack of taste since September 25 seen in ER but do not see COVID tests before Oct 17 He is receiving workup for vasculitis Review of Systems Review of Systems: Yes all other systems are reviewed and are negative PMFSH Past Medical History Medical History Anal polyp Bladder outlet obstruction Chronic diastolic (congestive) heart failure COVID-19 Diverticulitis large intestine Malignant neoplasm of sigmoid colon Mild pulmonary hypertension Paroxysmal atrial fibrillation Personal history of colon cancer Tubular adenoma of colon Family History Family History Father No problems noted. Mother Family history of cervical cancer Family history: reviewed and not pertinent Social History Social History Household Members: Other Housing: Assisted Living Facility Alcohol intake: current Alcohol intake frequency: holidays/special occasions only Alcohol type: beer Smoking Status: Former smoker service: No Current occupational status: retired Meds Allergies Allergy/AdvReac Type Severity Reaction Status Date / Time No Known Allergies Allergy Verified 07/31/20 09:06 [No Known Allergies*] Home Medications Medication Instructions Recorded Confirmed Type furosemide 20 mg PO BID 09/28/20 09/28/20 History metoprolol succinate 25 mg PO DAILY 09/28/20 09/28/20 History simvastatin 20 mg PO DAILY 09/28/20 09/28/20 History Physical Exam Vital Signs: Vital Signs: Last Vital Signs Temp 98 F 10/20/20 11:21 Pulse 118 H 10/20/20 11:59 Resp 20 10/20/20 11:21 BP 140/72 H 10/20/20 11:59 Pulse Ox 90 L 10/20/20 11:21 Body Mass Index 20.2 Const: General: cooperative HENMT: Head: Yes normal to inspection Mouth: Normal oral and palatal mucosa present Eyes: General: appearance normal, both eyes and all related structures Resp: Effort & Inspection: normal respiratory effort Cardio: Rate: regular rate Rhythm: regular rhythm GI: Palpation (GI): Soft to palpation and nontender Skin: General skin exam: no rashes or lesions noted Assessment and Plan (1) RPGN (rapidly progressive glomerulonephritis): Status: Acute (2) COVID-19: Problem details: He has COVID-19 of unknown onset He has had abnormal taste mentioned ER note 09/25 He has some hypoxia and is on 6 liters nasal cannula He has acute kidney injury and is in need of treatment for it Status: Acute Would hold Remdesivir due to creatinine clearance under 30 Can give Dexamethasone If able would not use CD20 target antibody medications such as Rituximab due to recent data noting their association with prolonged shedding of ACTIVE COVID rna for periods of time up to 120 days This would be concerning especially since would not use Remdesivir for creatinine clearance under 30 Oxygen support as needed Results Labs CBC & Chem 7: 10/26/20 06:04 10/26/20 06:04 Microbiology Microbiology Results: Microbiology 10/17/20 18:35 Urine Rivera Port Urine Culture - Final 10/16/20 00:00 Blood - Venous Blood Culture - Final 10/16/20 00:00 Blood - Venous Blood Culture - Final 09/28/20 10:04 Blood - Venous Blood Culture - Final No growth after 5 days. 09/28/20 09:26 Blood - Venous Blood Culture - Final No growth after 5 days. 09/28/20 00:00 Urine [place] Port Urine Culture - Final
--- NOTE | 2020-10-20 15:46 | P.PNIM_ITS ---
Subjective Subjective Date of Service: 10/22/20 Interval History: Patient offers no acute complaints keeps repeating that he wants shake, despite questioning multiple times if he wishes to proceed with dialysis patient answers he wants a Shake, patient continue to refuse medication therefore noted to have elevated pulse and blood pressure. Unable to obtain meaningful review of system since patient appears confused Physical Exam Vital Signs: Vital Signs: Last Vital Signs Temp 97.5 F 10/20/20 15:42 Pulse 74 10/20/20 15:42 Resp 20 10/20/20 15:42 BP 105/71 10/20/20 15:42 Pulse Ox 90 L 10/20/20 15:42 Body Mass Index 20.2 General Resting in bed comfortably,no respiratory distress noted, talking in full sentences Neck is supple no JVD heart regular, rate rhythm lung clear to auscultation, no wheeze or rhonchi, no respiratory distress Extremities no edema Skin no rash Neuro moving all 4 extremities, speech clear Objective Data Current Medications Generic Name Dose Route Start Last Admin Trade Name Corneliusq PRN Reason Stop Dose Admin Acetaminophen 650 mg 09/28/20 22:42 10/17/20 20:21 Acetaminophen 325 Mg Tablet PO 650 mg Q6H PRN Administration Pain, Mild (Pain Scale 1-3) Albuterol Sulfate 2 puff 09/29/20 05:51 Albuterol Sulfate 90 Mcg 8 Gm Inhaler INHALE RQ4H PRN Shortness of Breath/Wheezing Atovaquone 1,500 mg 10/03/20 09:00 10/20/20 08:40 Atovaquone 750 Mg/5 Ml Oral.Susp PO Not Given DAILY [facility] Calcitriol 0.25 mcg 10/12/20 09:00 10/20/20 08:40 Calcitriol 0.25 Mcg Capsule PO Not Given DAILY [facility] Calcium Acetate 1,334 mg 10/09/20 12:00 10/20/20 13:46 Calcium Acetate 667 Mg Capsule PO Not Given TIDWM [facility] Docusate Sodium 100 mg 09/28/20 22:42 Docusate Sodium 100 Mg Capsule PO DAILY PRN Constipation Guaifenesin 600 mg 10/18/20 21:00 10/20/20 08:40 Guaifenesin La 600 Mg Tab.Er.12h PO Not Given BID [facility] Cefepime HCl 0.25 gm/ Sodium 50 mls @ 100 mls/hr 10/17/20 18:00 10/19/20 19:05 Chloride IV Infused Q24H REPLACED BY [facility] Infusion Metoprolol Tartrate 5 mg/ 55 mls @ 220 mls/hr 10/20/20 11:00 10/20/20 13:46 Sodium Chloride IV Infused Q6H [facility] Infusion Omeprazole 20 mg 10/12/20 16:30 10/20/20 06:24 Omeprazole 20 Mg Capsule.Dr PO Not Given BID@0630,1630 REPLACED BY [facility] Ondansetron HCl 4 mg 09/28/20 22:42 Ondansetron Hcl 4 Mg/2 Ml Vial IVPUSH Q8H PRN Nausea and Vomiting Prednisone 40 mg 10/20/20 09:00 10/20/20 08:40 Prednisone 20 Mg Tablet PO Not Given DAILY [facility]PLACED BY [facility] Sodium Bicarbonate 1,300 mg 10/19/20 21:00 10/20/20 15:18 Sodium Bicarbonate 650 Mg Tablet PO Not Given TID REPLACED BY [facility] Sodium Chloride 3 ml 09/29/20 00:00 10/20/20 15:39 0.9 % Sodium Chloride Flush 3 Ml Syringe IVFLUSH 3 ml QSHIFT REPLACED BY [facility] Administration Labs CBC & Chem 7: 10/19/20 08:20 10/19/20 08:20 Microbiology Microbiology Results: Microbiology 10/17/20 18:35 Urine [place] Urine Culture - Final 10/16/20 00:00 Blood - Venous Blood Culture - Final 10/16/20 00:00 Blood - Venous Blood Culture - Final 09/28/20 10:04 Blood - Venous Blood Culture - Final No growth after 5 days. 09/28/20 09:26 Blood - Venous Blood Culture - Final No growth after 5 days. 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 (3) Acute blood loss anemia: Status: Acute (4) Acute renal failure: Status: Acute (5) Metabolic encephalopathy: Status: Acute (6) Seizure disorder: Status: Acute (7) Chronic diastolic (congestive) heart failure: Status: Acute (8) Paroxysmal atrial fibrillation: Status: Acute (9) Neurogenic urinary bladder disorder: Status: Acute (10) Bladder cancer: Status: Acute (11) Prostate cancer: Status: Acute Assessment and Plan: 80M presented with cough and epistaxis, found to have severe FRANCHESKA admitted on September 28 Acute renal failure with metabolic acidosis Secondary to RPGN, anca positive, confirmed by biopsy. No significant change in patient's condition continued to refuse medication, last night events noted patient had rigors, ABG showed no hypoxia patient had no fever Patient seen by psych and deemed incompetent, PermCath ordered that will be placed with assistance with anesthesia Will discussed with Nephro if can change by mouth prednisone to IV Solumedrol check BMP ID does not recommend IV Rituxan due to risk of shedding active COVID-19 virus 120 days if treated with Rituxan continue prilosec for gi prophylaxis,atovaquone for pcp prophylaxis,continue oral bicarb and calcium acetate however patient refusing to take medication Dr. Singh spoke with patient's brother Serge healthcare proxy , brother wishes to proceed with PermCath and hemodialysis Sepsis due COVID-19/pneumonia Had Fever and tachycardia now resolved, chest x-ray showed bilateral infiltrate , COVID test positive, since patient procalcitonin is 3.76 will continue IV antibiotic Cefepime renally dose Patient declined blood culture, urine culture grew mixed bacterial shiav Patient COVID-19 test on admission September 28 was negative, repeat test 10/17 pos Acute hypoxic respiratory failure due to COVID-19 O2 sat around 90 on 15 L of oxygen,continue supportive care, with cough medication IV antibiotic, patient on by mouth prednisone high-dose, continue close monitoring Seen by ID patient is not a candidate for remdesivir due to renal failure. Metabolic encephalopathy Appears confused this morning seen by psych in deemed incompetent to make decision/likely related to uremia, steroids and infection Continue close follow-up, Will avoid Ativan, Haldol for now Seizure incident No recurrent seizures, Witnessed seizure episode in the hospital,CT scan was negative for any acute findings, Likely secondary to uremia Neurology input appreciated, they recommend no antiepilepsy medications BPH history of prostate cancer, history of bladder cancer. cont. Chronic Rivera catheter acute blood loss anemia due to GIB had 2 episodes of lower GI bleed, likely from PLT dysfunction from uremia and underlying colon Disorder Tagged RBC negative 10/10, s/p 4 units of packed RBC, hematocrit improved GI input appreciated, patient refused colonoscopy, will continue with conservative measures with PPI and close H&H monitoring Paroxysmal afib Patient noted to be in atrial fibrillation with rapid response, heart rate continued to fluctuate since patient refusing Toprol-XL therefore will place on IV Lopressor and DC Toprol-X not on AC due to concern over gi bleed chronic diastolic chf no evidence of fluid overload DVT prophylaxis SCDs
[2020-10-20] MEDS: Acetaminophen Supp 650 MG SUPP.RECT PR (21:16)
[2020-10-20 21:20] LABS: Pt Ventilation O2% 100%
--- NOTE | 2020-10-20 21:20 | PM.EVENT ---
Event Note Date of Service: 10/20/20 Event Note: Rapid response called for hypoxia and rigors. Patient was agitated and rigororus and cannot provide reliable HPI or ROS. O2 sat probes on his finger registered in the 60's and then did not register despite nonrebreather and nasal cannula. He was agitated at the number of people in the room. Chest was clear bilaterally without insp crackles or exp wheezing. CV exam showed regular tachycardia without murmur. Portable CXR pending. ABG ordered and showed pH 7.37, pCO2 19, pO2 103, suggesting he is not hypoxemic and his CO2 is lower due to the hyperventilation/tachypnea. Tylenol ordered for the rigors and will continue supplemental oxygen at present level as ABG showed no hypoxemia.
[2020-10-20 21:22] LABS: Base Excess ABG -11.1; HCO3 ABG 11 mmol/L (22-26); PO2 ABG 103 mmHg (83-108); pH ABG 7.37 (7.35-7.45)
[2020-10-20 21:24] LABS: ABG PCO2 19 mmHg (32-45)
[2020-10-21] VITALS (14 sets, daily range): BP systolic 109–135; BP diastolic 61–78; PULSE 90–119; RESP 18–24; TEMP 36.1–36.7; O2SAT 90–97
[2020-10-21] MEDS: 0.9 % Sodium Chloride Flush 3 ML SYRINGE IVFLUSH ×2 (01:19→23:20)
--- NOTE | 2020-10-21 03:42 | PC.NURSE ---
Pt removing oxygen, restless, refusing care, pt with visible chills, HR 120's to 130s, unable to obtain oxygen saturation, pts extremities cool to touch when sat probe does read it shows sat of 50-70% on 8L nasal canula, STAND IN called RT nursing supervisor [employer] to bedside, pt places on 100% non rebreather, and 15L nasal canula, new orders for CXR ABGs ME tylenol. pts sats up to 90's ABGs ph 7.37, pc02 19, p02 103, hc03 11 02 sat 97, Tylenol with good effect. made aware of ABGS no new orders at this time. pt repositioned for comfort. 02 sat 97, non rebreather removed pt left on 10L NC.
[2020-10-21] MEDS: Metoprolol Tartrate 5 MG in 0.9 % Sodium Chloride 50 ML 220 MG IV ×4 (04:35→23:08)
--- NOTE | 2020-10-21 19:22 | PM.PNNEP ---
Subjective Subjective Date of Service: 10/21/20 Interval history: seen and examined. events noted confused [place] for pcath today but was bumped until tomorrow labs from today pending Physical Exam Vital Signs: Vital Signs: Last Vital Signs Temp 98.1 F 10/21/20 16:00 Pulse 110 H 10/21/20 17:13 Resp 20 10/21/20 12:00 BP 135/73 10/21/20 17:13 Pulse Ox 91 L 10/21/20 17:21 Body Mass Index 20.0 Const: Other: awake BS bilat'RRR abd soft No edema General: cooperative, healthy appearing, comfortable, no acute distress, alert, awake and ill appearing Orientation/consciousness: oriented to person, oriented to place, oriented to time and patient oriented x3 Limitations: no limitations Eyes: General: appearance normal, both eyes and all related structures Neck: Neck: Yes normal visual inspection and Yes supple Carotids: normal carotid upstroke Lymphatic: no lymphadenopathy noted Resp: Effort & Inspection: normal respiratory effort and able to speak in complete sentences Auscultation: clear to auscultation bilaterally, rhonchi and diminished lung sounds Cardio: Other: awake BS bilat'RRR abd soft No edema Rate: regular rate Rhythm: regular rhythm Heart sounds: no rubs GI: Inspection: Yes normal to inspection Palpation (GI): Soft to palpation and No hepatosplenomegaly present Auscultation: normal bowel sounds Skin: General skin exam: no rashes or lesions noted Neuro: General: oriented to person, oriented to place, oriented to time, patient oriented x3 and moves all extremities Cognition (Neuro): normal cognition Motor exam (neuro): No Asterixis during motor activity present Extrem: General: Yes normal to inspection and Yes no pedal edema Objective Data Labs CBC & Chem 7: 10/19/20 08:20 10/19/20 08:20 Labs: Laboratory Results - last 24 hr 10/20/20 21:13 ABG pH 7.37 ABG pCO2 19 L* ABG pO2 103 ABG HCO3 11 L ABG O2 Saturation 97.0 ABG Base Excess -11.1 Oxygen Given 100% Microbiology Microbiology Results: Microbiology 10/17/20 18:35 Urine [place] Urine Culture - Final 10/16/20 00:00 Blood - Venous Blood Culture - Final 10/16/20 00:00 Blood - Venous Blood Culture - Final 09/28/20 10:04 Blood - Venous Blood Culture - Final No growth after 5 days. 09/28/20 09:26 Blood - Venous Blood Culture - Final No growth after 5 days. 09/28/20 00:00 Urine [place] Urine Culture - Final Assessment & Plan Assessment and plan (1) Acute renal failure: Status: Acute Assessment and Plan: 1. 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 Need for HD: with incr Scr pcath was scheduled for today but bumped until tomorrow 3. Hyperk; need repeat renal and k labs t/d if he needs additional kayexalte Disc: not responding thus far to IS for his ANCA RPGN is concerning, I rereviewed the prior Bx and there is signif amount of scsrring and sayra-hosp renal func dates back to 2019 SCr 1.4 He was suppose to get Pcath today but apparently staffing issue forced it to be bumped until tomorrow Pt was re-eval by miriam and deemed incompetent and his brother Serge is his Hpxy and he wants [place] to get HD. at times PT has been refusing and confrontational so it remains unclear hwo well he will tolerate allowing us to perform HD REC: cont steroids for now and will consider possibility of cytoxan but given COVID infection the risk of giving cytoxan or rituxin are outweigh by the potential benefits sylvia given the fact that the edd vasuclitis seemed to be renal limited and he seems to have signif scarring and likely not to repsond to aggrssive IS instead will push forward with pcath and HD support, cont pred 30 mg vs switch to dexamethsomne Time Spent With Patient Time: Total time spent is greater than 50% in coordination of care (as documented) at patient's floor/unit and/or counseling patient:
[2020-10-22] VITALS (13 sets, daily range): BP systolic 84–142; BP diastolic 53–85; PULSE 28–130; RESP 16–22; TEMP 36.7–36.8; O2SAT 81–97
--- NOTE | 2020-10-22 | IR_ITS ---
PROCEDURE: PERMACATH PLACEMENT CLINICAL INFORMATION: Renal failure. COMPARISON: None TECHNIQUE: Procedure and risks and benefits including bleeding, infection and pneumothorax were discussed with the patient's healthcare proxy, his brother by telephone, and informed consent was obtained. Anesthesia was provided by the anesthesia department. All elements of maximal sterile barrier technique followed including use of cap, mask, sterile gown, sterile gloves, a sterile full body drape and hand hygiene. Also followed skin preparation with 2% chlorhexidine for cutaneous antisepsis, and sterile ultrasound preparation with sterile gel and probe cover when applicable. Right neck and upper chest were prepped and draped in usual sterile fashion. The skin and soft tissues of the right lower neck were anesthetized with 1% lidocaine with epinephrine. A small incision was made. Using ultrasound guidance and a 5 Qatari micropuncture system, right internal jugular vein access was obtained. Over a 0.018 wire, a 5 Qatari dilator was positioned in the SVC. The skin and soft tissues of the right upper anterior chest were anesthetized with 1% lidocaine with epinephrine. A small incision was made. A subcutaneous tunnel from the chest to the neck incision was anesthetized with 1% lidocaine with epinephrine. Using a tunneler, a 14.5 Qatari dialysis catheter was tunneled from the chest to the neck incision. A 0.035 guidewire was advanced through the 5 Qatari dilator into the IVC. Following serial dilatation and through a peel-away sheath, permacath was advanced centrally. Catheter tip is at the cavoatrial junction. The neck incision was closed using a 3-0 absorbable subcuticular suture. The chest incision was closed using a 3-0 absorbable mattress suture. Both ports had good blood return, flushed easily and were instilled with 1.9 mL heparin 1000 unit per mL solution. Real-time ultrasound guidance was used to document vein patency and for needle entry. A formal ultrasound picture was recorded. Fluoroscopy time: 0.4 minutes. Patient dose: 2 mGy DAP: 55 cGy-cm2 Saved fluoroscopic image: 1 Saved ultrasound image: 1 FINDINGS: There is a right internal jugular permacath with tip projecting over the cavoatrial junction. IR/IR cvc repo tunnel wo prt/psychodramatist IMPRESSION: 14.5 Qatari 23 cm in length right internal jugular Palindrome permacath placement.
--- NOTE | 2020-10-22 06:11 | PC.NURSE ---
Addendum entered by Yoselyn Vázquez RN 10/22/20 06:34: 0430; patient lost iv access, pulled out iv, iv catheter intact. Nursing supervisor [employer] notified. Multiple nurses attempted to get iv access and were not successful, hospitalist made aware pt has no iv access at this time. Original Note: 7p-7a shift; pt refusing po medications. Patient yells out/resistive to care at times. Patient also refused labs this morning, after multiple attempts. Hospitalist made aware, will notify next shift RN.
--- NOTE | 2020-10-22 13:14 | P.CONAN_ITS ---
HPI - Anesthesia Eval Consult details Narrative: 80 M with renal failure p/f dialysis cath placement. pt has been deemed incompetent. currently on HFNC 15L satting 90%. d/w radiologist and HCP brother about high risk of morbidity and mortality with any anesthetic intervention given tenuous respiratory status, hyperkalemia, uremia and preexisting comorbidities. All in agreement to proceed PMF Past Medical History Medical History Anal polyp Bladder outlet obstruction Chronic diastolic (congestive) heart failure COVID-19 Diverticulitis large intestine Malignant neoplasm of sigmoid colon Mild pulmonary hypertension Paroxysmal atrial fibrillation Personal history of colon cancer Tubular adenoma of colon Family History Family History Father No problems noted. Mother Family history of cervical cancer Social History Social History Household Members: Other Housing: Assisted Living Facility Do you presently have visiting nurse or other home services: Yes Alcohol intake: current Alcohol intake frequency: holidays/special occasions only Alcohol type: beer Smoking Status: Former smoker Use of substances other than those prescribed or required for medical reasons: No Currently Displaying Signs/Symptoms of Drug Intoxication Withdrawal: No Have you been hit, kicked, punched, or otherwise hurt by someone within the past year? If so, by whom?: No Do you feel safe in your current relationship?: No Current Relationship Is there a partner from a previous relationship who is making you feel unsafe now?: No Are you made to feel afraid or neglected: No Spiritual Healthcare Practices: none Protestant Healthcare Practices: none Cultural Healthcare Practices: none Advance Directives: No Advance Directives Information Provided: No Do you have thoughts of harming others: None Do you have a plan to hurt others: No Plan Recently lost weight without trying: No service: No Current occupational status: retired [employer] Allergies Allergy/AdvReac Type Severity Reaction Status Date / Time No Known Allergies Allergy Verified 07/31/20 09:06 [No Known Allergies*] Home Medications Medication Instructions Recorded Confirmed Type furosemide 20 mg PO BID 09/28/20 09/28/20 History metoprolol succinate 25 mg PO DAILY 09/28/20 09/28/20 History simvastatin 20 mg PO DAILY 09/28/20 09/28/20 History Exam Exam Date and Time: October 22, 2020 1314 Height,Weight and Vital Signs: Height 6 ft Weight 67 kg Last Vital Signs Temp 98.3 F 10/22/20 04:00 Pulse 28 L 10/22/20 07:53 Resp 22 H 10/22/20 07:55 BP 136/85 10/22/20 04:00 Pulse Ox 91 L 10/22/20 07:55 Pertinent Lab Results Pertinent Lab Results: Laboratory Tests 09/28/20 09/28/20 09/28/20 09:26 09:26 09:26 WBC 9.0 RBC 2.48 L Hgb 6.6 L* Hct 20.4 L* MCV 82.3 MCH 26.6 L MCHC 32.4 RDW 22.4 H Plt Count 492 H MPV 9.1 L Immature Gran % (Auto) 0.6 H Neut % (Auto) 73.1 H Lymph % (Auto) 15.6 L [place] % (Auto) 8.8 Eos % (Auto) 1.1 Baso % (Auto) 0.8 Lymph # (Auto) 1.4 [place] # (Auto) 0.8 Eos # (Auto) 0.1 Baso # (Auto) 0.1 Abs Immat Gran (auto) 0.05 H Absolute Neuts (auto) 6.6 Absolute Nucleated RBC 0.000 Nucleated RBC % (auto) 0.0 Neutrophils % (Manual) 85 H Band Neutrophils % 1 L Lymphocytes % (Manual) 10 L Monocytes % (Manual) 4 Abs Neuts (Manual) 7.7 Lymphocytes # (Manual) 0.9 Monocytes # (Manual) 0.4 Platelet Estimate INCREASED Plt Morphology Comment NORMAL RBC Morphology NOTED Hypochromasia 1+ Ovalocytes 1+ Christine Cells 3+ Acanthocytes (Spur) 3+ Schistocytes 2+ Smear Path Review SEE NOTE Absolute Retic 0.029 Percent Retic 1.2 Immature Retic Fraction 2.6 Retic Hgb Equivalent 30.4 Haptoglobin PT 12.6 INR 1.1 D-Dimer 2582 Hold Blue Top SEE NOTE ABG pH ABG pCO2 ABG pO2 ABG HCO3 ABG O2 Saturation ABG Base Excess VBG pH VBG pCO2 VBG pO2 VBG HCO3 VBG O2 Saturation VBG Base Excess Oxygen Given Sodium 140 Potassium 4.9 Chloride 110 H Carbon Dioxide 8 L* Anion Gap 27 H BUN 147 H* Creatinine 10.50 H* Estim Creat Clear Calc 6.2 Estimated GFR 5 POC Glucose Random Glucose 134 H Fasting Glucose Lactic Acid Calcium 7.6 L Phosphorus Magnesium 2.0 Total Bilirubin 0.3 Direct Bilirubin < 0.2 AST 10 ALT 10 Alkaline Phosphatase 73 Lactate Dehydrogenase 208 Troponin I High Sens C-Reactive Protein B-Natriuretic Peptide Total Protein 6.8 Total Protein (PEP) Albumin 3.9 Albumin (PEP) Xjliv-2-Uyjfdmthx Mjewm-0-Kcmkkutoq Qgax-3-Rkrealff Fomz-5-Vvwrbcik Gamma Globulins Abnorm Protein Band 1 Abnorm Protein Band 2 Abnorm Protein Band 3 PEP Interpretation Lipase Vitamin B12 Folate Procalcitonin PTH Intact Calcium (PTH Intact) Cancelled Chem Test Urine Color Urine Appearance Urine pH Ur Specific [place] Urine Protein Urine Glucose (UA) Urine Ketones Urine Blood Urine Nitrite Ur Leukocyte Esterase Urine RBC Urine WBC Urine WBC Clumps Ur Squamous Epith Cells Urine Bacteria Urine Yeast Urine Osmolality Ur Random Sodium Stool Occult Blood IgG Total IgA Total IgM DAYANARA Interpretation Proteinase 3 (PR3) Ab Myeloperoxidase Ab Double Strand DNA Ab Glomerular Base Memb Ab Coronavirus (PCR) COVID-19 (RADHA) COVID-19 Clin Com Hep Bs Antigen Hep Bs Antibody Hep B Core Total Ab Hepatitis C Ab (EIA) Influenza Type A (PCR) Influenza Type B (PCR) RSV RNA Qual (PCR) Prothrombin [id number] Mut Prothrombin Mut Interp Blood Type Antibody Screen Crossmatch 09/28/20 09/28/20 09/28/20 09:26 09:26 09:26 WBC RBC Hgb Hct MCV MCH MCHC RDW Plt Count MPV Immature Gran % (Auto) Neut % (Auto) Lymph % (Auto) [place] % (Auto) Eos % (Auto) Baso % (Auto) Lymph # (Auto) [place] # (Auto) Eos # (Auto) Baso # (Auto) Abs Immat Gran (auto) Absolute Neuts (auto) Absolute Nucleated RBC Nucleated RBC % (auto) Neutrophils % (Manual) Band Neutrophils % Lymphocytes % (Manual) Monocytes % (Manual) Abs Neuts (Manual) Lymphocytes # (Manual) Monocytes # (Manual) Platelet Estimate Plt Morphology Comment RBC Morphology Hypochromasia Ovalocytes Christine Cells Acanthocytes (Spur) Schistocytes Smear Path Review Absolute Retic Percent Retic Immature Retic Fraction Retic Hgb Equivalent Haptoglobin PT INR D-Dimer Hold Blue Top ABG pH ABG pCO2 ABG pO2 ABG HCO3 ABG O2 Saturation ABG Base Excess VBG pH VBG pCO2 VBG pO2 VBG HCO3 VBG O2 Saturation VBG Base Excess Oxygen Given Sodium Potassium Chloride Carbon Dioxide Anion Gap BUN Creatinine Estim Creat Clear Calc Estimated GFR POC Glucose Random Glucose Fasting Glucose Lactic Acid 1.1 Calcium Phosphorus Magnesium Total Bilirubin Direct Bilirubin AST ALT Alkaline Phosphatase Lactate Dehydrogenase Troponin I High Sens 107.9 H C-Reactive Protein 1.49 H B-Natriuretic Peptide 737 H Total Protein Total Protein (PEP) Albumin Albumin (PEP) Ylgzs-5-Tlkiecbgw Dnhqb-8-Xwvbcmbye Jttp-1-Jpdnbqra Mpuu-4-Xsezmvtn Gamma Globulins Abnorm Protein Band 1 Abnorm Protein Band 2 Abnorm Protein Band 3 PEP Interpretation Lipase 109 H Vitamin B12 Folate Procalcitonin PTH Intact Calcium (PTH Intact) Cancelled Chem Test Urine Color Urine Appearance Urine pH Ur Specific [place] Urine Protein Urine Glucose (UA) Urine Ketones Urine Blood Urine Nitrite Ur Leukocyte Esterase Urine RBC Urine WBC Urine WBC Clumps Ur Squamous Epith Cells Urine Bacteria Urine Yeast Urine Osmolality Ur Random Sodium Stool Occult Blood IgG Total IgA Total IgM DAYANARA Interpretation Proteinase 3 (PR3) Ab Myeloperoxidase Ab Double Strand DNA Ab Glomerular Base Memb Ab Coronavirus (PCR) COVID-19 (RADHA) COVID-19 Clin Com Hep Bs Antigen Hep Bs Antibody Hep B Core Total Ab Hepatitis C Ab (EIA) Influenza Type A (PCR) Influenza Type B (PCR) RSV RNA Qual (PCR) Prothrombin [id number] Mut Prothrombin Mut Interp Blood Type Antibody Screen Crossmatch 09/28/20 09/28/20 09/28/20 09:26 09:26 09:26 WBC RBC Hgb Hct MCV MCH MCHC RDW Plt Count MPV Immature Gran % (Auto) Neut % (Auto) Lymph % (Auto) [place] % (Auto) Eos % (Auto) Baso % (Auto) Lymph # (Auto) [place] # (Auto) Eos # (Auto) Baso # (Auto) Abs Immat Gran (auto) Absolute Neuts (auto) Absolute Nucleated RBC Nucleated RBC % (auto) Neutrophils % (Manual) Band Neutrophils % Lymphocytes % (Manual) Monocytes % (Manual) Abs Neuts (Manual) Lymphocytes # (Manual) Monocytes # (Manual) Platelet Estimate Plt Morphology Comment RBC Morphology Hypochromasia Ovalocytes [place] Cells Acanthocytes (Spur) Schistocytes Smear Path Review Absolute Retic Percent Retic Immature Retic Fraction Retic Hgb Equivalent Haptoglobin 270 H PT INR D-Dimer Hold Blue Top ABG pH ABG pCO2 ABG pO2 ABG HCO3 ABG O2 Saturation ABG Base Excess VBG pH VBG pCO2 VBG pO2 VBG HCO3 VBG O2 Saturation VBG Base Excess Oxygen Given Sodium Potassium Chloride Carbon Dioxide Anion Gap BUN Creatinine Estim Creat Clear Calc Estimated GFR POC Glucose Random Glucose Fasting Glucose Lactic Acid Calcium Phosphorus Magnesium Total Bilirubin Direct Bilirubin AST ALT Alkaline Phosphatase Lactate Dehydrogenase Troponin I High Sens C-Reactive Protein B-Natriuretic Peptide Total Protein Total Protein (PEP) Albumin Albumin (PEP) Wmrbp-2-Niyuqejba Msruc-2-Vpefjwgwx Tsul-4-Fcielnux Glua-1-Ovimsplp Gamma Globulins Abnorm Protein Band 1 Abnorm Protein Band 2 Abnorm Protein Band 3 PEP Interpretation Lipase Vitamin B12 Folate Procalcitonin 0.44 PTH Intact Calcium (PTH Intact) Cancelled Chem Test Urine Color Urine Appearance Urine pH Ur Specific [place] Urine Protein Urine Glucose (UA) Urine Ketones Urine Blood Urine Nitrite Ur Leukocyte Esterase Urine RBC Urine WBC Urine WBC Clumps Ur Squamous Epith Cells Urine Bacteria Urine Yeast Urine Osmolality Ur Random Sodium Stool Occult Blood IgG Total IgA Total IgM DAYANARA Interpretation Proteinase 3 (PR3) Ab Myeloperoxidase Ab Double Strand DNA Ab Glomerular Base Memb Ab Coronavirus (PCR) NEGATIVE COVID-19 (RADHA) COVID-19 Clin Com Hep Bs Antigen Hep Bs Antibody Hep B Core Total Ab Hepatitis C Ab (EIA) Influenza Type A (PCR) NEGATIVE Influenza Type B (PCR) NEGATIVE RSV RNA Qual (PCR) NEGATIVE Prothrombin [id number] Mut Prothrombin Mut Interp Blood Type Antibody Screen Crossmatch 09/28/20 09/28/20 09/28/20 09:26 10:04 10:04 WBC RBC Hgb Hct MCV MCH MCHC RDW Plt Count MPV Immature Gran % (Auto) Neut % (Auto) Lymph % (Auto) [place] % (Auto) Eos % (Auto) Baso % (Auto) Lymph # (Auto) [place] # (Auto) Eos # (Auto) Baso # (Auto) Abs Immat Gran (auto) Absolute Neuts (auto) Absolute Nucleated RBC Nucleated RBC % (auto) Neutrophils % (Manual) Band Neutrophils % Lymphocytes % (Manual) Monocytes % (Manual) Abs Neuts (Manual) Lymphocytes # (Manual) Monocytes # (Manual) Platelet Estimate Plt Morphology Comment RBC Morphology Hypochromasia Ovalocytes [place] Cells Acanthocytes (Spur) Schistocytes Smear Path Review Absolute Retic Percent Retic Immature Retic Fraction Retic Hgb Equivalent Haptoglobin PT INR D-Dimer Hold Blue Top ABG pH ABG pCO2 ABG pO2 ABG HCO3 ABG O2 Saturation ABG Base Excess VBG pH VBG pCO2 VBG pO2 VBG HCO3 VBG O2 Saturation VBG Base Excess Oxygen Given Sodium Potassium Chloride Carbon Dioxide Anion Gap BUN Creatinine Estim Creat Clear Calc Estimated GFR POC Glucose Random Glucose Fasting Glucose Lactic Acid Calcium Phosphorus Magnesium Total Bilirubin Direct Bilirubin AST ALT Alkaline Phosphatase Lactate Dehydrogenase Troponin I High Sens C-Reactive Protein B-Natriuretic Peptide Total Protein Total Protein (PEP) Albumin Albumin (PEP) Lemfv-7-Sacgwptlr Fahul-9-Xgflnxlwo Xzuh-2-Srpjppxe Vtos-5-Dtihgwqm Gamma Globulins Abnorm Protein Band 1 Abnorm Protein Band 2 Abnorm Protein Band 3 PEP Interpretation Lipase Vitamin B12 911 H Folate 4.2 Procalcitonin PTH Intact Calcium (PTH Intact) Cancelled Chem Test Urine Color Urine Appearance Urine pH Ur Specific [place] Urine Protein Urine Glucose (UA) Urine Ketones Urine Blood Urine Nitrite Ur Leukocyte Esterase Urine RBC Urine WBC Urine WBC Clumps Ur Squamous Epith Cells Urine Bacteria Urine Yeast Urine Osmolality Ur Random Sodium Stool Occult Blood NEG IgG Total IgA Total IgM DAYANARA Interpretation Proteinase 3 (PR3) Ab Myeloperoxidase Ab Double Strand DNA Ab Glomerular Base Memb Ab Coronavirus (PCR) COVID-19 (RADHA) COVID-19 Clin Com Hep Bs Antigen Hep Bs Antibody Hep B Core Total Ab Hepatitis C Ab (EIA) Influenza Type A (PCR) Influenza Type B (PCR) RSV RNA Qual (PCR) Prothrombin [id number] Mut Prothrombin Mut Interp Blood Type B Positive Antibody Screen NEGATIVE Crossmatch See Detail 09/28/20 09/28/20 09/28/20 10:20 10:20 10:20 WBC RBC Hgb Hct MCV MCH MCHC RDW Plt Count MPV Immature Gran % (Auto) Neut % (Auto) Lymph % (Auto) [place] % (Auto) Eos % (Auto) Baso % (Auto) Lymph # (Auto) [place] # (Auto) Eos # (Auto) Baso # (Auto) Abs Immat Gran (auto) Absolute Neuts (auto) Absolute Nucleated RBC Nucleated RBC % (auto) Neutrophils % (Manual) Band Neutrophils % Lymphocytes % (Manual) Monocytes % (Manual) Abs Neuts (Manual) Lymphocytes # (Manual) Monocytes # (Manual) Platelet Estimate Plt Morphology Comment RBC Morphology Hypochromasia Ovalocytes [place] Cells Acanthocytes (Spur) Schistocytes Smear Path Review Absolute Retic Percent Retic Immature Retic Fraction Retic Hgb Equivalent Haptoglobin PT INR D-Dimer Hold Blue Top ABG pH ABG pCO2 ABG pO2 ABG HCO3 ABG O2 Saturation ABG Base Excess VBG pH VBG pCO2 VBG pO2 VBG HCO3 VBG O2 Saturation VBG Base Excess Oxygen Given Sodium Potassium Chloride Carbon Dioxide Anion Gap BUN Creatinine Estim Creat Clear Calc Estimated GFR POC Glucose Random Glucose Fasting Glucose Lactic Acid Calcium Phosphorus Magnesium Total Bilirubin Direct Bilirubin AST ALT Alkaline Phosphatase Lactate Dehydrogenase Troponin I High Sens C-Reactive Protein B-Natriuretic Peptide Total Protein Total Protein (PEP) Albumin Albumin (PEP) Dsjws-5-Gljasxhzz Ivtrr-2-Itzokqlkk Faam-0-Curjyhsx Sjuz-2-Otmlfbku Gamma Globulins Abnorm Protein Band 1 Abnorm Protein Band 2 Abnorm Protein Band 3 PEP Interpretation Lipase Vitamin B12 Folate Procalcitonin PTH Intact Calcium (PTH Intact) Cancelled Chem Test Urine Color STRAW Urine Appearance HAZY Urine pH 5.5 Ur Specific [place] 1.025 Urine Protein 2+ H Urine Glucose (UA) NEG Urine Ketones NEG Urine Blood 3+ H Urine Nitrite NEG Ur Leukocyte Esterase 2+ H Urine RBC 5-9 H Urine WBC TNTC H Urine WBC Clumps NOTED Ur Squamous Epith Cells NONE Urine Bacteria 1+ Urine Yeast 1+ Urine Osmolality 365 L Ur Random Sodium 60.0 Stool Occult Blood IgG Total IgA Total IgM DAYANARA Interpretation Proteinase 3 (PR3) Ab Myeloperoxidase Ab Double Strand DNA Ab Glomerular Base Memb Ab Coronavirus (PCR) COVID-19 (RADHA) COVID-19 Clin Com Hep Bs Antigen Hep Bs Antibody Hep B Core Total Ab Hepatitis C Ab (EIA) Influenza Type A (PCR) Influenza Type B (PCR) RSV RNA Qual (PCR) Prothrombin [id number] Mut Prothrombin Mut Interp Blood Type Antibody Screen Crossmatch 09/28/20 09/28/20 09/28/20 12:00 15:01 15:01 WBC RBC Hgb Hct MCV MCH MCHC RDW Plt Count MPV Immature Gran % (Auto) Neut % (Auto) Lymph % (Auto) [place] % (Auto) Eos % (Auto) Baso % (Auto) Lymph # (Auto) [place] # (Auto) Eos # (Auto) Baso # (Auto) Abs Immat Gran (auto) Absolute Neuts (auto) Absolute Nucleated RBC Nucleated RBC % (auto) Neutrophils % (Manual) Band Neutrophils % Lymphocytes % (Manual) Monocytes % (Manual) Abs Neuts (Manual) Lymphocytes # (Manual) Monocytes # (Manual) Platelet Estimate Plt Morphology Comment RBC Morphology Hypochromasia Ovalocytes Christine Cells Acanthocytes (Spur) Schistocytes Smear Path Review Absolute Retic Percent Retic Immature Retic Fraction Retic Hgb Equivalent Haptoglobin PT INR D-Dimer Hold Blue Top ABG pH ABG pCO2 ABG pO2 ABG HCO3 ABG O2 Saturation ABG Base Excess VBG pH 7.16 L* 7.14 L* VBG pCO2 23 25 VBG pO2 85 80 VBG HCO3 8 8 VBG O2 Saturation 94.1 93.3 VBG Base Excess -19.0 -19.3 Oxygen Given Sodium 139 Potassium 4.9 Chloride 113 H Carbon Dioxide 6 L* D Anion Gap 25 H BUN 144 H* Creatinine 10.00 H* Estim Creat Clear Calc 6.5 Estimated GFR 5 POC Glucose Random Glucose 102 Fasting Glucose Lactic Acid Calcium 7.3 L Phosphorus Magnesium Total Bilirubin Direct Bilirubin AST ALT Alkaline Phosphatase Lactate Dehydrogenase Troponin I High Sens C-Reactive Protein B-Natriuretic Peptide Total Protein Total Protein (PEP) Albumin Albumin (PEP) Rxhdn-8-Uochgbrxj Urejk-7-Jlylzlknk Hgil-0-Kyqwyeje Xeaq-1-Yxcnmehf Gamma Globulins Abnorm Protein Band 1 Abnorm Protein Band 2 Abnorm Protein Band 3 PEP Interpretation Lipase Vitamin B12 Folate Procalcitonin PTH Intact Calcium (PTH Intact) Cancelled Chem Test Urine Color Urine Appearance Urine pH Ur Specific [place] Urine Protein Urine Glucose (UA) Urine Ketones Urine Blood Urine Nitrite Ur Leukocyte Esterase Urine RBC Urine WBC Urine WBC Clumps Ur Squamous Epith Cells Urine Bacteria Urine Yeast Urine Osmolality Ur Random Sodium Stool Occult Blood IgG Total IgA Total IgM DAYANARA Interpretation Proteinase 3 (PR3) Ab Myeloperoxidase Ab Double Strand DNA Ab Glomerular Base Memb Ab Coronavirus (PCR) COVID-19 (RADHA) COVID-19 Clin Com Hep Bs Antigen Hep Bs Antibody Hep B Core Total Ab Hepatitis C Ab (EIA) Influenza Type A (PCR) Influenza Type B (PCR) RSV RNA Qual (PCR) Prothrombin [id number] Mut Prothrombin Mut Interp Blood Type Antibody Screen Crossmatch 09/28/20 09/28/20 09/28/20 16:00 18:44 18:44 WBC RBC Hgb Hct MCV MCH MCHC RDW Plt Count MPV Immature Gran % (Auto) Neut % (Auto) Lymph % (Auto) [place] % (Auto) Eos % (Auto) Baso % (Auto) Lymph # (Auto) [place] # (Auto) Eos # (Auto) Baso # (Auto) Abs Immat Gran (auto) Absolute Neuts (auto) Absolute Nucleated RBC Nucleated RBC % (auto) Neutrophils % (Manual) Band Neutrophils % Lymphocytes % (Manual) Monocytes % (Manual) Abs Neuts (Manual) Lymphocytes # (Manual) Monocytes # (Manual) Platelet Estimate Plt Morphology Comment RBC Morphology Hypochromasia Ovalocytes [place] Cells Acanthocytes (Spur) Schistocytes Smear Path Review Absolute Retic Percent Retic Immature Retic Fraction Retic Hgb Equivalent Haptoglobin PT INR D-Dimer Hold Blue Top ABG pH ABG pCO2 ABG pO2 ABG HCO3 ABG O2 Saturation ABG Base Excess VBG pH 7.22 L VBG pCO2 21 VBG pO2 240 VBG HCO3 9 VBG O2 Saturation 99.1 VBG Base Excess -17.6 Oxygen Given Sodium 143 Potassium 4.8 Chloride 116 H Carbon Dioxide 7 L* Anion Gap 25 H BUN 137 H* Creatinine 9.62 H* Estim Creat Clear Calc 6.7 Estimated GFR 5 POC Glucose Random Glucose 105 Fasting Glucose Lactic Acid Calcium 6.8 L D Phosphorus Magnesium Total Bilirubin Direct Bilirubin AST ALT Alkaline Phosphatase Lactate Dehydrogenase Troponin I High Sens 99.6 H C-Reactive Protein B-Natriuretic Peptide Total Protein Total Protein (PEP) Albumin Albumin (PEP) Jzpol-5-Xfrbpkgqq Lyeps-6-Askwjoaoa Jfbm-4-Wrqqlfob Waud-1-Ihzfdtsi Gamma Globulins Abnorm Protein Band 1 Abnorm Protein Band 2 Abnorm Protein Band 3 PEP Interpretation Lipase Vitamin B12 Folate Procalcitonin PTH Intact Calcium (PTH Intact) Cancelled Chem Test Urine Color Urine Appearance Urine pH Ur Specific [place] Urine Protein Urine Glucose (UA) Urine Ketones Urine Blood Urine Nitrite Ur Leukocyte Esterase Urine RBC Urine WBC Urine WBC Clumps Ur Squamous Epith Cells Urine Bacteria Urine Yeast Urine Osmolality Ur Random Sodium Stool Occult Blood IgG Total IgA Total IgM DAYANARA Interpretation Proteinase 3 (PR3) Ab Myeloperoxidase Ab Double Strand DNA Ab Glomerular Base Memb Ab Coronavirus (PCR) COVID-19 (RADHA) COVID-19 Clin Com Hep Bs Antigen Hep Bs Antibody Hep B Core Total Ab Hepatitis C Ab (EIA) Influenza Type A (PCR) Influenza Type B (PCR) RSV RNA Qual (PCR) Prothrombin [id number] Mut Prothrombin Mut Interp Blood Type Antibody Screen Crossmatch 09/29/20 09/29/20 09/29/20 00:50 00:50 00:50 WBC RBC Hgb 8.1 L D Hct 23.7 L MCV MCH MCHC RDW Plt Count MPV Immature Gran % (Auto) Neut % (Auto) Lymph % (Auto) [place] % (Auto) Eos % (Auto) Baso % (Auto) Lymph # (Auto) [place] # (Auto) Eos # (Auto) Baso # (Auto) Abs Immat Gran (auto) Absolute Neuts (auto) Absolute Nucleated RBC Nucleated RBC % (auto) Neutrophils % (Manual) Band Neutrophils % Lymphocytes % (Manual) Monocytes % (Manual) Abs Neuts (Manual) Lymphocytes # (Manual) Monocytes # (Manual) Platelet Estimate Plt Morphology Comment RBC Morphology Hypochromasia Ovalocytes [place] Cells Acanthocytes (Spur) Schistocytes Smear Path Review Absolute Retic Percent Retic Immature Retic Fraction Retic Hgb Equivalent Haptoglobin 230 H PT INR D-Dimer Hold Blue Top ABG pH ABG pCO2 ABG pO2 ABG HCO3 ABG O2 Saturation ABG Base Excess VBG pH VBG pCO2 VBG pO2 VBG HCO3 VBG O2 Saturation VBG Base Excess Oxygen Given Sodium 143 Potassium 4.3 Chloride 114 H Carbon Dioxide 10 L* D Anion Gap 23 H BUN 134 H* Creatinine 9.33 H* Estim Creat Clear Calc 7.0 Estimated GFR 5 POC Glucose Random Glucose 102 Fasting Glucose Lactic Acid Calcium 6.6 L Phosphorus Magnesium Total Bilirubin Direct Bilirubin AST ALT Alkaline Phosphatase Lactate Dehydrogenase Troponin I High Sens C-Reactive Protein B-Natriuretic Peptide Total Protein Total Protein (PEP) Albumin Albumin (PEP) Pdtlx-1-Dxwlirscw Xdcot-8-Mmfxfhxxk Khap-5-Trbxhpii Oono-3-Cnnflqsx Gamma Globulins Abnorm Protein Band 1 Abnorm Protein Band 2 Abnorm Protein Band 3 PEP Interpretation Lipase Vitamin B12 Folate Procalcitonin PTH Intact Calcium (PTH Intact) Cancelled Chem Test Urine Color Urine Appearance Urine pH Ur Specific [place] Urine Protein Urine Glucose (UA) Urine Ketones Urine Blood Urine Nitrite Ur Leukocyte Esterase Urine RBC Urine WBC Urine WBC Clumps Ur Squamous Epith Cells Urine Bacteria Urine Yeast Urine Osmolality Ur Random Sodium Stool Occult Blood IgG Total IgA Total IgM DAYANARA Interpretation Proteinase 3 (PR3) Ab Myeloperoxidase Ab Double Strand DNA Ab Glomerular Base Memb Ab Coronavirus (PCR) COVID-19 (RADHA) COVID-19 Clin Com Hep Bs Antigen Hep Bs Antibody Hep B Core Total Ab Hepatitis C Ab (EIA) Influenza Type A (PCR) Influenza Type B (PCR) RSV RNA Qual (PCR) Prothrombin [id number] Mut Prothrombin Mut Interp Blood Type Antibody Screen Crossmatch 09/29/20 09/29/20 09/29/20 00:50 05:46 05:46 WBC 9.7 RBC 3.09 L D Hgb 8.5 L Hct 24.9 L MCV 80.6 MCH 27.5 MCHC 34.1 RDW 19.4 H Plt Count 392 MPV 9.0 L Immature Gran % (Auto) 0.4 Neut % (Auto) 59.7 Lymph % (Auto) 27.3 [place] % (Auto) 10.4 Eos % (Auto) 1.3 Baso % (Auto) 0.9 Lymph # (Auto) 2.6 [place] # (Auto) 1.0 Eos # (Auto) 0.1 Baso # (Auto) 0.1 Abs Immat Gran (auto) 0.04 H Absolute Neuts (auto) 5.8 Absolute Nucleated RBC 0.000 Nucleated RBC % (auto) 0.0 Neutrophils % (Manual) Band Neutrophils % Lymphocytes % (Manual) Monocytes % (Manual) Abs Neuts (Manual) Lymphocytes # (Manual) Monocytes # (Manual) Platelet Estimate Plt Morphology Comment RBC Morphology Hypochromasia Ovalocytes [place] Cells Acanthocytes (Spur) Schistocytes Smear Path Review Absolute Retic Percent Retic Immature Retic Fraction Retic Hgb Equivalent Haptoglobin PT INR D-Dimer Hold Blue Top ABG pH ABG pCO2 ABG pO2 ABG HCO3 ABG O2 Saturation ABG Base Excess VBG pH 7.31 L VBG pCO2 20 VBG pO2 69 VBG HCO3 10 VBG O2 Saturation 91.9 VBG Base Excess -15.0 Oxygen Given Sodium 142 Potassium 4.1 Chloride 113 H Carbon Dioxide 11 L Anion Gap 22 H BUN 133 H* Creatinine 9.16 H* Estim Creat Clear Calc 7.1 Estimated GFR 6 POC Glucose Random Glucose 85 Fasting Glucose Lactic Acid Calcium 6.7 L Phosphorus Magnesium Total Bilirubin Direct Bilirubin AST ALT Alkaline Phosphatase Lactate Dehydrogenase Troponin I High Sens C-Reactive Protein B-Natriuretic Peptide Total Protein Total Protein (PEP) Albumin Albumin (PEP) Ayjfh-6-Vaciewmnb Yvgcm-2-Mngyennzt Lrmv-5-Zxslpgdm Ofyf-8-Obaemfww Gamma Globulins Abnorm Protein Band 1 Abnorm Protein Band 2 Abnorm Protein Band 3 PEP Interpretation Lipase Vitamin B12 Folate Procalcitonin PTH Intact Calcium (PTH Intact) Cancelled Chem Test Urine Color Urine Appearance Urine pH Ur Specific [place] Urine Protein Urine Glucose (UA) Urine Ketones Urine Blood Urine Nitrite Ur Leukocyte Esterase Urine RBC Urine WBC Urine WBC Clumps Ur Squamous Epith Cells Urine Bacteria Urine Yeast Urine Osmolality Ur Random Sodium Stool Occult Blood IgG Total IgA Total IgM DAYANARA Interpretation Proteinase 3 (PR3) Ab Myeloperoxidase Ab Double Strand DNA Ab Glomerular Base Memb Ab Coronavirus (PCR) COVID-19 (RADHA) COVID-19 Clin Com Hep Bs Antigen Hep Bs Antibody Hep B Core Total Ab Hepatitis C Ab (EIA) Influenza Type A (PCR) Influenza Type B (PCR) RSV RNA Qual (PCR) Prothrombin [id number] Mut Prothrombin Mut Interp Blood Type Antibody Screen Crossmatch 09/29/20 09/29/20 09/30/20 13:40 13:40 05:43 WBC 8.7 RBC 2.98 L Hgb 8.1 L Hct 24.5 L MCV 82.2 MCH 27.2 MCHC 33.1 RDW 19.9 H Plt Count 367 MPV 9.4 Immature Gran % (Auto) 0.3 Neut % (Auto) 62.4 Lymph % (Auto) 24.2 [place] % (Auto) 9.7 Eos % (Auto) 2.0 Baso % (Auto) 1.4 Lymph # (Auto) 2.1 [place] # (Auto) 0.8 Eos # (Auto) 0.2 Baso # (Auto) 0.1 Abs Immat Gran (auto) 0.03 Absolute Neuts (auto) 5.4 Absolute Nucleated RBC 0.000 Nucleated RBC % (auto) 0.0 Neutrophils % (Manual) Band Neutrophils % Lymphocytes % (Manual) Monocytes % (Manual) Abs Neuts (Manual) Lymphocytes # (Manual) Monocytes # (Manual) Platelet Estimate Plt Morphology Comment RBC Morphology Hypochromasia Ovalocytes [place] Cells Acanthocytes (Spur) Schistocytes Smear Path Review Absolute Retic Percent Retic Immature Retic Fraction Retic Hgb Equivalent Haptoglobin PT INR D-Dimer Hold Blue Top ABG pH ABG pCO2 ABG pO2 ABG HCO3 ABG O2 Saturation ABG Base Excess VBG pH VBG pCO2 VBG pO2 VBG HCO3 VBG O2 Saturation VBG Base Excess Oxygen Given Sodium Potassium Chloride Carbon Dioxide Anion Gap BUN Creatinine Estim Creat Clear Calc Estimated GFR POC Glucose Random Glucose Fasting Glucose Lactic Acid Calcium Phosphorus 8.9 H Magnesium 1.6 Total Bilirubin Direct Bilirubin AST ALT Alkaline Phosphatase Lactate Dehydrogenase Troponin I High Sens C-Reactive Protein B-Natriuretic Peptide Total Protein Total Protein (PEP) 5.2 L Albumin Albumin (PEP) 2.7 L Qsjbs-1-Yxtpvsmwy 0.4 H Ciihp-2-Zkotgyhnl 0.7 Yzbj-9-Eybmlfpb 0.3 L Lvwl-5-Ikdnznsw 0.3 Gamma Globulins 0.8 Abnorm Protein Band 1 SEE NOTE Abnorm Protein Band 2 TNP Abnorm Protein Band 3 TNP PEP Interpretation SEE NOTE Lipase Vitamin B12 Folate Procalcitonin PTH Intact Calcium (PTH Intact) Cancelled Chem Test Urine Color Urine Appearance Urine pH Ur Specific [place] Urine Protein Urine Glucose (UA) Urine Ketones Urine Blood Urine Nitrite Ur Leukocyte Esterase Urine RBC Urine WBC Urine WBC Clumps Ur Squamous Epith Cells Urine Bacteria Urine Yeast Urine Osmolality Ur Random Sodium Stool Occult Blood IgG Total IgA Total IgM DAYANARA Interpretation Proteinase 3 (PR3) Ab 11.1 H Myeloperoxidase Ab <1.0 Double Strand DNA Ab 1 Glomerular Base Memb Ab <1.0 Coronavirus (PCR) COVID-19 (RADHA) COVID-19 Clin Com Hep Bs Antigen Hep Bs Antibody Hep B Core Total Ab Hepatitis C Ab (EIA) Influenza Type A (PCR) Influenza Type B (PCR) RSV RNA Qual (PCR) Prothrombin [id number] Mut Prothrombin Mut Interp Blood Type Antibody Screen Crossmatch 09/30/20 10/01/20 10/01/20 05:43 05:30 05:30 WBC 8.6 RBC 2.90 L Hgb 7.9 L Hct 23.5 L MCV 81.0 MCH 27.2 MCHC 33.6 RDW 19.0 H Plt Count 336 MPV 9.5 Immature Gran % (Auto) 0.3 Neut % (Auto) 64.2 Lymph % (Auto) 23.0 [place] % (Auto) 9.4 Eos % (Auto) 2.1 Baso % (Auto) 1.0 Lymph # (Auto) 2.0 [place] # (Auto) 0.8 Eos # (Auto) 0.2 Baso # (Auto) 0.1 Abs Immat Gran (auto) 0.03 Absolute Neuts (auto) 5.5 Absolute Nucleated RBC 0.000 Nucleated RBC % (auto) 0.0 Neutrophils % (Manual) Band Neutrophils % Lymphocytes % (Manual) Monocytes % (Manual) Abs Neuts (Manual) Lymphocytes # (Manual) Monocytes # (Manual) Platelet Estimate Plt Morphology Comment RBC Morphology Hypochromasia Ovalocytes [place] Cells Acanthocytes (Spur) Schistocytes Smear Path Review Absolute Retic Percent Retic Immature Retic Fraction Retic Hgb Equivalent Haptoglobin PT INR D-Dimer Hold Blue Top ABG pH ABG pCO2 ABG pO2 ABG HCO3 ABG O2 Saturation ABG Base Excess VBG pH VBG pCO2 VBG pO2 VBG HCO3 VBG O2 Saturation VBG Base Excess Oxygen Given Sodium 143 142 Potassium 4.0 3.6 Chloride 110 H 105 Carbon Dioxide 13 L 17 L Anion Gap 24 H 24 H BUN 124 H* 119 H* Creatinine 9.27 H* 8.36 H* Estim Creat Clear Calc 7.0 7.8 Estimated GFR 6 6 POC Glucose Random Glucose Fasting Glucose 75 119 H D Lactic Acid Calcium 6.3 L 6.1 L Phosphorus Magnesium Total Bilirubin Direct Bilirubin AST ALT Alkaline Phosphatase Lactate Dehydrogenase Troponin I High Sens C-Reactive Protein B-Natriuretic Peptide Total Protein Total Protein (PEP) Albumin Albumin (PEP) Wwuci-4-Pxfirgdxe Awqxb-4-Ciyqdfdyv Nvfp-6-Blovbvpu Ovhn-2-Ywibmgiv Gamma Globulins Abnorm Protein Band 1 Abnorm Protein Band 2 Abnorm Protein Band 3 PEP Interpretation Lipase Vitamin B12 Folate Procalcitonin PTH Intact Calcium (PTH Intact) Cancelled Chem Test Urine Color Urine Appearance Urine pH Ur Specific [place] Urine Protein Urine Glucose (UA) Urine Ketones Urine Blood Urine Nitrite Ur Leukocyte Esterase Urine RBC Urine WBC Urine WBC Clumps Ur Squamous Epith Cells Urine Bacteria Urine Yeast Urine Osmolality Ur Random Sodium Stool Occult Blood IgG Total IgA Total IgM DAYANARA Interpretation Proteinase 3 (PR3) Ab Myeloperoxidase Ab Double Strand DNA Ab Glomerular Base Memb Ab Coronavirus (PCR) COVID-19 (RADHA) COVID-19 Clin Com Hep Bs Antigen Hep Bs Antibody Hep B Core Total Ab Hepatitis C Ab (EIA) Influenza Type A (PCR) Influenza Type B (PCR) RSV RNA Qual (PCR) Prothrombin [id number] Mut Prothrombin Mut Interp Blood Type Antibody Screen Crossmatch 10/01/20 10/02/20 10/02/20 05:30 05:44 05:44 WBC 9.1 RBC 2.78 L Hgb 7.6 L Hct 22.9 L MCV 82.4 MCH 27.3 MCHC 33.2 RDW 19.0 H Plt Count 320 MPV 9.6 Immature Gran % (Auto) 0.3 Neut % (Auto) 64.4 Lymph % (Auto) 23.3 [place] % (Auto) 9.3 Eos % (Auto) 1.8 Baso % (Auto) 0.9 Lymph # (Auto) 2.1 [place] # (Auto) 0.8 Eos # (Auto) 0.2 Baso # (Auto) 0.1 Abs Immat Gran (auto) 0.03 Absolute Neuts (auto) 5.8 Absolute Nucleated RBC 0.000 Nucleated RBC % (auto) 0.0 Neutrophils % (Manual) Band Neutrophils % Lymphocytes % (Manual) Monocytes % (Manual) Abs Neuts (Manual) Lymphocytes # (Manual) Monocytes # (Manual) Platelet Estimate Plt Morphology Comment RBC Morphology Hypochromasia Ovalocytes [place] Cells Acanthocytes (Spur) Schistocytes Smear Path Review Absolute Retic Percent Retic Immature Retic Fraction Retic Hgb Equivalent Haptoglobin PT INR D-Dimer Hold Blue Top ABG pH ABG pCO2 ABG pO2 ABG HCO3 ABG O2 Saturation ABG Base Excess VBG pH VBG pCO2 VBG pO2 VBG HCO3 VBG O2 Saturation VBG Base Excess Oxygen Given Sodium 143 Potassium 3.6 Chloride 105 Carbon Dioxide 19 L Anion Gap 23 H BUN 117 H* Creatinine 7.68 H* Estim Creat Clear Calc 8.5 Estimated GFR 7 POC Glucose Random Glucose Fasting Glucose 92 Lactic Acid Calcium 6.0 L* Phosphorus Magnesium Total Bilirubin Direct Bilirubin AST ALT Alkaline Phosphatase Lactate Dehydrogenase Troponin I High Sens C-Reactive Protein B-Natriuretic Peptide Total Protein Total Protein (PEP) Albumin Albumin (PEP) Jodtg-7-Dqjkcxvbf Ikboc-8-Bcoezoghq Utsw-0-Okxlhbzt Yvlo-2-Vfrckjdz Gamma Globulins Abnorm Protein Band 1 Abnorm Protein Band 2 Abnorm Protein Band 3 PEP Interpretation Lipase Vitamin B12 Folate Procalcitonin PTH Intact Calcium (PTH Intact) Cancelled Chem Test Urine Color Urine Appearance Urine pH Ur Specific [place] Urine Protein Urine Glucose (UA) Urine Ketones Urine Blood Urine Nitrite Ur Leukocyte Esterase Urine RBC Urine WBC Urine WBC Clumps Ur Squamous Epith Cells Urine Bacteria Urine Yeast Urine Osmolality Ur Random Sodium Stool Occult Blood IgG Total 868 IgA Total 252 IgM 21 L DAYANARA Interpretation SEE NOTE Proteinase 3 (PR3) Ab Myeloperoxidase Ab Double Strand DNA Ab Glomerular Base Memb Ab Coronavirus (PCR) COVID-19 (RADHA) COVID-19 Clin Com Hep Bs Antigen Hep Bs Antibody Hep B Core Total Ab Hepatitis C Ab (EIA) Influenza Type A (PCR) Influenza Type B (PCR) RSV RNA Qual (PCR) Prothrombin [id number] Mut Prothrombin Mut Interp Blood Type Antibody Screen Crossmatch 01/07/21 01/08/21 01/08/21 12:13 05:39 05:39 WBC 7.0 RBC 3.31 L Hgb 9.2 L D Hct 28.0 L D MCV 84.6 MCH 27.8 MCHC 32.9 RDW 18.0 H Plt Count 297 MPV 9.8 Immature Gran % (Auto) 0.6 H Neut % (Auto) 75.5 H Lymph % (Auto) 16.8 L [place] % (Auto) 7.0 Eos % (Auto) 0.0 Baso % (Auto) 0.1 Lymph # (Auto) 1.2 [place] # (Auto) 0.5 Eos # (Auto) 0.0 Baso # (Auto) 0.0 Abs Immat Gran (auto) 0.04 H Absolute Neuts (auto) 5.3 Absolute Nucleated RBC 0.000 Nucleated RBC % (auto) 0.0 Neutrophils % (Manual) Band Neutrophils % Lymphocytes % (Manual) Monocytes % (Manual) Abs Neuts (Manual) Lymphocytes # (Manual) Monocytes # (Manual) Platelet Estimate Plt Morphology Comment RBC Morphology Hypochromasia Ovalocytes [place] Cells Acanthocytes (Spur) Schistocytes Smear Path Review Absolute Retic Percent Retic Immature Retic Fraction Retic Hgb Equivalent Haptoglobin PT INR D-Dimer Hold Blue Top ABG pH ABG pCO2 ABG pO2 ABG HCO3 ABG O2 Saturation ABG Base Excess VBG pH VBG pCO2 VBG pO2 VBG HCO3 VBG O2 Saturation VBG Base Excess Oxygen Given Sodium 142 Potassium 4.1 Chloride 105 Carbon Dioxide 16 L Anion Gap 25 H BUN 116 H* Creatinine 7.42 H* Estim Creat Clear Calc 8.8 Estimated GFR 7 POC Glucose Random Glucose Fasting Glucose 125 H D Lactic Acid Calcium 6.2 L Phosphorus Magnesium Total Bilirubin Direct Bilirubin AST ALT Alkaline Phosphatase Lactate Dehydrogenase Troponin I High Sens C-Reactive Protein B-Natriuretic Peptide Total Protein Total Protein (PEP) Albumin Albumin (PEP) Zodnf-6-Ginqkwhwz Wcryv-2-Grzwjxotg Wurg-3-Xswovxbb Chgw-2-Nyuoxfgz Gamma Globulins Abnorm Protein Band 1 Abnorm Protein Band 2 Abnorm Protein Band 3 PEP Interpretation Lipase Vitamin B12 Folate Procalcitonin PTH Intact Calcium (PTH Intact) Cancelled Chem Test Urine Color Urine Appearance Urine pH Ur Specific [place] Urine Protein Urine Glucose (UA) Urine Ketones Urine Blood Urine Nitrite Ur Leukocyte Esterase Urine RBC Urine WBC Urine WBC Clumps Ur Squamous Epith Cells Urine Bacteria Urine Yeast Urine Osmolality Ur Random Sodium Stool Occult Blood IgG Total IgA Total IgM DAYANARA Interpretation Proteinase 3 (PR3) Ab Myeloperoxidase Ab Double Strand DNA Ab Glomerular Base Memb Ab Coronavirus (PCR) COVID-19 (RADHA) COVID-19 Clin Com Hep Bs Antigen Hep Bs Antibody Hep B Core Total Ab Hepatitis C Ab (EIA) Influenza Type A (PCR) Influenza Type B (PCR) RSV RNA Qual (PCR) Prothrombin [id number] Mut Prothrombin Mut Interp Blood Type B Positive Antibody Screen NEGATIVE Crossmatch See Detail 10/03/20 10/03/20 10/04/20 05:39 16:31 05:48 WBC 13.4 H RBC 3.66 L Hgb 10.1 L Hct 31.1 L MCV 85.0 MCH 27.6 MCHC 32.5 RDW 17.8 H Plt Count 317 MPV 9.7 Immature Gran % (Auto) 0.4 Neut % (Auto) 77.2 H Lymph % (Auto) 13.3 L [place] % (Auto) 9.0 Eos % (Auto) 0.0 Baso % (Auto) 0.1 Lymph # (Auto) 1.8 [place] # (Auto) 1.2 Eos # (Auto) 0.0 Baso # (Auto) 0.0 Abs Immat Gran (auto) 0.06 H Absolute Neuts (auto) 10.3 H Absolute Nucleated RBC 0.000 Nucleated RBC % (auto) 0.0 Neutrophils % (Manual) Band Neutrophils % Lymphocytes % (Manual) Monocytes % (Manual) Abs Neuts (Manual) Lymphocytes # (Manual) Monocytes # (Manual) Platelet Estimate Plt Morphology Comment RBC Morphology Hypochromasia Ovalocytes [place] Cells Acanthocytes (Spur) Schistocytes Smear Path Review Absolute Retic Percent Retic Immature Retic Fraction Retic Hgb Equivalent Haptoglobin PT 12.6 INR 1.1 D-Dimer Hold Blue Top ABG pH ABG pCO2 ABG pO2 ABG HCO3 ABG O2 Saturation ABG Base Excess VBG pH VBG pCO2 VBG pO2 VBG HCO3 VBG O2 Saturation VBG Base Excess Oxygen Given Sodium Potassium Chloride Carbon Dioxide Anion Gap BUN Creatinine Estim Creat Clear Calc Estimated GFR POC Glucose 168 H Random Glucose Fasting Glucose Lactic Acid Calcium Phosphorus Magnesium Total Bilirubin Direct Bilirubin AST ALT Alkaline Phosphatase Lactate Dehydrogenase Troponin I High Sens C-Reactive Protein B-Natriuretic Peptide Total Protein Total Protein (PEP) Albumin Albumin (PEP) Sjfcs-2-Hqdeymeef Cdjbo-9-Fawwoumwk Zyss-3-Mpnpxvqg Gtbj-6-Nexgufdd Gamma Globulins Abnorm Protein Band 1 Abnorm Protein Band 2 Abnorm Protein Band 3 PEP Interpretation Lipase Vitamin B12 Folate Procalcitonin PTH Intact Calcium (PTH Intact) Cancelled Chem Test Urine Color Urine Appearance Urine pH Ur Specific [place] Urine Protein Urine Glucose (UA) Urine Ketones Urine Blood Urine Nitrite Ur Leukocyte Esterase Urine RBC Urine WBC Urine WBC Clumps Ur Squamous Epith Cells Urine Bacteria Urine Yeast Urine Osmolality Ur Random Sodium Stool Occult Blood IgG Total IgA Total IgM DAYANARA Interpretation Proteinase 3 (PR3) Ab Myeloperoxidase Ab Double Strand DNA Ab Glomerular Base Memb Ab Coronavirus (PCR) COVID-19 (RADHA) COVID-19 Clin Com Hep Bs Antigen Hep Bs Antibody Hep B Core Total Ab Hepatitis C Ab (EIA) Influenza Type A (PCR) Influenza Type B (PCR) RSV RNA Qual (PCR) Prothrombin [id number] Mut Prothrombin Mut Interp Blood Type Antibody Screen Crossmatch 10/04/20 10/04/20 10/05/20 05:48 05:48 05:59 WBC 10.8 RBC 3.43 L Hgb 9.6 L Hct 29.4 L MCV 85.7 MCH 28.0 MCHC 32.7 RDW 17.6 H Plt Count 305 MPV 9.9 Immature Gran % (Auto) 0.5 H Neut % (Auto) 77.4 H Lymph % (Auto) 13.7 L [place] % (Auto) 8.3 Eos % (Auto) 0.0 Baso % (Auto) 0.1 Lymph # (Auto) 1.5 [place] # (Auto) 0.9 Eos # (Auto) 0.0 Baso # (Auto) 0.0 Abs Immat Gran (auto) 0.05 H Absolute Neuts (auto) 8.4 H Absolute Nucleated RBC 0.000 Nucleated RBC % (auto) 0.0 Neutrophils % (Manual) Band Neutrophils % Lymphocytes % (Manual) Monocytes % (Manual) Abs Neuts (Manual) Lymphocytes # (Manual) Monocytes # (Manual) Platelet Estimate Plt Morphology Comment RBC Morphology Hypochromasia Ovalocytes [place] Cells Acanthocytes (Spur) Schistocytes Smear Path Review Absolute Retic Percent Retic Immature Retic Fraction Retic Hgb Equivalent Haptoglobin PT INR D-Dimer Hold Blue Top ABG pH ABG pCO2 ABG pO2 ABG HCO3 ABG O2 Saturation ABG Base Excess VBG pH VBG pCO2 VBG pO2 VBG HCO3 VBG O2 Saturation VBG Base Excess Oxygen Given Sodium 144 Potassium 4.2 Chloride 104 Carbon Dioxide 17 L Anion Gap 27 H BUN 115 H* Creatinine 7.39 H* Estim Creat Clear Calc 8.8 Estimated GFR 7 POC Glucose Random Glucose Fasting Glucose 100 H Lactic Acid Calcium 6.6 L D Phosphorus Magnesium Total Bilirubin Direct Bilirubin AST ALT Alkaline Phosphatase Lactate Dehydrogenase Troponin I High Sens C-Reactive Protein B-Natriuretic Peptide Total Protein Total Protein (PEP) Albumin Albumin (PEP) Irktb-8-Wmqisqdmw Vooiv-1-Mvfwzqlrf Phlu-6-Zwkbcmhx Qytx-2-Plgzcden Gamma Globulins Abnorm Protein Band 1 Abnorm Protein Band 2 Abnorm Protein Band 3 PEP Interpretation Lipase Vitamin B12 Folate Procalcitonin PTH Intact 391 H Calcium (PTH Intact) 6.8 L Cancelled Chem Test Urine Color Urine Appearance Urine pH Ur Specific [place] Urine Protein Urine Glucose (UA) Urine Ketones Urine Blood Urine Nitrite Ur Leukocyte Esterase Urine RBC Urine WBC Urine WBC Clumps Ur Squamous Epith Cells Urine Bacteria Urine Yeast Urine Osmolality Ur Random Sodium Stool Occult Blood IgG Total IgA Total IgM DAYANARA Interpretation Proteinase 3 (PR3) Ab Myeloperoxidase Ab Double Strand DNA Ab Glomerular Base Memb Ab Coronavirus (PCR) COVID-19 (RADHA) COVID-19 Clin Com Hep Bs Antigen Hep Bs Antibody Hep B Core Total Ab Hepatitis C Ab (EIA) Influenza Type A (PCR) Influenza Type B (PCR) RSV RNA Qual (PCR) Prothrombin [id number] Mut Prothrombin Mut Interp Blood Type Antibody Screen Crossmatch 10/05/20 10/06/20 10/06/20 05:59 00:29 00:51 WBC 11.6 H RBC 3.53 L Hgb 9.8 L Hct 30.0 L MCV 85.0 MCH 27.8 MCHC 32.7 RDW 17.3 H Plt Count 328 MPV 9.6 Immature Gran % (Auto) 0.3 Neut % (Auto) 77.6 H Lymph % (Auto) 17.8 L [place] % (Auto) 4.2 Eos % (Auto) 0.0 Baso % (Auto) 0.1 Lymph # (Auto) 2.1 [place] # (Auto) 0.5 Eos # (Auto) 0.0 Baso # (Auto) 0.0 Abs Immat Gran (auto) 0.03 Absolute Neuts (auto) 9.0 H Absolute Nucleated RBC 0.000 Nucleated RBC % (auto) 0.0 Neutrophils % (Manual) Band Neutrophils % Lymphocytes % (Manual) Monocytes % (Manual) Abs Neuts (Manual) Lymphocytes # (Manual) Monocytes # (Manual) Platelet Estimate Plt Morphology Comment RBC Morphology Hypochromasia Ovalocytes [place] Cells Acanthocytes (Spur) Schistocytes Smear Path Review Absolute Retic Percent Retic Immature Retic Fraction Retic Hgb Equivalent Haptoglobin PT INR D-Dimer Hold Blue Top ABG pH ABG pCO2 ABG pO2 ABG HCO3 ABG O2 Saturation ABG Base Excess VBG pH VBG pCO2 VBG pO2 VBG HCO3 VBG O2 Saturation VBG Base Excess Oxygen Given Sodium 144 Potassium 3.9 Chloride 105 Carbon Dioxide 20 L Anion Gap 23 H BUN 122 H* Creatinine 7.52 H* Estim Creat Clear Calc 8.6 Estimated GFR 7 POC Glucose 162 H Random Glucose Fasting Glucose 111 H Lactic Acid Calcium 6.4 L Phosphorus Magnesium Total Bilirubin Direct Bilirubin AST ALT Alkaline Phosphatase Lactate Dehydrogenase Troponin I High Sens C-Reactive Protein B-Natriuretic Peptide Total Protein Total Protein (PEP) Albumin Albumin (PEP) Ybpmw-5-Kreubtrrz Tpimc-3-Akonjjpny Hady-9-Sixwfcxr Fefm-5-Vsdlzzqu Gamma Globulins Abnorm Protein Band 1 Abnorm Protein Band 2 Abnorm Protein Band 3 PEP Interpretation Lipase Vitamin B12 Folate Procalcitonin PTH Intact Calcium (PTH Intact) Cancelled Chem Test Urine Color Urine Appearance Urine pH Ur Specific [place] Urine Protein Urine Glucose (UA) Urine Ketones Urine Blood Urine Nitrite Ur Leukocyte Esterase Urine RBC Urine WBC Urine WBC Clumps Ur Squamous Epith Cells Urine Bacteria Urine Yeast Urine Osmolality Ur Random Sodium Stool Occult Blood IgG Total IgA Total IgM DAYANARA Interpretation Proteinase 3 (PR3) Ab Myeloperoxidase Ab Double Strand DNA Ab Glomerular Base Memb Ab Coronavirus (PCR) COVID-19 (RADHA) COVID-19 Clin Com Hep Bs Antigen Hep Bs Antibody Hep B Core Total Ab Hepatitis C Ab (EIA) Influenza Type A (PCR) Influenza Type B (PCR) RSV RNA Qual (PCR) Prothrombin [id number] Mut Prothrombin Mut Interp Blood Type Antibody Screen Crossmatch 10/06/20 10/06/20 10/06/20 00:51 00:54 02:15 WBC RBC Hgb Hct MCV MCH MCHC RDW Plt Count MPV Immature Gran % (Auto) Neut % (Auto) Lymph % (Auto) [place] % (Auto) Eos % (Auto) Baso % (Auto) Lymph # (Auto) [place] # (Auto) Eos # (Auto) Baso # (Auto) Abs Immat Gran (auto) Absolute Neuts (auto) Absolute Nucleated RBC Nucleated RBC % (auto) Neutrophils % (Manual) Band Neutrophils % Lymphocytes % (Manual) Monocytes % (Manual) Abs Neuts (Manual) Lymphocytes # (Manual) Monocytes # (Manual) Platelet Estimate Plt Morphology Comment RBC Morphology Hypochromasia Ovalocytes [place] Cells Acanthocytes (Spur) Schistocytes Smear Path Review Absolute Retic Percent Retic Immature Retic Fraction Retic Hgb Equivalent Haptoglobin PT 12.9 INR 1.1 D-Dimer Hold Blue Top ABG pH 7.37 ABG pCO2 29 L ABG pO2 68 L ABG HCO3 16 L ABG O2 Saturation 91.3 ABG Base Excess -7.6 VBG pH VBG pCO2 VBG pO2 VBG HCO3 VBG O2 Saturation VBG Base Excess Oxygen Given [employer] Sodium 139 Potassium 3.8 Chloride 102 Carbon Dioxide 13 L Anion Gap 28 H BUN 124 H* Creatinine 7.14 H* Estim Creat Clear Calc 9.1 Estimated GFR 7 POC Glucose Random Glucose 185 H D Fasting Glucose Lactic Acid Calcium 6.5 L Phosphorus Magnesium Total Bilirubin 0.4 Direct Bilirubin AST 16 D ALT 15 Alkaline Phosphatase 63 Lactate Dehydrogenase Troponin I High Sens C-Reactive Protein B-Natriuretic Peptide Total Protein 6.1 L Total Protein (PEP) Albumin 3.4 L Albumin (PEP) Drkhg-1-Ijyasjceq Jesha-7-Romfasfmz Atbt-1-Zivjfban Jejc-6-Ndezckfj Gamma Globulins Abnorm Protein Band 1 Abnorm Protein Band 2 Abnorm Protein Band 3 PEP Interpretation Lipase Vitamin B12 Folate Procalcitonin PTH Intact Calcium (PTH Intact) Cancelled Chem Test Urine Color Urine Appearance Urine pH Ur Specific [place] Urine Protein Urine Glucose (UA) Urine Ketones Urine Blood Urine Nitrite Ur Leukocyte Esterase Urine RBC Urine WBC Urine WBC Clumps Ur Squamous Epith Cells Urine Bacteria Urine Yeast Urine Osmolality Ur Random Sodium Stool Occult Blood IgG Total IgA Total IgM DAYANARA Interpretation Proteinase 3 (PR3) Ab Myeloperoxidase Ab Double Strand DNA Ab Glomerular Base Memb Ab Coronavirus (PCR) COVID-19 (RADHA) COVID-19 Clin Com Hep Bs Antigen Hep Bs Antibody Hep B Core Total Ab Hepatitis C Ab (EIA) Influenza Type A (PCR) Influenza Type B (PCR) RSV RNA Qual (PCR) Prothrombin [id number] Mut Prothrombin Mut Interp Blood Type Antibody Screen Crossmatch 10/07/20 10/07/20 10/07/20 05:59 05:59 20:54 WBC 11.9 H RBC 3.85 L Hgb 10.5 L Hct 33.4 L MCV 86.8 MCH 27.3 MCHC 31.4 RDW 17.0 H Plt Count 243 D MPV 10.1 Immature Gran % (Auto) Neut % (Auto) Lymph % (Auto) [place] % (Auto) Eos % (Auto) Baso % (Auto) Lymph # (Auto) [place] # (Auto) Eos # (Auto) Baso # (Auto) Abs Immat Gran (auto) Absolute Neuts (auto) Absolute Nucleated RBC 0.000 Nucleated RBC % (auto) 0.0 Neutrophils % (Manual) Band Neutrophils % Lymphocytes % (Manual) Monocytes % (Manual) Abs Neuts (Manual) Lymphocytes # (Manual) Monocytes # (Manual) Platelet Estimate Plt Morphology Comment RBC Morphology Hypochromasia Ovalocytes [place] Cells Acanthocytes (Spur) Schistocytes Smear Path Review Absolute Retic Percent Retic Immature Retic Fraction Retic Hgb Equivalent Haptoglobin PT INR D-Dimer Hold Blue Top ABG pH ABG pCO2 ABG pO2 ABG HCO3 ABG O2 Saturation ABG Base Excess VBG pH VBG pCO2 VBG pO2 VBG HCO3 VBG O2 Saturation VBG Base Excess Oxygen Given Sodium 141 Potassium 4.2 Chloride 105 Carbon Dioxide 17 L Anion Gap 23 H BUN 75 H Creatinine 4.96 H* Estim Creat Clear Calc 13.1 Estimated GFR 11 POC Glucose Random Glucose 75 D 117 H D Fasting Glucose Lactic Acid Calcium 7.4 L D Phosphorus Magnesium Total Bilirubin Direct Bilirubin AST ALT Alkaline Phosphatase Lactate Dehydrogenase Troponin I High Sens C-Reactive Protein B-Natriuretic Peptide Total Protein Total Protein (PEP) Albumin Albumin (PEP) Gnxsz-7-Dbbaztmzd Uazuo-5-Curhnylrs Gjou-1-Lkytksiq Kseq-8-Zgocigcc Gamma Globulins Abnorm Protein Band 1 Abnorm Protein Band 2 Abnorm Protein Band 3 PEP Interpretation Lipase Vitamin B12 Folate Procalcitonin PTH Intact Calcium (PTH Intact) Cancelled Chem Test Urine Color Urine Appearance Urine pH Ur Specific [place] Urine Protein Urine Glucose (UA) Urine Ketones Urine Blood Urine Nitrite Ur Leukocyte Esterase Urine RBC Urine WBC Urine WBC Clumps Ur Squamous Epith Cells Urine Bacteria Urine Yeast Urine Osmolality Ur Random Sodium Stool Occult Blood IgG Total IgA Total IgM DAYANARA Interpretation Proteinase 3 (PR3) Ab Myeloperoxidase Ab Double Strand DNA Ab Glomerular Base Memb Ab Coronavirus (PCR) COVID-19 (RADHA) COVID-19 Clin Com Hep Bs Antigen Hep Bs Antibody Hep B Core Total Ab Hepatitis C Ab (EIA) Influenza Type A (PCR) Influenza Type B (PCR) RSV RNA Qual (PCR) Prothrombin [id number] Mut Prothrombin Mut Interp Blood Type Antibody Screen Crossmatch 10/08/20 10/08/20 10/08/20 05:27 05:27 20:28 WBC 5.4 RBC 3.77 L Hgb 10.3 L 8.3 L Hct 32.7 L 25.5 L D MCV 86.7 MCH 27.3 MCHC 31.5 RDW 17.0 H Plt Count 240 MPV 10.2 Immature Gran % (Auto) Neut % (Auto) Lymph % (Auto) [place] % (Auto) Eos % (Auto) Baso % (Auto) Lymph # (Auto) [place] # (Auto) Eos # (Auto) Baso # (Auto) Abs Immat Gran (auto) Absolute Neuts (auto) Absolute Nucleated RBC 0.000 Nucleated RBC % (auto) 0.0 Neutrophils % (Manual) Band Neutrophils % Lymphocytes % (Manual) Monocytes % (Manual) Abs Neuts (Manual) Lymphocytes # (Manual) Monocytes # (Manual) Platelet Estimate Plt Morphology Comment RBC Morphology Hypochromasia Ovalocytes [place] Cells Acanthocytes (Spur) Schistocytes Smear Path Review Absolute Retic Percent Retic Immature Retic Fraction Retic Hgb Equivalent Haptoglobin PT INR D-Dimer Hold Blue Top ABG pH ABG pCO2 ABG pO2 ABG HCO3 ABG O2 Saturation ABG Base Excess VBG pH VBG pCO2 VBG pO2 VBG HCO3 VBG O2 Saturation VBG Base Excess Oxygen Given Sodium 141 Potassium 4.2 Chloride 105 Carbon Dioxide 16 L Anion Gap 24 H BUN 97 H* D Creatinine 6.02 H* Estim Creat Clear Calc 10.8 Estimated GFR 9 POC Glucose Random Glucose 174 H D Fasting Glucose Lactic Acid Calcium 7.2 L Phosphorus Magnesium Total Bilirubin Direct Bilirubin AST ALT Alkaline Phosphatase Lactate Dehydrogenase Troponin I High Sens C-Reactive Protein B-Natriuretic Peptide Total Protein Total Protein (PEP) Albumin Albumin (PEP) Jergf-3-Ovpvmqtxk Fadio-4-Bexidfzxt Sdzk-2-Zzjtzpyy Pceu-5-Gfibpivd Gamma Globulins Abnorm Protein Band 1 Abnorm Protein Band 2 Abnorm Protein Band 3 PEP Interpretation Lipase Vitamin B12 Folate Procalcitonin PTH Intact Calcium (PTH Intact) Cancelled Chem Test Urine Color Urine Appearance Urine pH Ur Specific [place] Urine Protein Urine Glucose (UA) Urine Ketones Urine Blood Urine Nitrite Ur Leukocyte Esterase Urine RBC Urine WBC Urine WBC Clumps Ur Squamous Epith Cells Urine Bacteria Urine Yeast Urine Osmolality Ur Random Sodium Stool Occult Blood IgG Total IgA Total IgM DAYANARA Interpretation Proteinase 3 (PR3) Ab Myeloperoxidase Ab Double Strand DNA Ab Glomerular Base Memb Ab Coronavirus (PCR) COVID-19 (RADHA) COVID-19 Clin Com Hep Bs Antigen Hep Bs Antibody Hep B Core Total Ab Hepatitis C Ab (EIA) Influenza Type A (PCR) Influenza Type B (PCR) RSV RNA Qual (PCR) Prothrombin [id number] Mut Prothrombin Mut Interp Blood Type Antibody Screen Crossmatch 10/08/20 10/09/20 10/09/20 22:17 05:49 05:49 WBC 12.5 H RBC 3.12 L Hgb 8.8 L Hct 26.4 L MCV 84.6 MCH 28.2 MCHC 33.3 RDW 16.6 H Plt Count 246 MPV 10.5 Immature Gran % (Auto) Neut % (Auto) Lymph % (Auto) [place] % (Auto) Eos % (Auto) Baso % (Auto) Lymph # (Auto) [place] # (Auto) Eos # (Auto) Baso # (Auto) Abs Immat Gran (auto) Absolute Neuts (auto) Absolute Nucleated RBC 0.000 Nucleated RBC % (auto) 0.0 Neutrophils % (Manual) Band Neutrophils % Lymphocytes % (Manual) Monocytes % (Manual) Abs Neuts (Manual) Lymphocytes # (Manual) Monocytes # (Manual) Platelet Estimate Plt Morphology Comment RBC Morphology Hypochromasia Ovalocytes Christine Cells Acanthocytes (Spur) Schistocytes Smear Path Review Absolute Retic Percent Retic Immature Retic Fraction Retic Hgb Equivalent Haptoglobin PT INR D-Dimer Hold Blue Top ABG pH ABG pCO2 ABG pO2 ABG HCO3 ABG O2 Saturation ABG Base Excess VBG pH VBG pCO2 VBG pO2 VBG HCO3 VBG O2 Saturation VBG Base Excess Oxygen Given Sodium 134 L Potassium 4.8 Chloride 101 Carbon Dioxide 15 L Anion Gap 23 H BUN 115 H* Creatinine 6.24 H* Estim Creat Clear Calc 10.4 Estimated GFR 9 POC Glucose Random Glucose 162 H Fasting Glucose Lactic Acid Calcium 6.7 L D Phosphorus Magnesium Total Bilirubin Direct Bilirubin AST ALT Alkaline Phosphatase Lactate Dehydrogenase Troponin I High Sens C-Reactive Protein B-Natriuretic Peptide Total Protein Total Protein (PEP) Albumin Albumin (PEP) Tpavu-8-Cwgbsvwwh Ppzli-6-Bwrkadeyn Ojeg-5-Jfubfulr Srty-9-Qgwczlfo Gamma Globulins Abnorm Protein Band 1 Abnorm Protein Band 2 Abnorm Protein Band 3 PEP Interpretation Lipase Vitamin B12 Folate Procalcitonin PTH Intact Calcium (PTH Intact) Cancelled Chem Test Urine Color Urine Appearance Urine pH Ur Specific [place] Urine Protein Urine Glucose (UA) Urine Ketones Urine Blood Urine Nitrite Ur Leukocyte Esterase Urine RBC Urine WBC Urine WBC Clumps Ur Squamous Epith Cells Urine Bacteria Urine Yeast Urine Osmolality Ur Random Sodium Stool Occult Blood IgG Total IgA Total IgM DAYANARA Interpretation Proteinase 3 (PR3) Ab Myeloperoxidase Ab Double Strand DNA Ab Glomerular Base Memb Ab Coronavirus (PCR) COVID-19 (RADHA) COVID-19 Clin Com Hep Bs Antigen Negative Hep Bs Antibody NONREACTIVE Hep B Core Total Ab Nonreactive Hepatitis C Ab (EIA) Nonreactive Influenza Type A (PCR) Influenza Type B (PCR) RSV RNA Qual (PCR) Prothrombin [id number] Mut Prothrombin Mut Interp Blood Type Antibody Screen Crossmatch 10/09/20 10/09/20 10/10/20 15:59 17:18 05:58 WBC 16.5 H 14.4 H RBC 2.75 L 2.84 L Hgb 7.9 L 7.9 L Hct 23.4 L 23.7 L MCV 85.1 83.5 MCH 28.7 27.8 MCHC 33.8 33.3 RDW 16.6 H 16.4 H Plt Count 215 220 MPV 10.2 10.9 Immature Gran % (Auto) Neut % (Auto) Lymph % (Auto) [place] % (Auto) Eos % (Auto) Baso % (Auto) Lymph # (Auto) [place] # (Auto) Eos # (Auto) Baso # (Auto) Abs Immat Gran (auto) Absolute Neuts (auto) Absolute Nucleated RBC 0.000 0.000 Nucleated RBC % (auto) 0.0 0.0 Neutrophils % (Manual) Band Neutrophils % Lymphocytes % (Manual) Monocytes % (Manual) Abs Neuts (Manual) Lymphocytes # (Manual) Monocytes # (Manual) Platelet Estimate Plt Morphology Comment RBC Morphology Hypochromasia Ovalocytes Christine Cells Acanthocytes (Spur) Schistocytes Smear Path Review Absolute Retic Percent Retic Immature Retic Fraction Retic Hgb Equivalent Haptoglobin PT INR D-Dimer Hold Blue Top ABG pH ABG pCO2 ABG pO2 ABG HCO3 ABG O2 Saturation ABG Base Excess VBG pH VBG pCO2 VBG pO2 VBG HCO3 VBG O2 Saturation VBG Base Excess Oxygen Given Sodium Potassium Chloride Carbon Dioxide Anion Gap BUN Creatinine Estim Creat Clear Calc Estimated GFR POC Glucose Random Glucose Fasting Glucose Lactic Acid Calcium Phosphorus Magnesium Total Bilirubin Direct Bilirubin AST ALT Alkaline Phosphatase Lactate Dehydrogenase Troponin I High Sens C-Reactive Protein B-Natriuretic Peptide Total Protein Total Protein (PEP) Albumin Albumin (PEP) Trjgd-1-Vnpyxzhor Okspo-5-Cmzobtdhg Uwre-2-Brmuufld Lhsn-6-Xkyfqgir Gamma Globulins Abnorm Protein Band 1 Abnorm Protein Band 2 Abnorm Protein Band 3 PEP Interpretation Lipase Vitamin B12 Folate Procalcitonin PTH Intact Calcium (PTH Intact) Cancelled Chem Test Urine Color Urine Appearance Urine pH Ur Specific [place] Urine Protein Urine Glucose (UA) Urine Ketones Urine Blood Urine Nitrite Ur Leukocyte Esterase Urine RBC Urine WBC Urine WBC Clumps Ur Squamous Epith Cells Urine Bacteria Urine Yeast Urine Osmolality Ur Random Sodium Stool Occult Blood POS IgG Total IgA Total IgM DAYANARA Interpretation Proteinase 3 (PR3) Ab Myeloperoxidase Ab Double Strand DNA Ab Glomerular Base Memb Ab Coronavirus (PCR) COVID-19 (RADHA) COVID-19 Clin Com Hep Bs Antigen Hep Bs Antibody Hep B Core Total Ab Hepatitis C Ab (EIA) Influenza Type A (PCR) Influenza Type B (PCR) RSV RNA Qual (PCR) Prothrombin [id number] Mut Prothrombin Mut Interp Blood Type Antibody Screen Crossmatch 10/10/20 10/10/20 10/11/20 05:58 20:37 05:40 WBC 13.1 H 12.8 H RBC 2.55 L 2.39 L Hgb 7.1 L 6.8 L* Hct 21.9 L 20.4 L* MCV 85.9 85.4 MCH 27.8 28.5 MCHC 32.4 33.3 RDW 16.9 H 16.6 H Plt Count 214 205 MPV 10.4 10.9 Immature Gran % (Auto) Neut % (Auto) Lymph % (Auto) [place] % (Auto) Eos % (Auto) Baso % (Auto) Lymph # (Auto) [place] # (Auto) Eos # (Auto) Baso # (Auto) Abs Immat Gran (auto) Absolute Neuts (auto) Absolute Nucleated RBC 0.000 0.000 Nucleated RBC % (auto) 0.0 0.0 Neutrophils % (Manual) Band Neutrophils % Lymphocytes % (Manual) Monocytes % (Manual) Abs Neuts (Manual) Lymphocytes # (Manual) Monocytes # (Manual) Platelet Estimate Plt Morphology Comment RBC Morphology Hypochromasia Ovalocytes Christine Cells Acanthocytes (Spur) Schistocytes Smear Path Review Absolute Retic Percent Retic Immature Retic Fraction Retic Hgb Equivalent Haptoglobin PT INR D-Dimer Hold Blue Top ABG pH ABG pCO2 ABG pO2 ABG HCO3 ABG O2 Saturation ABG Base Excess VBG pH VBG pCO2 VBG pO2 VBG HCO3 VBG O2 Saturation VBG Base Excess Oxygen Given Sodium 136 Potassium 4.4 Chloride 102 Carbon Dioxide 17 L Anion Gap 21 H BUN 120 H* Creatinine 6.48 H* Estim Creat Clear Calc 10.0 Estimated GFR 8 POC Glucose Random Glucose 127 H Fasting Glucose Lactic Acid Calcium 6.8 L Phosphorus 6.5 H Magnesium Total Bilirubin Direct Bilirubin AST ALT Alkaline Phosphatase Lactate Dehydrogenase Troponin I High Sens C-Reactive Protein B-Natriuretic Peptide Total Protein Total Protein (PEP) Albumin Albumin (PEP) Ivpkg-4-Yxovlscxf Pnvxo-6-Gecvxvhnd Ainu-2-Gizaybrx Mavk-8-Uilosunr Gamma Globulins Abnorm Protein Band 1 Abnorm Protein Band 2 Abnorm Protein Band 3 PEP Interpretation Lipase Vitamin B12 Folate Procalcitonin PTH Intact Calcium (PTH Intact) Cancelled Chem Test Urine Color Urine Appearance Urine pH Ur Specific [place] Urine Protein Urine Glucose (UA) Urine Ketones Urine Blood Urine Nitrite Ur Leukocyte Esterase Urine RBC Urine WBC Urine WBC Clumps Ur Squamous Epith Cells Urine Bacteria Urine Yeast Urine Osmolality Ur Random Sodium Stool Occult Blood IgG Total IgA Total IgM DAYANARA Interpretation Proteinase 3 (PR3) Ab Myeloperoxidase Ab Double Strand DNA Ab Glomerular Base Memb Ab Coronavirus (PCR) COVID-19 (RADHA) COVID-19 Clin Com Hep Bs Antigen Hep Bs Antibody Hep B Core Total Ab Hepatitis C Ab (EIA) Influenza Type A (PCR) Influenza Type B (PCR) RSV RNA Qual (PCR) Prothrombin [id number] Mut Prothrombin Mut Interp Blood Type Antibody Screen Crossmatch 10/11/20 10/11/20 10/12/20 05:40 08:19 05:12 WBC 13.1 H RBC 3.67 L D Hgb 10.2 L D Hct 30.8 L D MCV 83.9 MCH 27.8 MCHC 33.1 RDW 15.7 Plt Count 218 MPV 10.8 Immature Gran % (Auto) Neut % (Auto) Lymph % (Auto) [place] % (Auto) Eos % (Auto) Baso % (Auto) Lymph # (Auto) [place] # (Auto) Eos # (Auto) Baso # (Auto) Abs Immat Gran (auto) Absolute Neuts (auto) Absolute Nucleated RBC 0.000 Nucleated RBC % (auto) 0.0 Neutrophils % (Manual) Band Neutrophils % Lymphocytes % (Manual) Monocytes % (Manual) Abs Neuts (Manual) Lymphocytes # (Manual) Monocytes # (Manual) Platelet Estimate Plt Morphology Comment RBC Morphology Hypochromasia Ovalocytes [place] Cells Acanthocytes (Spur) Schistocytes Smear Path Review Absolute Retic Percent Retic Immature Retic Fraction Retic Hgb Equivalent Haptoglobin PT INR D-Dimer Hold Blue Top ABG pH ABG pCO2 ABG pO2 ABG HCO3 ABG O2 Saturation ABG Base Excess VBG pH VBG pCO2 VBG pO2 VBG HCO3 VBG O2 Saturation VBG Base Excess Oxygen Given Sodium 137 Potassium 4.9 Chloride 103 Carbon Dioxide 18 L Anion Gap 21 H BUN 126 H* Creatinine 6.79 H* Estim Creat Clear Calc 9.6 Estimated GFR 8 POC Glucose Random Glucose 119 H Fasting Glucose Lactic Acid Calcium 6.7 L Phosphorus Magnesium Total Bilirubin Direct Bilirubin AST ALT Alkaline Phosphatase Lactate Dehydrogenase Troponin I High Sens C-Reactive Protein B-Natriuretic Peptide Total Protein Total Protein (PEP) Albumin Albumin (PEP) Lofca-9-Drztpauld Ixvlv-7-Ulnmlduhi Kgqf-5-Ksbgufrl Anyq-9-Ljzquazw Gamma Globulins Abnorm Protein Band 1 Abnorm Protein Band 2 Abnorm Protein Band 3 PEP Interpretation Lipase Vitamin B12 Folate Procalcitonin PTH Intact Calcium (PTH Intact) Cancelled Chem Test Urine Color Urine Appearance Urine pH Ur Specific [place] Urine Protein Urine Glucose (UA) Urine Ketones Urine Blood Urine Nitrite Ur Leukocyte Esterase Urine RBC Urine WBC Urine WBC Clumps Ur Squamous Epith Cells Urine Bacteria Urine Yeast Urine Osmolality Ur Random Sodium Stool Occult Blood IgG Total IgA Total IgM DAYANARA Interpretation Proteinase 3 (PR3) Ab Myeloperoxidase Ab Double Strand DNA Ab Glomerular Base Memb Ab Coronavirus (PCR) COVID-19 (RADHA) COVID-19 Clin Com Hep Bs Antigen Hep Bs Antibody Hep B Core Total Ab Hepatitis C Ab (EIA) Influenza Type A (PCR) Influenza Type B (PCR) RSV RNA Qual (PCR) Prothrombin [id number] Mut Prothrombin Mut Interp Blood Type B Positive Antibody Screen NEGATIVE Crossmatch See Detail 10/12/20 10/12/20 10/13/20 05:12 05:12 05:32 WBC RBC Hgb Hct MCV MCH MCHC RDW Plt Count MPV Immature Gran % (Auto) Neut % (Auto) Lymph % (Auto) [place] % (Auto) Eos % (Auto) Baso % (Auto) Lymph # (Auto) [place] # (Auto) Eos # (Auto) Baso # (Auto) Abs Immat Gran (auto) Absolute Neuts (auto) Absolute Nucleated RBC Nucleated RBC % (auto) Neutrophils % (Manual) Band Neutrophils % Lymphocytes % (Manual) Monocytes % (Manual) Abs Neuts (Manual) Lymphocytes # (Manual) Monocytes # (Manual) Platelet Estimate Plt Morphology Comment RBC Morphology Hypochromasia Ovalocytes [place] Cells Acanthocytes (Spur) Schistocytes Smear Path Review Absolute Retic Percent Retic Immature Retic Fraction Retic Hgb Equivalent Haptoglobin PT 11.5 INR 1.0 D-Dimer Hold Blue Top ABG pH ABG pCO2 ABG pO2 ABG HCO3 ABG O2 Saturation ABG Base Excess VBG pH VBG pCO2 VBG pO2 VBG HCO3 VBG O2 Saturation VBG Base Excess Oxygen Given Sodium 138 Potassium 4.3 Chloride 103 Carbon Dioxide 17 L Anion Gap 22 H BUN 132 H* Creatinine 6.52 H* Estim Creat Clear Calc 10.0 Estimated GFR 8 POC Glucose Random Glucose 157 H Fasting Glucose Lactic Acid Calcium 6.8 L Phosphorus Magnesium Total Bilirubin Direct Bilirubin AST ALT Alkaline Phosphatase Lactate Dehydrogenase Troponin I High Sens C-Reactive Protein B-Natriuretic Peptide Total Protein Total Protein (PEP) Albumin 3.0 L Albumin (PEP) Aktse-2-Odorltwnt Kuxcq-7-Uuljpxgtc Qrbl-9-Vxsmynmo Grsf-5-Uyqjvpyo Gamma Globulins Abnorm Protein Band 1 Abnorm Protein Band 2 Abnorm Protein Band 3 PEP Interpretation Lipase Vitamin B12 Folate Procalcitonin PTH Intact Calcium (PTH Intact) Cancelled Chem Test Urine Color Urine Appearance Urine pH Ur Specific [place] Urine Protein Urine Glucose (UA) Urine Ketones Urine Blood Urine Nitrite Ur Leukocyte Esterase Urine RBC Urine WBC Urine WBC Clumps Ur Squamous Epith Cells Urine Bacteria Urine Yeast Urine Osmolality Ur Random Sodium Stool Occult Blood IgG Total IgA Total IgM DAYANARA Interpretation Proteinase 3 (PR3) Ab Myeloperoxidase Ab Double Strand DNA Ab Glomerular Base Memb Ab Coronavirus (PCR) COVID-19 (RADHA) COVID-19 Clin Com Hep Bs Antigen Hep Bs Antibody Hep B Core Total Ab Hepatitis C Ab (EIA) Influenza Type A (PCR) Influenza Type B (PCR) RSV RNA Qual (PCR) Prothrombin [id number] Mut SEE NOTE Prothrombin Mut Interp SEE NOTE Blood Type Antibody Screen Crossmatch 10/13/20 10/13/20 10/15/20 05:32 05:32 09:12 WBC 15.7 H 13.6 H RBC 3.71 L 3.35 L Hgb 10.3 L 9.6 L Hct 31.2 L 28.5 L MCV 84.1 85.1 MCH 27.8 28.7 MCHC 33.0 33.7 RDW 15.8 16.0 Plt Count 241 278 MPV 10.3 10.0 Immature Gran % (Auto) 1.8 H Neut % (Auto) 87.1 H Lymph % (Auto) 7.7 L [place] % (Auto) 3.2 Eos % (Auto) 0.1 Baso % (Auto) 0.1 Lymph # (Auto) 1.1 L [place] # (Auto) 0.4 Eos # (Auto) 0.0 Baso # (Auto) 0.0 Abs Immat Gran (auto) 0.25 H Absolute Neuts (auto) 11.8 H Absolute Nucleated RBC 0.030 H 0.040 H Nucleated RBC % (auto) 0.2 0.3 H Neutrophils % (Manual) Band Neutrophils % Lymphocytes % (Manual) Monocytes % (Manual) Abs Neuts (Manual) Lymphocytes # (Manual) Monocytes # (Manual) Platelet Estimate Plt Morphology Comment RBC Morphology Hypochromasia Ovalocytes Christine Cells Acanthocytes (Spur) Schistocytes Smear Path Review Absolute Retic Percent Retic Immature Retic Fraction Retic Hgb Equivalent Haptoglobin PT INR D-Dimer Hold Blue Top ABG pH ABG pCO2 ABG pO2 ABG HCO3 ABG O2 Saturation ABG Base Excess VBG pH VBG pCO2 VBG pO2 VBG HCO3 VBG O2 Saturation VBG Base Excess Oxygen Given Sodium 136 Potassium 4.6 Chloride 101 Carbon Dioxide 18 L Anion Gap 22 H BUN 128 H* Creatinine 6.46 H* Estim Creat Clear Calc 10.1 Estimated GFR 8 POC Glucose Random Glucose 134 H Fasting Glucose Lactic Acid Calcium 6.9 L Phosphorus Magnesium Total Bilirubin Direct Bilirubin AST ALT Alkaline Phosphatase Lactate Dehydrogenase Troponin I High Sens C-Reactive Protein B-Natriuretic Peptide Total Protein Total Protein (PEP) Albumin Albumin (PEP) Doybp-1-Ulzianvfj Atbaf-1-Auwhflfif Ltlc-1-Uzoaoxud Hcva-4-Djpudsuw Gamma Globulins Abnorm Protein Band 1 Abnorm Protein Band 2 Abnorm Protein Band 3 PEP Interpretation Lipase Vitamin B12 Folate Procalcitonin PTH Intact Calcium (PTH Intact) Cancelled Chem Test Urine Color Urine Appearance Urine pH Ur Specific [place] Urine Protein Urine Glucose (UA) Urine Ketones Urine Blood Urine Nitrite Ur Leukocyte Esterase Urine RBC Urine WBC Urine WBC Clumps Ur Squamous Epith Cells Urine Bacteria Urine Yeast Urine Osmolality Ur Random Sodium Stool Occult Blood IgG Total IgA Total IgM DAYANARA Interpretation Proteinase 3 (PR3) Ab Myeloperoxidase Ab Double Strand DNA Ab Glomerular Base Memb Ab Coronavirus (PCR) COVID-19 (RADHA) COVID-19 Clin Com Hep Bs Antigen Hep Bs Antibody Hep B Core Total Ab Hepatitis C Ab (EIA) Influenza Type A (PCR) Influenza Type B (PCR) RSV RNA Qual (PCR) Prothrombin [id number] Mut Prothrombin Mut Interp Blood Type Antibody Screen Crossmatch 10/15/20 10/16/20 10/16/20 09:12 08:05 08:05 WBC 10.8 RBC 3.36 L Hgb 9.4 L Hct 28.6 L MCV 85.1 MCH 28.0 MCHC 32.9 RDW 16.2 H Plt Count 257 MPV 9.8 Immature Gran % (Auto) 1.4 H Neut % (Auto) 85.1 H Lymph % (Auto) 9.3 L [place] % (Auto) 4.0 Eos % (Auto) 0.1 Baso % (Auto) 0.1 Lymph # (Auto) 1.0 L [place] # (Auto) 0.4 Eos # (Auto) 0.0 Baso # (Auto) 0.0 Abs Immat Gran (auto) 0.15 H Absolute Neuts (auto) 9.2 H Absolute Nucleated RBC 0.020 H Nucleated RBC % (auto) 0.2 Neutrophils % (Manual) Band Neutrophils % Lymphocytes % (Manual) Monocytes % (Manual) Abs Neuts (Manual) Lymphocytes # (Manual) Monocytes # (Manual) Platelet Estimate Plt Morphology Comment RBC Morphology Hypochromasia Ovalocytes [place] Cells Acanthocytes (Spur) Schistocytes Smear Path Review Absolute Retic Percent Retic Immature Retic Fraction Retic Hgb Equivalent Haptoglobin PT INR D-Dimer Hold Blue Top ABG pH ABG pCO2 ABG pO2 ABG HCO3 ABG O2 Saturation ABG Base Excess VBG pH VBG pCO2 VBG pO2 VBG HCO3 VBG O2 Saturation VBG Base Excess Oxygen Given Sodium 138 137 Potassium 4.3 3.9 Chloride 104 106 Carbon Dioxide 19 L 15 L Anion Gap 19 20 BUN 120 H* 117 H* Creatinine 6.95 H* 6.98 H* Estim Creat Clear Calc 9.4 9.4 Estimated GFR 8 8 POC Glucose Random Glucose 111 129 H Fasting Glucose Lactic Acid Calcium 6.7 L 6.4 L Phosphorus Magnesium Total Bilirubin Direct Bilirubin AST ALT Alkaline Phosphatase Lactate Dehydrogenase Troponin I High Sens C-Reactive Protein B-Natriuretic Peptide Total Protein Total Protein (PEP) Albumin Albumin (PEP) Zlpzz-3-Zyuddyubb Zendr-5-Gmlwihewx Ekkl-8-Nnantmwx Hoor-4-Qzkanhwl Gamma Globulins Abnorm Protein Band 1 Abnorm Protein Band 2 Abnorm Protein Band 3 PEP Interpretation Lipase Vitamin B12 Folate Procalcitonin PTH Intact Calcium (PTH Intact) Cancelled Chem Test Urine Color Urine Appearance Urine pH Ur Specific [place] Urine Protein Urine Glucose (UA) Urine Ketones Urine Blood Urine Nitrite Ur Leukocyte Esterase Urine RBC Urine WBC Urine WBC Clumps Ur Squamous Epith Cells Urine Bacteria Urine Yeast Urine Osmolality Ur Random Sodium Stool Occult Blood IgG Total IgA Total IgM DAYANARA Interpretation Proteinase 3 (PR3) Ab Myeloperoxidase Ab Double Strand DNA Ab Glomerular Base Memb Ab Coronavirus (PCR) COVID-19 (RADHA) COVID-19 Clin Com Hep Bs Antigen Hep Bs Antibody Hep B Core Total Ab Hepatitis C Ab (EIA) Influenza Type A (PCR) Influenza Type B (PCR) RSV RNA Qual (PCR) Prothrombin [id number] Mut Prothrombin Mut Interp Blood Type Antibody Screen Crossmatch 10/17/20 10/17/20 10/17/20 06:36 15:05 18:10 WBC RBC Hgb Hct MCV MCH MCHC RDW Plt Count MPV Immature Gran % (Auto) Neut % (Auto) Lymph % (Auto) [place] % (Auto) Eos % (Auto) Baso % (Auto) Lymph # (Auto) [place] # (Auto) Eos # (Auto) Baso # (Auto) Abs Immat Gran (auto) Absolute Neuts (auto) Absolute Nucleated RBC Nucleated RBC % (auto) Neutrophils % (Manual) Band Neutrophils % Lymphocytes % (Manual) Monocytes % (Manual) Abs Neuts (Manual) Lymphocytes # (Manual) Monocytes # (Manual) Platelet Estimate Plt Morphology Comment RBC Morphology Hypochromasia Ovalocytes [place] Cells Acanthocytes (Spur) Schistocytes Smear Path Review Absolute Retic Percent Retic Immature Retic Fraction Retic Hgb Equivalent Haptoglobin PT INR D-Dimer Hold Blue Top ABG pH ABG pCO2 ABG pO2 ABG HCO3 ABG O2 Saturation ABG Base Excess VBG pH VBG pCO2 VBG pO2 VBG HCO3 VBG O2 Saturation VBG Base Excess Oxygen Given Sodium Potassium Chloride Carbon Dioxide Anion Gap BUN Creatinine Estim Creat Clear Calc Estimated GFR POC Glucose Random Glucose Fasting Glucose Lactic Acid Calcium Phosphorus Magnesium Total Bilirubin Direct Bilirubin AST ALT Alkaline Phosphatase Lactate Dehydrogenase Troponin I High Sens C-Reactive Protein B-Natriuretic Peptide Total Protein Total Protein (PEP) Albumin Albumin (PEP) Ymqnw-4-Tstachnna Wppgq-8-Sqicwzmjk Eoro-4-Otafkwoy Xwed-3-Eavyzfss Gamma Globulins Abnorm Protein Band 1 Abnorm Protein Band 2 Abnorm Protein Band 3 PEP Interpretation Lipase Vitamin B12 Folate Procalcitonin PTH Intact Calcium (PTH Intact) Cancelled Chem Test SEE NOTE Urine Color YELLOW Urine Appearance HAZY Urine pH 5.5 Ur Specific [place] 1.020 Urine Protein 2+ H Urine Glucose (UA) NEG Urine Ketones NEG Urine Blood 3+ H Urine Nitrite NEG Ur Leukocyte Esterase 2+ H Urine RBC 30-49 H Urine WBC 30-49 H Urine WBC Clumps Ur Squamous Epith Cells NONE Urine Bacteria 2+ Urine Yeast 1+ Urine Osmolality Ur Random Sodium Stool Occult Blood IgG Total IgA Total IgM DAYANARA Interpretation Proteinase 3 (PR3) Ab Myeloperoxidase Ab Double Strand DNA Ab Glomerular Base Memb Ab Coronavirus (PCR) COVID-19 (RADHA) Positive A COVID-19 Clin Com See Note Hep Bs Antigen Hep Bs Antibody Hep B Core Total Ab Hepatitis C Ab (EIA) Influenza Type A (PCR) Influenza Type B (PCR) RSV RNA Qual (PCR) Prothrombin [id number] Mut Prothrombin Mut Interp Blood Type Antibody Screen Crossmatch 10/18/20 10/18/20 10/19/20 10:15 10:15 08:20 WBC RBC Hgb 12.4 L D Hct 38.0 L D MCV MCH MCHC RDW Plt Count MPV Immature Gran % (Auto) Neut % (Auto) Lymph % (Auto) [place] % (Auto) Eos % (Auto) Baso % (Auto) Lymph # (Auto) [place] # (Auto) Eos # (Auto) Baso # (Auto) Abs Immat Gran (auto) Absolute Neuts (auto) Absolute Nucleated RBC Nucleated RBC % (auto) Neutrophils % (Manual) Band Neutrophils % Lymphocytes % (Manual) Monocytes % (Manual) Abs Neuts (Manual) Lymphocytes # (Manual) Monocytes # (Manual) Platelet Estimate Plt Morphology Comment RBC Morphology Hypochromasia Ovalocytes [place] Cells Acanthocytes (Spur) Schistocytes Smear Path Review Absolute Retic Percent Retic Immature Retic Fraction Retic Hgb Equivalent Haptoglobin PT INR D-Dimer Hold Blue Top ABG pH ABG pCO2 ABG pO2 ABG HCO3 ABG O2 Saturation ABG Base Excess VBG pH VBG pCO2 VBG pO2 VBG HCO3 VBG O2 Saturation VBG Base Excess Oxygen Given Sodium 138 Potassium 4.4 Chloride 103 Carbon Dioxide 16 L Anion Gap 23 H BUN 124 H* Creatinine 7.36 H* Estim Creat Clear Calc 7.7 Estimated GFR 7 POC Glucose Random Glucose 103 Fasting Glucose Lactic Acid Calcium 6.9 L D Phosphorus Magnesium Total Bilirubin Direct Bilirubin AST ALT Alkaline Phosphatase Lactate Dehydrogenase Troponin I High Sens C-Reactive Protein B-Natriuretic Peptide Total Protein Total Protein (PEP) Albumin Albumin (PEP) Vxvwx-5-Kzaoetqtf Ovaoq-6-Qbfaehvca Yjph-2-Ufdvksyb Jbes-0-Uipdgxbs Gamma Globulins Abnorm Protein Band 1 Abnorm Protein Band 2 Abnorm Protein Band 3 PEP Interpretation Lipase Vitamin B12 Folate Procalcitonin 3.76 PTH Intact Calcium (PTH Intact) Cancelled Chem Test Urine Color Urine Appearance Urine pH Ur Specific [place] Urine Protein Urine Glucose (UA) Urine Ketones Urine Blood Urine Nitrite Ur Leukocyte Esterase Urine RBC Urine WBC Urine WBC Clumps Ur Squamous Epith Cells Urine Bacteria Urine Yeast Urine Osmolality Ur Random Sodium Stool Occult Blood IgG Total IgA Total IgM DAYANARA Interpretation Proteinase 3 (PR3) Ab Myeloperoxidase Ab Double Strand DNA Ab Glomerular Base Memb Ab Coronavirus (PCR) COVID-19 (RADHA) COVID-19 Clin Com Hep Bs Antigen Hep Bs Antibody Hep B Core Total Ab Hepatitis C Ab (EIA) Influenza Type A (PCR) Influenza Type B (PCR) RSV RNA Qual (PCR) Prothrombin [id number] Mut Prothrombin Mut Interp Blood Type Antibody Screen Crossmatch 10/19/20 10/20/20 08:20 21:13 WBC RBC Hgb Hct MCV MCH MCHC RDW Plt Count MPV Immature Gran % (Auto) Neut % (Auto) Lymph % (Auto) [place] % (Auto) Eos % (Auto) Baso % (Auto) Lymph # (Auto) [place] # (Auto) Eos # (Auto) Baso # (Auto) Abs Immat Gran (auto) Absolute Neuts (auto) Absolute Nucleated RBC Nucleated RBC % (auto) Neutrophils % (Manual) Band Neutrophils % Lymphocytes % (Manual) Monocytes % (Manual) Abs Neuts (Manual) Lymphocytes # (Manual) Monocytes # (Manual) Platelet Estimate Plt Morphology Comment RBC Morphology Hypochromasia Ovalocytes [place] Cells Acanthocytes (Spur) Schistocytes Smear Path Review Absolute Retic Percent Retic Immature Retic Fraction Retic Hgb Equivalent Haptoglobin PT INR D-Dimer Hold Blue Top ABG pH 7.37 ABG pCO2 19 L* ABG pO2 103 ABG HCO3 11 L ABG O2 Saturation 97.0 ABG Base Excess -11.1 VBG pH VBG pCO2 VBG pO2 VBG HCO3 VBG O2 Saturation VBG Base Excess Oxygen Given 100% Sodium 139 Potassium 5.4 H D Chloride 103 Carbon Dioxide 15 L Anion Gap 26 H BUN 132 H* Creatinine 8.08 H* Estim Creat Clear Calc 7.0 Estimated GFR 6 POC Glucose Random Glucose 189 H D Fasting Glucose Lactic Acid Calcium 7.3 L Phosphorus Magnesium Total Bilirubin Direct Bilirubin AST ALT Alkaline Phosphatase Lactate Dehydrogenase Troponin I High Sens C-Reactive Protein B-Natriuretic Peptide Total Protein Total Protein (PEP) Albumin Albumin (PEP) Jfzuq-3-Bqrqqqivr Syofw-5-Pkdsbyyhc Bknh-8-Hvvrcnzo Qyim-3-Osmvvnnf Gamma Globulins Abnorm Protein Band 1 Abnorm Protein Band 2 Abnorm Protein Band 3 PEP Interpretation Lipase Vitamin B12 Folate Procalcitonin PTH Intact Calcium (PTH Intact) Cancelled Chem Test Urine Color Urine Appearance Urine pH Ur Specific [place] Urine Protein Urine Glucose (UA) Urine Ketones Urine Blood Urine Nitrite Ur Leukocyte Esterase Urine RBC Urine WBC Urine WBC Clumps Ur Squamous Epith Cells Urine Bacteria Urine Yeast Urine Osmolality Ur Random Sodium Stool Occult Blood IgG Total IgA Total IgM DAYANARA Interpretation Proteinase 3 (PR3) Ab Myeloperoxidase Ab Double Strand DNA Ab Glomerular Base Memb Ab Coronavirus (PCR) COVID-19 (RADHA) COVID-19 Clin Com Hep Bs Antigen Hep Bs Antibody Hep B Core Total Ab Hepatitis C Ab (EIA) Influenza Type A (PCR) Influenza Type B (PCR) RSV RNA Qual (PCR) Prothrombin [id number] Mut Prothrombin Mut Interp Blood Type Antibody Screen Crossmatch Airway Other: Unable to examine due to patient noncimpliance Assessment and Plan Assessment Anesthesia Assessment: Anesthesia Plan Discussed (with HCP) Final Anesthetic Review NPO: Yes ASA Class: IV and Emergency Final Preanesthetic Review: Meds/Allgs Chart Reviewed, Consent Obtained/Reviewed and Anes Risks/Benef Reviewed Patient Risk: High Procedure Risk: High Anesthetic Plan Anesthetic Plan: MAC: Disposition: Inp. Admit - [facility] (may need ICU admission )
--- NOTE | 2020-10-22 13:40 | MHC.CM.PN ---
Patient is to have perma cath placed today to start dialysis today. Patient remains on 15 liters O2 and is on IV Metoprolol r/t patient refusing meds. Also on IV Cefepime for +UTI. Discharge plan will be most likely STR. Patient will need BLS transportation. CM will continue to follow for discharge needs.
--- NOTE | 2020-10-22 13:59 | P.PNNP_ITS ---
Subjective Subjective Date of Service: 10/22/20 Interval history: seen and examined. events noted confused refusing lab draws Scheduled for [facility] today Physical Exam Vital Signs: Vital Signs: Last Vital Signs Temp 98.3 F 10/22/20 04:00 Pulse 28 L 10/22/20 07:53 Resp 22 H 10/22/20 07:55 BP 136/85 10/22/20 04:00 Pulse Ox 91 L 10/22/20 07:55 Body Mass Index 20.0 Const: Other: awake BS bilat'RRR abd soft No edema General: cooperative, healthy appearing, comfortable, no acute distress, alert, awake and ill appearing Orientation/consciousness: oriented to person, oriented to place, oriented to time and patient oriented x3 Limitations: no limitations Eyes: General: appearance normal, both eyes and all related structures Neck: Neck: Yes normal visual inspection and Yes supple Carotids: normal carotid upstroke Lymphatic: no lymphadenopathy noted Resp: Effort & Inspection: normal respiratory effort and able to speak in complete sentences Auscultation: clear to auscultation bilaterally, rhonchi and diminished lung sounds Cardio: Other: awake BS bilat'RRR abd soft No edema Rate: regular rate Rhythm: regular rhythm Heart sounds: no rubs GI: Inspection: Yes normal to inspection Palpation (GI): Soft to palpation and No hepatosplenomegaly present Auscultation: normal bowel sounds Skin: General skin exam: no rashes or lesions noted Neuro: General: oriented to person, oriented to place, oriented to time, patient oriented x3 and moves all extremities Cognition (Neuro): normal cognition Motor exam (neuro): No Asterixis during motor activity present Extrem: General: Yes normal to inspection and Yes no pedal edema Objective Data Labs CBC & Chem 7: 10/19/20 08:20 10/19/20 08:20 Microbiology Microbiology Results: Microbiology 10/17/20 18:35 Urine [place] Urine Culture - Final 10/16/20 00:00 Blood - Venous Blood Culture - Final 10/16/20 00:00 Blood - Venous Blood Culture - Final 09/28/20 10:04 Blood - Venous Blood Culture - Final No growth after 5 days. 09/28/20 09:26 Blood - Venous Blood Culture - Final No growth after 5 days. 09/28/20 00:00 Urine [place] Urine Culture - Final Assessment & Plan Assessment and plan (1) Acute renal failure: Status: Acute Assessment and Plan: 1. 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 Need for HD: with incr Scr pcath was scheduled for today but bumped until tomorrow 3. Hyperk; need repeat renal and k labs t/d if he needs additional kayexalte Disc: not responding thus far to IS for his ANCA RPGN is concerning, I rereviewed the prior Bx and there is signif amount of scsrring and sayra-hosp renal func dates back to 2019 SCr 1.4 He was suppose to get Pcath today but apparently staffing issue forced it to be bumped until tomorrow Pt was re-eval by miriam and deemed incompetent and his brother Serge is his Hpxy and he wants [place] to get HD. at times PT has been refusing and confrontational so it remains unclear hwo well he will tolerate allowing us to perform HD REC: cont steroids for now and will consider possibility of cytoxan but given COVID infection the risk of giving cytoxan or rituxin are outweigh by the potential benefits sylvia given the fact that the acna vasuclitis seemed to be renal limited and he seems to have signif scarring and likely not to repsond to aggrssive IS instead will push forward with pcath and HD support, cont pred 30 mg vs switch to dexamethsomne Time Spent With Patient Time: Total time spent is greater than 50% in coordination of care (as documented) at patient's floor/unit and/or counseling patient:
[2020-10-22] MEDS: Haloperidol Lactate 5 MG/ML VIAL 1 MG IM (14:00)
[2020-10-22] MEDS: Lidocaine HCl 1%/Epi 1:100,000 20 ML VIAL INFILTRATI (15:45)
[2020-10-22] MEDS: Heparin Sodium,Porcine 1,000 UNIT/ML VIAL 4000 UNIT IV (15:46)
--- NOTE | 2020-10-22 15:56 | HO.RADPN ---
RADIOLOGY Narrative Narrative: Right IJ 14.5 Fr 23 cm length Palindrome permacath placed. Tip at cavoatrial junction. 1.9 mL heparin 1000U/ml solution in each port.
[2020-10-22] MEDS: 0.9 % Sodium Chloride Flush 3 ML SYRINGE IVFLUSH ×2 (17:17→22:38)
[2020-10-22] MEDS: Metoprolol Tartrate 5 MG in 0.9 % Sodium Chloride 50 ML 220 MG IV ×2 (17:18→22:17)
--- NOTE | 2020-10-22 17:38 | HO.PM.IMPN ---
Subjective Subjective Date of Service: 10/21/20 Interval History: Patient refusing to be examined , not providing any history, no acute issues overnight. Review of system unobtainable Physical Exam Vital Signs: Vital Signs: Last Vital Signs Temp 98.1 F 10/22/20 16:20 Pulse 119 H 10/22/20 17:18 Resp 16 10/22/20 16:54 BP 116/81 10/22/20 17:18 Pulse Ox 96 10/22/20 16:54 Body Mass Index 20.0 General Resting in bed comfortably,no respiratory distress noted, talking in full sentences Neck no JVD Refused examination Extremities no edema Skin no rash Neuro moving all 4 extremities, speech clear Objective Data Current Medications Generic Name Dose Route Start Last Admin Trade Name Freq PRN Reason Stop Dose Admin Acetaminophen 650 mg 09/28/20 22:42 10/17/20 20:21 Acetaminophen 325 Mg Tablet PO 650 mg Q6H PRN Administration Pain, Mild (Pain Scale 1-3) Albuterol Sulfate 2 puff 09/29/20 05:51 Albuterol Sulfate 90 Mcg 8 Gm Inhaler INHALE RQ4H PRN Shortness of Breath/Wheezing Atovaquone 1,500 mg 10/03/20 09:00 10/22/20 08:24 Atovaquone 750 Mg/5 Ml Oral.Susp PO Not Given DAILY MATHEUS Calcitriol 0.25 mcg 10/12/20 09:00 10/22/20 08:24 Calcitriol 0.25 Mcg Capsule PO Not Given DAILY MATHEUS Calcium Acetate 1,334 mg 10/09/20 12:00 10/22/20 17:17 Calcium Acetate 667 Mg Capsule PO Not Given TIDWM MATHEUS Docusate Sodium 100 mg 09/28/20 22:42 Docusate Sodium 100 Mg Capsule PO DAILY PRN Constipation Guaifenesin 600 mg 10/18/20 21:00 10/22/20 08:24 Guaifenesin La 600 Mg Tab.Er.12h PO Not Given BID MATHEUS Cefepime HCl 0.25 gm/ Sodium 50 mls @ 100 mls/hr 10/17/20 18:00 10/21/20 19:39 Chloride IV Infused Q24H MATHEUS Infusion Metoprolol Tartrate 5 mg/ 55 mls @ 220 mls/hr 10/20/20 11:00 10/22/20 17:18 Sodium Chloride IV 220 mls/hr Q6H MATHEUS Administration Omeprazole 20 mg 10/12/20 16:30 10/22/20 17:17 Omeprazole 20 Mg Capsule. PO Not Given BID@0630,1630 [facility] Ondansetron HCl 4 mg 09/28/20 22:42 Ondansetron Hcl 4 Mg/2 Ml Vial IVPUSH Q8H PRN Nausea and Vomiting Prednisone 40 mg 10/20/20 09:00 10/22/20 08:25 Prednisone 20 Mg Tablet PO Not Given DAILY [facility] Sodium Bicarbonate 1,300 mg 10/19/20 21:00 10/22/20 14:42 Sodium Bicarbonate 650 Mg Tablet PO Not Given TID [facility] Sodium Chloride 3 ml 09/29/20 00:00 10/22/20 17:17 0.9 % Sodium Chloride Flush 3 Ml Syringe IVFLUSH 3 ml QSHIFT MATHEUS Administration Labs CBC & Chem 7: 10/19/20 08:20 10/19/20 08:20 Microbiology Microbiology Results: Microbiology 10/17/20 18:35 Urine [place] Urine Culture - Final 10/16/20 00:00 Blood - Venous Blood Culture - Final 10/16/20 00:00 Blood - Venous Blood Culture - Final 09/28/20 10:04 Blood - Venous Blood Culture - Final No growth after 5 days. 09/28/20 09:26 Blood - Venous Blood Culture - Final No growth after 5 days. 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 (3) Acute blood loss anemia: Status: Acute (4) Acute renal failure: Status: Acute (5) GI bleed: Status: Acute (6) Metabolic encephalopathy: Status: Acute (7) Seizure disorder: Status: Acute (8) Chronic diastolic (congestive) heart failure: Status: Acute (9) Paroxysmal atrial fibrillation: Status: Acute (10) Metabolic acidosis: Status: Acute (11) Acute on chronic anemia: Status: Acute (12) Neurogenic urinary bladder disorder: Status: Acute (13) Bladder cancer: Status: Acute (14) Prostate cancer: Status: Acute Assessment and Plan: 80M presented with cough and epistaxis, found to have severe FRANCHESKA admitted on September 28 Acute renal failure with metabolic acidosis Secondary to RPGN, anca positive, confirmed by biopsy. No significant change in patient's condition continued to refuse medication, last night events noted patient had rigors, ABG showed no hypoxia patient had no fever Patient seen by psych and deemed incompetent, PermCath ordered that will be placed with assistance with anesthesia tomorrow at 13:00 Continue prednisone that patient continue to refuse ID does not recommend IV Rituxan due to risk of shedding active COVID-19 virus 120 days if treated with Rituxan continue prilosec for gi prophylaxis,atovaquone for pcp prophylaxis,continue oral bicarb and calcium acetate however patient refusing to take medication Healthcare proxy has been invoked, Since patient is deemed incompetent by psych due to delirium/encephalopathy therefore Dr. Singh spoke with patient's brother Serge healthcare proxy , brother he wishes to proceed with PermCath and hemodialysis Sepsis due COVID-19/pneumonia Had Fever and tachycardia now resolved, chest x-ray showed bilateral infiltrate , COVID test positive, procalcitonin is 3.76 , on IV Cefepime day 6/ renally dose Patient declined blood culture, urine culture grew mixed bacterial shiva Patient COVID-19 test on admission September 28 was negative, repeat test 10/17 pos Acute hypoxic respiratory failure due to COVID-19 O2 sat continue to fluctuate, will keep oxygen above 90,continue supportive care, with cough medication IV antibiotic, patient on by mouth prednisone high-dose, continue close monitoring Seen by ID patient is not a candidate for remdesivir due to renal failure. Metabolic encephalopathy/delirium Appears confused this morning seen by psych in deemed incompetent to make decision/likely related to uremia, steroids and infection Continue close follow-up, Will avoid Ativan, Haldol for now Seizure incident No recurrent seizures, Witnessed seizure episode in the hospital,CT scan was negative for any acute findings, Likely secondary to uremia Neurology input appreciated, they recommend no antiepilepsy medications BPH history of prostate cancer, history of bladder cancer. cont. Chronic Rivera catheter acute blood loss anemia due to GIB had 2 episodes of lower GI bleed, likely from PLT dysfunction from uremia and underlying colon Disorder Tagged RBC negative 10/10, s/p 4 units of packed RBC, hematocrit improved GI input appreciated, patient refused colonoscopy, will continue with conservative measures with PPI and close H&H monitoring Paroxysmal afib Patient noted to be in atrial fibrillation with rapid response, heart rate continued to fluctuate since patient refusing Toprol-XL therefore will place on IV Lopressor and DC Toprol-X not on AC due to concern over gi bleed chronic diastolic chf no evidence of fluid overload DVT prophylaxis SCDs
--- NOTE | 2020-10-22 17:54 | HO.PM.IMPN ---
Subjective Subjective Date of Service: 10/22/20 Interval History: Patient lying in bed head covered with sheets refusing to remove covers, wants to be left alone, speech clear, no fevers noted, tele monitor showed atrial fibrillation with RVR, patient has no IV access. Unable to obtain review of systems since patient not cooperating. Physical Exam Vital Signs: Vital Signs: Last Vital Signs Temp 98.1 F 10/22/20 16:20 Pulse 119 H 10/22/20 17:18 Resp 16 10/22/20 16:54 BP 116/81 10/22/20 17:18 Pulse Ox 96 10/22/20 16:54 Body Mass Index 20.0 General Resting in bed comfortably,no respiratory distress noted, talking in full sentences, refusing to be examined, no audible wheeze Neck no JVD Refused examination of heart, lungs and abdomen Extremities no edema Skin no rash Neuro moving all 4 extremities, speech clear Objective Data Current Medications Generic Name Dose Route Start Last Admin Trade Name Freq PRN Reason Stop Dose Admin Acetaminophen 650 mg 09/28/20 22:42 10/17/20 20:21 Acetaminophen 325 Mg Tablet PO 650 mg Q6H PRN Administration Pain, Mild (Pain Scale 1-3) Albuterol Sulfate 2 puff 09/29/20 05:51 Albuterol Sulfate 90 Mcg 8 Gm Inhaler INHALE RQ4H PRN Shortness of Breath/Wheezing Atovaquone 1,500 mg 10/03/20 09:00 10/22/20 08:24 Atovaquone 750 Mg/5 Ml Oral.Susp PO Not Given DAILY MATHEUS Calcitriol 0.25 mcg 10/12/20 09:00 10/22/20 08:24 Calcitriol 0.25 Mcg Capsule PO Not Given DAILY MATHEUS Calcium Acetate 1,334 mg 10/09/20 12:00 10/22/20 17:17 Calcium Acetate 667 Mg Capsule PO Not Given TIDWM MATHEUS Docusate Sodium 100 mg 09/28/20 22:42 Docusate Sodium 100 Mg Capsule PO DAILY PRN Constipation Guaifenesin 600 mg 10/18/20 21:00 10/22/20 08:24 Guaifenesin La 600 Mg Tab.Er.12h PO Not Given BID MATHEUS Cefepime HCl 0.25 gm/ Sodium 50 mls @ 100 mls/hr 10/17/20 18:00 10/22/20 17:53 Chloride IV 100 mls/hr Q24H MATHEUS Administration Metoprolol Tartrate 5 mg/ 55 mls @ 220 mls/hr 10/20/20 11:00 10/22/20 17:52 Sodium Chloride IV Infused Q6H [facility] Infusion Omeprazole 20 mg 10/12/20 16:30 10/22/20 17:17 Omeprazole 20 Mg Capsule.Dr PO Not Given BID@0630,1630 [facility] Ondansetron HCl 4 mg 09/28/20 22:42 Ondansetron Hcl 4 Mg/2 Ml Vial IVPUSH Q8H PRN Nausea and Vomiting Prednisone 40 mg 10/20/20 09:00 10/22/20 08:25 Prednisone 20 Mg Tablet PO Not Given DAILY [facility] Sodium Bicarbonate 1,300 mg 10/19/20 21:00 10/22/20 14:42 Sodium Bicarbonate 650 Mg Tablet PO Not Given TID [facility] Sodium Chloride 3 ml 09/29/20 00:00 10/22/20 17:17 0.9 % Sodium Chloride Flush 3 Ml Syringe IVFLUSH 3 ml QSHIFT MATHEUS Administration Labs CBC & Chem 7: 10/19/20 08:20 10/19/20 08:20 Microbiology Microbiology Results: Microbiology 10/17/20 18:35 Urine [place] Urine Culture - Final 10/16/20 00:00 Blood - Venous Blood Culture - Final 10/16/20 00:00 Blood - Venous Blood Culture - Final 09/28/20 10:04 Blood - Venous Blood Culture - Final No growth after 5 days. 09/28/20 09:26 Blood - Venous Blood Culture - Final No growth after 5 days. 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 No significant change in patient's condition continued to refuse medication, no acute issues overnight, no fevers, no rigors Patient seen by psych and deemed incompetent, PermCath ordered that will be placed with assistance with anesthesia today ID does not recommend IV Rituxan due to risk of shedding active COVID-19 virus 120 days if treated with Rituxan continue prednisone 40 mg, prilosec for gi prophylaxis,atovaquone for pcp prophylaxis,continue oral bicarb and calcium acetate however patient refusing to take medication Healthcare proxy has been invoked, Since patient is deemed incompetent by psych due to delirium/encephalopathy , brother Serge is primary healthcare proxy ,#[phone] he wishes to proceed with PermCath and hemodialysis spoke with other brother Jim who is also brother and healthcare proxy he agreed that brother Serge will be responsible for making all decisions his #[phone] so will continue communication with Serge and update him about patient's condition Patient has been refusing labs daily, will attempt to drop BMP and CBC today and also ordered labs for tomorrow plan is for hemodialysis as per Nephrology Sepsis due COVID-19/pneumonia Had Fever and tachycardia now resolved, chest x-ray showed bilateral infiltrate , COVID test positive, procalcitonin is 3.76 , on IV Cefepime day 04/01 renally dose will DC after today's dose Patient declined blood culture, urine culture grew mixed bacterial shiva Patient COVID-19 test on admission September 28 was negative, repeat test 10/17 pos Acute hypoxic respiratory failure due to COVID-19 O2 sat continue to fluctuate, will keep oxygen above 90,continue supportive care, with cough medication DC antibiotic, patient on by mouth prednisone , continue close monitoring Seen by ID patient is not a candidate for remdesivir due to renal failure. Metabolic encephalopathy/delirium Continue to be confused/delirious/uncooperative seen by psych in deemed incompetent to make decision/likely related to uremia, steroids and infection Therefore healthcare proxy invoked, Continue close follow-up, Haldol given x1 to undergo PermCath placement, will order as needed Haldol patient becomes agitated and to prevent pulling dialysis catheter. Seizure incident No recurrent seizures, Witnessed seizure episode in the hospital,CT scan was negative for any acute findings, Likely secondary to uremia Neurology input appreciated, they recommend no antiepilepsy medications BPH history of prostate cancer, history of bladder cancer. cont. Chronic Rivera catheter acute blood loss anemia due to GIB had 2 episodes of lower GI bleed, likely from PLT dysfunction from uremia and underlying colon Disorder Tagged RBC negative 10/10, s/p 4 units of packed RBC, hematocrit improved GI input appreciated, patient refused colonoscopy, will continue with conservative measures with PPI and close H&H monitoring Paroxysmal afib Patient noted to be in atrial fibrillation with rapid response, heart rate elevated today, since patient refusing Toprol-XL therefore will continue IV Lopressor 5 mg q.6 hours not on AC due to concern over gi bleed chronic diastolic chf no evidence of fluid overload DVT prophylaxis SCDs
[2020-10-22 20:05] LABS: Anion Gap 29 (12-20); Blood Urea Nitrogen 164 mg/dL (9-16); Calcium 6.4 mg/dL (8.4-10.2); Carbon Dioxide 12 mmol/L (22-29); Chloride 108 mmol/L (96-108); Creatinine Clr Calc Pharmacy 5.9; Estimated Glomerular Filt Rate 5; Glucose Random 112 mg/dL (60-115); Potassium 5.4 mmol/l (3.3-5.1); Sodium 144 mmol/L (135-145)
[2020-10-23] VITALS (14 sets, daily range): BP systolic 103–167; BP diastolic 54–82; PULSE 71–150; RESP 18–25; TEMP 36.3–37.4; O2SAT 90–100
[2020-10-23] MEDS: Metoprolol Tartrate 5 MG in 0.9 % Sodium Chloride 50 ML 220 MG IV ×2 (04:41→12:22)
[2020-10-23] MEDS: Omeprazole 20 MG CAPSULE.DR PO (05:59)
[2020-10-23 07:47] LABS: Basophils Percent Auto 0.1 % (0-2); Eosinophils Percent Auto 0.3 % (0-4); Hematocrit 29.1 % (42-52); Hemoglobin 9.9 g/dl (14.0-18.0); Imm Gran Abs Auto 0.13 X10*3/uL (0.00-0.03); Lymphocytes Absolute Auto 0.3 X10*3/uL (1.2-4.9); MANUAL DIFF FLAG SCAN; Mean Corpuscular Hemoglobin 28.4 pg (27.0-33.0); Mean Corpuscular Volume 83.6 fL (80-98); Mean Platelet Volume 10.6 fL (9.4-12.4); Monocytes Absolute Auto 0.2 X10*3/uL (0.1-1.2); Monocytes Percent Auto 1.4 % (2-11); Neutrophils Absolute Auto 12.1 X10*3/uL (2.0-8.3); Neutrophils Percent Auto 95.2 % (45-73); Platelet Count 169 X10*3/uL (160-400); Red Blood Count 3.48 X10*6/uL (4.60-5.80); Red Cell Distribution Width 17.1 % (11.0-16.0); SCAN SMEAR FLAG 1; White Blood Count 12.7 X10*3/uL (4.8-10.8)
[2020-10-23 08:37] LABS: SLIDE REVIEW VERIFIED
[2020-10-23 08:42] LABS: Anion Gap 30 (12-20); Blood Urea Nitrogen 165 mg/dL (9-16); Calcium 6.8 mg/dL (8.4-10.2); Carbon Dioxide 13 mmol/L (22-29); Chloride 106 mmol/L (96-108); Creatinine Clr Calc Pharmacy 5.8; Estimated Glomerular Filt Rate 5; Glucose Random 202 mg/dL (60-115); Potassium 5.3 mmol/l (3.3-5.1); Sodium 144 mmol/L (135-145)
--- NOTE | 2020-10-23 09:48 | HO.POSTANES ---
Post Anesthesia Evaluation Post Anesthesia Evaluation Vital Signs: Vital Signs Temp Pulse Resp BP Pulse Ox 10/23/20 08:00 98.6 F 94 18 152/77 H 95 10/23/20 04:41 124 H 167/74 H 10/23/20 04:00 97.4 F 124 H 20 167/74 H 91 L 10/23/20 00:00 97.9 F 77 20 129/64 92 10/22/20 22:17 110 H 133/62 Anesthesia: General Mental Status: Awake Pain Control: Satisfactory Nausea/Vomiting: None Hydration: Adequate Anesthesia-Related Issues: No Anes. Related Issues
[2020-10-23] MEDS: LORazepam 0.5 MG TABLET PO (10:27)
[2020-10-23] MEDS: 0.9 % Sodium Chloride Flush 3 ML SYRINGE IVFLUSH ×3 (12:36→22:49)
--- NOTE | 2020-10-23 13:23 | MHC.CLN ---
F/U PO INTAKE 0-25% PT REFUSES MEALS AT TIME AND FOOD THAT HE REQUESTS PER NSG DIET RX: 2GM NA-LIBERALIZED AT THIS TIME RECOMMEND 2GM NA LOW K+, LOW PHOS FOR HD PT, HOWEVER PT WITH POOR PO AND MEAL REFUSALS WILL START ENSURE CLEAR SUPPLEMENT TO INCREASE KCALS (SUPP IS LOW K+) MONITOR PO INTAKE CLOSELY
[2020-10-23] MEDS: Metoprolol Tartrate 25 MG TABLET PO (14:16)
--- NOTE | 2020-10-23 14:23 | PC.NURSE ---
heart rate in the 140s to 150s, dr quick aware. 1v metoprolol given. heartrate down to 120s recheck heartrate 150s, 25 mg po metoprolol given.
[2020-10-23] MEDS: dilTIAZem HCL 125 MG in 0.9 % Sodium Chloride 100 ML 10 MG IVCONT (16:34)
[2020-10-23] MEDS: LORazepam 2 MG/ML VIAL 0.5 MG IVPUSH (16:34)
--- NOTE | 2020-10-23 16:47 | P.PNIM_ITS ---
Subjective Subjective Date of Service: 10/23/20 Interval History: patient seen and examined at bedside patient remains confused Unable to obtain review of systems since patient not cooperating. Review of Systems Unable to obtain review of system since patient not cooperative with answering questions. Cardiovascular Cardiovascular: Reports no additional cardiovascular complaints Respiratory Respiratory: Reports no additional respiratory complaints Gastrointestinal Gastrointestinal: Reports no additional gastrointestinal complaints Physical Exam Vital Signs: Vital Signs: Last Vital Signs Temp 98.8 F 10/23/20 15:04 Pulse 133 H 10/23/20 16:34 Resp 24 H 10/23/20 15:37 BP 124/64 10/23/20 16:34 Pulse Ox 92 10/23/20 15:04 Body Mass Index 20.0 Const: Other: Constitutional : Alert, oriented, not in distress, legally blind Neck : Normal inspection Skin : No rash Neurological : No focal deficit Patient refused to be examined General: no acute distress, alert and awake Orientation/consciousness: patient oriented x3 Limitations: no limitations Eyes: General: appearance normal, both eyes and all related structures Resp: Effort & Inspection: normal respiratory effort and able to speak in complete sentences Cardio: Other: Constitutional : Alert, oriented, not in distress, legally blind Neck : Normal inspection Skin : No rash Neurological : No focal deficit Patient refused to be examined Rate: regular rate Rhythm: regular rhythm GI: Palpation (GI): Soft to palpation Auscultation: normal bowel sounds Skin: General skin exam: no rashes or lesions noted Neuro: General: patient oriented x3 Cognition (Neuro): normal cognition Extrem: General: Yes normal to inspection and Yes no pedal edema Objective Data Current Medications Generic Name Dose Route Start Last Admin Trade Name Isaac PRN Reason Stop Dose Admin Acetaminophen 650 mg 09/28/20 22:42 10/17/20 20:21 Acetaminophen 325 Mg Tablet PO 650 mg Q6H PRN Administration Pain, Mild (Pain Scale 1-3) Albuterol Sulfate 2 puff 09/29/20 05:51 Albuterol Sulfate 90 Mcg 8 Gm Inhaler INHALE RQ4H PRN Shortness of Breath/Wheezing Atovaquone 1,500 mg 10/03/20 09:00 10/23/20 14:01 Atovaquone 750 Mg/5 Ml Oral.Susp PO Not Given DAILY MATHEUS Calcitriol 0.25 mcg 10/12/20 09:00 10/23/20 12:38 Calcitriol 0.25 Mcg Capsule PO Not Given DAILY [facility] Calcium Acetate 1,334 mg 10/09/20 12:00 10/23/20 16:41 Calcium Acetate 667 Mg Capsule PO Not Given TIDWM MATHEUS Docusate Sodium 100 mg 09/28/20 22:42 Docusate Sodium 100 Mg Capsule PO DAILY PRN Constipation Guaifenesin 600 mg 10/18/20 21:00 10/23/20 12:37 Guaifenesin La 600 Mg Tab.Er.12h PO Not Given BID MATHEUS Diltiazem HCl 125 mg/ Sodium 125 mls @ 0 mls/hr 10/23/20 16:15 10/23/20 16:34 Chloride IVCONT 10 mg/hr .Q0M MATHEUS 10 mls/hr Administration Protocol Per Protocol Omeprazole 20 mg 10/12/20 16:30 10/23/20 15:58 Omeprazole 20 Mg Capsule.Dr PO Not Given BID@0630,1630 [facility] Ondansetron HCl 4 mg 09/28/20 22:42 Ondansetron Hcl 4 Mg/2 Ml Vial IVPUSH Q8H PRN Nausea and Vomiting Prednisone 40 mg 10/20/20 09:00 10/23/20 14:01 Prednisone 20 Mg Tablet PO Not Given DAILY [facility] Sodium Bicarbonate 1,300 mg 10/19/20 21:00 10/23/20 15:58 Sodium Bicarbonate 650 Mg Tablet PO Not Given TID [facility] Sodium Chloride 3 ml 09/29/20 00:00 10/23/20 16:35 0.9 % Sodium Chloride Flush 3 Ml Syringe IVFLUSH 3 ml QSHIFT [facility] Administration Labs CBC & Chem 7: 10/23/20 07:14 10/23/20 07:14 Microbiology Microbiology Results: Microbiology 10/17/20 18:35 Urine [place] Port Urine Culture - Final 10/16/20 00:00 Blood - Venous Blood Culture - Final 10/16/20 00:00 Blood - Venous Blood Culture - Final 09/28/20 10:04 Blood - Venous Blood Culture - Final No growth after 5 days. 09/28/20 09:26 Blood - Venous Blood Culture - Final No growth after 5 days. 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 No significant change in patient's condition continued to refuse medication, no acute issues overnight, no fevers, no rigors Patient seen by psych and deemed incompetent, PermCath placed ID does not recommend IV Rituxan due to risk of shedding active COVID-19 virus 120 days if treated with Rituxan continue prednisone 40 mg, prilosec for gi prophylaxis,atovaquone for pcp proph ylaxis,continue oral bicarb and calcium acetate however patient refusing to take medication Healthcare proxy has been invoked, Since patient is deemed incompetent by psych due to delirium/encephalopathy , brother Serge is primary healthcare proxy ,#[phone] he wishes to proceed with PermCath and hemodialysis spoke with other brother Jim who is also brother and healthcare proxy he agreed that brother Serge will be responsible for making all decisions his #[phone] so will continue communication with Serge and update him patient received PermCath and hemodialysis today Sepsis due COVID-19/pneumonia Had Fever and tachycardia now resolved, chest x-ray showed bilateral infiltrate , COVID test positive, procalcitonin is 3.76 , on IV Cefepime day 04/01 renally dose will DC after today's dose Patient declined blood culture, urine culture grew mixed bacterial shiva Patient COVID-19 test on admission September 28 was negative, repeat test 10/17 pos Acute hypoxic respiratory failure due to COVID-19 O2 sat continue to fluctuate, will keep oxygen above 90,continue supportive care, with cough medication DC antibiotic, patient on by mouth prednisone , continue close monitoring Seen by ID patient is not a candidate for remdesivir due to renal failure. Metabolic encephalopathy/delirium Continue to be confused/delirious/uncooperative seen by psych in deemed incompetent to make decision/likely related to uremia, steroids and infection Therefore healthcare proxy invoked, Continue close follow-up, Haldol given x1 to undergo PermCath placement, will order as needed Haldol patient becomes agitated and to prevent pulling dialysis catheter. Seizure incident No recurrent seizures, Witnessed seizure episode in the hospital,CT scan was negative for any acute findings, Likely secondary to uremia Neurology input appreciated, they recommend no antiepilepsy medications BPH history of prostate cancer, history of bladder cancer. cont. Chronic Rivera catheter acute blood loss anemia due to GIB had 2 episodes of lower GI bleed, likely from PLT dysfunction from uremia and underlying colon Disorder Tagged RBC negative 10/10, s/p 4 units of packed RBC, hematocrit improved GI input appreciated, patient refused colonoscopy, will continue with conservative measures with PPI and close H&H monitoring AFib with RVR heart rate on higher side discussed with Cardiology will start Cardizem drip, monitor on telemetry not on AC due to concern over gi bleed chronic diastolic chf no evidence of fluid overload DVT prophylaxis SCDs
--- NOTE | 2020-10-23 17:26 | PC.NURSE ---
this RN resuming care at 1500- at this time pt very agitated, pulling off telemetry leads and wires, pulling off nonbreather, and shirt. very restless very anxious, was able to get vitals at 1515 VSS at that time except HR consistently 140-160s even at rest or with movement. Pt swearing at staff, resisting care wants to be left alone. Refused some of nursing assessment questions. MD notified- cardizem drip started at 10mg/hr - currently still at this dose with HR at 110s at this time - per protocol titrate to HR under 120 so leaving at current rate . 1 time dose 0.5mg ativan ordered and administered at this time. Approx 30 min later pt seemed to be a bit more cooperative, leaving nonrebreather on at this time o2 96% on continued pulseox. RN to check another BP - pt swearing to leave him alone at this time. Will report situation to oncoming RN. Currently pt resting in bed, drip running, dialysis port r upper remains in tact, pneumatics on bilateral legs, air mattress. Pt refused all PO medications this evening as well as his dinner at this time. telesitter and high fall risk measures remain in place.
--- NOTE | 2020-10-23 18:21 | P.PNNP_ITS ---
Subjective Subjective Date of Service: 10/23/20 Interval history: patient seen and examined at bedside patient remains confused currently on HD. Unable to obtain review of systems since patient not cooperating. Physical Exam Vital Signs: Vital Signs: Last Vital Signs Temp 98.8 F 10/23/20 15:04 Pulse 118 H 10/23/20 17:22 Resp 24 H 10/23/20 15:37 BP 124/64 10/23/20 16:34 Pulse Ox 92 10/23/20 15:04 Body Mass Index 20.0 Const: Other: awake BS bilat'RRR abd soft No edema General: cooperative, healthy appearing, comfortable, no acute distress, alert, awake and ill appearing Orientation/consciousness: oriented to person, oriented to place, oriented to time and patient oriented x3 Limitations: no limitations Eyes: General: appearance normal, both eyes and all related structures Neck: Neck: Yes normal visual inspection and Yes supple Carotids: normal carotid upstroke Lymphatic: no lymphadenopathy noted Resp: Effort & Inspection: normal respiratory effort and able to speak in complete sentences Auscultation: clear to auscultation bilaterally, rhonchi and diminished lung sounds Cardio: Other: awake BS bilat'RRR abd soft No edema Rate: regular rate Rhythm: regular rhythm Heart sounds: no rubs GI: Inspection: Yes normal to inspection Palpation (GI): Soft to palpation and No hepatosplenomegaly present Auscultation: normal bowel sounds Skin: General skin exam: no rashes or lesions noted Neuro: General: oriented to person, oriented to place, oriented to time, patient oriented x3 and moves all extremities Cognition (Neuro): normal cognition Motor exam (neuro): No Asterixis during motor activity present Extrem: General: Yes normal to inspection and Yes no pedal edema Objective Data Labs CBC & Chem 7: 10/23/20 07:14 10/23/20 07:14 Labs: Laboratory Results - last 24 hr 10/22/20 10/23/20 10/23/20 19:15 07:14 07:14 WBC 12.7 H RBC 3.48 L Hgb 9.9 L D Hct 29.1 L D MCV 83.6 MCH 28.4 MCHC 34.0 RDW 17.1 H Plt Count 169 D MPV 10.6 Immature Gran % (Auto) 1.0 H Neut % (Auto) 95.2 H Lymph % (Auto) 2.0 L Cassia % (Auto) 1.4 L Eos % (Auto) 0.3 Baso % (Auto) 0.1 Lymph # (Auto) 0.3 L Cassia # (Auto) 0.2 Eos # (Auto) 0.0 Baso # (Auto) 0.0 Abs Immat Gran (auto) 0.13 H Absolute Neuts (auto) 12.1 H Absolute Nucleated RBC 0.000 Nucleated RBC % (auto) 0.0 Smear Tech's Comments VERIFIED Sodium 144 144 Potassium 5.4 H 5.3 H Chloride 108 106 Carbon Dioxide 12 L 13 L Anion Gap 29 H 30 H BUN 164 H* D 165 H* Creatinine 9.48 H* 9.72 H* Estim Creat Clear Calc 5.9 5.8 Estimated GFR 5 5 Random Glucose 112 D 202 H D Calcium 6.4 L D 6.8 L D Microbiology Microbiology Results: Microbiology 10/17/20 18:35 Urine [place] Urine Culture - Final 10/16/20 00:00 Blood - Venous Blood Culture - Final 10/16/20 00:00 Blood - Venous Blood Culture - Final 09/28/20 10:04 Blood - Venous Blood Culture - Final No growth after 5 days. 09/28/20 09:26 Blood - Venous Blood Culture - Final No growth after 5 days. 09/28/20 00:00 Urine [place] Urine Culture - Final Assessment & Plan Assessment and plan (1) Acute renal failure: Status: Acute Assessment and Plan: 1. 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 Need for HD: s/p permcath yesterday and now on HD 3. Hyperk; should be controled with HD Disc: not responding thus far to IS for his ANCA RPGN is concerning, I rereviewed the prior Bx and there is signif amount of scasrring and sayra-hosp renal func dates back to 2019 SCr 1.4 Pt was re-eval by miriam and deemed incompetent and his brother Serge is his Hpxy and he wants [place] to get HD. at times PT has been refusing and confrontational so it remains unclear hwo well he will tolerate allowing us to perform HD REC: cont steroids for now and will consider possibility of cytoxan but given COVID infection the risk of giving cytoxan or rituxin are outweigh by the potential benefits sylvia given the fact that the acna vasuclitis seemed to be renal limited and he seems to have signif scarring and likely not to repsond to aggrssive IS instead will push forward with pcath and HD support, cont pred 40 mg vs switch to dexamethasone if the latter is better for covid tx Time Spent With Patient Time: Total time spent is greater than 50% in coordination of care (as documented) at patient's floor/unit and/or counseling patient:
[2020-10-23] MEDS: LORazepam 2 MG/ML VIAL 1 MG IVPUSH ×2 (21:35→22:40)
[2020-10-23] MEDS: diphenhydrAMINE HCL 50 MG/ML VIAL 25 MG IVPUSH (22:39)
[2020-10-23] MEDS: Haloperidol Lactate 5 MG/ML VIAL 1 MG IVPUSH (22:48)
[2020-10-24] VITALS (8 sets, daily range): BP systolic 110–138; BP diastolic 54–75; PULSE 78–116; RESP 16–26; TEMP 36.2–37.3; O2SAT 85–95; BMI 20.5
--- NOTE | 2020-10-24 | XR_ITS ---
EXAMINATION: XR CHEST CLINICAL INFORMATION: Check permacath placement COMPARISON: Previous chest x-rays most recent 10/20/2020 and permacath placement x-rays 10/22/2020 TECHNIQUE: Frontal view of the chest was obtained. FINDINGS: The cardiac and mediastinal contours are stable. There is bilateral airspace disease, question representing pneumonia versus pulmonary edema. This is increased compared to previous chest x-ray 10/20/2020. There is no pleural effusion or pneumothorax. There is a right jugular permacath with tip projecting over the cavoatrial junction. No acute bone abnormality is seen. XR/XR chest 1V IMPRESSION: Right internal jugular permacath tip projects over the cavoatrial junction. Increasing bilateral airspace disease. Differential would include pneumonia and pulmonary edema.
--- NOTE | 2020-10-24 | IR_ITS ---
EXAMINATION: REPOSITIONED TUNNELED CATHETER CLINICAL INFORMATION: Clotted catheter COMPARISON: Catheter placement 10/22/2020 TECHNIQUE: Procedure and risks and benefits were discussed with the patient's healthcare proxy his brother by telephone and informed consent was obtained. All elements of maximal sterile barrier technique followed including use of cap, mask, sterile gown, sterile gloves, a sterile full body drape and hand hygiene. Also followed skin preparation with 2% chlorhexidine for cutaneous antisepsis, and sterile ultrasound preparation with sterile gel and probe cover when applicable. The right neck and chest and existing catheter were prepped and draped in the usual sterile fashion. No blood could be aspirated from either port of the permacath. The skin and soft tissues were anesthetized with 1% lidocaine plain. 2034 glide wires were advanced the catheter into the IVC. The existing catheter was removed and a new 14.5 [place] 23 cm in length palindrome permacath was advanced and currently. Catheter tip projects over the cavoatrial junction. The patient experienced several runs of ventricular tachycardia. He maintained his pulse. This resolved spontaneously. Both ports flushed easily, had good blood return and were instilled with 1.9 mL heparin 1000 unit per mL solution. Fluoroscopy time 1 minute. Patient dose 100 CG Y per centimeter squared. 1 saved fluoroscopic image. FINDINGS: There is a right internal jugular permacath with tip projecting over the cavoatrial junction. IR/IR cvc repo tunnel wo prt/field care manager IMPRESSION: Right internal jugular permacath exchange. Catheter tip is at the cavoatrial junction. The patient experienced several runs of ventricular tachycardia upon catheter exchange and immediately following the procedure which resolved spontaneously.
[2020-10-24] MEDS: dilTIAZem HCL 125 MG in 0.9 % Sodium Chloride 100 ML 10 MG IVCONT (03:54)
--- NOTE | 2020-10-24 07:00 | MHC.PIE ---
P: Patient agitated continuing to pull at clothing, dialysis cath, 100% non rebreather. O2sat drops to 80's without oxygen. Patient swearing, throwing things at staff when attempted to be redirected. I: Telesitter in place in room. Staff called to room frequently, patient needing to be redirected frequently, attempt to hide tubes & lines. Right chest dialysis cath dressing reinforced. Dr Rivera made aware of patient behavioral status - ordered medications to help patient cooperative w/ care. 1mg IVP ativan given @ [address] Rivera made aware and ordered more medication - IVP 25mg Benedryl given @2239, another dose of 1mg IVP ativan given @ 2240, and 1mg IVP haldol given @ 2248. Bedside sitter placed in room as well to help assist w/ care and attempt to calm and redirect patient. E: Medicated w/ good effect - patient resting intermit, more cooperative w/ care and not fighting as much w/ redirection. Vitals remain stable. Patient remains on cardizem drip 10mg/hr. HR 70's - low 100's AFIB.
[2020-10-24] MEDS: LORazepam 2 MG/ML VIAL 0.5 MG IVPUSH (11:24)
--- NOTE | 2020-10-24 11:32 | PM.PNNEP ---
Subjective Subjective Date of Service: 10/24/20 Interval history: patient seen and examined at bedside patient remains confused currently on HD. Unable to obtain review of systems since patient not cooperating. Physical Exam Vital Signs: Vital Signs: Last Vital Signs Temp 97.6 F 10/24/20 07:46 Pulse 84 10/24/20 07:46 Resp 16 10/24/20 07:46 BP 123/72 10/24/20 07:46 Pulse Ox 95 10/24/20 07:46 Body Mass Index 20.5 Const: Other: awake BS bilat'RRR abd soft No edema General: cooperative, healthy appearing, comfortable, no acute distress, alert, awake and ill appearing Orientation/consciousness: oriented to person, oriented to place, oriented to time and patient oriented x3 Limitations: no limitations Eyes: General: appearance normal, both eyes and all related structures Neck: Neck: Yes normal visual inspection and Yes supple Carotids: normal carotid upstroke Lymphatic: no lymphadenopathy noted Resp: Effort & Inspection: normal respiratory effort and able to speak in complete sentences Auscultation: clear to auscultation bilaterally, rhonchi and diminished lung sounds Cardio: Other: awake BS bilat'RRR abd soft No edema Rate: regular rate Rhythm: regular rhythm Heart sounds: no rubs GI: Inspection: Yes normal to inspection Palpation (GI): Soft to palpation and No hepatosplenomegaly present Auscultation: normal bowel sounds Skin: General skin exam: no rashes or lesions noted Neuro: General: oriented to person, oriented to place, oriented to time, patient oriented x3 and moves all extremities Cognition (Neuro): normal cognition Motor exam (neuro): No Asterixis during motor activity present Extrem: General: Yes normal to inspection and Yes no pedal edema Objective Data Labs CBC & Chem 7: 10/23/20 07:14 10/23/20 07:14 Microbiology Microbiology Results: Microbiology 10/17/20 18:35 Urine Rivera Port Urine Culture - Final 10/16/20 00:00 Blood - Venous Blood Culture - Final 10/16/20 00:00 Blood - Venous Blood Culture - Final 09/28/20 10:04 Blood - Venous Blood Culture - Final No growth after 5 days. 09/28/20 09:26 Blood - Venous Blood Culture - Final No growth after 5 days. 09/28/20 00:00 Urine [place] Port Urine Culture - Final Assessment & Plan Assessment and plan (1) Acute renal failure: Status: Acute Assessment and Plan: 1. FRANCHESKA: RPGN/ANCA /PR3 postive and s/p kidney Bx w cresentic RPGN s/p Pulse steroids and 1 dose of Rituxan Supposed to have Rituximab ( 2nd dose) on 10/16/20 - However he had fever and tachycardia prior to infusiona and Rituxan was NOT administered NOW DX COVID positive and asked ID to assess and they feel that rituxin is contraindicated d/t reports of persistent COVID ( case reports)..he already recieved 1 dose and may have impact on ability to resolved active COVID infection for a prolonged period of time 2. Need for HD: s/p permcath and now on HD 3. Hyperk; should be controled with HD Disc: not responding thus far to IS for his ANCA RPGN is concerning, I rereviewed the prior Bx and there is signif amount of scasrring and sayra-hosp renal func dates back to 2019 SCr 1.4 Pt was re-eval by miriam and deemed incompetent and his brother Serge is his Hpxy and he wants [place] to get HD. at times PT has been refusing and confrontational so it remains unclear hwo well he will tolerate allowing us to perform HD REC: cont steroids for now and will consider possibility of cytoxan but given COVID infection the risk of giving cytoxan or rituxin are outweigh by the potential benefits sylvia given the fact that the acna vasuclitis seemed to be renal limited and he seems to have signif scarring and likely not to repsond to aggrssive IS instead will push forward with HD support, cont pred 40 mg vs switch to dexamethasone if the latter is better for covid lung tx Time Spent With Patient Time: Total time spent is greater than 50% in coordination of care (as documented) at patient's floor/unit and/or counseling patient:
--- NOTE | 2020-10-24 11:39 | PC.NURSE ---
Patient was becoming increasingly restless while at Dialysis. foundation drill operator called to report restlessness of patient, pulling at O2 mask and IV. notified, new order put in for a one time dose of 0.25mg of Ativan IVpush to help restlessness so RN could continue to try dialysis this morning.
--- NOTE | 2020-10-24 13:11 | PM.CNCAR ---
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 Patient was seen on hemodialysis and was given Ativan before hemodialysis because he was very agitated. It appears this is how he has been and has been quite agitated and no meaningful history could have been possible from him. We are consulted for management of atrial fibrillation with rapid ventricular response. This is a new diagnosis for him. He had GI bleed and has not been on anticoagulation due to that. Last evening I had a discussion with hospitalist Dr. Lopez and we decided to start him on Cardizem drip which improved his heart rate significantly. He has been taken off the Cardizem this morning because his heart rates were in 70s. Review of Systems Review of Systems: Yes Unobtainable due to mental status PMFSH Past Medical History Medical History Anal polyp Bladder outlet obstruction Chronic diastolic (congestive) heart failure COVID-19 Diverticulitis large intestine Malignant neoplasm of sigmoid colon Mild pulmonary hypertension Paroxysmal atrial fibrillation Personal history of colon cancer Tubular adenoma of colon Family History Family History Father No problems noted. Mother Family history of cervical cancer Family history: reviewed and not pertinent Social History Social History Household Members: Other Housing: Assisted Living Facility Do you presently have visiting nurse or other home services: Yes Alcohol intake: current Alcohol intake frequency: holidays/special occasions only Alcohol type: beer Smoking Status: Former smoker Use of substances other than those prescribed or required for medical reasons: No Currently Displaying Signs/Symptoms of Drug Intoxication Withdrawal: No Have you been hit, kicked, punched, or otherwise hurt by someone within the past year? If so, by whom?: No Do you feel safe in your current relationship?: No Current Relationship Is there a partner from a previous relationship who is making you feel unsafe now?: No Are you made to feel afraid or neglected: No Spiritual Healthcare Practices: none Shinto Healthcare Practices: none Cultural Healthcare Practices: none Advance Directives: No Advance Directives Information Provided: No Do you have thoughts of harming others: None Do you have a plan to hurt others: No Plan Recently lost weight without trying: No service: No Current occupational status: retired Meds Allergies Allergy/AdvReac Type Severity Reaction Status Date / Time No Known Allergies Allergy Verified 07/31/20 09:06 [No Known Allergies*] Home Medications Medication Instructions Recorded Confirmed Type furosemide 20 mg PO BID 09/28/20 09/28/20 History metoprolol succinate 25 mg PO DAILY 09/28/20 09/28/20 History simvastatin 20 mg PO DAILY 09/28/20 09/28/20 History Physical Exam Vital Signs: Vital Signs: Last Vital Signs Temp 99.1 F 10/24/20 12:00 Pulse 105 H 10/24/20 12:00 Resp 22 H 10/24/20 12:00 BP 132/74 10/24/20 12:00 Pulse Ox 88 L 10/24/20 12:00 Body Mass Index 20.5 GENERAL APPEARANCE: On hemodialysis, sedated. HEENT: unremarkable. HEAD: normocephalic, atraumatic. SKIN: no suspicious lesions, warm and dry. HEART: no murmurs, regular rate and rhythm, S1, S2 normal. LUNGS: clear to auscultation anteriorly. ABDOMEN: Soft. EXTREMITIES: no edema. PERIPHERAL PULSES: equal. NEUROLOGIC: Has been agitated, just received Ativan and was sedated. Results Labs and Meds Result diagrams: 10/23/20 07:14 10/23/20 07:14 Imaging Radiologist's impression: Impressions Guidance Ultrasound 10/22/20 00:00 IMPRESSION: 14.5 Amharic 23 cm in length right internal jugular Palindrome permacath placement. Insertion Tunneled Catheter 10/22/20 00:00 IMPRESSION: 14.5 Amharic 23 cm in length right internal jugular Palindrome permacath placement. Assessment and Plan (1) GI bleed: Status: Acute (2) Paroxysmal atrial fibrillation: Status: Acute 80-year-old gentleman with complex medical issues with prolonged hospitalization. He developed AFib with RVR in the setting of his acute medical issues including renal failure for which she is on hemodialysis as well as COVID-19 infection. He had GI blood loss and is not an anticoagulation candidate right now. His heart rates improved with Cardizem drip. Currently he is off the Cardizem drip but as per discussion with his nurse he is not taking oral medications consistently. I think the monitor him closely and if his heart rate increases again then we can try Cardizem drip again. If he is consistently taking oral medications then depending on his Cardizem drip rates we can change him to oral Cardizem. As mentioned above due to GI blood loss I think anticoagulation is not a good idea right now. Thank you for allowing me to participate in the care of your patient. Please feel free to contact me if you have any questions.
--- NOTE | 2020-10-24 13:27 | MHC.CM.PN ---
Patient continues to require O2 at 15 liters with FIO2 at 100% NRB mask. Recently started on HD, HCP brother Jason has been invoked. Patient is also on IV Cardizem gtt for Afib. IV Rituxin is placed on hold per ID. Patient will need STR upon discharge when medically stable. CM will continue to follow patient for discharge needs.
--- NOTE | 2020-10-24 14:32 | P.PNIM_ITS ---
Subjective Subjective Date of Service: 10/24/20 Interval History: patient seen and examined at bedside patient remains confused received Ativan last night, Unable to obtain review of systems since patient not cooperating. Review of Systems Unable to obtain review of system since patient not cooperative with answering questions. Cardiovascular Cardiovascular: Reports no additional cardiovascular complaints Respiratory Respiratory: Reports no additional respiratory complaints Gastrointestinal Gastrointestinal: Reports no additional gastrointestinal complaints Physical Exam Vital Signs: Vital Signs: Last Vital Signs Temp 99.1 F 10/24/20 12:00 Pulse 105 H 10/24/20 12:00 Resp 22 H 10/24/20 12:00 BP 132/74 10/24/20 12:00 Pulse Ox 94 10/24/20 14:27 Body Mass Index 20.5 Const: Other: Constitutional : Alert, oriented, not in distress, legally blind Neck : Normal inspection Skin : No rash Neurological : No focal deficit Patient refused to be examined General: no acute distress, alert and awake Orientation/consciousness: patient oriented x3 Limitations: no limitations Eyes: General: appearance normal, both eyes and all related structures Resp: Effort & Inspection: normal respiratory effort and able to speak in complete sentences Cardio: Other: Constitutional : Alert, oriented, not in distress, legally blind Neck : Normal inspection Skin : No rash Neurological : No focal deficit Patient refused to be examined Rate: regular rate Rhythm: regular rhythm GI: Palpation (GI): Soft to palpation Auscultation: normal bowel sounds Skin: General skin exam: no rashes or lesions noted Neuro: General: patient oriented x3 Cognition (Neuro): normal cognition Extrem: General: Yes normal to inspection and Yes no pedal edema Objective Data Current Medications Generic Name Dose Route Start Last Admin Trade Name Isaac PRN Reason Stop Dose Admin Acetaminophen 650 mg 09/28/20 22:42 10/17/20 20:21 Acetaminophen 325 Mg Tablet PO 650 mg Q6H PRN Administration Pain, Mild (Pain Scale 1-3) Albuterol Sulfate 2 puff 09/29/20 05:51 Albuterol Sulfate 90 Mcg 8 Gm Inhaler INHALE RQ4H PRN Shortness of Breath/Wheezing Atovaquone 1,500 mg 10/03/20 09:00 10/24/20 13:51 Atovaquone 750 Mg/5 Ml Oral.Susp PO Not Given DAILY MATHEUS Calcitriol 0.25 mcg 10/12/20 09:00 10/24/20 13:51 Calcitriol 0.25 Mcg Capsule PO Not Given DAILY [facility] Calcium Acetate 1,334 mg 10/09/20 12:00 10/24/20 13:51 Calcium Acetate 667 Mg Capsule PO Not Given TIDWM [facility] Docusate Sodium 100 mg 09/28/20 22:42 Docusate Sodium 100 Mg Capsule PO DAILY PRN Constipation Guaifenesin 600 mg 10/18/20 21:00 10/24/20 13:52 Guaifenesin La 600 Mg Tab.Er.12h PO Not Given BID MATHEUS Heparin Sodium (Porcine) 5,000 unit 10/24/20 16:45 Heparin Sodium,Porcine 5,000 Unit/Ml Vial INTRACATH [id number] [facility] Diltiazem HCl 125 mg/ Sodium 125 mls @ 0 mls/hr 10/23/20 16:15 10/24/20 09:30 Chloride IVCONT 0 mg/hr .Q0M MATHEUS 0 mls/hr Titration Protocol Per Protocol Omeprazole 20 mg 10/12/20 16:30 10/24/20 06:03 Omeprazole 20 Mg Capsule.Dr PO Not Given BID@0630,1630 [facility] Ondansetron HCl 4 mg 09/28/20 22:42 Ondansetron Hcl 4 Mg/2 Ml Vial IVPUSH Q8H PRN Nausea and Vomiting Prednisone 40 mg 10/20/20 09:00 10/24/20 13:52 Prednisone 20 Mg Tablet PO Not Given DAILY [facility] Sodium Bicarbonate 1,300 mg 10/19/20 21:00 10/24/20 13:52 Sodium Bicarbonate 650 Mg Tablet PO Not Given TID [facility] Sodium Chloride 3 ml 09/29/20 00:00 10/24/20 09:34 0.9 % Sodium Chloride Flush 3 Ml Syringe IVFLUSH Not Given QSHIFT [facility] Labs CBC & Chem 7: 10/23/20 07:14 10/23/20 07:14 Microbiology Microbiology Results: Microbiology 10/17/20 18:35 Urine [place] Urine Culture - Final 10/16/20 00:00 Blood - Venous Blood Culture - Final 10/16/20 00:00 Blood - Venous Blood Culture - Final 09/28/20 10:04 Blood - Venous Blood Culture - Final No growth after 5 days. 09/28/20 09:26 Blood - Venous Blood Culture - Final No growth after 5 days. 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 No significant change in patient's condition continued to refuse medication, no acute issues overnight, no fevers, no rigors Patient seen by psych and deemed incompetent, PermCath placed ID does not recommend IV Rituxan due to risk of shedding active COVID-19 virus 120 days if treated with Rituxan continue prednisone 40 mg, prilosec for gi prophylaxis,atovaquone for pcp prophylaxis,continue oral bicarb and calcium acetate however patient refusing to take medication Healthcare proxy has been invoked, Since patient is deemed incompetent by psych due to delirium/encephalopathy , brother Serge is primary healthcare proxy ,#[phone] he wishes to proceed with PermCath and hemodialysis spoke with other brother Jim who is also brother and healthcare proxy he agreed that brother Serge will be responsible for making all decisions his #[phone] so will continue communication with Serge and update him patient received PermCath and hemodialysis yesterday , has permacath issue today IR will exchange perma cath Sepsis due COVID-19/pneumonia Had Fever and tachycardia now resolved, chest x-ray showed bilateral infiltrate , COVID test positive, procalcitonin is 3.76 , on IV Cefepime day 04/01 renally dose will DC after today's dose Patient declined blood culture, urine culture grew mixed bacterial shiva Patient COVID-19 test on admission September 28 was negative, repeat test 10/17 pos Acute hypoxic respiratory failure due to COVID-19 O2 sat continue to fluctuate, will keep oxygen above 90,continue supportive car e, with cough medication DC antibiotic, patient on by mouth prednisone , continue close monitoring Seen by ID patient is not a candidate for remdesivir due to renal failure. Metabolic encephalopathy/delirium Continue to be confused/delirious/uncooperative seen by psych in deemed incompetent to make decision/likely related to uremia, steroids and infection Therefore healthcare proxy invoked, Continue close follow-up, Haldol given x1 to undergo PermCath placement, will order as needed Haldol patient becomes agitated and to prevent pulling dialysis catheter. Seizure incident No recurrent seizures, Witnessed seizure episode in the hospital,CT scan was negative for any acute findings, Likely secondary to uremia Neurology input appreciated, they recommend no antiepilepsy medications BPH history of prostate cancer, history of bladder cancer. cont. Chronic Rivera catheter Acute blood loss anemia due to GIB had 2 episodes of lower GI bleed, likely from PLT dysfunction from uremia and underlying colon Disorder Tagged RBC negative 10/10, s/p 4 units of packed RBC, hematocrit improved GI input appreciated, patient refused colonoscopy, will continue with conservative measures with PPI and close H&H monitoring AFib with RVR heart rate controlled cardizem drip stopped not on AC due to concern over gi bleed chronic diastolic chf no evidence of fluid overload DVT prophylaxis SCDs
--- NOTE | 2020-10-24 14:49 | HO.ANESPROP2 ---
[facility] Past Medical History Medical History Anal polyp Bladder outlet obstruction Chronic diastolic (congestive) heart failure COVID-19 Diverticulitis large intestine Malignant neoplasm of sigmoid colon Mild pulmonary hypertension Paroxysmal atrial fibrillation Personal history of colon cancer Tubular adenoma of colon Family History Family History Father No problems noted. Mother Family history of cervical cancer Social History Social History Household Members: Other Housing: Assisted Living Facility Do you presently have visiting nurse or other home services: Yes Alcohol intake: current Alcohol intake frequency: holidays/special occasions only Alcohol type: beer Smoking Status: Former smoker Use of substances other than those prescribed or required for medical reasons: No Currently Displaying Signs/Symptoms of Drug Intoxication Withdrawal: No Have you been hit, kicked, punched, or otherwise hurt by someone within the past year? If so, by whom?: No Do you feel safe in your current relationship?: No Current Relationship Is there a partner from a previous relationship who is making you feel unsafe now?: No Are you made to feel afraid or neglected: No Spiritual Healthcare Practices: none [facility] Practices: none Cultural Healthcare Practices: none Advance Directives: No Advance Directives Information Provided: No Do you have thoughts of harming others: None Do you have a plan to hurt others: No Plan Recently lost weight without trying: No service: No Current occupational status: retired Meds Allergies Allergy/AdvReac Type Severity Reaction Status Date / Time No Known Allergies Allergy Verified 07/31/20 09:06 [No Known Allergies*] Home Medications Medication Instructions Recorded Confirmed Type furosemide 20 mg PO BID 09/28/20 09/28/20 History metoprolol succinate 25 mg PO DAILY 09/28/20 09/28/20 History simvastatin 20 mg PO DAILY 09/28/20 09/28/20 History Exam Exam Date and Time: October 24, 2020 1449 Height,Weight and Vital Signs: Height 6 ft Weight 68.6 kg Last Vital Signs Temp 99.1 F 10/24/20 12:00 Pulse 105 H 10/24/20 12:00 Resp 22 H 10/24/20 12:00 BP 132/74 10/24/20 12:00 Pulse Ox 94 10/24/20 14:27 Pertinent Lab Results Pertinent Lab Results: Laboratory Tests 09/28/20 09/28/20 09/28/20 09:26 09:26 09:26 WBC 9.0 RBC 2.48 L Hgb 6.6 L* Hct 20.4 L* MCV 82.3 MCH 26.6 L MCHC 32.4 RDW 22.4 H Plt Count 492 H MPV 9.1 L Immature Gran % (Auto) 0.6 H Neut % (Auto) 73.1 H Lymph % (Auto) 15.6 L [place] % (Auto) 8.8 Eos % (Auto) 1.1 Baso % (Auto) 0.8 Lymph # (Auto) 1.4 [place] # (Auto) 0.8 Eos # (Auto) 0.1 Baso # (Auto) 0.1 Abs Immat Gran (auto) 0.05 H Absolute Neuts (auto) 6.6 Absolute Nucleated RBC 0.000 Nucleated RBC % (auto) 0.0 Neutrophils % (Manual) 85 H Band Neutrophils % 1 L Lymphocytes % (Manual) 10 L Monocytes % (Manual) 4 Abs Neuts (Manual) 7.7 Lymphocytes # (Manual) 0.9 Monocytes # (Manual) 0.4 Platelet Estimate INCREASED Plt Morphology Comment NORMAL RBC Morphology NOTED Hypochromasia 1+ Ovalocytes 1+ Steward Cells 3+ Acanthocytes (Spur) 3+ Schistocytes 2+ Smear Tech's Comments Smear Path Review SEE NOTE Absolute Retic 0.029 Percent Retic 1.2 Immature Retic Fraction 2.6 Retic Hgb Equivalent 30.4 Haptoglobin PT 12.6 INR 1.1 D-Dimer 2582 Hold Blue Top SEE NOTE ABG pH ABG pCO2 ABG pO2 ABG HCO3 ABG O2 Saturation ABG Base Excess VBG pH VBG pCO2 VBG pO2 VBG HCO3 VBG O2 Saturation VBG Base Excess Oxygen Given Sodium 140 Potassium 4.9 Chloride 110 H Carbon Dioxide 8 L* Anion Gap 27 H BUN 147 H* Creatinine 10.50 H* Estim Creat Clear Calc 6.2 Estimated GFR 5 POC Glucose Random Glucose 134 H Fasting Glucose Lactic Acid Calcium 7.6 L Phosphorus Magnesium 2.0 Total Bilirubin 0.3 Direct Bilirubin < 0.2 AST 10 ALT 10 Alkaline Phosphatase 73 Lactate Dehydrogenase 208 Troponin I High Sens C-Reactive Protein B-Natriuretic Peptide Total Protein 6.8 Total Protein (PEP) Albumin 3.9 Albumin (PEP) Khtfg-0-Wcjqgpbjj Lkdbj-8-Zpqdcbyrw Zuwn-9-Wfmmyock Hwsi-5-Uocryugn Gamma Globulins Abnorm Protein Band 1 Abnorm Protein Band 2 Abnorm Protein Band 3 PEP Interpretation Lipase Vitamin B12 Folate Procalcitonin PTH Intact Calcium (PTH Intact) Cancelled Chem Test Urine Color Urine Appearance Urine pH Ur Specific [place] Urine Protein Urine Glucose (UA) Urine Ketones Urine Blood Urine Nitrite Ur Leukocyte Esterase Urine RBC Urine WBC Urine WBC Clumps Ur Squamous Epith Cells Urine Bacteria Urine Yeast Urine Osmolality Ur Random Sodium Stool Occult Blood IgG Total IgA Total IgM DAYANARA Interpretation Proteinase 3 (PR3) Ab Myeloperoxidase Ab Double Strand DNA Ab Glomerular Base Memb Ab Coronavirus (PCR) COVID-19 (RADHA) COVID-19 Clin Com Hep Bs Antigen Hep Bs Antibody Hep B Core Total Ab Hepatitis C Ab (EIA) Influenza Type A (PCR) Influenza Type B (PCR) RSV RNA Qual (PCR) Prothrombin [id number] Mut Prothrombin Mut Interp Blood Type Antibody Screen Crossmatch 09/28/20 09/28/20 09/28/20 09:26 09:26 09:26 WBC RBC Hgb Hct MCV MCH MCHC RDW Plt Count MPV Immature Gran % (Auto) Neut % (Auto) Lymph % (Auto) [place] % (Auto) Eos % (Auto) Baso % (Auto) Lymph # (Auto) [place] # (Auto) Eos # (Auto) Baso # (Auto) Abs Immat Gran (auto) Absolute Neuts (auto) Absolute Nucleated RBC Nucleated RBC % (auto) Neutrophils % (Manual) Band Neutrophils % Lymphocytes % (Manual) Monocytes % (Manual) Abs Neuts (Manual) Lymphocytes # (Manual) Monocytes # (Manual) Platelet Estimate Plt Morphology Comment RBC Morphology Hypochromasia Ovalocytes Steward Cells Acanthocytes (Spur) Schistocytes Smear Tech's Comments Smear Path Review Absolute Retic Percent Retic Immature Retic Fraction Retic Hgb Equivalent Haptoglobin PT INR D-Dimer Hold Blue Top ABG pH ABG pCO2 ABG pO2 ABG HCO3 ABG O2 Saturation ABG Base Excess VBG pH VBG pCO2 VBG pO2 VBG HCO3 VBG O2 Saturation VBG Base Excess Oxygen Given Sodium Potassium Chloride Carbon Dioxide Anion Gap BUN Creatinine Estim Creat Clear Calc Estimated GFR POC Glucose Random Glucose Fasting Glucose Lactic Acid 1.1 Calcium Phosphorus Magnesium Total Bilirubin Direct Bilirubin AST ALT Alkaline Phosphatase Lactate Dehydrogenase Troponin I High Sens 107.9 H C-Reactive Protein 1.49 H B-Natriuretic Peptide 737 H Total Protein Total Protein (PEP) Albumin Albumin (PEP) Kkzvo-9-Zyohopapb Svunt-8-Mlguwfjgw Rpro-9-Baplwhny Buok-8-Kzmwksny Gamma Globulins Abnorm Protein Band 1 Abnorm Protein Band 2 Abnorm Protein Band 3 PEP Interpretation Lipase 109 H Vitamin B12 Folate Procalcitonin PTH Intact Calcium (PTH Intact) Cancelled Chem Test Urine Color Urine Appearance Urine pH Ur Specific [place] Urine Protein Urine Glucose (UA) Urine Ketones Urine Blood Urine Nitrite Ur Leukocyte Esterase Urine RBC Urine WBC Urine WBC Clumps Ur Squamous Epith Cells Urine Bacteria Urine Yeast Urine Osmolality Ur Random Sodium Stool Occult Blood IgG Total IgA Total IgM DAYANARA Interpretation Proteinase 3 (PR3) Ab Myeloperoxidase Ab Double Strand DNA Ab Glomerular Base Memb Ab Coronavirus (PCR) COVID-19 (RADHA) COVID-19 Clin Com Hep Bs Antigen Hep Bs Antibody Hep B Core Total Ab Hepatitis C Ab (EIA) Influenza Type A (PCR) Influenza Type B (PCR) RSV RNA Qual (PCR) Prothrombin [id number] Mut Prothrombin Mut Interp Blood Type Antibody Screen Crossmatch 09/28/20 09/28/20 09/28/20 09:26 09:26 09:26 WBC RBC Hgb Hct MCV MCH MCHC RDW Plt Count MPV Immature Gran % (Auto) Neut % (Auto) Lymph % (Auto) [place] % (Auto) Eos % (Auto) Baso % (Auto) Lymph # (Auto) [place] # (Auto) Eos # (Auto) Baso # (Auto) Abs Immat Gran (auto) Absolute Neuts (auto) Absolute Nucleated RBC Nucleated RBC % (auto) Neutrophils % (Manual) Band Neutrophils % Lymphocytes % (Manual) Monocytes % (Manual) Abs Neuts (Manual) Lymphocytes # (Manual) Monocytes # (Manual) Platelet Estimate Plt Morphology Comment RBC Morphology Hypochromasia Ovalocytes Steward Cells Acanthocytes (Spur) Schistocytes Smear Tech's Comments Smear Path Review Absolute Retic Percent Retic Immature Retic Fraction Retic Hgb Equivalent Haptoglobin 270 H PT INR D-Dimer Hold Blue Top ABG pH ABG pCO2 ABG pO2 ABG HCO3 ABG O2 Saturation ABG Base Excess VBG pH VBG pCO2 VBG pO2 VBG HCO3 VBG O2 Saturation VBG Base Excess Oxygen Given Sodium Potassium Chloride Carbon Dioxide Anion Gap BUN Creatinine Estim Creat Clear Calc Estimated GFR POC Glucose Random Glucose Fasting Glucose Lactic Acid Calcium Phosphorus Magnesium Total Bilirubin Direct Bilirubin AST ALT Alkaline Phosphatase Lactate Dehydrogenase Troponin I High Sens C-Reactive Protein B-Natriuretic Peptide Total Protein Total Protein (PEP) Albumin Albumin (PEP) Xsqnn-4-Yxvkdxync Imidk-6-Njohrgwuw Exlr-0-Zimziqst Bzll-7-Fzrfqcvo Gamma Globulins Abnorm Protein Band 1 Abnorm Protein Band 2 Abnorm Protein Band 3 PEP Interpretation Lipase Vitamin B12 Folate Procalcitonin 0.44 PTH Intact Calcium (PTH Intact) Cancelled Chem Test Urine Color Urine Appearance Urine pH Ur Specific [place] Urine Protein Urine Glucose (UA) Urine Ketones Urine Blood Urine Nitrite Ur Leukocyte Esterase Urine RBC Urine WBC Urine WBC Clumps Ur Squamous Epith Cells Urine Bacteria Urine Yeast Urine Osmolality Ur Random Sodium Stool Occult Blood IgG Total IgA Total IgM DAYANARA Interpretation Proteinase 3 (PR3) Ab Myeloperoxidase Ab Double Strand DNA Ab Glomerular Base Memb Ab Coronavirus (PCR) NEGATIVE COVID-19 (RADHA) COVID-19 Clin Com Hep Bs Antigen Hep Bs Antibody Hep B Core Total Ab Hepatitis C Ab (EIA) Influenza Type A (PCR) NEGATIVE Influenza Type B (PCR) NEGATIVE RSV RNA Qual (PCR) NEGATIVE Prothrombin [id number] Mut Prothrombin Mut Interp Blood Type Antibody Screen Crossmatch 09/28/20 09/28/20 09/28/20 09:26 10:04 10:04 WBC RBC Hgb Hct MCV MCH MCHC RDW Plt Count MPV Immature Gran % (Auto) Neut % (Auto) Lymph % (Auto) [place] % (Auto) Eos % (Auto) Baso % (Auto) Lymph # (Auto) [place] # (Auto) Eos # (Auto) Baso # (Auto) Abs Immat Gran (auto) Absolute Neuts (auto) Absolute Nucleated RBC Nucleated RBC % (auto) Neutrophils % (Manual) Band Neutrophils % Lymphocytes % (Manual) Monocytes % (Manual) Abs Neuts (Manual) Lymphocytes # (Manual) Monocytes # (Manual) Platelet Estimate Plt Morphology Comment RBC Morphology Hypochromasia Ovalocytes Christine Cells Acanthocytes (Spur) Schistocytes Smear Tech's Comments Smear Path Review Absolute Retic Percent Retic Immature Retic Fraction Retic Hgb Equivalent Haptoglobin PT INR D-Dimer Hold Blue Top ABG pH ABG pCO2 ABG pO2 ABG HCO3 ABG O2 Saturation ABG Base Excess VBG pH VBG pCO2 VBG pO2 VBG HCO3 VBG O2 Saturation VBG Base Excess Oxygen Given Sodium Potassium Chloride Carbon Dioxide Anion Gap BUN Creatinine Estim Creat Clear Calc Estimated GFR POC Glucose Random Glucose Fasting Glucose Lactic Acid Calcium Phosphorus Magnesium Total Bilirubin Direct Bilirubin AST ALT Alkaline Phosphatase Lactate Dehydrogenase Troponin I High Sens C-Reactive Protein B-Natriuretic Peptide Total Protein Total Protein (PEP) Albumin Albumin (PEP) Usbpk-2-Hixdmonng Wcxiz-8-Hpdbbogkt Ajwc-1-Lcemqoqg Mguw-1-Dmvuutxw Gamma Globulins Abnorm Protein Band 1 Abnorm Protein Band 2 Abnorm Protein Band 3 PEP Interpretation Lipase Vitamin B12 911 H Folate 4.2 Procalcitonin PTH Intact Calcium (PTH Intact) Cancelled Chem Test Urine Color Urine Appearance Urine pH Ur Specific [place] Urine Protein Urine Glucose (UA) Urine Ketones Urine Blood Urine Nitrite Ur Leukocyte Esterase Urine RBC Urine WBC Urine WBC Clumps Ur Squamous Epith Cells Urine Bacteria Urine Yeast Urine Osmolality Ur Random Sodium Stool Occult Blood NEG IgG Total IgA Total IgM DAYANARA Interpretation Proteinase 3 (PR3) Ab Myeloperoxidase Ab Double Strand DNA Ab Glomerular Base Memb Ab Coronavirus (PCR) COVID-19 (RADHA) COVID-19 Clin Com Hep Bs Antigen Hep Bs Antibody Hep B Core Total Ab Hepatitis C Ab (EIA) Influenza Type A (PCR) Influenza Type B (PCR) RSV RNA Qual (PCR) Prothrombin [id number] Mut Prothrombin Mut Interp Blood Type B Positive Antibody Screen NEGATIVE Crossmatch See Detail 09/28/20 09/28/20 09/28/20 10:20 10:20 10:20 WBC RBC Hgb Hct MCV MCH MCHC RDW Plt Count MPV Immature Gran % (Auto) Neut % (Auto) Lymph % (Auto) [place] % (Auto) Eos % (Auto) Baso % (Auto) Lymph # (Auto) [place] # (Auto) Eos # (Auto) Baso # (Auto) Abs Immat Gran (auto) Absolute Neuts (auto) Absolute Nucleated RBC Nucleated RBC % (auto) Neutrophils % (Manual) Band Neutrophils % Lymphocytes % (Manual) Monocytes % (Manual) Abs Neuts (Manual) Lymphocytes # (Manual) Monocytes # (Manual) Platelet Estimate Plt Morphology Comment RBC Morphology Hypochromasia Ovalocytes Christine Cells Acanthocytes (Spur) Schistocytes Smear Tech's Comments Smear Path Review Absolute Retic Percent Retic Immature Retic Fraction Retic Hgb Equivalent Haptoglobin PT INR D-Dimer Hold Blue Top ABG pH ABG pCO2 ABG pO2 ABG HCO3 ABG O2 Saturation ABG Base Excess VBG pH VBG pCO2 VBG pO2 VBG HCO3 VBG O2 Saturation VBG Base Excess Oxygen Given Sodium Potassium Chloride Carbon Dioxide Anion Gap BUN Creatinine Estim Creat Clear Calc Estimated GFR POC Glucose Random Glucose Fasting Glucose Lactic Acid Calcium Phosphorus Magnesium Total Bilirubin Direct Bilirubin AST ALT Alkaline Phosphatase Lactate Dehydrogenase Troponin I High Sens C-Reactive Protein B-Natriuretic Peptide Total Protein Total Protein (PEP) Albumin Albumin (PEP) Jgxyq-4-Nkgxkaswr Uaufj-9-Fsgdlgyuf Mmoi-8-Tailhpvn Iqiw-2-Lmbuilro Gamma Globulins Abnorm Protein Band 1 Abnorm Protein Band 2 Abnorm Protein Band 3 PEP Interpretation Lipase Vitamin B12 Folate Procalcitonin PTH Intact Calcium (PTH Intact) Cancelled Chem Test Urine Color STRAW Urine Appearance HAZY Urine pH 5.5 Ur Specific [place] 1.025 Urine Protein 2+ H Urine Glucose (UA) NEG Urine Ketones NEG Urine Blood 3+ H Urine Nitrite NEG Ur Leukocyte Esterase 2+ H Urine RBC 5-9 H Urine WBC TNTC H Urine WBC Clumps NOTED Ur Squamous Epith Cells NONE Urine Bacteria 1+ Urine Yeast 1+ Urine Osmolality 365 L Ur Random Sodium 60.0 Stool Occult Blood IgG Total IgA Total IgM DAYANARA Interpretation Proteinase 3 (PR3) Ab Myeloperoxidase Ab Double Strand DNA Ab Glomerular Base Memb Ab Coronavirus (PCR) COVID-19 (RADHA) COVID-19 Clin Com Hep Bs Antigen Hep Bs Antibody Hep B Core Total Ab Hepatitis C Ab (EIA) Influenza Type A (PCR) Influenza Type B (PCR) RSV RNA Qual (PCR) Prothrombin [id number] Mut Prothrombin Mut Interp Blood Type Antibody Screen Crossmatch 09/28/20 09/28/20 09/28/20 12:00 15:01 15:01 WBC RBC Hgb Hct MCV MCH MCHC RDW Plt Count MPV Immature Gran % (Auto) Neut % (Auto) Lymph % (Auto) [place] % (Auto) Eos % (Auto) Baso % (Auto) Lymph # (Auto) [place] # (Auto) Eos # (Auto) Baso # (Auto) Abs Immat Gran (auto) Absolute Neuts (auto) Absolute Nucleated RBC Nucleated RBC % (auto) Neutrophils % (Manual) Band Neutrophils % Lymphocytes % (Manual) Monocytes % (Manual) Abs Neuts (Manual) Lymphocytes # (Manual) Monocytes # (Manual) Platelet Estimate Plt Morphology Comment RBC Morphology Hypochromasia Ovalocytes Steward Cells Acanthocytes (Spur) Schistocytes Smear Tech's Comments Smear Path Review Absolute Retic Percent Retic Immature Retic Fraction Retic Hgb Equivalent Haptoglobin PT INR D-Dimer Hold Blue Top ABG pH ABG pCO2 ABG pO2 ABG HCO3 ABG O2 Saturation ABG Base Excess VBG pH 7.16 L* 7.14 L* VBG pCO2 23 25 VBG pO2 85 80 VBG HCO3 8 8 VBG O2 Saturation 94.1 93.3 VBG Base Excess -19.0 -19.3 Oxygen Given Sodium 139 Potassium 4.9 Chloride 113 H Carbon Dioxide 6 L* D Anion Gap 25 H BUN 144 H* Creatinine 10.00 H* Estim Creat Clear Calc 6.5 Estimated GFR 5 POC Glucose Random Glucose 102 Fasting Glucose Lactic Acid Calcium 7.3 L Phosphorus Magnesium Total Bilirubin Direct Bilirubin AST ALT Alkaline Phosphatase Lactate Dehydrogenase Troponin I High Sens C-Reactive Protein B-Natriuretic Peptide Total Protein Total Protein (PEP) Albumin Albumin (PEP) Wrfwa-1-Grfrcdfyv Kkmsv-3-Dkxpbbmex Toab-4-Nwmtqcoa Odvz-4-Twsrwkbu Gamma Globulins Abnorm Protein Band 1 Abnorm Protein Band 2 Abnorm Protein Band 3 PEP Interpretation Lipase Vitamin B12 Folate Procalcitonin PTH Intact Calcium (PTH Intact) Cancelled Chem Test Urine Color Urine Appearance Urine pH Ur Specific [place] Urine Protein Urine Glucose (UA) Urine Ketones Urine Blood Urine Nitrite Ur Leukocyte Esterase Urine RBC Urine WBC Urine WBC Clumps Ur Squamous Epith Cells Urine Bacteria Urine Yeast Urine Osmolality Ur Random Sodium Stool Occult Blood IgG Total IgA Total IgM DAYANARA Interpretation Proteinase 3 (PR3) Ab Myeloperoxidase Ab Double Strand DNA Ab Glomerular Base Memb Ab Coronavirus (PCR) COVID-19 (RADHA) COVID-19 Clin Com Hep Bs Antigen Hep Bs Antibody Hep B Core Total Ab Hepatitis C Ab (EIA) Influenza Type A (PCR) Influenza Type B (PCR) RSV RNA Qual (PCR) Prothrombin [id number] Mut Prothrombin Mut Interp Blood Type Antibody Screen Crossmatch 09/28/20 09/28/20 09/28/20 16:00 18:44 18:44 WBC RBC Hgb Hct MCV MCH MCHC RDW Plt Count MPV Immature Gran % (Auto) Neut % (Auto) Lymph % (Auto) [place] % (Auto) Eos % (Auto) Baso % (Auto) Lymph # (Auto) [place] # (Auto) Eos # (Auto) Baso # (Auto) Abs Immat Gran (auto) Absolute Neuts (auto) Absolute Nucleated RBC Nucleated RBC % (auto) Neutrophils % (Manual) Band Neutrophils % Lymphocytes % (Manual) Monocytes % (Manual) Abs Neuts (Manual) Lymphocytes # (Manual) Monocytes # (Manual) Platelet Estimate Plt Morphology Comment RBC Morphology Hypochromasia Ovalocytes Steward Cells Acanthocytes (Spur) Schistocytes Smear Tech's Comments Smear Path Review Absolute Retic Percent Retic Immature Retic Fraction Retic Hgb Equivalent Haptoglobin PT INR D-Dimer Hold Blue Top ABG pH ABG pCO2 ABG pO2 ABG HCO3 ABG O2 Saturation ABG Base Excess VBG pH 7.22 L VBG pCO2 21 VBG pO2 240 VBG HCO3 9 VBG O2 Saturation 99.1 VBG Base Excess -17.6 Oxygen Given Sodium 143 Potassium 4.8 Chloride 116 H Carbon Dioxide 7 L* Anion Gap 25 H BUN 137 H* Creatinine 9.62 H* Estim Creat Clear Calc 6.7 Estimated GFR 5 POC Glucose Random Glucose 105 Fasting Glucose Lactic Acid Calcium 6.8 L D Phosphorus Magnesium Total Bilirubin Direct Bilirubin AST ALT Alkaline Phosphatase Lactate Dehydrogenase Troponin I High Sens 99.6 H C-Reactive Protein B-Natriuretic Peptide Total Protein Total Protein (PEP) Albumin Albumin (PEP) Casyu-5-Ijucyrafl Bvrfh-6-Mvigmtzkd Wotu-2-Ntjcofmc Acqc-3-Qfelcfsl Gamma Globulins Abnorm Protein Band 1 Abnorm Protein Band 2 Abnorm Protein Band 3 PEP Interpretation Lipase Vitamin B12 Folate Procalcitonin PTH Intact Calcium (PTH Intact) Cancelled Chem Test Urine Color Urine Appearance Urine pH Ur Specific [place] Urine Protein Urine Glucose (UA) Urine Ketones Urine Blood Urine Nitrite Ur Leukocyte Esterase Urine RBC Urine WBC Urine WBC Clumps Ur Squamous Epith Cells Urine Bacteria Urine Yeast Urine Osmolality Ur Random Sodium Stool Occult Blood IgG Total IgA Total IgM DAYANARA Interpretation Proteinase 3 (PR3) Ab Myeloperoxidase Ab Double Strand DNA Ab Glomerular Base Memb Ab Coronavirus (PCR) COVID-19 (RADHA) COVID-19 Clin Com Hep Bs Antigen Hep Bs Antibody Hep B Core Total Ab Hepatitis C Ab (EIA) Influenza Type A (PCR) Influenza Type B (PCR) RSV RNA Qual (PCR) Prothrombin [id number] Mut Prothrombin Mut Interp Blood Type Antibody Screen Crossmatch 09/29/20 09/29/20 09/29/20 00:50 00:50 00:50 WBC RBC Hgb 8.1 L D Hct 23.7 L MCV MCH MCHC RDW Plt Count MPV Immature Gran % (Auto) Neut % (Auto) Lymph % (Auto) [place] % (Auto) Eos % (Auto) Baso % (Auto) Lymph # (Auto) [place] # (Auto) Eos # (Auto) Baso # (Auto) Abs Immat Gran (auto) Absolute Neuts (auto) Absolute Nucleated RBC Nucleated RBC % (auto) Neutrophils % (Manual) Band Neutrophils % Lymphocytes % (Manual) Monocytes % (Manual) Abs Neuts (Manual) Lymphocytes # (Manual) Monocytes # (Manual) Platelet Estimate Plt Morphology Comment RBC Morphology Hypochromasia Ovalocytes Steward Cells Acanthocytes (Spur) Schistocytes Smear Tech's Comments Smear Path Review Absolute Retic Percent Retic Immature Retic Fraction Retic Hgb Equivalent Haptoglobin 230 H PT INR D-Dimer Hold Blue Top ABG pH ABG pCO2 ABG pO2 ABG HCO3 ABG O2 Saturation ABG Base Excess VBG pH VBG pCO2 VBG pO2 VBG HCO3 VBG O2 Saturation VBG Base Excess Oxygen Given Sodium 143 Potassium 4.3 Chloride 114 H Carbon Dioxide 10 L* D Anion Gap 23 H BUN 134 H* Creatinine 9.33 H* Estim Creat Clear Calc 7.0 Estimated GFR 5 POC Glucose Random Glucose 102 Fasting Glucose Lactic Acid Calcium 6.6 L Phosphorus Magnesium Total Bilirubin Direct Bilirubin AST ALT Alkaline Phosphatase Lactate Dehydrogenase Troponin I High Sens C-Reactive Protein B-Natriuretic Peptide Total Protein Total Protein (PEP) Albumin Albumin (PEP) Qzmxr-3-Xdumrgros Awouf-8-Gytqhhdoh Nvzt-7-Xhbbgptf Vgku-2-Vyfmukvp Gamma Globulins Abnorm Protein Band 1 Abnorm Protein Band 2 Abnorm Protein Band 3 PEP Interpretation Lipase Vitamin B12 Folate Procalcitonin PTH Intact Calcium (PTH Intact) Cancelled Chem Test Urine Color Urine Appearance Urine pH Ur Specific [place] Urine Protein Urine Glucose (UA) Urine Ketones Urine Blood Urine Nitrite Ur Leukocyte Esterase Urine RBC Urine WBC Urine WBC Clumps Ur Squamous Epith Cells Urine Bacteria Urine Yeast Urine Osmolality Ur Random Sodium Stool Occult Blood IgG Total IgA Total IgM DAYANARA Interpretation Proteinase 3 (PR3) Ab Myeloperoxidase Ab Double Strand DNA Ab Glomerular Base Memb Ab Coronavirus (PCR) COVID-19 (RADHA) COVID-19 Clin Com Hep Bs Antigen Hep Bs Antibody Hep B Core Total Ab Hepatitis C Ab (EIA) Influenza Type A (PCR) Influenza Type B (PCR) RSV RNA Qual (PCR) Prothrombin [id number] Mut Prothrombin Mut Interp Blood Type Antibody Screen Crossmatch 09/29/20 09/29/20 09/29/20 00:50 05:46 05:46 WBC 9.7 RBC 3.09 L D Hgb 8.5 L Hct 24.9 L MCV 80.6 MCH 27.5 MCHC 34.1 RDW 19.4 H Plt Count 392 MPV 9.0 L Immature Gran % (Auto) 0.4 Neut % (Auto) 59.7 Lymph % (Auto) 27.3 [place] % (Auto) 10.4 Eos % (Auto) 1.3 Baso % (Auto) 0.9 Lymph # (Auto) 2.6 [place] # (Auto) 1.0 Eos # (Auto) 0.1 Baso # (Auto) 0.1 Abs Immat Gran (auto) 0.04 H Absolute Neuts (auto) 5.8 Absolute Nucleated RBC 0.000 Nucleated RBC % (auto) 0.0 Neutrophils % (Manual) Band Neutrophils % Lymphocytes % (Manual) Monocytes % (Manual) Abs Neuts (Manual) Lymphocytes # (Manual) Monocytes # (Manual) Platelet Estimate Plt Morphology Comment RBC Morphology Hypochromasia Ovalocytes Steward Cells Acanthocytes (Spur) Schistocytes Smear Tech's Comments Smear Path Review Absolute Retic Percent Retic Immature Retic Fraction Retic Hgb Equivalent Haptoglobin PT INR D-Dimer Hold Blue Top ABG pH ABG pCO2 ABG pO2 ABG HCO3 ABG O2 Saturation ABG Base Excess VBG pH 7.31 L VBG pCO2 20 VBG pO2 69 VBG HCO3 10 VBG O2 Saturation 91.9 VBG Base Excess -15.0 Oxygen Given Sodium 142 Potassium 4.1 Chloride 113 H Carbon Dioxide 11 L Anion Gap 22 H BUN 133 H* Creatinine 9.16 H* Estim Creat Clear Calc 7.1 Estimated GFR 6 POC Glucose Random Glucose 85 Fasting Glucose Lactic Acid Calcium 6.7 L Phosphorus Magnesium Total Bilirubin Direct Bilirubin AST ALT Alkaline Phosphatase Lactate Dehydrogenase Troponin I High Sens C-Reactive Protein B-Natriuretic Peptide Total Protein Total Protein (PEP) Albumin Albumin (PEP) Aexyx-8-Knedfogea Cmnhe-3-Bnydsxoul Qlyq-4-Cmjapkau Zdba-2-Fddzzjtg Gamma Globulins Abnorm Protein Band 1 Abnorm Protein Band 2 Abnorm Protein Band 3 PEP Interpretation Lipase Vitamin B12 Folate Procalcitonin PTH Intact Calcium (PTH Intact) Cancelled Chem Test Urine Color Urine Appearance Urine pH Ur Specific [place] Urine Protein Urine Glucose (UA) Urine Ketones Urine Blood Urine Nitrite Ur Leukocyte Esterase Urine RBC Urine WBC Urine WBC Clumps Ur Squamous Epith Cells Urine Bacteria Urine Yeast Urine Osmolality Ur Random Sodium Stool Occult Blood IgG Total IgA Total IgM DAYANARA Interpretation Proteinase 3 (PR3) Ab Myeloperoxidase Ab Double Strand DNA Ab Glomerular Base Memb Ab Coronavirus (PCR) COVID-19 (RADHA) COVID-19 Clin Com Hep Bs Antigen Hep Bs Antibody Hep B Core Total Ab Hepatitis C Ab (EIA) Influenza Type A (PCR) Influenza Type B (PCR) RSV RNA Qual (PCR) Prothrombin [id number] Mut Prothrombin Mut Interp Blood Type Antibody Screen Crossmatch 09/29/20 09/29/20 09/30/20 13:40 13:40 05:43 WBC 8.7 RBC 2.98 L Hgb 8.1 L Hct 24.5 L MCV 82.2 MCH 27.2 MCHC 33.1 RDW 19.9 H Plt Count 367 MPV 9.4 Immature Gran % (Auto) 0.3 Neut % (Auto) 62.4 Lymph % (Auto) 24.2 [place] % (Auto) 9.7 Eos % (Auto) 2.0 Baso % (Auto) 1.4 Lymph # (Auto) 2.1 [place] # (Auto) 0.8 Eos # (Auto) 0.2 Baso # (Auto) 0.1 Abs Immat Gran (auto) 0.03 Absolute Neuts (auto) 5.4 Absolute Nucleated RBC 0.000 Nucleated RBC % (auto) 0.0 Neutrophils % (Manual) Band Neutrophils % Lymphocytes % (Manual) Monocytes % (Manual) Abs Neuts (Manual) Lymphocytes # (Manual) Monocytes # (Manual) Platelet Estimate Plt Morphology Comment RBC Morphology Hypochromasia Ovalocytes Steward Cells Acanthocytes (Spur) Schistocytes Smear Tech's Comments Smear Path Review Absolute Retic Percent Retic Immature Retic Fraction Retic Hgb Equivalent Haptoglobin PT INR D-Dimer Hold Blue Top ABG pH ABG pCO2 ABG pO2 ABG HCO3 ABG O2 Saturation ABG Base Excess VBG pH VBG pCO2 VBG pO2 VBG HCO3 VBG O2 Saturation VBG Base Excess Oxygen Given Sodium Potassium Chloride Carbon Dioxide Anion Gap BUN Creatinine Estim Creat Clear Calc Estimated GFR POC Glucose Random Glucose Fasting Glucose Lactic Acid Calcium Phosphorus 8.9 H Magnesium 1.6 Total Bilirubin Direct Bilirubin AST ALT Alkaline Phosphatase Lactate Dehydrogenase Troponin I High Sens C-Reactive Protein B-Natriuretic Peptide Total Protein Total Protein (PEP) 5.2 L Albumin Albumin (PEP) 2.7 L Bvplw-6-Eiakcrlhr 0.4 H Intqb-3-Zceuqnknx 0.7 Louy-3-Dkgnyqyj 0.3 L Bkev-9-Xbmdkurs 0.3 Gamma Globulins 0.8 Abnorm Protein Band 1 SEE NOTE Abnorm Protein Band 2 TNP Abnorm Protein Band 3 TNP PEP Interpretation SEE NOTE Lipase Vitamin B12 Folate Procalcitonin PTH Intact Calcium (PTH Intact) Cancelled Chem Test Urine Color Urine Appearance Urine pH Ur Specific [place] Urine Protein Urine Glucose (UA) Urine Ketones Urine Blood Urine Nitrite Ur Leukocyte Esterase Urine RBC Urine WBC Urine WBC Clumps Ur Squamous Epith Cells Urine Bacteria Urine Yeast Urine Osmolality Ur Random Sodium Stool Occult Blood IgG Total IgA Total IgM DAYANARA Interpretation Proteinase 3 (PR3) Ab 11.1 H Myeloperoxidase Ab <1.0 Double Strand DNA Ab 1 Glomerular Base Memb Ab <1.0 Coronavirus (PCR) COVID-19 (RADHA) COVID-19 Clin Com Hep Bs Antigen Hep Bs Antibody Hep B Core Total Ab Hepatitis C Ab (EIA) Influenza Type A (PCR) Influenza Type B (PCR) RSV RNA Qual (PCR) Prothrombin [id number] Mut Prothrombin Mut Interp Blood Type Antibody Screen Crossmatch 09/30/20 10/01/20 10/01/20 05:43 05:30 05:30 WBC 8.6 RBC 2.90 L Hgb 7.9 L Hct 23.5 L MCV 81.0 MCH 27.2 MCHC 33.6 RDW 19.0 H Plt Count 336 MPV 9.5 Immature Gran % (Auto) 0.3 Neut % (Auto) 64.2 Lymph % (Auto) 23.0 [place] % (Auto) 9.4 Eos % (Auto) 2.1 Baso % (Auto) 1.0 Lymph # (Auto) 2.0 [place] # (Auto) 0.8 Eos # (Auto) 0.2 Baso # (Auto) 0.1 Abs Immat Gran (auto) 0.03 Absolute Neuts (auto) 5.5 Absolute Nucleated RBC 0.000 Nucleated RBC % (auto) 0.0 Neutrophils % (Manual) Band Neutrophils % Lymphocytes % (Manual) Monocytes % (Manual) Abs Neuts (Manual) Lymphocytes # (Manual) Monocytes # (Manual) Platelet Estimate Plt Morphology Comment RBC Morphology Hypochromasia Ovalocytes Christine Cells Acanthocytes (Spur) Schistocytes Smear Tech's Comments Smear Path Review Absolute Retic Percent Retic Immature Retic Fraction Retic Hgb Equivalent Haptoglobin PT INR D-Dimer Hold Blue Top ABG pH ABG pCO2 ABG pO2 ABG HCO3 ABG O2 Saturation ABG Base Excess VBG pH VBG pCO2 VBG pO2 VBG HCO3 VBG O2 Saturation VBG Base Excess Oxygen Given Sodium 143 142 Potassium 4.0 3.6 Chloride 110 H 105 Carbon Dioxide 13 L 17 L Anion Gap 24 H 24 H BUN 124 H* 119 H* Creatinine 9.27 H* 8.36 H* Estim Creat Clear Calc 7.0 7.8 Estimated GFR 6 6 POC Glucose Random Glucose Fasting Glucose 75 119 H D Lactic Acid Calcium 6.3 L 6.1 L Phosphorus Magnesium Total Bilirubin Direct Bilirubin AST ALT Alkaline Phosphatase Lactate Dehydrogenase Troponin I High Sens C-Reactive Protein B-Natriuretic Peptide Total Protein Total Protein (PEP) Albumin Albumin (PEP) Ybqps-1-Crprtjgis Dbjcd-2-Lwbvargdr Sekf-2-Wuodicgi Oxrv-7-Cxbkfcwt Gamma Globulins Abnorm Protein Band 1 Abnorm Protein Band 2 Abnorm Protein Band 3 PEP Interpretation Lipase Vitamin B12 Folate Procalcitonin PTH Intact Calcium (PTH Intact) Cancelled Chem Test Urine Color Urine Appearance Urine pH Ur Specific [place] Urine Protein Urine Glucose (UA) Urine Ketones Urine Blood Urine Nitrite Ur Leukocyte Esterase Urine RBC Urine WBC Urine WBC Clumps Ur Squamous Epith Cells Urine Bacteria Urine Yeast Urine Osmolality Ur Random Sodium Stool Occult Blood IgG Total IgA Total IgM DAYANARA Interpretation Proteinase 3 (PR3) Ab Myeloperoxidase Ab Double Strand DNA Ab Glomerular Base Memb Ab Coronavirus (PCR) COVID-19 (RADHA) COVID-19 Clin Com Hep Bs Antigen Hep Bs Antibody Hep B Core Total Ab Hepatitis C Ab (EIA) Influenza Type A (PCR) Influenza Type B (PCR) RSV RNA Qual (PCR) Prothrombin [id number] Mut Prothrombin Mut Interp Blood Type Antibody Screen Crossmatch 10/01/20 10/02/20 10/02/20 05:30 05:44 05:44 WBC 9.1 RBC 2.78 L Hgb 7.6 L Hct 22.9 L MCV 82.4 MCH 27.3 MCHC 33.2 RDW 19.0 H Plt Count 320 MPV 9.6 Immature Gran % (Auto) 0.3 Neut % (Auto) 64.4 Lymph % (Auto) 23.3 [place] % (Auto) 9.3 Eos % (Auto) 1.8 Baso % (Auto) 0.9 Lymph # (Auto) 2.1 [place] # (Auto) 0.8 Eos # (Auto) 0.2 Baso # (Auto) 0.1 Abs Immat Gran (auto) 0.03 Absolute Neuts (auto) 5.8 Absolute Nucleated RBC 0.000 Nucleated RBC % (auto) 0.0 Neutrophils % (Manual) Band Neutrophils % Lymphocytes % (Manual) Monocytes % (Manual) Abs Neuts (Manual) Lymphocytes # (Manual) Monocytes # (Manual) Platelet Estimate Plt Morphology Comment RBC Morphology Hypochromasia Ovalocytes Steward Cells Acanthocytes (Spur) Schistocytes Smear Tech's Comments Smear Path Review Absolute Retic Percent Retic Immature Retic Fraction Retic Hgb Equivalent Haptoglobin PT INR D-Dimer Hold Blue Top ABG pH ABG pCO2 ABG pO2 ABG HCO3 ABG O2 Saturation ABG Base Excess VBG pH VBG pCO2 VBG pO2 VBG HCO3 VBG O2 Saturation VBG Base Excess Oxygen Given Sodium 143 Potassium 3.6 Chloride 105 Carbon Dioxide 19 L Anion Gap 23 H BUN 117 H* Creatinine 7.68 H* Estim Creat Clear Calc 8.5 Estimated GFR 7 POC Glucose Random Glucose Fasting Glucose 92 Lactic Acid Calcium 6.0 L* Phosphorus Magnesium Total Bilirubin Direct Bilirubin AST ALT Alkaline Phosphatase Lactate Dehydrogenase Troponin I High Sens C-Reactive Protein B-Natriuretic Peptide Total Protein Total Protein (PEP) Albumin Albumin (PEP) Iqhtu-4-Mnmcyhmli Gbnnq-3-Bdolspfej Sfhd-0-Jpmrsgfr Oasl-4-Uwgftlso Gamma Globulins Abnorm Protein Band 1 Abnorm Protein Band 2 Abnorm Protein Band 3 PEP Interpretation Lipase Vitamin B12 Folate Procalcitonin PTH Intact Calcium (PTH Intact) Cancelled Chem Test Urine Color Urine Appearance Urine pH Ur Specific [place] Urine Protein Urine Glucose (UA) Urine Ketones Urine Blood Urine Nitrite Ur Leukocyte Esterase Urine RBC Urine WBC Urine WBC Clumps Ur Squamous Epith Cells Urine Bacteria Urine Yeast Urine Osmolality Ur Random Sodium Stool Occult Blood IgG Total 868 IgA Total 252 IgM 21 L DAYANARA Interpretation SEE NOTE Proteinase 3 (PR3) Ab Myeloperoxidase Ab Double Strand DNA Ab Glomerular Base Memb Ab Coronavirus (PCR) COVID-19 (RADHA) COVID-19 Clin Com Hep Bs Antigen Hep Bs Antibody Hep B Core Total Ab Hepatitis C Ab (EIA) Influenza Type A (PCR) Influenza Type B (PCR) RSV RNA Qual (PCR) Prothrombin [id number] Mut Prothrombin Mut Interp Blood Type Antibody Screen Crossmatch 10/02/20 10/03/20 10/03/20 12:13 05:39 05:39 WBC 7.0 RBC 3.31 L Hgb 9.2 L D Hct 28.0 L D MCV 84.6 MCH 27.8 MCHC 32.9 RDW 18.0 H Plt Count 297 MPV 9.8 Immature Gran % (Auto) 0.6 H Neut % (Auto) 75.5 H Lymph % (Auto) 16.8 L [place] % (Auto) 7.0 Eos % (Auto) 0.0 Baso % (Auto) 0.1 Lymph # (Auto) 1.2 [place] # (Auto) 0.5 Eos # (Auto) 0.0 Baso # (Auto) 0.0 Abs Immat Gran (auto) 0.04 H Absolute Neuts (auto) 5.3 Absolute Nucleated RBC 0.000 Nucleated RBC % (auto) 0.0 Neutrophils % (Manual) Band Neutrophils % Lymphocytes % (Manual) Monocytes % (Manual) Abs Neuts (Manual) Lymphocytes # (Manual) Monocytes # (Manual) Platelet Estimate Plt Morphology Comment RBC Morphology Hypochromasia Ovalocytes Steward Cells Acanthocytes (Spur) Schistocytes Smear Tech's Comments Smear Path Review Absolute Retic Percent Retic Immature Retic Fraction Retic Hgb Equivalent Haptoglobin PT INR D-Dimer Hold Blue Top ABG pH ABG pCO2 ABG pO2 ABG HCO3 ABG O2 Saturation ABG Base Excess VBG pH VBG pCO2 VBG pO2 VBG HCO3 VBG O2 Saturation VBG Base Excess Oxygen Given Sodium 142 Potassium 4.1 Chloride 105 Carbon Dioxide 16 L Anion Gap 25 H BUN 116 H* Creatinine 7.42 H* Estim Creat Clear Calc 8.8 Estimated GFR 7 POC Glucose Random Glucose Fasting Glucose 125 H D Lactic Acid Calcium 6.2 L Phosphorus Magnesium Total Bilirubin Direct Bilirubin AST ALT Alkaline Phosphatase Lactate Dehydrogenase Troponin I High Sens C-Reactive Protein B-Natriuretic Peptide Total Protein Total Protein (PEP) Albumin Albumin (PEP) Eobcy-5-Iqvljwzhm Iyoiy-2-Iwympbvxk Pjiv-7-Rznmawwp Qkdn-3-Pxsursqd Gamma Globulins Abnorm Protein Band 1 Abnorm Protein Band 2 Abnorm Protein Band 3 PEP Interpretation Lipase Vitamin B12 Folate Procalcitonin PTH Intact Calcium (PTH Intact) Cancelled Chem Test Urine Color Urine Appearance Urine pH Ur Specific [place] Urine Protein Urine Glucose (UA) Urine Ketones Urine Blood Urine Nitrite Ur Leukocyte Esterase Urine RBC Urine WBC Urine WBC Clumps Ur Squamous Epith Cells Urine Bacteria Urine Yeast Urine Osmolality Ur Random Sodium Stool Occult Blood IgG Total IgA Total IgM DAYANARA Interpretation Proteinase 3 (PR3) Ab Myeloperoxidase Ab Double Strand DNA Ab Glomerular Base Memb Ab Coronavirus (PCR) COVID-19 (RADHA) COVID-19 Clin Com Hep Bs Antigen Hep Bs Antibody Hep B Core Total Ab Hepatitis C Ab (EIA) Influenza Type A (PCR) Influenza Type B (PCR) RSV RNA Qual (PCR) Prothrombin [id number] Mut Prothrombin Mut Interp Blood Type B Positive Antibody Screen NEGATIVE Crossmatch See Detail 10/03/20 10/03/20 10/04/20 05:39 16:31 05:48 WBC 13.4 H RBC 3.66 L Hgb 10.1 L Hct 31.1 L MCV 85.0 MCH 27.6 MCHC 32.5 RDW 17.8 H Plt Count 317 MPV 9.7 Immature Gran % (Auto) 0.4 Neut % (Auto) 77.2 H Lymph % (Auto) 13.3 L [place] % (Auto) 9.0 Eos % (Auto) 0.0 Baso % (Auto) 0.1 Lymph # (Auto) 1.8 [place] # (Auto) 1.2 Eos # (Auto) 0.0 Baso # (Auto) 0.0 Abs Immat Gran (auto) 0.06 H Absolute Neuts (auto) 10.3 H Absolute Nucleated RBC 0.000 Nucleated RBC % (auto) 0.0 Neutrophils % (Manual) Band Neutrophils % Lymphocytes % (Manual) Monocytes % (Manual) Abs Neuts (Manual) Lymphocytes # (Manual) Monocytes # (Manual) Platelet Estimate Plt Morphology Comment RBC Morphology Hypochromasia Ovalocytes Steward Cells Acanthocytes (Spur) Schistocytes Smear Tech's Comments Smear Path Review Absolute Retic Percent Retic Immature Retic Fraction Retic Hgb Equivalent Haptoglobin PT 12.6 INR 1.1 D-Dimer Hold Blue Top ABG pH ABG pCO2 ABG pO2 ABG HCO3 ABG O2 Saturation ABG Base Excess VBG pH VBG pCO2 VBG pO2 VBG HCO3 VBG O2 Saturation VBG Base Excess Oxygen Given Sodium Potassium Chloride Carbon Dioxide Anion Gap BUN Creatinine Estim Creat Clear Calc Estimated GFR POC Glucose 168 H Random Glucose Fasting Glucose Lactic Acid Calcium Phosphorus Magnesium Total Bilirubin Direct Bilirubin AST ALT Alkaline Phosphatase Lactate Dehydrogenase Troponin I High Sens C-Reactive Protein B-Natriuretic Peptide Total Protein Total Protein (PEP) Albumin Albumin (PEP) Rzlab-4-Ngaoidktp Ddbfk-9-Zfqqlymun Xmef-0-Ghqzyiea Hmis-7-Jpoccuae Gamma Globulins Abnorm Protein Band 1 Abnorm Protein Band 2 Abnorm Protein Band 3 PEP Interpretation Lipase Vitamin B12 Folate Procalcitonin PTH Intact Calcium (PTH Intact) Cancelled Chem Test Urine Color Urine Appearance Urine pH Ur Specific [place] Urine Protein Urine Glucose (UA) Urine Ketones Urine Blood Urine Nitrite Ur Leukocyte Esterase Urine RBC Urine WBC Urine WBC Clumps Ur Squamous Epith Cells Urine Bacteria Urine Yeast Urine Osmolality Ur Random Sodium Stool Occult Blood IgG Total IgA Total IgM DAYANARA Interpretation Proteinase 3 (PR3) Ab Myeloperoxidase Ab Double Strand DNA Ab Glomerular Base Memb Ab Coronavirus (PCR) COVID-19 (RADHA) COVID-19 Clin Com Hep Bs Antigen Hep Bs Antibody Hep B Core Total Ab Hepatitis C Ab (EIA) Influenza Type A (PCR) Influenza Type B (PCR) RSV RNA Qual (PCR) Prothrombin [id number] Mut Prothrombin Mut Interp Blood Type Antibody Screen Crossmatch 10/04/20 10/04/20 10/05/20 05:48 05:48 05:59 WBC 10.8 RBC 3.43 L Hgb 9.6 L Hct 29.4 L MCV 85.7 MCH 28.0 MCHC 32.7 RDW 17.6 H Plt Count 305 MPV 9.9 Immature Gran % (Auto) 0.5 H Neut % (Auto) 77.4 H Lymph % (Auto) 13.7 L [place] % (Auto) 8.3 Eos % (Auto) 0.0 Baso % (Auto) 0.1 Lymph # (Auto) 1.5 [place] # (Auto) 0.9 Eos # (Auto) 0.0 Baso # (Auto) 0.0 Abs Immat Gran (auto) 0.05 H Absolute Neuts (auto) 8.4 H Absolute Nucleated RBC 0.000 Nucleated RBC % (auto) 0.0 Neutrophils % (Manual) Band Neutrophils % Lymphocytes % (Manual) Monocytes % (Manual) Abs Neuts (Manual) Lymphocytes # (Manual) Monocytes # (Manual) Platelet Estimate Plt Morphology Comment RBC Morphology Hypochromasia Ovalocytes Christine Cells Acanthocytes (Spur) Schistocytes Smear Tech's Comments Smear Path Review Absolute Retic Percent Retic Immature Retic Fraction Retic Hgb Equivalent Haptoglobin PT INR D-Dimer Hold Blue Top ABG pH ABG pCO2 ABG pO2 ABG HCO3 ABG O2 Saturation ABG Base Excess VBG pH VBG pCO2 VBG pO2 VBG HCO3 VBG O2 Saturation VBG Base Excess Oxygen Given Sodium 144 Potassium 4.2 Chloride 104 Carbon Dioxide 17 L Anion Gap 27 H BUN 115 H* Creatinine 7.39 H* Estim Creat Clear Calc 8.8 Estimated GFR 7 POC Glucose Random Glucose Fasting Glucose 100 H Lactic Acid Calcium 6.6 L D Phosphorus Magnesium Total Bilirubin Direct Bilirubin AST ALT Alkaline Phosphatase Lactate Dehydrogenase Troponin I High Sens C-Reactive Protein B-Natriuretic Peptide Total Protein Total Protein (PEP) Albumin Albumin (PEP) Irzdy-4-Aqieliowj Yaegp-0-Tgkqdiymn Ljnl-6-Mptgmodt Wbqm-9-Usgnffli Gamma Globulins Abnorm Protein Band 1 Abnorm Protein Band 2 Abnorm Protein Band 3 PEP Interpretation Lipase Vitamin B12 Folate Procalcitonin PTH Intact 391 H Calcium (PTH Intact) 6.8 L Cancelled Chem Test Urine Color Urine Appearance Urine pH Ur Specific [place] Urine Protein Urine Glucose (UA) Urine Ketones Urine Blood Urine Nitrite Ur Leukocyte Esterase Urine RBC Urine WBC Urine WBC Clumps Ur Squamous Epith Cells Urine Bacteria Urine Yeast Urine Osmolality Ur Random Sodium Stool Occult Blood IgG Total IgA Total IgM DAYANARA Interpretation Proteinase 3 (PR3) Ab Myeloperoxidase Ab Double Strand DNA Ab Glomerular Base Memb Ab Coronavirus (PCR) COVID-19 (RADHA) COVID-19 Clin Com Hep Bs Antigen Hep Bs Antibody Hep B Core Total Ab Hepatitis C Ab (EIA) Influenza Type A (PCR) Influenza Type B (PCR) RSV RNA Qual (PCR) Prothrombin [id number] Mut Prothrombin Mut Interp Blood Type Antibody Screen Crossmatch 10/05/20 10/06/20 10/06/20 05:59 00:29 00:51 WBC 11.6 H RBC 3.53 L Hgb 9.8 L Hct 30.0 L MCV 85.0 MCH 27.8 MCHC 32.7 RDW 17.3 H Plt Count 328 MPV 9.6 Immature Gran % (Auto) 0.3 Neut % (Auto) 77.6 H Lymph % (Auto) 17.8 L [place] % (Auto) 4.2 Eos % (Auto) 0.0 Baso % (Auto) 0.1 Lymph # (Auto) 2.1 [place] # (Auto) 0.5 Eos # (Auto) 0.0 Baso # (Auto) 0.0 Abs Immat Gran (auto) 0.03 Absolute Neuts (auto) 9.0 H Absolute Nucleated RBC 0.000 Nucleated RBC % (auto) 0.0 Neutrophils % (Manual) Band Neutrophils % Lymphocytes % (Manual) Monocytes % (Manual) Abs Neuts (Manual) Lymphocytes # (Manual) Monocytes # (Manual) Platelet Estimate Plt Morphology Comment RBC Morphology Hypochromasia Ovalocytes Steward Cells Acanthocytes (Spur) Schistocytes Smear Tech's Comments Smear Path Review Absolute Retic Percent Retic Immature Retic Fraction Retic Hgb Equivalent Haptoglobin PT INR D-Dimer Hold Blue Top ABG pH ABG pCO2 ABG pO2 ABG HCO3 ABG O2 Saturation ABG Base Excess VBG pH VBG pCO2 VBG pO2 VBG HCO3 VBG O2 Saturation VBG Base Excess Oxygen Given Sodium 144 Potassium 3.9 Chloride 105 Carbon Dioxide 20 L Anion Gap 23 H BUN 122 H* Creatinine 7.52 H* Estim Creat Clear Calc 8.6 Estimated GFR 7 POC Glucose 162 H Random Glucose Fasting Glucose 111 H Lactic Acid Calcium 6.4 L Phosphorus Magnesium Total Bilirubin Direct Bilirubin AST ALT Alkaline Phosphatase Lactate Dehydrogenase Troponin I High Sens C-Reactive Protein B-Natriuretic Peptide Total Protein Total Protein (PEP) Albumin Albumin (PEP) Unfpl-0-Occggxqbo Dxnyi-4-Rbfudjuad Fkey-6-Skqgmhgr Paxb-0-Fzplfvgo Gamma Globulins Abnorm Protein Band 1 Abnorm Protein Band 2 Abnorm Protein Band 3 PEP Interpretation Lipase Vitamin B12 Folate Procalcitonin PTH Intact Calcium (PTH Intact) Cancelled Chem Test Urine Color Urine Appearance Urine pH Ur Specific [place] Urine Protein Urine Glucose (UA) Urine Ketones Urine Blood Urine Nitrite Ur Leukocyte Esterase Urine RBC Urine WBC Urine WBC Clumps Ur Squamous Epith Cells Urine Bacteria Urine Yeast Urine Osmolality Ur Random Sodium Stool Occult Blood IgG Total IgA Total IgM DAYANARA Interpretation Proteinase 3 (PR3) Ab Myeloperoxidase Ab Double Strand DNA Ab Glomerular Base Memb Ab Coronavirus (PCR) COVID-19 (RADHA) COVID-19 Clin Com Hep Bs Antigen Hep Bs Antibody Hep B Core Total Ab Hepatitis C Ab (EIA) Influenza Type A (PCR) Influenza Type B (PCR) RSV RNA Qual (PCR) Prothrombin [id number] Mut Prothrombin Mut Interp Blood Type Antibody Screen Crossmatch 10/06/20 10/06/20 10/06/20 00:51 00:54 02:15 WBC RBC Hgb Hct MCV MCH MCHC RDW Plt Count MPV Immature Gran % (Auto) Neut % (Auto) Lymph % (Auto) [place] % (Auto) Eos % (Auto) Baso % (Auto) Lymph # (Auto) [place] # (Auto) Eos # (Auto) Baso # (Auto) Abs Immat Gran (auto) Absolute Neuts (auto) Absolute Nucleated RBC Nucleated RBC % (auto) Neutrophils % (Manual) Band Neutrophils % Lymphocytes % (Manual) Monocytes % (Manual) Abs Neuts (Manual) Lymphocytes # (Manual) Monocytes # (Manual) Platelet Estimate Plt Morphology Comment RBC Morphology Hypochromasia Ovalocytes Christine Cells Acanthocytes (Spur) Schistocytes Smear Tech's Comments Smear Path Review Absolute Retic Percent Retic Immature Retic Fraction Retic Hgb Equivalent Haptoglobin PT 12.9 INR 1.1 D-Dimer Hold Blue Top ABG pH 7.37 ABG pCO2 29 L ABG pO2 68 L ABG HCO3 16 L ABG O2 Saturation 91.3 ABG Base Excess -7.6 VBG pH VBG pCO2 VBG pO2 VBG HCO3 VBG O2 Saturation VBG Base Excess Oxygen Given [employer] Sodium 139 Potassium 3.8 Chloride 102 Carbon Dioxide 13 L Anion Gap 28 H BUN 124 H* Creatinine 7.14 H* Estim Creat Clear Calc 9.1 Estimated GFR 7 POC Glucose Random Glucose 185 H D Fasting Glucose Lactic Acid Calcium 6.5 L Phosphorus Magnesium Total Bilirubin 0.4 Direct Bilirubin AST 16 D ALT 15 Alkaline Phosphatase 63 Lactate Dehydrogenase Troponin I High Sens C-Reactive Protein B-Natriuretic Peptide Total Protein 6.1 L Total Protein (PEP) Albumin 3.4 L Albumin (PEP) Dazez-6-Suqyxfntn Kxlmq-1-Wmbqttjrh Frnz-2-Ybuonpeq Zfnq-4-Exidqxxd Gamma Globulins Abnorm Protein Band 1 Abnorm Protein Band 2 Abnorm Protein Band 3 PEP Interpretation Lipase Vitamin B12 Folate Procalcitonin PTH Intact Calcium (PTH Intact) Cancelled Chem Test Urine Color Urine Appearance Urine pH Ur Specific [place] Urine Protein Urine Glucose (UA) Urine Ketones Urine Blood Urine Nitrite Ur Leukocyte Esterase Urine RBC Urine WBC Urine WBC Clumps Ur Squamous Epith Cells Urine Bacteria Urine Yeast Urine Osmolality Ur Random Sodium Stool Occult Blood IgG Total IgA Total IgM DAYANARA Interpretation Proteinase 3 (PR3) Ab Myeloperoxidase Ab Double Strand DNA Ab Glomerular Base Memb Ab Coronavirus (PCR) COVID-19 (RADHA) COVID-19 Clin Com Hep Bs Antigen Hep Bs Antibody Hep B Core Total Ab Hepatitis C Ab (EIA) Influenza Type A (PCR) Influenza Type B (PCR) RSV RNA Qual (PCR) Prothrombin [id number] Mut Prothrombin Mut Interp Blood Type Antibody Screen Crossmatch 10/07/20 10/07/20 10/07/20 05:59 05:59 20:54 WBC 11.9 H RBC 3.85 L Hgb 10.5 L Hct 33.4 L MCV 86.8 MCH 27.3 MCHC 31.4 RDW 17.0 H Plt Count 243 D MPV 10.1 Immature Gran % (Auto) Neut % (Auto) Lymph % (Auto) [place] % (Auto) Eos % (Auto) Baso % (Auto) Lymph # (Auto) [place] # (Auto) Eos # (Auto) Baso # (Auto) Abs Immat Gran (auto) Absolute Neuts (auto) Absolute Nucleated RBC 0.000 Nucleated RBC % (auto) 0.0 Neutrophils % (Manual) Band Neutrophils % Lymphocytes % (Manual) Monocytes % (Manual) Abs Neuts (Manual) Lymphocytes # (Manual) Monocytes # (Manual) Platelet Estimate Plt Morphology Comment RBC Morphology Hypochromasia Ovalocytes Steward Cells Acanthocytes (Spur) Schistocytes Smear Tech's Comments Smear Path Review Absolute Retic Percent Retic Immature Retic Fraction Retic Hgb Equivalent Haptoglobin PT INR D-Dimer Hold Blue Top ABG pH ABG pCO2 ABG pO2 ABG HCO3 ABG O2 Saturation ABG Base Excess VBG pH VBG pCO2 VBG pO2 VBG HCO3 VBG O2 Saturation VBG Base Excess Oxygen Given Sodium 141 Potassium 4.2 Chloride 105 Carbon Dioxide 17 L Anion Gap 23 H BUN 75 H Creatinine 4.96 H* Estim Creat Clear Calc 13.1 Estimated GFR 11 POC Glucose Random Glucose 75 D 117 H D Fasting Glucose Lactic Acid Calcium 7.4 L D Phosphorus Magnesium Total Bilirubin Direct Bilirubin AST ALT Alkaline Phosphatase Lactate Dehydrogenase Troponin I High Sens C-Reactive Protein B-Natriuretic Peptide Total Protein Total Protein (PEP) Albumin Albumin (PEP) Pwfbr-7-Bbzabwfmo Jtfdv-7-Jdgzgudrd Fzvn-6-Otdmvwtu Dokp-3-Ppfdnbnz Gamma Globulins Abnorm Protein Band 1 Abnorm Protein Band 2 Abnorm Protein Band 3 PEP Interpretation Lipase Vitamin B12 Folate Procalcitonin PTH Intact Calcium (PTH Intact) Cancelled Chem Test Urine Color Urine Appearance Urine pH Ur Specific [place] Urine Protein Urine Glucose (UA) Urine Ketones Urine Blood Urine Nitrite Ur Leukocyte Esterase Urine RBC Urine WBC Urine WBC Clumps Ur Squamous Epith Cells Urine Bacteria Urine Yeast Urine Osmolality Ur Random Sodium Stool Occult Blood IgG Total IgA Total IgM DAYANARA Interpretation Proteinase 3 (PR3) Ab Myeloperoxidase Ab Double Strand DNA Ab Glomerular Base Memb Ab Coronavirus (PCR) COVID-19 (RADHA) COVID-19 Clin Com Hep Bs Antigen Hep Bs Antibody Hep B Core Total Ab Hepatitis C Ab (EIA) Influenza Type A (PCR) Influenza Type B (PCR) RSV RNA Qual (PCR) Prothrombin [id number] Mut Prothrombin Mut Interp Blood Type Antibody Screen Crossmatch 10/08/20 10/08/20 10/08/20 05:27 05:27 20:28 WBC 5.4 RBC 3.77 L Hgb 10.3 L 8.3 L Hct 32.7 L 25.5 L D MCV 86.7 MCH 27.3 MCHC 31.5 RDW 17.0 H Plt Count 240 MPV 10.2 Immature Gran % (Auto) Neut % (Auto) Lymph % (Auto) [place] % (Auto) Eos % (Auto) Baso % (Auto) Lymph # (Auto) [place] # (Auto) Eos # (Auto) Baso # (Auto) Abs Immat Gran (auto) Absolute Neuts (auto) Absolute Nucleated RBC 0.000 Nucleated RBC % (auto) 0.0 Neutrophils % (Manual) Band Neutrophils % Lymphocytes % (Manual) Monocytes % (Manual) Abs Neuts (Manual) Lymphocytes # (Manual) Monocytes # (Manual) Platelet Estimate Plt Morphology Comment RBC Morphology Hypochromasia Ovalocytes Steward Cells Acanthocytes (Spur) Schistocytes Smear Tech's Comments Smear Path Review Absolute Retic Percent Retic Immature Retic Fraction Retic Hgb Equivalent Haptoglobin PT INR D-Dimer Hold Blue Top ABG pH ABG pCO2 ABG pO2 ABG HCO3 ABG O2 Saturation ABG Base Excess VBG pH VBG pCO2 VBG pO2 VBG HCO3 VBG O2 Saturation VBG Base Excess Oxygen Given Sodium 141 Potassium 4.2 Chloride 105 Carbon Dioxide 16 L Anion Gap 24 H BUN 97 H* D Creatinine 6.02 H* Estim Creat Clear Calc 10.8 Estimated GFR 9 POC Glucose Random Glucose 174 H D Fasting Glucose Lactic Acid Calcium 7.2 L Phosphorus Magnesium Total Bilirubin Direct Bilirubin AST ALT Alkaline Phosphatase Lactate Dehydrogenase Troponin I High Sens C-Reactive Protein B-Natriuretic Peptide Total Protein Total Protein (PEP) Albumin Albumin (PEP) Vvtoj-4-Opsxkkxzr Sglci-4-Mwgqrwsam Ihno-3-Vqzrdrdr Rhma-8-Iybkdiuf Gamma Globulins Abnorm Protein Band 1 Abnorm Protein Band 2 Abnorm Protein Band 3 PEP Interpretation Lipase Vitamin B12 Folate Procalcitonin PTH Intact Calcium (PTH Intact) Cancelled Chem Test Urine Color Urine Appearance Urine pH Ur Specific [place] Urine Protein Urine Glucose (UA) Urine Ketones Urine Blood Urine Nitrite Ur Leukocyte Esterase Urine RBC Urine WBC Urine WBC Clumps Ur Squamous Epith Cells Urine Bacteria Urine Yeast Urine Osmolality Ur Random Sodium Stool Occult Blood IgG Total IgA Total IgM DAYANARA Interpretation Proteinase 3 (PR3) Ab Myeloperoxidase Ab Double Strand DNA Ab Glomerular Base Memb Ab Coronavirus (PCR) COVID-19 (RADHA) COVID-19 Clin Com Hep Bs Antigen Hep Bs Antibody Hep B Core Total Ab Hepatitis C Ab (EIA) Influenza Type A (PCR) Influenza Type B (PCR) RSV RNA Qual (PCR) Prothrombin [id number] Mut Prothrombin Mut Interp Blood Type Antibody Screen Crossmatch 10/08/20 10/09/20 10/09/20 22:17 05:49 05:49 WBC 12.5 H RBC 3.12 L Hgb 8.8 L Hct 26.4 L MCV 84.6 MCH 28.2 MCHC 33.3 RDW 16.6 H Plt Count 246 MPV 10.5 Immature Gran % (Auto) Neut % (Auto) Lymph % (Auto) [place] % (Auto) Eos % (Auto) Baso % (Auto) Lymph # (Auto) [place] # (Auto) Eos # (Auto) Baso # (Auto) Abs Immat Gran (auto) Absolute Neuts (auto) Absolute Nucleated RBC 0.000 Nucleated RBC % (auto) 0.0 Neutrophils % (Manual) Band Neutrophils % Lymphocytes % (Manual) Monocytes % (Manual) Abs Neuts (Manual) Lymphocytes # (Manual) Monocytes # (Manual) Platelet Estimate Plt Morphology Comment RBC Morphology Hypochromasia Ovalocytes Steward Cells Acanthocytes (Spur) Schistocytes Smear Tech's Comments Smear Path Review Absolute Retic Percent Retic Immature Retic Fraction Retic Hgb Equivalent Haptoglobin PT INR D-Dimer Hold Blue Top ABG pH ABG pCO2 ABG pO2 ABG HCO3 ABG O2 Saturation ABG Base Excess VBG pH VBG pCO2 VBG pO2 VBG HCO3 VBG O2 Saturation VBG Base Excess Oxygen Given Sodium 134 L Potassium 4.8 Chloride 101 Carbon Dioxide 15 L Anion Gap 23 H BUN 115 H* Creatinine 6.24 H* Estim Creat Clear Calc 10.4 Estimated GFR 9 POC Glucose Random Glucose 162 H Fasting Glucose Lactic Acid Calcium 6.7 L D Phosphorus Magnesium Total Bilirubin Direct Bilirubin AST ALT Alkaline Phosphatase Lactate Dehydrogenase Troponin I High Sens C-Reactive Protein B-Natriuretic Peptide Total Protein Total Protein (PEP) Albumin Albumin (PEP) Xhvpt-0-Vxnxtqbja Rkwkg-8-Pesyicyhq Ydtg-6-Dnkxdfxr Outg-7-Bejchdoc Gamma Globulins Abnorm Protein Band 1 Abnorm Protein Band 2 Abnorm Protein Band 3 PEP Interpretation Lipase Vitamin B12 Folate Procalcitonin PTH Intact Calcium (PTH Intact) Cancelled Chem Test Urine Color Urine Appearance Urine pH Ur Specific [place] Urine Protein Urine Glucose (UA) Urine Ketones Urine Blood Urine Nitrite Ur Leukocyte Esterase Urine RBC Urine WBC Urine WBC Clumps Ur Squamous Epith Cells Urine Bacteria Urine Yeast Urine Osmolality Ur Random Sodium Stool Occult Blood IgG Total IgA Total IgM DAYANARA Interpretation Proteinase 3 (PR3) Ab Myeloperoxidase Ab Double Strand DNA Ab Glomerular Base Memb Ab Coronavirus (PCR) COVID-19 (RADHA) COVID-19 Clin Com Hep Bs Antigen Negative Hep Bs Antibody NONREACTIVE Hep B Core Total Ab Nonreactive Hepatitis C Ab (EIA) Nonreactive Influenza Type A (PCR) Influenza Type B (PCR) RSV RNA Qual (PCR) Prothrombin [id number] Mut Prothrombin Mut Interp Blood Type Antibody Screen Crossmatch 10/09/20 10/09/20 10/10/20 15:59 17:18 05:58 WBC 16.5 H 14.4 H RBC 2.75 L 2.84 L Hgb 7.9 L 7.9 L Hct 23.4 L 23.7 L MCV 85.1 83.5 MCH 28.7 27.8 MCHC 33.8 33.3 RDW 16.6 H 16.4 H Plt Count 215 220 MPV 10.2 10.9 Immature Gran % (Auto) Neut % (Auto) Lymph % (Auto) [place] % (Auto) Eos % (Auto) Baso % (Auto) Lymph # (Auto) [place] # (Auto) Eos # (Auto) Baso # (Auto) Abs Immat Gran (auto) Absolute Neuts (auto) Absolute Nucleated RBC 0.000 0.000 Nucleated RBC % (auto) 0.0 0.0 Neutrophils % (Manual) Band Neutrophils % Lymphocytes % (Manual) Monocytes % (Manual) Abs Neuts (Manual) Lymphocytes # (Manual) Monocytes # (Manual) Platelet Estimate Plt Morphology Comment RBC Morphology Hypochromasia Ovalocytes Steward Cells Acanthocytes (Spur) Schistocytes Smear Tech's Comments Smear Path Review Absolute Retic Percent Retic Immature Retic Fraction Retic Hgb Equivalent Haptoglobin PT INR D-Dimer Hold Blue Top ABG pH ABG pCO2 ABG pO2 ABG HCO3 ABG O2 Saturation ABG Base Excess VBG pH VBG pCO2 VBG pO2 VBG HCO3 VBG O2 Saturation VBG Base Excess Oxygen Given Sodium Potassium Chloride Carbon Dioxide Anion Gap BUN Creatinine Estim Creat Clear Calc Estimated GFR POC Glucose Random Glucose Fasting Glucose Lactic Acid Calcium Phosphorus Magnesium Total Bilirubin Direct Bilirubin AST ALT Alkaline Phosphatase Lactate Dehydrogenase Troponin I High Sens C-Reactive Protein B-Natriuretic Peptide Total Protein Total Protein (PEP) Albumin Albumin (PEP) Ylmzl-7-Oiyxjjhnc Xgnem-0-Ishryhdor Wbav-9-Ubisnzhf Mbhr-8-Ulclsmth Gamma Globulins Abnorm Protein Band 1 Abnorm Protein Band 2 Abnorm Protein Band 3 PEP Interpretation Lipase Vitamin B12 Folate Procalcitonin PTH Intact Calcium (PTH Intact) Cancelled Chem Test Urine Color Urine Appearance Urine pH Ur Specific [place] Urine Protein Urine Glucose (UA) Urine Ketones Urine Blood Urine Nitrite Ur Leukocyte Esterase Urine RBC Urine WBC Urine WBC Clumps Ur Squamous Epith Cells Urine Bacteria Urine Yeast Urine Osmolality Ur Random Sodium Stool Occult Blood POS IgG Total IgA Total IgM DAYANARA Interpretation Proteinase 3 (PR3) Ab Myeloperoxidase Ab Double Strand DNA Ab Glomerular Base Memb Ab Coronavirus (PCR) COVID-19 (RADHA) COVID-19 Clin Com Hep Bs Antigen Hep Bs Antibody Hep B Core Total Ab Hepatitis C Ab (EIA) Influenza Type A (PCR) Influenza Type B (PCR) RSV RNA Qual (PCR) Prothrombin [id number] Mut Prothrombin Mut Interp Blood Type Antibody Screen Crossmatch 10/10/20 10/10/20 10/11/20 05:58 20:37 05:40 WBC 13.1 H 12.8 H RBC 2.55 L 2.39 L Hgb 7.1 L 6.8 L* Hct 21.9 L 20.4 L* MCV 85.9 85.4 MCH 27.8 28.5 MCHC 32.4 33.3 RDW 16.9 H 16.6 H Plt Count 214 205 MPV 10.4 10.9 Immature Gran % (Auto) Neut % (Auto) Lymph % (Auto) [place] % (Auto) Eos % (Auto) Baso % (Auto) Lymph # (Auto) [place] # (Auto) Eos # (Auto) Baso # (Auto) Abs Immat Gran (auto) Absolute Neuts (auto) Absolute Nucleated RBC 0.000 0.000 Nucleated RBC % (auto) 0.0 0.0 Neutrophils % (Manual) Band Neutrophils % Lymphocytes % (Manual) Monocytes % (Manual) Abs Neuts (Manual) Lymphocytes # (Manual) Monocytes # (Manual) Platelet Estimate Plt Morphology Comment RBC Morphology Hypochromasia Ovalocytes Steward Cells Acanthocytes (Spur) Schistocytes Smear Tech's Comments Smear Path Review Absolute Retic Percent Retic Immature Retic Fraction Retic Hgb Equivalent Haptoglobin PT INR D-Dimer Hold Blue Top ABG pH ABG pCO2 ABG pO2 ABG HCO3 ABG O2 Saturation ABG Base Excess VBG pH VBG pCO2 VBG pO2 VBG HCO3 VBG O2 Saturation VBG Base Excess Oxygen Given Sodium 136 Potassium 4.4 Chloride 102 Carbon Dioxide 17 L Anion Gap 21 H BUN 120 H* Creatinine 6.48 H* Estim Creat Clear Calc 10.0 Estimated GFR 8 POC Glucose Random Glucose 127 H Fasting Glucose Lactic Acid Calcium 6.8 L Phosphorus 6.5 H Magnesium Total Bilirubin Direct Bilirubin AST ALT Alkaline Phosphatase Lactate Dehydrogenase Troponin I High Sens C-Reactive Protein B-Natriuretic Peptide Total Protein Total Protein (PEP) Albumin Albumin (PEP) Bvuke-4-Rwodbjqvd Nhpwj-2-Vleyoxfmi Fyez-9-[place] Elwd-5-Vbeemcte Gamma Globulins Abnorm Protein Band 1 Abnorm Protein Band 2 Abnorm Protein Band 3 PEP Interpretation Lipase Vitamin B12 Folate Procalcitonin PTH Intact Calcium (PTH Intact) Cancelled Chem Test Urine Color Urine Appearance Urine pH Ur Specific [place] Urine Protein Urine Glucose (UA) Urine Ketones Urine Blood Urine Nitrite Ur Leukocyte Esterase Urine RBC Urine WBC Urine WBC Clumps Ur Squamous Epith Cells Urine Bacteria Urine Yeast Urine Osmolality Ur Random Sodium Stool Occult Blood IgG Total IgA Total IgM DAYANARA Interpretation Proteinase 3 (PR3) Ab Myeloperoxidase Ab Double Strand DNA Ab Glomerular Base Memb Ab Coronavirus (PCR) COVID-19 (RADHA) COVID-19 Clin Com Hep Bs Antigen Hep Bs Antibody Hep B Core Total Ab Hepatitis C Ab (EIA) Influenza Type A (PCR) Influenza Type B (PCR) RSV RNA Qual (PCR) Prothrombin [id number] Mut Prothrombin Mut Interp Blood Type Antibody Screen Crossmatch 10/11/20 10/11/20 10/12/20 05:40 08:19 05:12 WBC 13.1 H RBC 3.67 L D Hgb 10.2 L D Hct 30.8 L D MCV 83.9 MCH 27.8 MCHC 33.1 RDW 15.7 Plt Count 218 MPV 10.8 Immature Gran % (Auto) Neut % (Auto) Lymph % (Auto) [place] % (Auto) Eos % (Auto) Baso % (Auto) Lymph # (Auto) [place] # (Auto) Eos # (Auto) Baso # (Auto) Abs Immat Gran (auto) Absolute Neuts (auto) Absolute Nucleated RBC 0.000 Nucleated RBC % (auto) 0.0 Neutrophils % (Manual) Band Neutrophils % Lymphocytes % (Manual) Monocytes % (Manual) Abs Neuts (Manual) Lymphocytes # (Manual) Monocytes # (Manual) Platelet Estimate Plt Morphology Comment RBC Morphology Hypochromasia Ovalocytes Christine Cells Acanthocytes (Spur) Schistocytes Smear Tech's Comments Smear Path Review Absolute Retic Percent Retic Immature Retic Fraction Retic Hgb Equivalent Haptoglobin PT INR D-Dimer Hold Blue Top ABG pH ABG pCO2 ABG pO2 ABG HCO3 ABG O2 Saturation ABG Base Excess VBG pH VBG pCO2 VBG pO2 VBG HCO3 VBG O2 Saturation VBG Base Excess Oxygen Given Sodium 137 Potassium 4.9 Chloride 103 Carbon Dioxide 18 L Anion Gap 21 H BUN 126 H* Creatinine 6.79 H* Estim Creat Clear Calc 9.6 Estimated GFR 8 POC Glucose Random Glucose 119 H Fasting Glucose Lactic Acid Calcium 6.7 L Phosphorus Magnesium Total Bilirubin Direct Bilirubin AST ALT Alkaline Phosphatase Lactate Dehydrogenase Troponin I High Sens C-Reactive Protein B-Natriuretic Peptide Total Protein Total Protein (PEP) Albumin Albumin (PEP) Mzdfy-2-Haogpztmd Wmlft-2-Yuteoegbf Bmoy-8-Gbpgcrjg Jefs-4-Ofhagqtc Gamma Globulins Abnorm Protein Band 1 Abnorm Protein Band 2 Abnorm Protein Band 3 PEP Interpretation Lipase Vitamin B12 Folate Procalcitonin PTH Intact Calcium (PTH Intact) Cancelled Chem Test Urine Color Urine Appearance Urine pH Ur Specific [place] Urine Protein Urine Glucose (UA) Urine Ketones Urine Blood Urine Nitrite Ur Leukocyte Esterase Urine RBC Urine WBC Urine WBC Clumps Ur Squamous Epith Cells Urine Bacteria Urine Yeast Urine Osmolality Ur Random Sodium Stool Occult Blood IgG Total IgA Total IgM DAYANARA Interpretation Proteinase 3 (PR3) Ab Myeloperoxidase Ab Double Strand DNA Ab Glomerular Base Memb Ab Coronavirus (PCR) COVID-19 (RADHA) COVID-19 Clin Com Hep Bs Antigen Hep Bs Antibody Hep B Core Total Ab Hepatitis C Ab (EIA) Influenza Type A (PCR) Influenza Type B (PCR) RSV RNA Qual (PCR) Prothrombin [id number] Mut Prothrombin Mut Interp Blood Type B Positive Antibody Screen NEGATIVE Crossmatch See Detail 10/12/20 10/12/20 10/13/20 05:12 05:12 05:32 WBC RBC Hgb Hct MCV MCH MCHC RDW Plt Count MPV Immature Gran % (Auto) Neut % (Auto) Lymph % (Auto) [place] % (Auto) Eos % (Auto) Baso % (Auto) Lymph # (Auto) [place] # (Auto) Eos # (Auto) Baso # (Auto) Abs Immat Gran (auto) Absolute Neuts (auto) Absolute Nucleated RBC Nucleated RBC % (auto) Neutrophils % (Manual) Band Neutrophils % Lymphocytes % (Manual) Monocytes % (Manual) Abs Neuts (Manual) Lymphocytes # (Manual) Monocytes # (Manual) Platelet Estimate Plt Morphology Comment RBC Morphology Hypochromasia Ovalocytes Steward Cells Acanthocytes (Spur) Schistocytes Smear Tech's Comments Smear Path Review Absolute Retic Percent Retic Immature Retic Fraction Retic Hgb Equivalent Haptoglobin PT 11.5 INR 1.0 D-Dimer Hold Blue Top ABG pH ABG pCO2 ABG pO2 ABG HCO3 ABG O2 Saturation ABG Base Excess VBG pH VBG pCO2 VBG pO2 VBG HCO3 VBG O2 Saturation VBG Base Excess Oxygen Given Sodium 138 Potassium 4.3 Chloride 103 Carbon Dioxide 17 L Anion Gap 22 H BUN 132 H* Creatinine 6.52 H* Estim Creat Clear Calc 10.0 Estimated GFR 8 POC Glucose Random Glucose 157 H Fasting Glucose Lactic Acid Calcium 6.8 L Phosphorus Magnesium Total Bilirubin Direct Bilirubin AST ALT Alkaline Phosphatase Lactate Dehydrogenase Troponin I High Sens C-Reactive Protein B-Natriuretic Peptide Total Protein Total Protein (PEP) Albumin 3.0 L Albumin (PEP) Qvgst-2-Livqddedi Vsdhl-6-Hdixsqxuj Qyin-0-Yjtapccf Djdb-4-Hthmeleu Gamma Globulins Abnorm Protein Band 1 Abnorm Protein Band 2 Abnorm Protein Band 3 PEP Interpretation Lipase Vitamin B12 Folate Procalcitonin PTH Intact Calcium (PTH Intact) Cancelled Chem Test Urine Color Urine Appearance Urine pH Ur Specific [place] Urine Protein Urine Glucose (UA) Urine Ketones Urine Blood Urine Nitrite Ur Leukocyte Esterase Urine RBC Urine WBC Urine WBC Clumps Ur Squamous Epith Cells Urine Bacteria Urine Yeast Urine Osmolality Ur Random Sodium Stool Occult Blood IgG Total IgA Total IgM DAYANARA Interpretation Proteinase 3 (PR3) Ab Myeloperoxidase Ab Double Strand DNA Ab Glomerular Base Memb Ab Coronavirus (PCR) COVID-19 (RADHA) COVID-19 Clin Com Hep Bs Antigen Hep Bs Antibody Hep B Core Total Ab Hepatitis C Ab (EIA) Influenza Type A (PCR) Influenza Type B (PCR) RSV RNA Qual (PCR) Prothrombin [id number] Mut SEE NOTE Prothrombin Mut Interp SEE NOTE Blood Type Antibody Screen Crossmatch 10/13/20 10/13/20 10/15/20 05:32 05:32 09:12 WBC 15.7 H 13.6 H RBC 3.71 L 3.35 L Hgb 10.3 L 9.6 L Hct 31.2 L 28.5 L MCV 84.1 85.1 MCH 27.8 28.7 MCHC 33.0 33.7 RDW 15.8 16.0 Plt Count 241 278 MPV 10.3 10.0 Immature Gran % (Auto) 1.8 H Neut % (Auto) 87.1 H Lymph % (Auto) 7.7 L [place] % (Auto) 3.2 Eos % (Auto) 0.1 Baso % (Auto) 0.1 Lymph # (Auto) 1.1 L [place] # (Auto) 0.4 Eos # (Auto) 0.0 Baso # (Auto) 0.0 Abs Immat Gran (auto) 0.25 H Absolute Neuts (auto) 11.8 H Absolute Nucleated RBC 0.030 H 0.040 H Nucleated RBC % (auto) 0.2 0.3 H Neutrophils % (Manual) Band Neutrophils % Lymphocytes % (Manual) Monocytes % (Manual) Abs Neuts (Manual) Lymphocytes # (Manual) Monocytes # (Manual) Platelet Estimate Plt Morphology Comment RBC Morphology Hypochromasia Ovalocytes Christine Cells Acanthocytes (Spur) Schistocytes Smear Tech's Comments Smear Path Review Absolute Retic Percent Retic Immature Retic Fraction Retic Hgb Equivalent Haptoglobin PT INR D-Dimer Hold Blue Top ABG pH ABG pCO2 ABG pO2 ABG HCO3 ABG O2 Saturation ABG Base Excess VBG pH VBG pCO2 VBG pO2 VBG HCO3 VBG O2 Saturation VBG Base Excess Oxygen Given Sodium 136 Potassium 4.6 Chloride 101 Carbon Dioxide 18 L Anion Gap 22 H BUN 128 H* Creatinine 6.46 H* Estim Creat Clear Calc 10.1 Estimated GFR 8 POC Glucose Random Glucose 134 H Fasting Glucose Lactic Acid Calcium 6.9 L Phosphorus Magnesium Total Bilirubin Direct Bilirubin AST ALT Alkaline Phosphatase Lactate Dehydrogenase Troponin I High Sens C-Reactive Protein B-Natriuretic Peptide Total Protein Total Protein (PEP) Albumin Albumin (PEP) Dlgqm-4-Dhkmausgs Tmaep-1-Altszsjyd Xhdk-5-Mioudxvq Gjlp-0-Azgqjqkh Gamma Globulins Abnorm Protein Band 1 Abnorm Protein Band 2 Abnorm Protein Band 3 PEP Interpretation Lipase Vitamin B12 Folate Procalcitonin PTH Intact Calcium (PTH Intact) Cancelled Chem Test Urine Color Urine Appearance Urine pH Ur Specific [place] Urine Protein Urine Glucose (UA) Urine Ketones Urine Blood Urine Nitrite Ur Leukocyte Esterase Urine RBC Urine WBC Urine WBC Clumps Ur Squamous Epith Cells Urine Bacteria Urine Yeast Urine Osmolality Ur Random Sodium Stool Occult Blood IgG Total IgA Total IgM DAYANARA Interpretation Proteinase 3 (PR3) Ab Myeloperoxidase Ab Double Strand DNA Ab Glomerular Base Memb Ab Coronavirus (PCR) COVID-19 (RADHA) COVID-19 Clin Com Hep Bs Antigen Hep Bs Antibody Hep B Core Total Ab Hepatitis C Ab (EIA) Influenza Type A (PCR) Influenza Type B (PCR) RSV RNA Qual (PCR) Prothrombin [id number] Mut Prothrombin Mut Interp Blood Type Antibody Screen Crossmatch 10/15/20 10/16/20 10/16/20 09:12 08:05 08:05 WBC 10.8 RBC 3.36 L Hgb 9.4 L Hct 28.6 L MCV 85.1 MCH 28.0 MCHC 32.9 RDW 16.2 H Plt Count 257 MPV 9.8 Immature Gran % (Auto) 1.4 H Neut % (Auto) 85.1 H Lymph % (Auto) 9.3 L [place] % (Auto) 4.0 Eos % (Auto) 0.1 Baso % (Auto) 0.1 Lymph # (Auto) 1.0 L [place] # (Auto) 0.4 Eos # (Auto) 0.0 Baso # (Auto) 0.0 Abs Immat Gran (auto) 0.15 H Absolute Neuts (auto) 9.2 H Absolute Nucleated RBC 0.020 H Nucleated RBC % (auto) 0.2 Neutrophils % (Manual) Band Neutrophils % Lymphocytes % (Manual) Monocytes % (Manual) Abs Neuts (Manual) Lymphocytes # (Manual) Monocytes # (Manual) Platelet Estimate Plt Morphology Comment RBC Morphology Hypochromasia Ovalocytes Steward Cells Acanthocytes (Spur) Schistocytes Smear Tech's Comments Smear Path Review Absolute Retic Percent Retic Immature Retic Fraction Retic Hgb Equivalent Haptoglobin PT INR D-Dimer Hold Blue Top ABG pH ABG pCO2 ABG pO2 ABG HCO3 ABG O2 Saturation ABG Base Excess VBG pH VBG pCO2 VBG pO2 VBG HCO3 VBG O2 Saturation VBG Base Excess Oxygen Given Sodium 138 137 Potassium 4.3 3.9 Chloride 104 106 Carbon Dioxide 19 L 15 L Anion Gap 19 20 BUN 120 H* 117 H* Creatinine 6.95 H* 6.98 H* Estim Creat Clear Calc 9.4 9.4 Estimated GFR 8 8 POC Glucose Random Glucose 111 129 H Fasting Glucose Lactic Acid Calcium 6.7 L 6.4 L Phosphorus Magnesium Total Bilirubin Direct Bilirubin AST ALT Alkaline Phosphatase Lactate Dehydrogenase Troponin I High Sens C-Reactive Protein B-Natriuretic Peptide Total Protein Total Protein (PEP) Albumin Albumin (PEP) Vvgls-3-Txeasajrp Gpmen-4-Zdiuwhzzz Nbsi-6-Zpfwstsn Jzjr-4-Umrlpqqx Gamma Globulins Abnorm Protein Band 1 Abnorm Protein Band 2 Abnorm Protein Band 3 PEP Interpretation Lipase Vitamin B12 Folate Procalcitonin PTH Intact Calcium (PTH Intact) Cancelled Chem Test Urine Color Urine Appearance Urine pH Ur Specific [place] Urine Protein Urine Glucose (UA) Urine Ketones Urine Blood Urine Nitrite Ur Leukocyte Esterase Urine RBC Urine WBC Urine WBC Clumps Ur Squamous Epith Cells Urine Bacteria Urine Yeast Urine Osmolality Ur Random Sodium Stool Occult Blood IgG Total IgA Total IgM DAYANARA Interpretation Proteinase 3 (PR3) Ab Myeloperoxidase Ab Double Strand DNA Ab Glomerular Base Memb Ab Coronavirus (PCR) COVID-19 (RADHA) COVID-19 Clin Com Hep Bs Antigen Hep Bs Antibody Hep B Core Total Ab Hepatitis C Ab (EIA) Influenza Type A (PCR) Influenza Type B (PCR) RSV RNA Qual (PCR) Prothrombin [id number] Mut Prothrombin Mut Interp Blood Type Antibody Screen Crossmatch 10/17/20 10/17/20 10/17/20 06:36 15:05 18:10 WBC RBC Hgb Hct MCV MCH MCHC RDW Plt Count MPV Immature Gran % (Auto) Neut % (Auto) Lymph % (Auto) [place] % (Auto) Eos % (Auto) Baso % (Auto) Lymph # (Auto) [place] # (Auto) Eos # (Auto) Baso # (Auto) Abs Immat Gran (auto) Absolute Neuts (auto) Absolute Nucleated RBC Nucleated RBC % (auto) Neutrophils % (Manual) Band Neutrophils % Lymphocytes % (Manual) Monocytes % (Manual) Abs Neuts (Manual) Lymphocytes # (Manual) Monocytes # (Manual) Platelet Estimate Plt Morphology Comment RBC Morphology Hypochromasia Ovalocytes Steward Cells Acanthocytes (Spur) Schistocytes Smear Tech's Comments Smear Path Review Absolute Retic Percent Retic Immature Retic Fraction Retic Hgb Equivalent Haptoglobin PT INR D-Dimer Hold Blue Top ABG pH ABG pCO2 ABG pO2 ABG HCO3 ABG O2 Saturation ABG Base Excess VBG pH VBG pCO2 VBG pO2 VBG HCO3 VBG O2 Saturation VBG Base Excess Oxygen Given Sodium Potassium Chloride Carbon Dioxide Anion Gap BUN Creatinine Estim Creat Clear Calc Estimated GFR POC Glucose Random Glucose Fasting Glucose Lactic Acid Calcium Phosphorus Magnesium Total Bilirubin Direct Bilirubin AST ALT Alkaline Phosphatase Lactate Dehydrogenase Troponin I High Sens C-Reactive Protein B-Natriuretic Peptide Total Protein Total Protein (PEP) Albumin Albumin (PEP) Xtwjk-1-Zkbrtbkfk Jsnby-7-Jadpropwt Bqmq-8-Xtuintam Wuwt-4-Qebvumbk Gamma Globulins Abnorm Protein Band 1 Abnorm Protein Band 2 Abnorm Protein Band 3 PEP Interpretation Lipase Vitamin B12 Folate Procalcitonin PTH Intact Calcium (PTH Intact) Cancelled Chem Test SEE NOTE Urine Color YELLOW Urine Appearance HAZY Urine pH 5.5 Ur Specific [place] 1.020 Urine Protein 2+ H Urine Glucose (UA) NEG Urine Ketones NEG Urine Blood 3+ H Urine Nitrite NEG Ur Leukocyte Esterase 2+ H Urine RBC 30-49 H Urine WBC 30-49 H Urine WBC Clumps Ur Squamous Epith Cells NONE Urine Bacteria 2+ Urine Yeast 1+ Urine Osmolality Ur Random Sodium Stool Occult Blood IgG Total IgA Total IgM DAYANARA Interpretation Proteinase 3 (PR3) Ab Myeloperoxidase Ab Double Strand DNA Ab Glomerular Base Memb Ab Coronavirus (PCR) COVID-19 (RADHA) Positive A COVID-19 Clin Com See Note Hep Bs Antigen Hep Bs Antibody Hep B Core Total Ab Hepatitis C Ab (EIA) Influenza Type A (PCR) Influenza Type B (PCR) RSV RNA Qual (PCR) Prothrombin [id number] Mut Prothrombin Mut Interp Blood Type Antibody Screen Crossmatch 10/18/20 10/18/20 10/19/20 10:15 10:15 08:20 WBC RBC Hgb 12.4 L D Hct 38.0 L D MCV MCH MCHC RDW Plt Count MPV Immature Gran % (Auto) Neut % (Auto) Lymph % (Auto) [place] % (Auto) Eos % (Auto) Baso % (Auto) Lymph # (Auto) [place] # (Auto) Eos # (Auto) Baso # (Auto) Abs Immat Gran (auto) Absolute Neuts (auto) Absolute Nucleated RBC Nucleated RBC % (auto) Neutrophils % (Manual) Band Neutrophils % Lymphocytes % (Manual) Monocytes % (Manual) Abs Neuts (Manual) Lymphocytes # (Manual) Monocytes # (Manual) Platelet Estimate Plt Morphology Comment RBC Morphology Hypochromasia Ovalocytes Christine Cells Acanthocytes (Spur) Schistocytes Smear Tech's Comments Smear Path Review Absolute Retic Percent Retic Immature Retic Fraction Retic Hgb Equivalent Haptoglobin PT INR D-Dimer Hold Blue Top ABG pH ABG pCO2 ABG pO2 ABG HCO3 ABG O2 Saturation ABG Base Excess VBG pH VBG pCO2 VBG pO2 VBG HCO3 VBG O2 Saturation VBG Base Excess Oxygen Given Sodium 138 Potassium 4.4 Chloride 103 Carbon Dioxide 16 L Anion Gap 23 H BUN 124 H* Creatinine 7.36 H* Estim Creat Clear Calc 7.7 Estimated GFR 7 POC Glucose Random Glucose 103 Fasting Glucose Lactic Acid Calcium 6.9 L D Phosphorus Magnesium Total Bilirubin Direct Bilirubin AST ALT Alkaline Phosphatase Lactate Dehydrogenase Troponin I High Sens C-Reactive Protein B-Natriuretic Peptide Total Protein Total Protein (PEP) Albumin Albumin (PEP) Yjaew-7-Uagunpxxy Vivjg-7-Ojyprdovy Sryq-6-Qhenasgt Tlbu-0-Urjncplq Gamma Globulins Abnorm Protein Band 1 Abnorm Protein Band 2 Abnorm Protein Band 3 PEP Interpretation Lipase Vitamin B12 Folate Procalcitonin 3.76 PTH Intact Calcium (PTH Intact) Cancelled Chem Test Urine Color Urine Appearance Urine pH Ur Specific [place] Urine Protein Urine Glucose (UA) Urine Ketones Urine Blood Urine Nitrite Ur Leukocyte Esterase Urine RBC Urine WBC Urine WBC Clumps Ur Squamous Epith Cells Urine Bacteria Urine Yeast Urine Osmolality Ur Random Sodium Stool Occult Blood IgG Total IgA Total IgM DAYANARA Interpretation Proteinase 3 (PR3) Ab Myeloperoxidase Ab Double Strand DNA Ab Glomerular Base Memb Ab Coronavirus (PCR) COVID-19 (RADHA) COVID-19 Clin Com Hep Bs Antigen Hep Bs Antibody Hep B Core Total Ab Hepatitis C Ab (EIA) Influenza Type A (PCR) Influenza Type B (PCR) RSV RNA Qual (PCR) Prothrombin [id number] Mut Prothrombin Mut Interp Blood Type Antibody Screen Crossmatch 10/19/20 10/20/20 10/22/20 08:20 21:13 19:15 WBC RBC Hgb Hct MCV MCH MCHC RDW Plt Count MPV Immature Gran % (Auto) Neut % (Auto) Lymph % (Auto) [place] % (Auto) Eos % (Auto) Baso % (Auto) Lymph # (Auto) [place] # (Auto) Eos # (Auto) Baso # (Auto) Abs Immat Gran (auto) Absolute Neuts (auto) Absolute Nucleated RBC Nucleated RBC % (auto) Neutrophils % (Manual) Band Neutrophils % Lymphocytes % (Manual) Monocytes % (Manual) Abs Neuts (Manual) Lymphocytes # (Manual) Monocytes # (Manual) Platelet Estimate Plt Morphology Comment RBC Morphology Hypochromasia Ovalocytes Steward Cells Acanthocytes (Spur) Schistocytes Smear Tech's Comments Smear Path Review Absolute Retic Percent Retic Immature Retic Fraction Retic Hgb Equivalent Haptoglobin PT INR D-Dimer Hold Blue Top ABG pH 7.37 ABG pCO2 19 L* ABG pO2 103 ABG HCO3 11 L ABG O2 Saturation 97.0 ABG Base Excess -11.1 VBG pH VBG pCO2 VBG pO2 VBG HCO3 VBG O2 Saturation VBG Base Excess Oxygen Given 100% Sodium 139 144 Potassium 5.4 H D 5.4 H Chloride 103 108 Carbon Dioxide 15 L 12 L Anion Gap 26 H 29 H BUN 132 H* 164 H* D Creatinine 8.08 H* 9.48 H* Estim Creat Clear Calc 7.0 5.9 Estimated GFR 6 5 POC Glucose Random Glucose 189 H D 112 D Fasting Glucose Lactic Acid Calcium 7.3 L 6.4 L D Phosphorus Magnesium Total Bilirubin Direct Bilirubin AST ALT Alkaline Phosphatase Lactate Dehydrogenase Troponin I High Sens C-Reactive Protein B-Natriuretic Peptide Total Protein Total Protein (PEP) Albumin Albumin (PEP) Lbypa-2-Auojcjzhb Ocapf-5-Hcfsoegnn Jgpp-4-Zhwefhxl Ulfq-7-Nuiundhc Gamma Globulins Abnorm Protein Band 1 Abnorm Protein Band 2 Abnorm Protein Band 3 PEP Interpretation Lipase Vitamin B12 Folate Procalcitonin PTH Intact Calcium (PTH Intact) Cancelled Chem Test Urine Color Urine Appearance Urine pH Ur Specific [place] Urine Protein Urine Glucose (UA) Urine Ketones Urine Blood Urine Nitrite Ur Leukocyte Esterase Urine RBC Urine WBC Urine WBC Clumps Ur Squamous Epith Cells Urine Bacteria Urine Yeast Urine Osmolality Ur Random Sodium Stool Occult Blood IgG Total IgA Total IgM DAYANARA Interpretation Proteinase 3 (PR3) Ab Myeloperoxidase Ab Double Strand DNA Ab Glomerular Base Memb Ab Coronavirus (PCR) COVID-19 (RADHA) COVID-19 Clin Com Hep Bs Antigen Hep Bs Antibody Hep B Core Total Ab Hepatitis C Ab (EIA) Influenza Type A (PCR) Influenza Type B (PCR) RSV RNA Qual (PCR) Prothrombin [id number] Mut Prothrombin Mut Interp Blood Type Antibody Screen Crossmatch 10/23/20 10/23/20 07:14 07:14 WBC 12.7 H RBC 3.48 L Hgb 9.9 L D Hct 29.1 L D MCV 83.6 MCH 28.4 MCHC 34.0 RDW 17.1 H Plt Count 169 D MPV 10.6 Immature Gran % (Auto) 1.0 H Neut % (Auto) 95.2 H Lymph % (Auto) 2.0 L [place] % (Auto) 1.4 L Eos % (Auto) 0.3 Baso % (Auto) 0.1 Lymph # (Auto) 0.3 L [place] # (Auto) 0.2 Eos # (Auto) 0.0 Baso # (Auto) 0.0 Abs Immat Gran (auto) 0.13 H Absolute Neuts (auto) 12.1 H Absolute Nucleated RBC 0.000 Nucleated RBC % (auto) 0.0 Neutrophils % (Manual) Band Neutrophils % Lymphocytes % (Manual) Monocytes % (Manual) Abs Neuts (Manual) Lymphocytes # (Manual) Monocytes # (Manual) Platelet Estimate Plt Morphology Comment RBC Morphology Hypochromasia Ovalocytes [place] Cells Acanthocytes (Spur) Schistocytes Smear Tech's Comments VERIFIED Smear Path Review Absolute Retic Percent Retic Immature Retic Fraction Retic Hgb Equivalent Haptoglobin PT INR D-Dimer Hold Blue Top ABG pH ABG pCO2 ABG pO2 ABG HCO3 ABG O2 Saturation ABG Base Excess VBG pH VBG pCO2 VBG pO2 VBG HCO3 VBG O2 Saturation VBG Base Excess Oxygen Given Sodium 144 Potassium 5.3 H Chloride 106 Carbon Dioxide 13 L Anion Gap 30 H BUN 165 H* Creatinine 9.72 H* Estim Creat Clear Calc 5.8 Estimated GFR 5 POC Glucose Random Glucose 202 H D Fasting Glucose Lactic Acid Calcium 6.8 L D Phosphorus Magnesium Total Bilirubin Direct Bilirubin AST ALT Alkaline Phosphatase Lactate Dehydrogenase Troponin I High Sens C-Reactive Protein B-Natriuretic Peptide Total Protein Total Protein (PEP) Albumin Albumin (PEP) [id number]-[id number] Fykvo-7-Foslpgwmh Pdnv-2-Skspwcqo Yqpg-9-Gsljhhxb Gamma Globulins Abnorm Protein Band 1 Abnorm Protein Band 2 Abnorm Protein Band 3 PEP Interpretation Lipase Vitamin B12 Folate Procalcitonin PTH Intact Calcium (PTH Intact) Cancelled Chem Test Urine Color Urine Appearance Urine pH Ur Specific [place] Urine Protein Urine Glucose (UA) Urine Ketones Urine Blood Urine Nitrite Ur Leukocyte Esterase Urine RBC Urine WBC Urine WBC Clumps Ur Squamous Epith Cells Urine Bacteria Urine Yeast Urine Osmolality Ur Random Sodium Stool Occult Blood IgG Total IgA Total IgM DAYANARA Interpretation Proteinase 3 (PR3) Ab Myeloperoxidase Ab Double Strand DNA Ab Glomerular Base Memb Ab Coronavirus (PCR) COVID-19 (RADHA) COVID-19 Clin Com Hep Bs Antigen Hep Bs Antibody Hep B Core Total Ab Hepatitis C Ab (EIA) Influenza Type A (PCR) Influenza Type B (PCR) RSV RNA Qual (PCR) Prothrombin [id number] Mut Prothrombin Mut Interp Blood Type Antibody Screen Crossmatch Airway Mallampati Class: II TM Dist: >3cm Neck ROM: Limited Assessment and Plan Assessment Anesthesia Assessment: Anesthesia Plan Discussed Final Anesthetic Review NPO: Yes ASA Class: IV Final Preanesthetic Review: No Changes in Pt Med Stat, Meds/Allgs Chart Reviewed, Consent Obtained/Reviewed and Anes Risks/Benef Reviewed Patient Risk: Intermediate Procedure Risk: Low Anesthetic Plan Anesthetic Plan: MAC:
--- NOTE | 2020-10-24 15:17 | PM.PSYCN ---
History of Present Illness Date of Service: 10/24/2020 Chief Complaint: CURRENT PERMACATH NOT WORKING Reason for Consult: Increasing Agitation Requesting physician: Salvatoer Lopez Discussed with referring provider: Yes Sources of Information: chart reviewed HPI Narrative: Patient known to this leader writer via previous evaluations Please see previous notes and hospitalist notes for full history Current consult requested to assist with managing agitation as patient is refusing care, pulling at all tubing, etc Past Psychiatric History: unknown Medical Evaluation Reviewed: Yes [facility] Medical History Anal polyp Bladder outlet obstruction Chronic diastolic (congestive) heart failure COVID-19 Diverticulitis large intestine Malignant neoplasm of sigmoid colon Mild pulmonary hypertension Paroxysmal atrial fibrillation Personal history of colon cancer Tubular adenoma of colon Diagnostics Vital Signs (24Hr): Vital Signs - 24 hr 10/23/20 15:37 10/23/20 16:34 10/23/20 17:22 Temperature Pulse Rate 133 H 118 H Respiratory Rate 24 H Blood Pressure 124/64 Pulse Oximetry 10/23/20 20:00 10/23/20 23:10 10/24/20 03:04 Temperature 99.3 F 98.1 F Pulse Rate 106 H 90 78 Respiratory Rate 22 H 18 16 Blood Pressure 113/56 L 103/54 L 126/58 L Pulse Oximetry 100 99 91 L 10/24/20 07:46 10/24/20 12:00 10/24/20 14:27 Temperature 97.6 F 99.1 F Pulse Rate 84 105 H Respiratory Rate 16 22 H Blood Pressure 123/72 132/74 Pulse Oximetry 95 88 L 94 Body Mass Index 20.5 Labs Results: 10/23/20 07:14 10/23/20 07:14 Labs: Laboratory Results - last 48 hr 10/22/20 10/23/20 10/23/20 19:15 07:14 07:14 WBC 12.7 H RBC 3.48 L Hgb 9.9 L D Hct 29.1 L D MCV 83.6 MCH 28.4 MCHC 34.0 RDW 17.1 H Plt Count 169 D MPV 10.6 Immature Gran % (Auto) 1.0 H Neut % (Auto) 95.2 H Lymph % (Auto) 2.0 L [place] % (Auto) 1.4 L Eos % (Auto) 0.3 Baso % (Auto) 0.1 Lymph # (Auto) 0.3 L [place] # (Auto) 0.2 Eos # (Auto) 0.0 Baso # (Auto) 0.0 Abs Immat Gran (auto) 0.13 H Absolute Neuts (auto) 12.1 H Absolute Nucleated RBC 0.000 Nucleated RBC % (auto) 0.0 Smear Tech's Comments VERIFIED Sodium 144 144 Potassium 5.4 H 5.3 H Chloride 108 106 Carbon Dioxide 12 L 13 L Anion Gap 29 H 30 H BUN 164 H* D 165 H* Creatinine 9.48 H* 9.72 H* Estim Creat Clear Calc 5.9 5.8 Estimated GFR 5 5 Random Glucose 112 D 202 H D Calcium 6.4 L D 6.8 L D Imaging Radiology Impressions: ITS Impressions Chest X-Ray 09/28/20 08:56 IMPRESSION: No acute pneumonic process. Nonspecific mild increase in bilateral hilar interstitial markings. Abdomen/Pelvis CT 09/28/20 10:29 IMPRESSION: Hyperinflated lungs with multiple bilateral pulmonary nodules in the range of 2 to 4 mm. No acute pneumonic consolidation. Enlarged left thyroid gland with substernal nodular extension mildly compressing the trachea but no major compromise. Left pelvic moderate size mass likely enlarged lymph node. Due to lack of IV contrast aneurysm should be considered in the differential diagnosis. There is a cystic lesion in between the iliac crest and psoas muscle in the left upper pelvis likely a seroma or lymphocele. This is a new finding since 2014 CT exam dated Rivera's catheter in an empty bladder. Minimal bladder wall thickening is suspected. There are surgical alcira the prostate bed question radiation beads versus postsurgical alcira. Correlate with clinical exam Chest CT 09/28/20 10:29 IMPRESSION: Hyperinflated lungs with multiple bilateral pulmonary nodules in the range of 2 to 4 mm. No acute pneumonic consolidation. Enlarged left thyroid gland with substernal nodular extension mildly compressing the trachea but no major compromise. Left pelvic moderate size mass likely enlarged lymph node. Due to lack of IV contrast aneurysm should be considered in the differential diagnosis. There is a cystic lesion in between the iliac crest and psoas muscle in the left upper pelvis likely a seroma or lymphocele. This is a new finding since 2014 CT exam dated Rivera's catheter in an empty bladder. Minimal bladder wall thickening is suspected. There are surgical aclira the prostate bed question radiation beads versus postsurgical alcira. Correlate with clinical exam Pulmonary Perfusion Imaging 09/28/20 11:51 IMPRESSION: Normal perfusion of both lungs. Renal Biopsy CT 10/03/20 00:00 IMPRESSION: CT-guided left renal biopsy. Guidance Ultrasound 10/06/20 00:00 IMPRESSION: Successful ultrasound and fluoroscopy guided placement of right jugular temporary AV dialysis catheter. The catheter is ready for use for dialysis. FLUOROSCOPY TIME: 0.5 minutes. IMAGES: 1. Head CT 10/06/20 00:00 IMPRESSION: No acute intracranial pathology. Chronic volume loss with small vessel ischemic change. Insertion Non-Tunneled Catheter 10/06/20 00:00 IMPRESSION: Successful ultrasound and fluoroscopy guided placement of right jugular temporary AV dialysis catheter. The catheter is ready for use for dialysis. FLUOROSCOPY TIME: 0.5 minutes. IMAGES: 1. GI Bleed Scan Nuclear Medicine 10/10/20 00:00 IMPRESSION: No gastrointestinal hemorrhage is identified. Chest X-Ray 10/16/20 00:00 IMPRESSION: Increased patchy opacities throughout the right lung and at the left base could be infectious or inflammatory. Chest X-Ray 10/20/20 00:00 IMPRESSION: No significant change in bilateral airspace opacities since chest x-ray of 10/16/2020. Guidance Ultrasound 10/22/20 00:00 IMPRESSION: 14.5 [place] 23 cm in length right internal jugular Palindrome permacath placement. Insertion Tunneled Catheter 10/22/20 00:00 IMPRESSION: 14.5 [place] 23 cm in length right internal jugular Palindrome permacath placement. Chest X-Ray 10/24/20 00:00 IMPRESSION: Right internal jugular permacath tip projects over the cavoatrial junction. Increasing bilateral airspace disease. Differential would include pneumonia and pulmonary edema. Medications Medications Current Medications Generic Name Dose Route Start Last Admin Trade Name Freq PRN Reason Stop Dose Admin Acetaminophen 650 mg 09/28/20 22:42 10/17/20 20:21 Acetaminophen 325 Mg Tablet PO 650 mg Q6H PRN Administration Pain, Mild (Pain Scale 1-3) Albuterol Sulfate 2 puff 09/29/20 05:51 Albuterol Sulfate 90 Mcg 8 Gm Inhaler INHALE RQ4H PRN Shortness of Breath/Wheezing Atovaquone 1,500 mg 10/03/20 09:00 10/24/20 13:51 Atovaquone 750 Mg/5 Ml Oral.Susp PO Not Given DAILY [facility] Calcitriol 0.25 mcg 10/12/20 09:00 10/24/20 13:51 Calcitriol 0.25 Mcg Capsule PO Not Given DAILY [facility] Calcium Acetate 1,334 mg 10/09/20 12:00 10/24/20 13:51 Calcium Acetate 667 Mg Capsule PO Not Given TIDWM [facility] Docusate Sodium 100 mg 09/28/20 22:42 Docusate Sodium 100 Mg Capsule PO DAILY PRN Constipation Guaifenesin 600 mg 10/18/20 21:00 10/24/20 13:52 Guaifenesin [place] 600 Mg Tab.Er.12h PO Not Given BID [facility] Heparin Sodium (Porcine) 5,000 unit 10/24/20 16:45 Heparin Sodium,Porcine 5,000 Unit/Ml Vial INTRACATH [id number] [facility] Diltiazem HCl 125 mg/ Sodium 125 mls @ 0 mls/hr 10/23/20 16:15 10/24/20 09:30 Chloride IVCONT 0 mg/hr .Q0M [facility] 0 mls/hr Titration Protocol Per Protocol Omeprazole 20 mg 10/12/20 16:30 10/24/20 06:03 Omeprazole 20 Mg Capsule. PO Not Given BID@0630,1630 [facility] Ondansetron HCl 4 mg 09/28/20 22:42 Ondansetron Hcl 4 Mg/2 Ml Vial IVPUSH Q8H PRN Nausea and Vomiting Prednisone 40 mg 10/20/20 09:00 10/24/20 13:52 Prednisone 20 Mg Tablet PO Not Given DAILY [facility] Sodium Bicarbonate 1,300 mg 10/19/20 21:00 10/24/20 13:52 Sodium Bicarbonate 650 Mg Tablet PO Not Given TID [facility] Sodium Chloride 3 ml 09/29/20 00:00 10/24/20 09:34 0.9 % Sodium Chloride Flush 3 Ml Syringe IVFLUSH Not Given QSHIFT [facility] Allergies Allergies Allergy/AdvReac Type Severity Reaction Status Date / Time No Known Allergies Allergy Verified 07/31/20 09:06 [No Known Allergies*] Assessment & Plan Assessment & Plan (1) Metabolic encephalopathy: Status: Acute Code(s): G93.41 - Metabolic encephalopathy Recommendations: PO Risperdal or Zyprexa to address agiation If IV haldol is necessary, recommend 1mg TID PRN ---monitor EKG for QT prolongation Alternate with Lorazepam (minimize benzo use as much as possible to reduce worsening delirium) Proxy should made aware of risks associated with IV Haldol Continue to reassess Greater than 50% of the session was spent on counseling and/or coordination of care
[2020-10-24] MEDS: Lidocaine HCl 1 % MPF 5 ML VIAL 10 ML SUBCUT (15:55)
[2020-10-24] MEDS: Heparin Sodium,Porcine 1,000 UNIT/ML VIAL 4000 UNIT IV (15:56)
[2020-10-24 16:16] LABS: Base Excess ABG -6.3; HCO3 ABG 16 mmol/L (22-26)
[2020-10-24 16:17] LABS: ABG PCO2 23 mmHg (32-45); PO2 ABG 51 mmHg (83-108); pH ABG 7.44 (7.35-7.45)
--- NOTE | 2020-10-24 16:22 | HO.RADPN ---
RADIOLOGY Narrative Narrative: Right internal jugular permacath exchanged over a wire for a new 14.5 Fr Palindrome permacath because the catheter was clotted. New permacath tip at the cavoatrial junction. During and following catheter exchange the patient had multiple runs of ventricular tachycardia. He did not lose his pulse. A code was called however he returned to his baseline rythmn of atrial fibrillation without intervention.
--- NOTE | 2020-10-24 17:21 | P.EN_ITS ---
Event Note Date of Service: 10/24/20 Event Note: patient has code blue while in OR for permacath replaced , per an esthesiologist and interventional radiology patient has a runs of VT and patient was hypoxic, patient never lost pulse, patient was placed back on non-rebreather, ABG shows hypoxia, patient seen and examined at bedside, patient was lethargic, patient was seen by charge entry specialist Dr. connell at bedside , as patient's oxygenation improved recommended patient can be transferred to tele monitor, discussed with nephrology, patient will get hemodialysis today, patient currently saturating around 90% on non-rebreather, will monitor closely on telemetry, and get cardiology follow-up for V-tach , will check electrolytes
--- NOTE | 2020-10-24 17:24 | PC.NURSE ---
Patient continued to refuse all PO intake, including medications. In afternoon, patient was too drowsy after the permicath repositioning to take anything PO. Tried to assess patients orientation, when asked what his name was mumbled a sound , slightly opened eyes, but no clear words were said. Patient is now going to dialysis. VSS stable at this time.
[2020-10-24] MEDS: Dextrose 5 % and 0.9 % NaCl 1,000 ML 50 ML IVCONT (18:04)
[2020-10-24 19:09] LABS: Anion Gap 21 (12-20); Calcium 7.5 mg/dL (8.4-10.2); Carbon Dioxide 23 mmol/L (22-29); Chloride 106 mmol/L (96-108); Creatinine Clr Calc Pharmacy 10.6; Estimated Glomerular Filt Rate 10; Glucose Random 112 mg/dL (60-115); Potassium 4.2 mmol/L (3.3-5.1); Sodium 146 mmol/L (135-145)
--- NOTE | 2020-10-24 21:17 | PC.NURSE ---
Addendum entered by Asha Campuzano RN 10/24/20 21:51: HR remained 120-130s - increased drip to 10ml/hr Original Note: shut off cardizem drip at around 9am as pt HR in 80s in morning. had drip off all day but at 2100 when pt was in finishing up dialysis HR jumping from 120-140s. Pt still drowsy this evening unlike his am restlessness. will open eyes to touch but not really making complete sentences. Put drip back on 5ml/hr HR currently 114 will cont to watch and titrate if needed.
[2020-10-24 23:39] LABS: Blood Urea Nitrogen 84 mg/dL (9-16)
[2020-10-25] VITALS (7 sets, daily range): BP systolic 111–151; BP diastolic 55–76; PULSE 76–108; RESP 18–28; TEMP 36–36.7; O2SAT 87–100
--- NOTE | 2020-10-25 | ECG_ITS ---
Test Reason : CP Blood Pressure : / mmHG Vent. Rate : 086 BPM Atrial Rate : 077 BPM P-R Int : 000 ms QRS Dur : 068 ms QT Int : 408 ms P-R-T Axes : 000 034 071 degrees QTc Int : 488 ms Atrial fibrillation Nonspecific ST and T wave abnormality Prolonged QT Abnormal ECG When compared to the previous EKG of Prior EKG was of poor quality Referred By: Radha Patel Electronically Signed By:MARIANNE APARICIO MD
[2020-10-25] MEDS: 0.9 % Sodium Chloride Flush 3 ML SYRINGE IVFLUSH ×2 (00:32→09:05)
[2020-10-25 01:18] LABS: Pt Ventilation O2% 100%
[2020-10-25 01:23] LABS: ABG PCO2 26 mmHg (32-45); Base Excess ABG 0.7; HCO3 ABG 22 mmol/L (22-26); PO2 ABG 54 mmHg (83-108); pH ABG 7.53 (7.35-7.45)
[2020-10-25] MEDS: dilTIAZem HCL 125 MG in 0.9 % Sodium Chloride 100 ML 7 MG IVCONT (03:27)
[2020-10-25 07:23] LABS: PLT CLUMP 1
[2020-10-25 07:25] LABS: Hematocrit 26.9 % (42-52); Hemoglobin 8.9 g/dl (14.0-18.0); Mean Corpuscular HGB Conc 33.1 g/dl (31.0-36.0); Mean Corpuscular Hemoglobin 27.4 pg (27.0-33.0); Mean Corpuscular Volume 82.8 fL (80-98); NRBC Pct Auto 0.4 /100WBC (0.0-0.2); Red Blood Count 3.25 X10*6/uL (4.60-5.80); Red Cell Distribution Width 16.7 % (11.0-16.0)
[2020-10-25 07:28] LABS: PLT ABN DIST 1
[2020-10-25 08:29] LABS: Anion Gap 24 (12-20); Blood Urea Nitrogen 64 mg/dL (9-16); Calcium 7.4 mg/dL (8.4-10.2); Carbon Dioxide 21 mmol/L (22-29); Chloride 105 mmol/L (96-108); Creatinine Clr Calc Pharmacy 11.6; Estimated Glomerular Filt Rate 11; Glucose Random 131 mg/dL (60-115); Potassium 4.7 mmol/L (3.3-5.1); Sodium 145 mmol/L (135-145)
[2020-10-25 08:32] LABS: Band Neutrophils Percent 14 % (3-5); Lymphocytes Percent Manual 4 % (20-40); Monocytes Percent Manual 1 % (2-11); Neutrophils Percent Manual 81 % (45-73)
[2020-10-25 08:33] LABS: Acanthocytes 2+; Ovalocytes 1+; Platelet Estimate DECREASED (NORMAL); Polychromasia 1+; RBC Morphology NOTED; Schistocytes 1+
[2020-10-25 08:34] LABS: Large Platelet PRESENT; Platelet Morphology Comment NOTED
[2020-10-25 08:35] LABS: Lymphocytes Absolute Manual 0.3 X10*3/uL (0.6-4.8); Monocytes Absolute Manual 0.1 X10*3/uL (0.0-1.2); Neutrophils Absolute Manual 7.4 X10*3/uL (2.2-7.9); White Blood Count 7.8 X10*3/uL (4.8-10.8)
[2020-10-25 08:36] LABS: Platelet Count 83 X10*3/uL (160-400)
--- NOTE | 2020-10-25 09:28 | HO.POSTANES ---
Post Anesthesia Evaluation Post Anesthesia Evaluation Vital Signs: Vital Signs Temp Pulse Resp BP Pulse Ox 10/25/20 07:32 98.0 F 80 20 116/55 L 97 10/25/20 03:22 97.8 F 82 28 H 111/55 L 100 10/24/20 23:45 98.1 F 116 H 114/75 87 L 10/24/20 21:48 97.1 F 115 H 26 H 138/74 90 L Anesthesia: General Mental Status: Awake Pain Control: Satisfactory Nausea/Vomiting: None Hydration: Adequate Anesthesia-Related Issues: No Anes. Related Issues
--- NOTE | 2020-10-25 10:12 | PM.PNNEP ---
Subjective Subjective Date of Service: 10/25/20 Interval history: seen and examined confused r had HD yesterday Physical Exam Vital Signs: Vital Signs: Last Vital Signs Temp 98.0 F 10/25/20 07:32 Pulse 80 10/25/20 07:32 Resp 20 10/25/20 07:32 BP 116/55 L 10/25/20 07:32 Pulse Ox 97 10/25/20 07:32 Body Mass Index 20.5 Const: General: ill appearing HENMT: Head: Yes normocephalic and Yes atraumatic Neck: Neck: Yes supple Resp: Auscultation: diminished lung sounds Cardio: Heart sounds: S1 normal heart sound present and S2 normal heart sound present GI: Palpation (GI): Soft to palpation and nontender Extrem: General: Yes pedal edema Objective Data Labs CBC & Chem 7: 10/25/20 06:12 10/25/20 06:12 Labs: Laboratory Results - last 24 hr 10/24/20 10/24/20 10/25/20 16:05 18:25 01:15 WBC RBC Hgb Hct MCV MCH MCHC RDW Plt Count MPV Immature Gran % (Auto) Neut % (Auto) Lymph % (Auto) [place] % (Auto) Eos % (Auto) Baso % (Auto) Lymph # (Auto) [place] # (Auto) Eos # (Auto) Baso # (Auto) Abs Immat Gran (auto) Absolute Neuts (auto) Absolute Nucleated RBC Nucleated RBC % (auto) Neutrophils % (Manual) Band Neutrophils % Lymphocytes % (Manual) Monocytes % (Manual) Abs Neuts (Manual) Lymphocytes # (Manual) Monocytes # (Manual) Platelet Estimate Large Platelets Plt Morphology Comment RBC Morphology Polychromasia Ovalocytes Acanthocytes (Spur) Schistocytes ABG pH 7.44 7.53 H ABG pCO2 23 L 26 L ABG pO2 51 L 54 L ABG HCO3 16 L 22 ABG O2 Saturation 83.0 84.0 ABG Base Excess -6.3 0.7 Oxygen Given 9-15 L 100% Sodium 146 H Potassium 4.2 Chloride 106 Carbon Dioxide 23 Anion Gap 21 H BUN 84 H* D Creatinine 5.47 H* Estim Creat Clear Calc 10.6 Estimated GFR 10 Random Glucose 112 D Calcium 7.5 L D Magnesium 2.0 10/25/20 10/25/20 06:12 06:12 WBC 7.8 RBC 3.25 L Hgb 8.9 L Hct 26.9 L MCV 82.8 MCH 27.4 MCHC 33.1 RDW 16.7 H Plt Count 83 L D MPV Not Reportable Immature Gran % (Auto) Cancelled Neut % (Auto) Cancelled Lymph % (Auto) Cancelled [place] % (Auto) Cancelled Eos % (Auto) Cancelled Baso % (Auto) Cancelled Lymph # (Auto) Cancelled [place] # (Auto) Cancelled Eos # (Auto) Cancelled Baso # (Auto) Cancelled Abs Immat Gran (auto) Cancelled Absolute Neuts (auto) Cancelled Absolute Nucleated RBC 0.030 H Nucleated RBC % (auto) 0.4 H Neutrophils % (Manual) 81 H Band Neutrophils % 14 H Lymphocytes % (Manual) 4 L Monocytes % (Manual) 1 L Abs Neuts (Manual) 7.4 Lymphocytes # (Manual) 0.3 L Monocytes # (Manual) 0.1 Platelet Estimate DECREASED Large Platelets PRESENT Plt Morphology Comment NOTED RBC Morphology NOTED Polychromasia 1+ Ovalocytes 1+ Acanthocytes (Spur) 2+ Schistocytes 1+ ABG pH ABG pCO2 ABG pO2 ABG HCO3 ABG O2 Saturation ABG Base Excess Oxygen Given Sodium 145 Potassium 4.7 Chloride 105 Carbon Dioxide 21 L Anion Gap 24 H BUN 64 H Creatinine 4.98 H* Estim Creat Clear Calc 11.6 Estimated GFR 11 Random Glucose 131 H Calcium 7.4 L Magnesium Microbiology Microbiology Results: Microbiology 10/17/20 18:35 Urine [place] Urine Culture - Final 10/16/20 00:00 Blood - Venous Blood Culture - Final 10/16/20 00:00 Blood - Venous Blood Culture - Final 09/28/20 10:04 Blood - Venous Blood Culture - Final No growth after 5 days. 09/28/20 09:26 Blood - Venous Blood Culture - Final No growth after 5 days. 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
[2020-10-25] MEDS: Dextrose 5 % and 0.9 % NaCl 1,000 ML 50 ML IVCONT (11:49)
--- NOTE | 2020-10-25 17:43 | P.PNIM_ITS ---
Subjective Subjective Date of Service: 10/25/20 Interval History: patient seen and examined at bedside patient continues to remain confused lethargic with poor p.o. intake Constitutional Constitutional: Reports as per HPI Cardiovascular Cardiovascular: Reports no additional cardiovascular complaints Respiratory Respiratory: Reports no additional respiratory complaints Gastrointestinal Gastrointestinal: Reports no additional gastrointestinal complaints Physical Exam Vital Signs: Vital Signs: Last Vital Signs Temp 97.5 F 10/25/20 15:38 Pulse 108 H 10/25/20 15:38 Resp 18 10/25/20 15:38 BP 140/65 H 10/25/20 15:38 Pulse Ox 100 10/25/20 15:38 Body Mass Index 20.5 Const: Other: Constitutional : Alert, oriented, not in distress, legally blind Neck : Normal inspection Skin : No rash Neurological : No focal deficit Patient refused to be examined General: cooperative, healthy appearing, comfortable, no acute distress, alert, awake and ill appearing Orientation/consciousness: oriented to person, oriented to place, oriented to time and patient oriented x3 Limitations: no limitations HENMT: Head: Yes normal to inspection, Yes normocephalic and Yes atraumatic Mouth: Normal oral and palatal mucosa present Eyes: General: appearance normal, both eyes and all related structures Neck: Neck: Yes normal visual inspection and Yes supple Carotids: normal carotid upstroke Lymphatic: no lymphadenopathy noted Resp: Effort & Inspection: normal respiratory effort and able to speak in complete sentences Auscultation: clear to auscultation bilaterally, rhonchi and diminished lung sounds Cardio: Other: Constitutional : Alert, oriented, not in distress, legally blind Neck : Normal inspection Skin : No rash Neurological : No focal deficit Patient refused to be examined Rate: regular rate Rhythm: regular rhythm Heart sounds: S1 normal heart sound present, S2 normal heart sound present and no rubs GI: Inspection: Yes normal to inspection Palpation (GI): Soft to palpation, nontender and No hepatosplenomegaly present Percussion: Yes normal to percussion Auscultation: normal bowel sounds Skin: General skin exam: no rashes or lesions noted Neuro: General: oriented to person, oriented to place, oriented to time, patient oriented x3 and moves all extremities Cognition (Neuro): normal cognition Motor exam (neuro): No Asterixis during motor activity present Extrem: General: Yes normal to inspection, Yes no pedal edema and Yes pedal edema Objective Data Current Medications Generic Name Dose Route Start Last Admin Trade Name Freq PRN Reason Stop Dose Admin Acetaminophen 650 mg 09/28/20 22:42 10/17/20 20:21 Acetaminophen 325 Mg Tablet PO 650 mg Q6H PRN Administration Pain, Mild (Pain Scale 1-3) Albuterol Sulfate 2 puff 09/29/20 05:51 Albuterol Sulfate 90 Mcg 8 Gm Inhaler INHALE RQ4H PRN Shortness of Breath/Wheezing Atovaquone 1,500 mg 10/03/20 09:00 10/25/20 09:22 Atovaquone 750 Mg/5 Ml Oral.Susp PO Not Given DAILY [facility] Calcitriol 0.25 mcg 10/12/20 09:00 10/25/20 09:22 Calcitriol 0.25 Mcg Capsule PO Not Given DAILY [facility] Calcium Acetate 1,334 mg 10/09/20 12:00 10/25/20 16:46 Calcium Acetate 667 Mg Capsule PO Not Given TIDWM [facility] Docusate Sodium 100 mg 09/28/20 22:42 Docusate Sodium 100 Mg Capsule PO DAILY PRN Constipation Guaifenesin 600 mg 10/18/20 21:00 10/25/20 09:22 Guaifenesin La 600 Mg Tab.Er.12h PO Not Given BID [facility] Heparin Sodium (Porcine) 5,000 unit 10/24/20 16:45 10/24/20 21:08 Heparin Sodium,Porcine 5,000 Unit/Ml Vial INTRACATH Not Given MOWEFR@1645 MATHEUS Diltiazem HCl 125 mg/ Sodium 125 mls @ 0 mls/hr 10/23/20 16:15 10/25/20 03:27 Chloride IVCONT 7 mg/hr .Q0M MATHEUS 7 mls/hr Administration Protocol Per Protocol Dextrose/Sodium Chloride 1,000 mls @ 50 mls/hr 10/24/20 17:30 10/25/20 11:49 D5ns IVCONT 50 mls/hr .Q20H MATHEUS Administration Omeprazole 20 mg 10/12/20 16:30 10/25/20 16:46 Omeprazole 20 Mg Capsule. PO Not Given BID@0630,1630 [facility] Ondansetron HCl 4 mg 09/28/20 22:42 Ondansetron Hcl 4 Mg/2 Ml Vial IVPUSH Q8H PRN Nausea and Vomiting Prednisone 40 mg 10/20/20 09:00 10/25/20 09:23 Prednisone 20 Mg Tablet PO Not Given DAILY [facility] Sodium Bicarbonate 1,300 mg 10/19/20 21:00 10/25/20 14:40 Sodium Bicarbonate 650 Mg Tablet PO Not Given TID [facility] Sodium Chloride 3 ml 09/29/20 00:00 10/25/20 14:39 0.9 % Sodium Chloride Flush 3 Ml Syringe IVFLUSH Not Given QSHIFT [facility] Labs CBC & Chem 7: 10/25/20 06:12 10/25/20 06:12 Microbiology Microbiology Results: Microbiology 10/17/20 18:35 Urine Rivera Port Urine Culture - Final 10/16/20 00:00 Blood - Venous Blood Culture - Final 10/16/20 00:00 Blood - Venous Blood Culture - Final 09/28/20 10:04 Blood - Venous Blood Culture - Final No growth after 5 days. 09/28/20 09:26 Blood - Venous Blood Culture - Final No growth after 5 days. 09/28/20 00:00 Urine [place] Urine Culture - Final Assessment and Plan (1) FRANCHESKA (acute kidney injury): Status: Acute (2) RPGN (rapidly progressive glomerulonephritis): Status: Acute (3) COVID-19: Status: Acute (4) Anemia: Status: Acute (5) COVID-19: Problem details: He has COVID-19 of unknown onset He has had abnormal taste mentioned ER note 09/25 He has some hypoxia and is on 6 liters nasal cannula He has acute kidney injury and is in need of treatment for it Status: Acute (6) RPGN (rapidly progressive glomerulonephritis): Status: Acute (7) Acute blood loss anemia: Status: Acute (8) Acute renal failure: Status: Acute (9) GI bleed: Status: Acute (10) Metabolic encephalopathy: Status: Acute (11) Seizure disorder: Status: Acute (12) Paroxysmal atrial fibrillation: Status: Acute (13) Neurogenic urinary bladder disorder: Status: Acute (14) Bladder cancer: Status: Acute (15) Prostate cancer: Status: Acute Assessment and Plan: 80M presented with cough and epistaxis, found to have severe FRANCHESKA admitted on September 28 Acute renal failure with metabolic acidosis Secondary to RPGN, anca positive, confirmed by biopsy. No significant change in patient's condition continued to refuse medication, no acute issues overnight, no fevers, no rigors Patient seen by psych and deemed incompetent, ID does not recommend IV Rituxan due to risk of shedding active COVID-19 virus 120 days if treated with Rituxan continue prednisone 40 mg, prilosec for gi prophylaxis,atovaquone for pcp prophylaxis,continue oral bicarb and calcium acetate however patient refusing to take medication Healthcare proxy has been invoked, Since patient is deemed incompetent by psych due to delirium/encephalopathy , brother Serge is primary healthcare proxy ,#[phone] he wishes to proceed with PermCath and hemodialysis spoke with other brother Jim who is also brother and healthcare proxy he agreed that brother Serge will be responsible for making all decisions his #[phone] so will continue communication with Serge and update him patient received PermCath and hemodialysis , patient has permacath exchanged by IR on 10/24/20 , patient has episode of VTACH and rapid response while down in Interventional radiology during procedure Sepsis due COVID-19/pneumonia Had Fever and tachycardia now resolved, chest x-ray showed bilateral infiltrate , COVID test positive, procalcitonin is 3.76 , on IV Cefepime day 04/01 renally dose will DC after today's dose Patient declined blood culture, urine culture grew mixed bacterial shiva Patient COVID-19 test on admission September 28 was negative, repeat test 10/17 pos Acute hypoxic respiratory failure due to COVID-19 O2 sat continue to fluctuate, will keep oxygen above 90,continue supportive care, with cough medication DC antibiotic, patient on by mouth prednisone , continue close monitoring Seen by ID patient is not a candidate for remdesivir due to renal failure. Metabolic encephalopathy/delirium Continue to be confused/delirious/uncooperative seen by psych in deemed incompetent to make decision/likely related to uremia, steroids and infection Therefore healthcare proxy invoked, Continue close follow-up, Haldol given x1 to undergo PermCath placement, will order as needed Haldol patient becomes agitated and to prevent pulling dialysis catheter. Seizure incident No recurrent seizures, Witnessed seizure episode in the hospital,CT scan was negative for any acute findings, Likely secondary to uremia Neurology input appreciated, they recommend no antiepilepsy medications BPH history of prostate cancer, history of bladder cancer. cont. Chronic Rivera catheter Acute blood loss anemia due to GIB had 2 episodes of lower GI bleed, likely from PLT dysfunction from uremia and underlying colon Disorder Tagged RBC negative 10/10, s/p 4 units of packed RBC, hematocrit improved GI input appreciated, patient refused colonoscopy, will continue with conservative measures with PPI and close H&H monitoring AFib with RVR heart rate controlled cardizem drip not on AC due to concern over gi bleed Episode of VTach during procedure no more arrhythmia since yesterday monitor on telemetry seen by Cardiology recommended likely secondary to underlying hypoxia and recommended monitoring chronic diastolic chf no evidence of fluid overload DVT prophylaxis SCDs
[2020-10-26] MEDS: 0.9 % Sodium Chloride Flush 3 ML SYRINGE IVFLUSH (00:17)
[2020-10-26] MEDS: dilTIAZem HCL 125 MG in 0.9 % Sodium Chloride 100 ML IVCONT (00:17)
[2020-10-26 02:48] VITALS: BP 143/74; PULSE 91; RESP 20; TEMP 36.3; O2SAT 100
[2020-10-26] MEDS: LORazepam 2 MG/ML VIAL 1 MG IVPUSH (03:08)
--- NOTE | 2020-10-26 03:22 | PC.NURSE ---
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 ..1:1 sitter at bedside...continues to attempt to grab at lines and o2 mask..md updated...placed soft wrist restaints for line safety...specialty manufacturing supervisor aware...current sao2 96-97%...atrial fib hr 90's-100's with cardizem drip 10 mg/hr Original Note: CARE ASSUMED 23:15...DROWSY TO AWAKE/AGITATED...MUMBLES AND/OR CALLS OUT INCOHERANTLY..ATTEMPTS TO PULL OFF 100% NRB MASK/PULLS AT CHRONIC BLACK AND/OR RIGHT CHEST DIALYSIS CATHETER...DOES NOT FOLLOW ANY COMMANDS....UNABLE TO OBTAIN PERIPHERAL SAO2 READNGS..NAILBEDS DUSKY/CYANOTIC...SAO2 VIA FOREHEAD PROBE =100%...CHRONIC ATRIAL FIB...UNABLE TO TAKE PO LIQUIEDS...REMAINS UNDIRECTABLE...HOSPITALIST UPDATED ..ATIVAN 1 MG IM X1 DOSE GIVEN..TO MONITOR/ASSESS RESPONSE TO PATIENT BETTER ABLE TO MAINTAIN/PARTICIPATE IN PLAN OF CARE AND TREATMENT
[2020-10-26 07:02] LABS: Eosinophils Absolute Auto 0.1 X10*3/uL (0.0-0.4); Eosinophils Percent Auto 0.7 % (0-4); Hemoglobin 9.2 g/dl (14.0-18.0); MANUAL DIFF FLAG SCAN; PLT CLUMP 1; Red Cell Distribution Width 17.2 % (11.0-16.0); SCAN SMEAR FLAG 1
[2020-10-26 07:04] LABS: Basophils Percent Auto 0.1 % (0-2); Imm Gran Abs Auto 0.05 X10*3/uL (0.00-0.03); Imm Gran Pct Auto 0.7 % (0.0-0.4); Lymphocytes Absolute Auto 0.4 X10*3/uL (1.2-4.9); Lymphocytes Percent Auto 5.1 % (20-40); Mean Corpuscular HGB Conc 32.9 g/dl (31.0-36.0); Mean Corpuscular Hemoglobin 27.6 pg (27.0-33.0); Mean Corpuscular Volume 84.1 fL (80-98); Monocytes Absolute Auto 0.3 X10*3/uL (0.1-1.2); Monocytes Percent Auto 4.3 % (2-11); NRBC Pct Auto 0.8 /100WBC (0.0-0.2); Neutrophils Absolute Auto 6.6 X10*3/uL (2.0-8.3); Neutrophils Percent Auto 89.1 % (45-73); Red Blood Count 3.33 X10*6/uL (4.60-5.80); White Blood Count 7.4 X10*3/uL (4.8-10.8)
[2020-10-26 07:21] VITALS: BP 155/71; PULSE 103; RESP 16; O2SAT 94
[2020-10-26 07:43] LABS: Anion Gap 26 (12-20); Blood Urea Nitrogen 82 mg/dL (9-16); Calcium 7.6 mg/dL (8.4-10.2); Carbon Dioxide 16 mmol/L (22-29); Chloride 112 mmol/L (96-108); Creatinine Clr Calc Pharmacy 9.2; Estimated Glomerular Filt Rate 9; Glucose Random 154 mg/dL (60-115); Potassium 4.3 mmol/L (3.3-5.1); Sodium 150 mmol/L (135-145)
[2020-10-26 08:21] LABS: Platelet Count 73 X10*3/uL (160-400)
[2020-10-26 08:22] LABS: PLT ABN DIST 1
[2020-10-26 08:23] LABS: SLIDE REVIEW VERIFIED
[2020-10-26] MEDS: Dextrose 5 % and 0.9 % NaCl 1,000 ML 50 ML IVCONT (08:48)
--- NOTE | 2020-10-26 09:02 | PM.PNNEP ---
Subjective Subjective Date of Service: 10/26/20 Interval history: seen and examined confused lethargic Physical Exam Vital Signs: Vital Signs: Last Vital Signs Temp 97.4 F 10/26/20 02:48 Pulse 103 H 10/26/20 07:21 Resp 16 10/26/20 07:21 BP 155/71 H 10/26/20 07:21 Pulse Ox 94 10/26/20 07:21 Body Mass Index 20.5 Const: General: ill appearing HENMT: Head: Yes normocephalic and Yes atraumatic Neck: Neck: Yes supple Resp: Auscultation: diminished lung sounds Cardio: Heart sounds: S1 normal heart sound present and S2 normal heart sound present GI: Palpation (GI): Soft to palpation and nontender Extrem: General: Yes pedal edema Objective Data Labs CBC & Chem 7: 10/26/20 06:04 10/26/20 06:04 Labs: Laboratory Results - last 24 hr 10/26/20 10/26/20 06:04 06:04 WBC 7.4 RBC 3.33 L Hgb 9.2 L Hct 28.0 L MCV 84.1 MCH 27.6 MCHC 32.9 RDW 17.2 H Plt Count 73 L MPV Not Reportable Immature Gran % (Auto) 0.7 H Neut % (Auto) 89.1 H Lymph % (Auto) 5.1 L [place] % (Auto) 4.3 Eos % (Auto) 0.7 Baso % (Auto) 0.1 Lymph # (Auto) 0.4 L [place] # (Auto) 0.3 Eos # (Auto) 0.1 Baso # (Auto) 0.0 Abs Immat Gran (auto) 0.05 H Absolute Neuts (auto) 6.6 Absolute Nucleated RBC 0.060 H Nucleated RBC % (auto) 0.8 H Smear Tech's Comments VERIFIED Sodium 150 H Potassium 4.3 Chloride 112 H Carbon Dioxide 16 L Anion Gap 26 H BUN 82 H* D Creatinine 6.28 H* Estim Creat Clear Calc 9.2 Estimated GFR 9 Random Glucose 154 H Calcium 7.6 L Microbiology Microbiology Results: Microbiology 10/17/20 18:35 Urine [place] Urine Culture - Final 10/16/20 00:00 Blood - Venous Blood Culture - Final 10/16/20 00:00 Blood - Venous Blood Culture - Final 09/28/20 10:04 Blood - Venous Blood Culture - Final No growth after 5 days. 09/28/20 09:26 Blood - Venous Blood Culture - Final No growth after 5 days. 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
[2020-10-26 11:10] VITALS: BP 157/72; PULSE 98; RESP 24; TEMP 36.6; O2SAT 89
[2020-10-26 12:00] VITALS: O2SAT 95
[2020-10-26] MEDS: Pantoprazole Sodium 40 MG/10 ML VIAL IVPUSH (12:31)
--- NOTE | 2020-10-26 14:08 | HO.PM.IMPN ---
Subjective Subjective Date of Service: 10/26/20 Interval History: Patient lethargic this morning, no response to verbal stimuli moving all 4 extremities, received Ativan last night due to agitation. Review of system unobtainable secondary to patient's mental status. Physical Exam Vital Signs: Vital Signs: Last Vital Signs Temp 98 F 10/26/20 11:10 Pulse 98 10/26/20 11:10 Resp 24 H 10/26/20 11:10 BP 157/72 H 10/26/20 11:10 Pulse Ox 89 L 10/26/20 11:10 Body Mass Index 20.5 General patient not responding to verbal stimuli in bed moving both lower and upper extremity 100% non-rebreather mask in place Neck no JVD Lungs coarse breath sound bilaterally CVS Tachycardic Abdomen soft, bowel sounds are audible Extremities no edema, both fingers and toes with blue discoloration, cold peripheries Skin no rash Face symmetrical Neuro moving all 4 extremities, not opening eyes to verbal stimuli, verbalize but difficult to understand, with sternal rub. Objective Data Current Medications Generic Name Dose Route Start Last Admin Trade Name Freq PRN Reason Stop Dose Admin Acetaminophen 650 mg 09/28/20 22:42 10/17/20 20:21 Acetaminophen 325 Mg Tablet PO 650 mg Q6H PRN Administration Pain, Mild (Pain Scale 1-3) Albuterol Sulfate 2 puff 09/29/20 05:51 Albuterol Sulfate 90 Mcg 8 Gm Inhaler INHALE RQ4H PRN Shortness of Breath/Wheezing Heparin Sodium (Porcine) 5,000 unit 10/24/20 16:45 10/24/20 21:08 Heparin Sodium,Porcine 5,000 Unit/Ml Vial INTRACATH Not Given MOWEFR@1645 [facility] Morphine Sulfate 3 mg 10/26/20 14:06 Morphine Sulfate 4 Mg/Ml Cartridge SUBCUT Q2H PRN Shortness of Breath Ondansetron HCl 4 mg 09/28/20 22:42 Ondansetron Hcl 4 Mg/2 Ml Vial IVPUSH Q8H PRN Nausea and Vomiting Sodium Chloride 3 ml 09/29/20 00:00 10/26/20 08:57 0.9 % Sodium Chloride Flush 3 Ml Syringe IVFLUSH Not Given QSHIFT [facility] Labs CBC & Chem 7: 10/26/20 06:04 10/26/20 06:04 Microbiology Microbiology Results: Microbiology 10/17/20 18:35 Urine [place] Urine Culture - Final 10/16/20 00:00 Blood - Venous Blood Culture - Final 10/16/20 00:00 Blood - Venous Blood Culture - Final 09/28/20 10:04 Blood - Venous Blood Culture - Final No growth after 5 days. 09/28/20 09:26 Blood - Venous Blood Culture - Final No growth after 5 days. 09/28/20 00:00 Urine Rivera [place] Urine Culture - Final Assessment and Plan (1) Hypernatremia: Status: Acute (2) Anemia: Status: Acute (3) COVID-19: Status: Acute (4) RPGN (rapidly progressive glomerulonephritis): Status: Acute (5) FRANCHESKA (acute kidney injury): Status: Acute (6) Seizure disorder: Status: Acute (7) Metabolic encephalopathy: Status: Acute (8) Chronic diastolic (congestive) heart failure: Status: Acute (9) Paroxysmal atrial fibrillation: Status: Acute (10) Metabolic acidosis: Status: Acute Assessment and Plan: 80M presented with cough and epistaxis, found to have severe FRANCHESKA admitted on September 28 Acute renal failure with metabolic acidosis Secondary to RPGN, anca positive, confirmed by biopsy. Patient noted to be tachycardic tachypneic unresponsive with peripheral cyanosis Patient not able to take by mouth medication and has been refusing medication prior to that Patient has been started on hemodialysis and next hemodialysis is scheduled for tomorrow but looking at patient's declining clinical condition, with decreased by mouth intake refusal to take medication, including treatment for rapidly progressive glomerulonephritis, now hemodialysis dependent, requirement of high-flow oxygen with COVID-19, requiring sedatives to avoid pulling catheter, case discussed with patients brothers Serge Aguilar, Jim aguilar and Moraima aguilar both brothers are healthcare proxy and they agreed for hospice, face time family so they can see the patient since they are unable to visit him since brother Serge has COVID and brother Jim has upcoming eye surgery and family is from [place] Patient code status changed to CABIN AGENT, are and Karma Ocasio verified with family about CABIN AGENT, will obtain hospice consult Will discontinue all current medications and patient will be placed on IV/subcu morphine, IV Ativan, continue oxygen for comfort. Sepsis due COVID-19/pneumonia Poor prognosis Acute hypoxic respiratory failure due to COVID-19 Continue oxygen for comfort Metabolic encephalopathy/delirium Continue to be confused/delirious/uncooperative seen by psych in deemed incompetent to make decision/likely related to uremia, steroids and infection healthcare proxy invoked, healthcare proxy notified of patient's condition see above Seizure incident No recurrent seizures BPH history of prostate cancer, history of bladder cancer. cont. Chronic Rivera catheter Acute blood loss anemia due to GIB had 2 episodes of lower GI bleed, likely from PLT dysfunction from uremia and underlying colon Disorder Tagged RBC negative 10/10, s/p 4 units of packed RBC, hematocrit improved GI input appreciated, patient refused colonoscopy, will continue with conservative measures with PPI and close H&H monitoring AFib with RVR Elevated heart rate will DC Cardizem drip not on AC due to concern over gi bleed Episode of VTach during procedure felt to be related to hypoxia chronic diastolic chf no evidence of fluid overload DVT prophylaxis SCDs
--- NOTE | 2020-10-26 15:03 | P.EN_ITS ---
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 On e xam: Pupils dilated and fixed, no lungs sounds, no heart sound. No response to painful stimulus. Pronounced at 15:00. Nurse at bedside. Will notify attending MD.
--- NOTE | 2020-10-26 15:03 | PM.EVENT ---
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 On exam: Pupils dilated and fixed, no lungs sounds, no heart sound. No response to painful stimulus. Pronounced at 15:00. Nurse at bedside. Will notify attending MD.
--- NOTE | 2020-10-26 15:27 | MHC.CM.PN ---
CM SPOKE TO PTS [id number], AMADOU ([phone]) WHO REPORTS SHE WAS STILL NOTIFYING SOME OF THE FAMILY MEMBERS ABOUT THE PTS PASSING. SHE REPORTS THEY WERE NOT SURE WHAT TO DO NEXT. CM PROVIDED INFORMATION ON CONTACTING THEIR CHOSEN HOME. CM ALSO PROVIDED DIRECT CONTACT NUMBER IN CASE THEY HAVE MORE QUESTIONS.
--- NOTE | 2020-10-26 15:30 | P.DN_ITS ---
Discharge Sum: Prov Provider Primary care physician: Gerardo Britt MD Consults: 09/29/20 05:46 Consult to Nephrology Routine Consulting Provider: Akira Hobbs Reason for consultation: FRANCHESKA Has provider been notified: Yes 10/06/20 01:04 Consult to Neurology Stat Consulting Provider: [facility] Reason for consultation: seizure Has provider been notified: Yes 10/08/20 19:54 Consult to Gastroenterology Routine Consulting Provider: Dudley Irvin Reason for consultation: gi bleed Has provider been notified: No 10/16/20 17:00 Consult to Psychiatry Routine Consulting Provider: Niharika Leonard Reason for consultation: depression refusing medications Has provider been notified: No 10/18/20 18:29 Consult to Infectious Diseases Routine Consulting Provider: Komal Hernandez Reason for consultation: covid need rituxin on po steroids Has provider been notified: No 10/20/20 10:32 Consult to Psychiatry Routine Consulting Provider: Niharika Leonard Reason for consultation: competency evaluation Has provider been notified: No 10/23/20 16:10 Consult to Cardiology Routine Consulting Provider: Rohith Ureña Reason for consultation: afib with RVR 10/24/20 11:12 Consult to Psychiatry Routine Consulting Provider: [facility] Reason for consultation: management og agitation Discharge Sum: Diag Contributing Factors (1) Hypernatremia: (2) Anemia: (3) COVID-19: (4) RPGN (rapidly progressive glomerulonephritis): (5) FRANCHESKA (acute kidney injury): (6) Seizure disorder: (7) Metabolic encephalopathy: (8) Chronic diastolic (congestive) heart failure: (9) Paroxysmal atrial fibrillation: (10) Metabolic acidosis: Discharge Sum: Summary Date and Time Date of admission: 09/28/20 20:46 Date of : 10/26/20 Time of : 15:00 Summary Details: 80-year-old gentleman with past medical history significant forBenign prostate hypertrophy, history of prostate cancer, history of bladder cancer, history of chronic diastolic congestive heart failure Hospital with cough and epistaxis and found to have severe acute kidney injury admitted to [facility] on September 28 patient subsequently underwent renal biopsy and diagnosed to have rapidly progressive glomerulonephritis and ANCA positive and started on hemodialysis, subsequently patient pulled his dialysis catheter he was treated with steroids and Rituxan however patient continued to refuse medication, had decreased by mouth intake, noted to have fever and diagnosed to have COVID-19 infection required high-flow oxygen patient was noticed to be confused evaluated by psych and was deemed incompetent to make decision therefore healthcare proxy was invoked and case was discussed with patient's brothers Serge and Jim aguilar both healthcare proxys ,healthcare proxy recommended to proceed with hemodialysis catheter since patient did not respond to medical management a repeat dialysis catheter was placed, patient had a brief episode of nonsustained V-tach likely due to hypoxia , patient continued to be lethargic, with decreased by mouth intake therefore after discussion with healthcare proxy code status was changed to SEAMER PANTY HOSE all medications were discontinued and patient was placed on morphine for respiratory distress and Ativan for restlessness and anxiety, subsequently patient at 15:00 family notified. Cause of Cardiopulmonary arrest with COVID-19 infection Hypoxic respiratory failure Acute renal failure with rapidly progressive glomerulonephritis Acute gastrointestinal bleeding Atrial fibrillation with rapid ventricular response Seizure episode Episode of V-tach Chronic diastolic heart failure Benign prostate hypertrophy with history of prostate cancer History of bladder cancer Additional Data Attending physician: Yisel Dennis MD
[2020-10-26 15:32] VITALS: PULSE 0
--- NOTE | 2020-10-26 16:37 | PC.NURSE ---
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 PT WAS UNWARE OF HIS SURROUNDINGS. FAMILY AGREED WITH CELL OPERATION SUPERVISOR DECISION AT THIS TIME RESTRAINTS WERE REMOVED. IV ALSO REMOVED. O2 WAS TURNED OFF. PT WAS MADE COMFORTABLE. AT 1450 PT WAS FOUND TO HAVE NO PULSE, RESP OR BP. DR GIANG WAS PRESENT AND PRPNOUNCED PT FAMILY WAS NOTIFIED BY DR YANEZ..
== END 2020-10-26 18:03 | disposition expired | DRG 698 ==
LOC: HO.ED 14:24 → HO.IMC 09-29 16:46 → HO.ICU 10-09 06:39 → HO.IMC 10-09 17:49
PROVIDERS: Internal Medicine; Internal Medicine Cardiovascular Disease; Internal Medicine Nephrology; Physician Assistant; Physician Assistant Medical; Radiology Diagnostic Radiology; Student in an Organized Health Care Education/Training Program; Admitting Provider Internal Medicine; Emergency Provider Emergency Medicine; PCP Internal Medicine; Visit Provider Hospitalist
PROC: 0TB14ZX Excision of Left Kidney, Percutaneous Endoscopic Approach, Diagnostic (ICD-10-PCS; principal; 2020-10-03 10:30)
PROC: 02HV33Z Insertion of Infusion Device into Superior Vena Cava, Percutaneous Approach (ICD-10-PCS; principal; 2020-10-06 11:30)
PROC: 0JH63XZ Insertion of Tunneled Vascular Access Device into Chest Subcutaneous Tissue and Fascia, Percutaneous Approach (ICD-10-PCS; principal; 2020-10-22 13:00)
DX: N01.7 Rapidly progressive nephritic syndrome with diffuse crescentic glomerulonephritis (principal); U07.1 COVID-19; G93.41 Metabolic encephalopathy; A41.89 Other specified sepsis; J96.01 Acute respiratory failure with hypoxia; N39.0 Urinary tract infection, site not specified; E87.2 Acidosis; I50.32 Chronic diastolic (congestive) heart failure; I13.0 Hypertensive heart and chronic kidney disease with heart failure and stage 1 through stage 4 chronic kidney disease, or unspecified chronic kidney disease; K92.1 Melena; D62 Acute posthemorrhagic anemia; T82.594A Other mechanical complication of infusion catheter, initial encounter; E87.0 Hyperosmolality and hypernatremia; N13.8 Other obstructive and reflux uropathy; N17.9 Acute kidney failure, unspecified; G31.09 Other frontotemporal neurocognitive disorder; F02.80 Dementia in other diseases classified elsewhere, unspecified severity, without behavioral disturbance, psychotic disturbance, mood disturbance, and anxiety; N40.1 Benign prostatic hyperplasia with lower urinary tract symptoms; I48.0 Paroxysmal atrial fibrillation; R56.9 Unspecified convulsions; E87.5 Hyperkalemia; D63.1 Anemia in chronic kidney disease; I77.6 Arteritis, unspecified; Z85.51 Personal history of malignant neoplasm of bladder; Z87.891 Personal history of nicotine dependence; Z85.46 Personal history of malignant neoplasm of prostate; N18.9 Chronic kidney disease, unspecified; Z79.899 Other long term (current) drug therapy; Z51.5 Encounter for palliative care
CPT/HCPCS: 0241U; 36415; 36430; 36556; 36597; 36600; 50200; 51701; 70450; 71045; 71250; 74176; 76937; 77012; 78278; 78580; 80048; 80053; 80076; 81001; 81003; 81240; 82040; 82272; 82607; 82746; 82784; 82803; 82947; 83010; 83520; 83605; 83615; 83690; 83735; 83880; 83935; 83970; 84100; 84145; 84155; 84165; 84300; 84484; 85007; 85014; 85018; 85025; 85027; 85045; 85379; 85610; 86021; 86140; 86225; 86334; 86704; 86706; 86803; 86850; 86900; 86901; 86920; 86923; 87040; 87086; 87340; 87635; 88300; 88305; 88313; 88346; 88348; 88350; 90999; 93005; 93306; 94799; 96361; 96365; 96375; 97162; 97530; 99152; 99212; 99232; 99233; 99285; A9540; A9560; C1750; C1752; C1769; J0692; J0696; J0885; J1200; J2060; J2405; J2597; J2920; J2930; J9312; P9016; Q0163